=== PATIENT | female | born 1940 | race Two or more races ===

== ENCOUNTER 2017-04-04 09:46 | Emergency (ER) | payer MEDICARE, MEDICAID ==
[~2017-04-04] VITALS: Ht 162.6 cm; Wt 88.0 kg
--- NOTE | 2017-04-04 09:46 | NUR ---
BB PA FROM [facility] GTUBE REMOVAL SINCE 6AM. PT ON [facility] VENT, NAD JOEL, MD GARFIELD AT . WAITING FOR KUB
[2017-04-04 10:43] VITALS: BP 130/60
== END 2017-04-04 10:44 | disposition home or self-care (01) ==
LOC: ER 09:49
DX: Z93.1 Gastrostomy status (principal); G40.909 Epilepsy, unspecified, not intractable, without status epilepticus; E11.22 Type 2 diabetes mellitus with diabetic chronic kidney disease; I13.2 Hypertensive heart and chronic kidney disease with heart failure and with stage 5 chronic kidney disease, or end stage renal disease; I50.9 Heart failure, unspecified; N18.6 End stage renal disease; Z88.8 Allergy status to other drugs, medicaments and biological substances
CPT/HCPCS: 74000-TC; A4606; Q9963; Z7610

== ENCOUNTER 2017-04-04 20:38 | Emergency (ER) | payer MEDICARE, BC ==
[~2017-04-04] VITALS: Ht 175.3 cm; Wt 81.6 kg
--- NOTE | 2017-04-04 22:50 | NUR ---
TO BED 1 [facility] PRIVATE [facility]BULANCE C/O LEAKING G-TUBE PER EMT TRANSPORT REPORT. UPON ASSESSMENT NOTED THAT THE FLANGE OF THE G-TUBE WAS NOT PUSHED AGAINST THE PT SKIN. ER MD AT BEDSIDE TO EVAL PT WITH ORDERS RECEIVED. FLANGE PUSHED INTO AGAINST PT SKIN LOOSELY, VERIFIED VIA G-TUBE FLUSH WITH NO LEAKING NOTED.
--- NOTE | 2017-04-04 22:58 | NUR ---
FRANSISCO VU SPOKE TO [place] [facility] STAFF REGARDING DISCHARGE.
--- NOTE | 2017-04-04 23:00 | NUR ---
FRANSISCO VU SPOKE TO DR. KOCH REGARDING PT.
[2017-04-04 23:08] VITALS: BP 146/67
--- NOTE | 2017-04-04 23:08 | NUR ---
TRANSPORT AT BEDSIDE REPORT GIVEN TO EMT.
== END 2017-04-04 23:11 | disposition home or self-care (01) ==
LOC: ER 20:40
DX: K94.23 Gastrostomy malfunction (principal); E11.22 Type 2 diabetes mellitus with diabetic chronic kidney disease; G40.909 Epilepsy, unspecified, not intractable, without status epilepticus; I13.2 Hypertensive heart and chronic kidney disease with heart failure and with stage 5 chronic kidney disease, or end stage renal disease; I50.9 Heart failure, unspecified; N18.6 End stage renal disease; Z46.59 Encounter for fitting and adjustment of other gastrointestinal appliance and device; Z88.8 Allergy status to other drugs, medicaments and biological substances
CPT/HCPCS: 99284; A4606; Z7610

== ENCOUNTER 2017-06-08 11:45 | Inpatient (IN) | payer MEDICARE, MEDICAID ==
[~2017-06-08] VITALS: Ht 162.6 cm; Wt 86.2 kg
--- NOTE | 2017-06-08 12:02 | NUR ---
GABRIELLE FROM [facility] DT EPISODE OF SOB THIS AM, PATIENT IS AWAKE, NOTED VENT DEPENDENT, SATING 98% AT THIS TIME,. PATIENT APPEARS IN NO APPARENT DISTRESS. VSS
[2017-06-08 12:33] LABS: ABG BASE EXCESS 0.5 mmol/L; ABG OXYGEN SATURATION 93.5 % (92.0-98.5); ABG PCO2 41.8 mmHg (35.0-45.0); ABG PH 7.401 (7.350-7.450); ABG PO2 67.1 mmHg (75.0-100.0); AaDO2 97.7 mmHg; COHb 0.7 % (0.5-1.5); MetHb 0.4 % (0.0-1.5); O2Hb 92.5 % (94.0-97.0); PEEP,BG 5 cm H2O; SITE, ABG Right Radial; VT, ABG 500 mL
[2017-06-08 12:36] LABS: BASOPHILS # (AUTO) 0.7 /CMM (0.0-0.2); BASOPHILS % (AUTO) 4.6 % (0.0-2.0); EOSINOPHILS % (AUTO) 0.3 % (0.0-6.0); HEMATOCRIT 36 % (33-45); HEMOGLOBIN 11.7 g/dL (11.5-14.8); LYMPHOCYTES # (AUTO) 0.5 /CMM (0.8-4.8); LYMPHOCYTES % (AUTO) 3.2 % (20.0-44.0); MEAN CORPUSCULAR HEMOGLOBIN 30 PG (26.0-33.0); MEAN CORPUSCULAR HGB CONC 33 g/dl (31.0-36.0); MEAN CORPUSCULAR VOLUME 93 fL (82-100); MONOCYTES # (AUTO) 0.9 /CMM (0.1-1.30); NEUTROPHILS # (AUTO) 12.5 /CMM (1.8-8.9); NEUTROPHILS % (AUTO) 85.9 % (43.0-81.0); PLATELET COUNT (AUTO) 249 /CMM (150-450); RDW COEFFICIENT OF VARIATION 16.8 (11.5-15.0); WHITE BLOOD COUNT (AUTO) 14.6 K/uL (4.3-11.0)
[2017-06-08 12:41] LABS: CALCIUM, SERUM 9.6 mg/dL (8.5-10.1); CARBON DIOXIDE 27 mmol/L (21-32); CHLORIDE 99 mmol/L (98-107); CREATININE 2.7 mg/dL (0.6-1.3); GLUCOSE 256 mg/dL (74-106); POTASSIUM 2.9 mmol/L (3.5-5.1); SODIUM SERUM 135 mmol/L (136-145); UREA NITROGEN, BLOOD 35 mg/dL (7-18)
[2017-06-08 12:44] LABS: INR 0.97 (0.87-1.13); PROTHROMBIN TIME 10.1 SECS (9.5-12.7)
[2017-06-08 12:53] LABS: B-TYPE NATRIURETIC PEPTIDE 22599 PG/ML (0-125)
--- NOTE | 2017-06-08 13:00 | NUR ---
PAGED 'S GROUP, FACE BURLER, PAGED TO CALL BACK
--- NOTE | 2017-06-08 13:34 | NUR ---
TELE 108
--- NOTE | 2017-06-08 14:27 | NUR ---
REPORT GIVEN TO YENNY COOLEY
--- NOTE | 2017-06-08 15:33 | NUR ---
PATIENT TRANSPORTED TO TELE1. S
[2017-06-08 16:00] VITALS: BP_SYST 110; BP_SYST 124; BP_DIAS 44; BP_DIAS 86
--- NOTE | 2017-06-08 16:00 | NUR ---
RN SAEED RECEIVED PATIENT FROM ER ON MECHANICAL VENTILATORY SUPPORT SATURATING 98% ALERT /ORIENTED X 2-3 AFEBRILE BLOOD PRESSURE WNL NO COMPLAINTS OF PAIN CALLED UP DR. HOPKINS FOR ORDERS MONITORED CLOSELY
[2017-06-08] MEDS ORDERED: DEXTROSE 50%-WATER 50 ML DISP.SYRIN IV PRN (17:00)
[2017-06-08] MEDS ORDERED: ACETAMINOPHEN 325 MG TABLET PO PRN (17:00)
[2017-06-08] MEDS ORDERED: ALBUTEROL FS 2.5 MG/0.5 ML VIAL.NEB NEB PRN (17:00)
[2017-06-08] MEDS ORDERED: ONDANSETRON HCL/PF 4 MG/2 ML VIAL IV PRN (17:00)
[2017-06-08] MEDS ORDERED: MINOXIDIL (2.5MG) 2.5 MG TABLET PO PRN (17:00)
[2017-06-08] MEDS ORDERED: risperiDONE 1 MG TABLET PO PRN (17:00)
--- NOTE | 2017-06-08 17:00 | NUR ---
RN SAEED ON DIALYSIS, MONITORED CLOSELY
[2017-06-08] MEDS ORDERED: FIBERSOURCE HN 1,000 ML BOTTLE GT PRN (17:30)
[2017-06-08] MEDS ORDERED: RENAL NOVASOURCE 1,000 ML BOTTLE GT PRN (17:30)
[2017-06-08] MEDS: INSULIN REGULAR, HUMAN 100 UNIT/ML 3 ML VIAL SQ PRN (17:46)
[2017-06-08] MEDS: BLOOD SUGAR DIAGNOSTIC 1 EACH STRIP IN SCH (17:50)
[2017-06-08] MEDS ORDERED: BUDESONIDE RESPULE INH 0.25 MG/2 ML AMPUL.NEB NEB SCH (19:30)
[2017-06-08] MEDS: BUDESONIDE RESPULE INH 0.5 MG/2 ML AMPUL.NEB NEB SCH (19:44)
[2017-06-08 20:00] VITALS: BP 130/38
[2017-06-08] MEDS: LEVETIRACETAM SOL (5 ML) 100 MG/ML UDC PO SCH (21:43)
[2017-06-08] MEDS: Z GUARD REMEDY 2 OZ OINT TP SCH ×2 (21:44→21:50)
[2017-06-09] VITALS: BP 127/63
[2017-06-09] MEDS: BLOOD SUGAR DIAGNOSTIC 1 EACH STRIP IN SCH ×5 (01:01→23:57)
[2017-06-09] MEDS: INSULIN REGULAR, HUMAN 100 UNIT/ML 3 ML VIAL SQ PRN ×4 (01:06→17:52)
[2017-06-09 04:00] VITALS: BP 186/85
[2017-06-09] MEDS: hydrALAZINE HCL 50 MG TABLET PO PRN (05:20)
--- NOTE | 2017-06-09 07:15 | NUR ---
RN OPENING NOTE RECVD REPORT FROM NAMAN RN. AAO2. HOB ELEVATED. VENT TRACH. TELE SR PVCS. NOVASOURCE GT 40ML HR. RH 20G SL. RUC SUBCLAVIAN HD ACCESS. TROP 0.135 BNP 22,599. BLD CULT PDG. URINE CULT SENT THIS AM BY NAMAN RN PDG RESULTS. BED IN LOW LOCK POSITION. SIDE RAILS X 2. CALL LIGHT IN REACH. WILL CONT TO ETTA CLOSELY.
[2017-06-09 07:46] LABS: BASOPHILS % (AUTO) 0.4 % (0.0-2.0); EOSINOPHILS # (AUTO) 0.5 /CMM (0.0-0.7); EOSINOPHILS % (AUTO) 5.3 % (0.0-6.0); HEMATOCRIT 38 % (33-45); HEMOGLOBIN 12.1 g/dL (11.5-14.8); LYMPHOCYTES % (AUTO) 9.6 % (20.0-44.0); MEAN CORPUSCULAR HEMOGLOBIN 30 PG (26.0-33.0); MEAN CORPUSCULAR HGB CONC 32 g/dl (31.0-36.0); MEAN CORPUSCULAR VOLUME 94 fL (82-100); MONOCYTES # (AUTO) 0.8 /CMM (0.1-1.30); MONOCYTES % (AUTO) 8.1 % (2.0-12.0); NEUTROPHILS # (AUTO) 7.7 /CMM (1.8-8.9); NEUTROPHILS % (AUTO) 76.6 % (43.0-81.0); PLATELET COUNT (AUTO) 216 /CMM (150-450); RDW COEFFICIENT OF VARIATION 18.2 (11.5-15.0); RED BLOOD CELL COUNT(AUTO) 4.04 MIL/uL (4.0-5.2); WHITE BLOOD COUNT (AUTO) 10.1 K/uL (4.3-11.0)
[2017-06-09 07:59] LABS: CHOLESTEROL 127 mg/dL (<200); HDL CHOLESTEROL 50 mg/dL (40-60); LDL 62 mg/dL (0-99); TRIGLYCERIDES 135 mg/dL (30-150)
[2017-06-09 08:00] VITALS: BP 161/49
[2017-06-09 08:02] LABS: ALANINE AMINOTRANSFERASE 17 U/L (12-78); ALBUMIN 3.5 g/dL (3.4-5.0); ALKALINE PHOSPHATASE 87 U/L (46-116); ASPARTATE AMINOTRANSFERASE 15 U/L (15-37); CALCIUM, SERUM 9.3 mg/dL (8.5-10.1); CARBON DIOXIDE 29 mmol/L (21-32); CHLORIDE 98 mmol/L (98-107); CREATININE 2.7 mg/dL (0.6-1.3); GLUCOSE 177 mg/dL (74-106); POTASSIUM 3.1 mmol/L (3.5-5.1); SODIUM SERUM 137 mmol/L (136-145); TOTAL PROTEIN, SERUM 7.4 g/dL (6.4-8.2); UREA NITROGEN, BLOOD 30 mg/dL (7-18)
[2017-06-09] MEDS: BUDESONIDE RESPULE INH 0.5 MG/2 ML AMPUL.NEB NEB SCH ×2 (08:32→19:44)
[2017-06-09] MEDS: AMLODIPINE BESYLATE 10 MG TABLET PO SCH (08:45)
[2017-06-09] MEDS: LEVETIRACETAM SOL (5 ML) 100 MG/ML UDC PO SCH ×2 (08:45→21:00)
[2017-06-09] MEDS: Z GUARD REMEDY 2 OZ OINT TP SCH ×2 (08:45→21:56)
[2017-06-09] MEDS: VIT B CMPLX 3/FA/VIT C/BIOTIN 1 TAB TABLET PO SCH (08:45)
[2017-06-09] MEDS: LEVOTHYROXINE SODIUM 125 MCG TABLET PO SCH (08:49)
[2017-06-09 11:28] LABS: ABG BASE EXCESS 4.7 mmol/L; ABG OXYGEN SATURATION 97.3 % (92.0-98.5); ABG PCO2 41.7 mmHg (35.0-45.0); ABG PH 7.459 (7.350-7.450); ABG PO2 94.4 mmHg (75.0-100.0); AaDO2 142.8 mmHg; COHb 0.6 % (0.5-1.5); MetHb 0.5 % (0.0-1.5); O2Hb 96.2 % (94.0-97.0); PEEP,BG 5 cm H2O; SITE, ABG Right Radial; VT, ABG 500 mL
[2017-06-09] MEDS ORDERED: POTASSIUM CHLORIDE 20 MEQ TAB.PRT.SR PO ONE (11:30)
[2017-06-09 12:00] VITALS: BP 145/71
--- NOTE | 2017-06-09 15:31 | NUR ---
HANDOFF REPORT TO ALFONSO RAMON.
[2017-06-09 16:00] VITALS: BP 142/47
--- NOTE | 2017-06-09 16:00 | NUR ---
Report received from Shola RAMON, and now assuming pt's care, pt is awake alert x3, on a vent, incontinent of B/B, Gt in place novasource renal at 40 ml/h, reposition for comfort.
--- NOTE | 2017-06-09 18:55 | NUR ---
End RN notes: pt in bed repositioned for comfort, on vent no changes in setting, gt feeding at continues feeding 40 ml/h, no distress.
--- NOTE | 2017-06-09 19:30 | NUR ---
RN/TELE NOTES: RECEIVED PT. IN BED. NO FACIAL GRIMACES OR MOANING NOTED. AAO2. ON TELE MONITOR SR W/ PVC'S. HOB ELEVATED. VENT SETTING TOLERATED WELL. NOVASOURCE GT 40ML HR. NO RESIDUAL NOTED. RH 20G SL. RUC SUBCLAVIAN HD ACCESS. NOT IN ANY RESPIRATORY DISTRESS NOTED. BED IN LOW LOCK POSITION. SIDE RAILS X 2. CALL LIGHT IN REACH. WILL CONT TO ETTA CLOSELY.
[2017-06-09 20:00] VITALS: BP 133/63
[2017-06-10] VITALS: BP 150/61
[2017-06-10 04:00] VITALS: BP_SYST 151; BP_SYST 160; BP_DIAS 57; BP_DIAS 58
[2017-06-10] MEDS: BLOOD SUGAR DIAGNOSTIC 1 EACH STRIP IN SCH ×4 (05:30→23:39)
[2017-06-10] MEDS: INSULIN REGULAR, HUMAN 100 UNIT/ML 3 ML VIAL SQ PRN ×5 (05:35→23:42)
[2017-06-10 06:44] LABS: BASOPHILS % (AUTO) 0.2 % (0.0-2.0); EOSINOPHILS # (AUTO) 1.2 /CMM (0.0-0.7); EOSINOPHILS % (AUTO) 11.8 % (0.0-6.0); HEMATOCRIT 35 % (33-45); HEMOGLOBIN 11.3 g/dL (11.5-14.8); LYMPHOCYTES # (AUTO) 1.2 /CMM (0.8-4.8); LYMPHOCYTES % (AUTO) 11.4 % (20.0-44.0); MEAN CORPUSCULAR HEMOGLOBIN 30 PG (26.0-33.0); MEAN CORPUSCULAR HGB CONC 32 g/dl (31.0-36.0); MEAN CORPUSCULAR VOLUME 94 fL (82-100); MONOCYTES # (AUTO) 0.9 /CMM (0.1-1.30); MONOCYTES % (AUTO) 8.7 % (2.0-12.0); NEUTROPHILS % (AUTO) 67.9 % (43.0-81.0); PLATELET COUNT (AUTO) 212 /CMM (150-450); RDW COEFFICIENT OF VARIATION 18.1 (11.5-15.0); RED BLOOD CELL COUNT(AUTO) 3.76 MIL/uL (4.0-5.2); WHITE BLOOD COUNT (AUTO) 10.3 K/uL (4.3-11.0)
[2017-06-10 06:58] LABS: CALCIUM, SERUM 9.3 mg/dL (8.5-10.1); CARBON DIOXIDE 30 mmol/L (21-32); CHLORIDE 99 mmol/L (98-107); CREATININE 3.5 mg/dL (0.6-1.3); GLUCOSE 185 mg/dL (74-106); MAGNESIUM 2.5 mg/dL (1.8-2.4); PHOSPHORUS 2.9 mg/dL (2.5-4.9); POTASSIUM 3.2 mmol/L (3.5-5.1); SODIUM SERUM 136 mmol/L (136-145); UREA NITROGEN, BLOOD 46 mg/dL (7-18)
--- NOTE | 2017-06-10 07:37 | NUR ---
RN/TELE NURSE: PT. IN BED RESTING. HD GOING ON RIGHT NOW. REPORT GIVEN TO NEXT SHIFT NURSE FOR ROLANDO.
[2017-06-10] MEDS: BUDESONIDE RESPULE INH 0.5 MG/2 ML AMPUL.NEB NEB SCH ×2 (07:48→19:46)
[2017-06-10 08:00] VITALS: BP 148/50
--- NOTE | 2017-06-10 08:00 | NUR ---
TELE1/RN AM SHIFT INITIAL NOTES RECEIVED AT ASLEEP IN BED, AROUSEABLE, PT A/O X 3, PT DENIES ANY SYMPTOMS. SHE IS BEING DIALYZED AT THIS TIME. NO ACUTE CHANGE OF CONDITION. ON VENTILATOR SUPPORT, RATES SET PRESCRIBED, LUNG SOUNDS CLEAR, SATURATING @ 100%, ON TELE MONITORING, WITH SINUS RHYTHM, FIRST DEGREE AV BLOCK WITH FREQUENT PVCs & PACs. IV SITE PATENT WITH NO S/S OF INFECTION. GTF ON GOING @ 40CC/HR, NO GASTRIC RESIDUAL, FLUSHED PATENT. DVT SLEEVE IN PLACED, PUMP ON. PT IS COMFORTABLE AT THIS TIME. SCHEDULED AM MEDS TO BE GIVEN. CL WITHIN REACHED AND SAFETY MAINTAINED. ON GOING MONITORING.
--- NOTE | 2017-06-10 08:14 | NUR ---
WOUND CARE CONSULT: PT NOT SEEN YET FOR SKIN ASSESSMENT DUE TO PT ON DIALYSIS AT THIS TIME. PER NURSING DOCUMENTATION THERE IS SACRAL ULCER, AT LEAST PARTIAL THICKNESS, PRESENT ON ADMISSION. RECOMMENDATIONS MADE BASED ON NURSING DOCUMENTATION. PT ON FIRST STEP MATTRESS. ALL SKIN PROTECTION MEASURES IN PLACE AND DISCUSSED WITH NURSING STAFF. WILL SEE PRBee VU IN AGREEMENT WITH PLAN OF CARE.
[2017-06-10] MEDS ORDERED: HYDROGEL DRESSING 90 GM TUBE TP PRN (08:30)
[2017-06-10] MEDS: LEVETIRACETAM SOL (5 ML) 100 MG/ML UDC PO SCH ×2 (09:43→21:36)
[2017-06-10] MEDS: VIT B CMPLX 3/FA/VIT C/BIOTIN 1 TAB TABLET PO SCH (09:43)
[2017-06-10] MEDS: LEVOTHYROXINE SODIUM 125 MCG TABLET PO SCH (09:43)
[2017-06-10] MEDS: HYDROGEL DRESSING 90 GM TUBE TP SCH (09:44)
[2017-06-10] MEDS: Z GUARD REMEDY 2 OZ OINT TP SCH ×2 (09:44→21:37)
[2017-06-10] MEDS: AMLODIPINE BESYLATE 10 MG TABLET PO SCH (09:44)
[2017-06-10] MEDS ORDERED: RENAL NOVASOURCE 1,000 ML BOTTLE GT PRN (10:30)
[2017-06-10 12:00] VITALS: BP 176/48
--- NOTE | 2017-06-10 12:33 | NUR ---
WOUND CARE CONSULT: PT PRESENTS WITH STAGE 2 ULCER TO SACRUM, PRESENT ON ADMISSION. RECOMMENDATIONS MADE FOR SKIN PROTECTION AND WOUND CARE. DISCUSSED WITH NURSING STAFF. PT ON FIRST STEP MATTRESS. ALL SKIN PROTECTION MEASURES IN PLACE. WILL SEE PRBee VU IN AGREEMENT WITH PLAN OF CARE.
--- NOTE | 2017-06-10 13:04 | NUR ---
TELE1/RN ROUNDS - DR. TURCIOS PT SEEN & EXAMINED BY DR. TURCIOS. NO NEW ORDERS RECEIVED. MONITORING CONTINUED.
[2017-06-10 16:00] VITALS: BP 151/57
--- NOTE | 2017-06-10 16:02 | NUR ---
RT NOTE PT RECEIVED ON MECHANICAL VENT WITH NOTED SETTINGS, NO RESPIRATORY DISTRESS NOTED, TX GIVEN ORDERED NO ADVERSE REACTION NOTED, AMBUBAG AT BEDSIDE, VENT PLUGGED INTO RED OUTLET, DISCONNECT ALARM VERIFIED AND AUDIBLE SXD MODERATE AMOUNT OF THICK PALE YELLOW SECRETIONS, PT STABLE AT THIS TIME. Addendum: 06/10/17 at 1603 by GORDO ELIZABETH RT Amended: Links added.
--- NOTE | 2017-06-10 17:00 | NUR ---
TELE1/RN AFTERNOON ROUNDS PM CARE PROVIDED, SUCTIONED AND REPOSITIONED. NO CHANGE OF CONDITION. MONITORING CONTINUED.
[2017-06-10] MEDS: PROSOURCE / PROSTAT (PYXIS) 30 ML UDC GT SCH (17:59)
--- NOTE | 2017-06-10 19:30 | NUR ---
TELE1/RN AM SHIFT END NOTES ALL NEEDS MET. NO ACUTE CHANGE OF CONDITION NOTED DURING THE SHIFT. PT ENDORSED TO PM NURSE TO CONTINUE CARE. CL WITHIN REACHED AND SAFETY MAINTAINED.
--- NOTE | 2017-06-10 19:30 | NUR ---
RN/TELE NOTES: RECEIVED PT. IN BED. NO FACIAL GRIMACES OR MOANING NOTED. AAO2. ON TELE MONITOR SR 78 W/ PVC'S. HOB ELEVATED. VENT SETTING TOLERATED WELL. NOVASOURCE GT 40ML HR. NO RESIDUAL NOTED. RH 20G SL. RUC SUBCLAVIAN HD ACCESS. NOT IN ANY RESPIRATORY DISTRESS NOTED. BED IN LOW LOCK POSITION. SIDE RAILS X 2. CALL LIGHT IN REACH. WILL CONT TO MOISAEIDOR CLOSELY.
[2017-06-10 20:00] VITALS: BP 137/65
[2017-06-11] VITALS: BP 165/82
[2017-06-11 04:00] VITALS: BP_SYST 144; BP_SYST 148; BP_DIAS 61; BP_DIAS 70
[2017-06-11] MEDS: INSULIN REGULAR, HUMAN 100 UNIT/ML 3 ML VIAL SQ PRN ×2 (05:13→12:19)
[2017-06-11] MEDS: BLOOD SUGAR DIAGNOSTIC 1 EACH STRIP IN SCH ×3 (05:25→18:16)
--- NOTE | 2017-06-11 07:33 | NUR ---
RN/TELE NOTES: PT. REMAINS UNCHANGED. ON VENT/GTF TOLERATED WELL. COMPLETE BED BATH GIVEN. REPORT GIVEN TO NEXT SHIFT NURSE FOR CONTINUE OF CARE.
[2017-06-11 08:00] VITALS: BP 182/49
--- NOTE | 2017-06-11 08:00 | NUR ---
TELE1/RN AM SHIFT INITIAL NOTES RECEIVED PT AWAKE IN BED, PT A/O X 3, ABLE TO MOUTH WORDS, PT DENIES ANY SYMPTOMS. NO ACUTE CHANGE OF CONDITION NOTED. ON VENTILATOR SUPPORT, RATES SET PRESCRIBED, LUNG SOUNDS CLEAR, SATURATING @ 100%, ON TELE MONITORING, WITH SINUS RHYTHM, FIRST DEGREE AV BLOCK WITH FREQUENT PVCs & PACs, HR 61. IV SITE, FLUSHED, PATENT WITH NO S/S OF INFECTION. GTF ON GOING @ 30CC/HR, NO GASTRIC RESIDUAL, FLUSHED PATENT. DVT SLEEVE IN PLACED, PUMP ON. PT IS COMFORTABLE AT THIS TIME. SCHEDULED AM MEDS TO BE GIVEN. CL WITHIN REACHED AND SAFETY MAINTAINED. ON GOING MONITORING.
[2017-06-11] MEDS: VIT B CMPLX 3/FA/VIT C/BIOTIN 1 TAB TABLET PO SCH (08:52)
[2017-06-11] MEDS: LEVOTHYROXINE SODIUM 125 MCG TABLET PO SCH (08:52)
[2017-06-11] MEDS: PROSOURCE / PROSTAT (PYXIS) 30 ML UDC GT SCH ×2 (08:52→16:36)
[2017-06-11] MEDS: LEVETIRACETAM SOL (5 ML) 100 MG/ML UDC PO SCH ×2 (08:52→20:45)
[2017-06-11] MEDS: Z GUARD REMEDY 2 OZ OINT TP SCH ×2 (08:53→20:45)
[2017-06-11] MEDS: HYDROGEL DRESSING 90 GM TUBE TP SCH (08:53)
[2017-06-11] MEDS: AMLODIPINE BESYLATE 10 MG TABLET PO SCH (08:53)
[2017-06-11] MEDS: BUDESONIDE RESPULE INH 0.5 MG/2 ML AMPUL.NEB NEB SCH ×2 (11:00→20:10)
[2017-06-11 12:00] VITALS: BP 175/53
--- NOTE | 2017-06-11 12:00 | NUR ---
TELE1/RN NOON ROUNDS SUCTIONED AND REPOSITIONED. NO CHANGE OF CONDITION.
[2017-06-11 16:00] VITALS: BP 144/61
--- NOTE | 2017-06-11 17:33 | NUR ---
TELE1/RN AFTERNOON ROUNDS PM CARE PROVIDED, SUCTIONED AND REPOSITIONED. NO CHANGE OF CONDITION. MONITORING CONTINUED.
--- NOTE | 2017-06-11 19:30 | NUR ---
RN/TELE NOTES: RECEIVED PT. IN BED. NO FACIAL GRIMACES OR MOANING NOTED. AAO2. ON TELE MONITOR SB W/ 1 DEGREE AV BLOCK. HOB ELEVATED. VENT SETTING TOLERATED WELL. NOVASOURCE GT 30ML HR. NO RESIDUAL NOTED. RH 20G SL. RUC SUBCLAVIAN HD ACCESS. NOT IN ANY RESPIRATORY DISTRESS NOTED. BED IN LOW LOCK POSITION. SIDE RAILS X 2. CALL LIGHT IN REACH. WILL CONT TO MONITOR CLOSELY.
[2017-06-11 20:00] VITALS: BP 185/79
[2017-06-11] MEDS: hydrALAZINE HCL 50 MG TABLET PO PRN (21:54)
[2017-06-12] VITALS (7 sets, daily range): BP systolic 155–189; BP diastolic 48–72
[2017-06-12] MEDS: BLOOD SUGAR DIAGNOSTIC 1 EACH STRIP IN SCH ×4 (00:10→17:16)
[2017-06-12] MEDS: INSULIN REGULAR, HUMAN 100 UNIT/ML 3 ML VIAL SQ PRN ×4 (00:14→17:54)
[2017-06-12 06:39] LABS: BASOPHILS % (AUTO) 0.4 % (0.0-2.0); EOSINOPHILS # (AUTO) 1.2 /CMM (0.0-0.7); EOSINOPHILS % (AUTO) 10.5 % (0.0-6.0); HEMATOCRIT 38 % (33-45); HEMOGLOBIN 12.1 g/dL (11.5-14.8); LYMPHOCYTES # (AUTO) 1.1 /CMM (0.8-4.8); LYMPHOCYTES % (AUTO) 10.3 % (20.0-44.0); MEAN CORPUSCULAR HEMOGLOBIN 30 PG (26.0-33.0); MEAN CORPUSCULAR HGB CONC 32 g/dl (31.0-36.0); MEAN CORPUSCULAR VOLUME 94 fL (82-100); MONOCYTES # (AUTO) 0.9 /CMM (0.1-1.30); MONOCYTES % (AUTO) 8.1 % (2.0-12.0); NEUTROPHILS # (AUTO) 7.8 /CMM (1.8-8.9); NEUTROPHILS % (AUTO) 70.7 % (43.0-81.0); PLATELET COUNT (AUTO) 223 /CMM (150-450); RDW COEFFICIENT OF VARIATION 18.2 (11.5-15.0); RED BLOOD CELL COUNT(AUTO) 3.99 MIL/uL (4.0-5.2)
[2017-06-12] MEDS: BUDESONIDE RESPULE INH 0.5 MG/2 ML AMPUL.NEB NEB SCH ×2 (07:08→19:22)
[2017-06-12 07:14] LABS: CALCIUM, SERUM 9.6 mg/dL (8.5-10.1); CARBON DIOXIDE 31 mmol/L (21-32); CHLORIDE 100 mmol/L (98-107); CREATININE 3.8 mg/dL (0.6-1.3); GLUCOSE 157 mg/dL (74-106); MAGNESIUM 2.5 mg/dL (1.8-2.4); PHOSPHORUS 3.4 mg/dL (2.5-4.9); POTASSIUM 3.3 mmol/L (3.5-5.1); SODIUM SERUM 140 mmol/L (136-145); UREA NITROGEN, BLOOD 68 mg/dL (7-18)
--- NOTE | 2017-06-12 07:58 | NUR ---
TELE/RN OPENING NOTE PATIENT RECEIVED IN BED IN STABLE CONDITION. A/O X 3. NO SIGNS OF ACUTE DISTRESS. NO COMPLAIN OF PAIN OR DISCOMFORT. TRACH AND VENT DEPENDENT TOLERATING WELL. ON TELE MONITOR WITH SINUS BRADYCARDIA IN HIGH 50's. ALL NEEDS ATTENDED TO AT THIS TIME. CALL LIGHT WITHIN REACH. WILL CONTINUE TO MONITOR TO ENSURE SAFETY.
[2017-06-12] MEDS: LEVOTHYROXINE SODIUM 125 MCG TABLET PO SCH (08:54)
[2017-06-12] MEDS: LEVETIRACETAM SOL (5 ML) 100 MG/ML UDC PO SCH ×2 (08:54→21:53)
[2017-06-12] MEDS: VIT B CMPLX 3/FA/VIT C/BIOTIN 1 TAB TABLET PO SCH (08:54)
[2017-06-12] MEDS: PROSOURCE / PROSTAT (PYXIS) 30 ML UDC GT SCH ×2 (08:55→17:16)
[2017-06-12] MEDS: Z GUARD REMEDY 2 OZ OINT TP SCH ×2 (08:55→21:54)
[2017-06-12] MEDS: HYDROGEL DRESSING 90 GM TUBE TP SCH (08:55)
[2017-06-12] MEDS: AMLODIPINE BESYLATE 10 MG TABLET PO SCH (08:56)
--- NOTE | 2017-06-12 08:56 | NUR ---
TELE/RN BELLA HELD PATIENT NOTED WITH ELEVATED BP OF 189/68, CURRENTLY HAVING HEMODIALYSIS. THEREFORE HELD BELLA, HD NURSE AWARE.
[2017-06-12] MEDS: hydrALAZINE HCL 50 MG TABLET PO PRN (10:59)
--- NOTE | 2017-06-12 18:46 | NUR ---
TELE/RN CLOSING NOTE PATIENT IN BED IN STABLE CONDITION. A/O X 1-2. NO SIGNS OF ACUTE DISTRESS. NO COMPLAIN OR PAIN OR DISCOMFORT. ON TRACH AND VENT DEPENDENT. TOLERATING WELL. ON GTUBE FEEDING NOVASOURCE AT 30ML/HR. TOLERATING WELL. ALL NEEDS ATTENDED TO. CALL LIGHT WITHIN REACH. WILL ENDORSE TO NEXT SHIFT FOR CONTINUITY OF CARE.
[2017-06-12] MEDS ORDERED: PERMETHRIN 5% CRM 60 GM TUBE TP ONE (21:30)
--- NOTE | 2017-06-12 21:30 | NUR ---
RN/TELE NOTES: LAURA PEREIRA MAINTENANCE OPERATOR ID CAME AND EXAMINED PT. W/ NEW ORDERS FOR ELIMITE CREAM. PT. TRANSFERED TO ROOM # 102.
[2017-06-13] VITALS: BP 160/77
[2017-06-13] MEDS: BLOOD SUGAR DIAGNOSTIC 1 EACH STRIP IN SCH ×3 (00:17→12:19)
[2017-06-13] MEDS: INSULIN REGULAR, HUMAN 100 UNIT/ML 3 ML VIAL SQ PRN ×2 (00:20→12:14)
[2017-06-13] MEDS ORDERED: PERMETHRIN 5% CRM 60 GM TUBE TP ONE (00:36)
[2017-06-13] MEDS: hydrALAZINE HCL 50 MG TABLET PO PRN (05:50)
[2017-06-13 06:00] VITALS: BP 180/74
--- NOTE | 2017-06-13 06:55 | NUR ---
RN/TELE NOTES: BP 180/74 PRN HYDRALAZINE GIVEN AT 6 A.M. BP RECHECKED AT 6:50 AM 112/53 HR 54. REPORT GIVEN TO NEXT SHIFT NURSE FOR CONTINUE OF CARE.
[2017-06-13 07:03] LABS: BASOPHILS % (AUTO) 0.4 % (0.0-2.0); EOSINOPHILS # (AUTO) 1.1 /CMM (0.0-0.7); EOSINOPHILS % (AUTO) 11.8 % (0.0-6.0); HEMATOCRIT 39 % (33-45); HEMOGLOBIN 12.4 g/dL (11.5-14.8); LYMPHOCYTES # (AUTO) 1.3 /CMM (0.8-4.8); LYMPHOCYTES % (AUTO) 14.2 % (20.0-44.0); MEAN CORPUSCULAR HEMOGLOBIN 30 PG (26.0-33.0); MEAN CORPUSCULAR HGB CONC 32 g/dl (31.0-36.0); MEAN CORPUSCULAR VOLUME 94 fL (82-100); MONOCYTES # (AUTO) 0.9 /CMM (0.1-1.30); MONOCYTES % (AUTO) 9.3 % (2.0-12.0); NEUTROPHILS # (AUTO) 6.1 /CMM (1.8-8.9); NEUTROPHILS % (AUTO) 64.3 % (43.0-81.0); PLATELET COUNT (AUTO) 206 /CMM (150-450); RDW COEFFICIENT OF VARIATION 17.5 (11.5-15.0); RED BLOOD CELL COUNT(AUTO) 4.12 MIL/uL (4.0-5.2); WHITE BLOOD COUNT (AUTO) 9.4 K/uL (4.3-11.0)
--- NOTE | 2017-06-13 07:05 | NUR ---
RN NOTES: RECEIVED PT. ON BED, NON VERBAL , VENT/ TRACH DEPENDENT , TRACH CARE DONE, TOLERATING CURRENT VENT SETTING WELL, ON TELE SB HR 54, NOVASOURCE AT 30 CC/HR RUNNING VIA GT , NO RESIDUAL NOTED, R H IV 20G AND R UPPER CHEST HD CATH SITES CDI, BED LOCKED AND IN LOWEST POSITION , SR UP x3, CALL LIGHT WITHIN EASY REACH, WILL CONT TO MONITOR CLOSELY.
[2017-06-13] MEDS ORDERED: IVERMECTIN 3 MG TABLET PO ONE (07:11)
[2017-06-13 07:22] LABS: CALCIUM, SERUM 9.6 mg/dL (8.5-10.1); CARBON DIOXIDE 32 mmol/L (21-32); CHLORIDE 101 mmol/L (98-107); CREATININE 3.5 mg/dL (0.6-1.3); GLUCOSE 136 mg/dL (74-106); MAGNESIUM 2.5 mg/dL (1.8-2.4); PHOSPHORUS 3.9 mg/dL (2.5-4.9); POTASSIUM 3.4 mmol/L (3.5-5.1); SODIUM SERUM 141 mmol/L (136-145); UREA NITROGEN, BLOOD 64 mg/dL (7-18)
[2017-06-13] MEDS: BUDESONIDE RESPULE INH 0.5 MG/2 ML AMPUL.NEB NEB SCH (07:30)
[2017-06-13 08:00] VITALS: BP 149/54
[2017-06-13] MEDS: LEVETIRACETAM SOL (5 ML) 100 MG/ML UDC PO SCH (08:30)
[2017-06-13] MEDS: LEVOTHYROXINE SODIUM 125 MCG TABLET PO SCH (08:31)
[2017-06-13] MEDS: AMLODIPINE BESYLATE 10 MG TABLET PO SCH (08:31)
[2017-06-13] MEDS: VIT B CMPLX 3/FA/VIT C/BIOTIN 1 TAB TABLET PO SCH (08:31)
[2017-06-13] MEDS: Z GUARD REMEDY 2 OZ OINT TP SCH (08:32)
[2017-06-13] MEDS: HYDROGEL DRESSING 90 GM TUBE TP SCH (08:33)
[2017-06-13] MEDS: PROSOURCE / PROSTAT (PYXIS) 30 ML UDC GT SCH ×2 (08:34→17:03)
[2017-06-13 09:27] LABS: BAND % (MANUAL) 1 % (0.0-5.0); EOSINOPHILS % (MANUAL) 16 % (0-4); LYMPHOCYTES % (MANUAL) 6 % (16-48); MONOCYTES % (MANUAL) 3 % (0-11.0); NEUTROPHILS % (MANUAL) 74 (42-76)
[2017-06-13 12:00] VITALS: BP 135/51
--- NOTE | 2017-06-13 15:00 | NUR ---
RN NOTES REPORT GIVE TO SNF ,PT STABLE , CONTINUE TO MONITOR
[2017-06-13 16:00] VITALS: BP 127/46
--- NOTE | 2017-06-13 18:03 | NUR ---
RN NOTES REPORT GIVEN TO EMT , R HAND IV SITE D/KIRILL, PT STABLE , DISCHARGE PHOTO TAKEN , PT LEFT THE FLOOR TO MAIN ENTRANCE ACCOMPANIED BY EMT IN STABLE CONDITION .
== END 2017-06-13 18:11 | DRG 291 ==
LOC: ER 11:46 → TELE1 13:39
PROVIDERS: ADMIT Internal Medicine; ATTEND Internal Medicine
PROC: 5A1955Z Respiratory Ventilation, Greater than 96 Consecutive Hours (ICD-10-PCS; principal; 2017-06-08)
PROC: 5A1D70Z Performance of Urinary Filtration, Intermittent, Less than 6 Hours Per Day (ICD-10-PCS; 2017-06-08)
DX: I13.2 Hypertensive heart and chronic kidney disease with heart failure and with stage 5 chronic kidney disease, or end stage renal disease (principal); N18.6 End stage renal disease; J96.21 Acute and chronic respiratory failure with hypoxia; Z99.11 Dependence on respirator [ventilator] status; L89.152 Pressure ulcer of sacral region, stage 2; N17.9 Acute kidney failure, unspecified; E11.22 Type 2 diabetes mellitus with diabetic chronic kidney disease; E11.649 Type 2 diabetes mellitus with hypoglycemia without coma; L89.619 Pressure ulcer of right heel, unspecified stage; R65.10 Systemic inflammatory response syndrome (SIRS) of non-infectious origin without acute organ dysfunction; I50.33 Acute on chronic diastolic (congestive) heart failure; J98.11 Atelectasis; B86 Scabies; D72.829 Elevated white blood cell count, unspecified; Z93.0 Tracheostomy status; I50.9 Heart failure, unspecified; Z99.2 Dependence on renal dialysis; E03.9 Hypothyroidism, unspecified; E87.6 Hypokalemia; I25.10 Atherosclerotic heart disease of native coronary artery without angina pectoris; G40.909 Epilepsy, unspecified, not intractable, without status epilepticus; Z93.1 Gastrostomy status; R55 Syncope and collapse; L98.8 Other specified disorders of the skin and subcutaneous tissue; J44.9 Chronic obstructive pulmonary disease, unspecified; F03.90 Unspecified dementia, unspecified severity, without behavioral disturbance, psychotic disturbance, mood disturbance, and anxiety; Z79.4 Long term (current) use of insulin; Z79.84 Long term (current) use of oral hypoglycemic drugs
CPT/HCPCS: 31720; 36415; 36600; 71010-TC; 71250-TC; 80048-TC; 80053-TC; 80061-TC; 82803-TC; 82962-TC; 83735-TC; 83880; 84100-TC; 84484-TC; 85025-TC; 85730-TC; 87040-TC; 87070-TC; 87081-TC; 87186-TC; 90935-TC; 93307-TC; 93880-TC; 94002-TC; 94003-TC; 99082-TC; A4606; A6248; A6402; A6403; J1815; J1953; J7070; Z7610

== ENCOUNTER 2017-11-28 11:44 | Inpatient (IN) | payer BC, MEDICARE, MEDICAID ==
[~2017-11-28] VITALS: Ht 157.5 cm; Wt 65.8 kg
[2017-11-28 11:59] VITALS: BP 136/59
[2017-11-28 11:59] LABS: BASOPHILS # (AUTO) 0.1 /CMM (0.0-0.2); BASOPHILS % (AUTO) 0.6 % (0.0-2.0); HEMATOCRIT 28 % (33-45); HEMOGLOBIN 9.9 g/dL (11.5-14.8); LYMPHOCYTES # (AUTO) 2.7 /CMM (0.8-4.8); LYMPHOCYTES % (AUTO) 15.9 % (20.0-44.0); MEAN CORPUSCULAR HGB CONC 35 g/dl (31.0-36.0); MEAN CORPUSCULAR VOLUME 98 fL (82-100); MONOCYTES # (AUTO) 1.7 /CMM (0.1-1.30); MONOCYTES % (AUTO) 9.9 % (2.0-12.0); NEUTROPHILS # (AUTO) 11.1 /CMM (1.8-8.9); NEUTROPHILS % (AUTO) 66.6 % (43.0-81.0); PLATELET COUNT (AUTO) 305 /CMM (150-450); RDW COEFFICIENT OF VARIATION 15.6 (11.5-15.0); RED BLOOD CELL COUNT(AUTO) 2.89 MIL/uL (4.0-5.2); WHITE BLOOD COUNT (AUTO) 16.8 K/uL (4.3-11.0)
--- NOTE | 2017-11-28 12:00 | NUR ---
BB [facility] FOR CLOGGED DIALYSIS CATHETER, LAST DIALYSIS ON TUESDAY. SEEN BY MD FOR EVAL. RT AT BS FOR VENT. VSS. PT AWAKE. SAFETY AND COMFORT MEASURES PROVIDED. WILL MONITOR.
[2017-11-28] MEDS ORDERED: LEVE100S GT (12:12)
[2017-11-28] MEDS ORDERED: HYDR-4077 PO (12:12)
[2017-11-28] MEDS ORDERED: MINO2.5T GT (12:12)
[2017-11-28] MEDS ORDERED: SEVE0.8P3 PO (12:12)
[2017-11-28] MEDS ORDERED: INSU100V11 SQ (12:12)
[2017-11-28] MEDS ORDERED: RISP0.5T5 GT (12:12)
[2017-11-28] MEDS ORDERED: AMIN30LI2 GT (12:12)
[2017-11-28] MEDS ORDERED: LEVO125T8 GT (12:12)
[2017-11-28] MEDS ORDERED: HYDR-548 PO (12:12)
[2017-11-28] MEDS ORDERED: DIPH25CA83 PO (12:12)
[2017-11-28] MEDS ORDERED: FOLI0.8T2 GT (12:12)
[2017-11-28] MEDS ORDERED: ASCO500T9 GT (12:12)
[2017-11-28] MEDS ORDERED: DEXT15DR6 EACHEYE (12:12)
[2017-11-28] MEDS ORDERED: ACET-868 GT (12:12)
[2017-11-28] MEDS ORDERED: HEPA50008 SQ (12:12)
[2017-11-28 12:13] LABS: CALCIUM, SERUM 10.9 mg/dL (8.5-10.1); CARBON DIOXIDE 20 mmol/L (21-32); CHLORIDE 101 mmol/L (98-107); CREATININE 5.4 mg/dL (0.6-1.3); GLUCOSE 146 mg/dL (74-106); POTASSIUM 3.9 mmol/L (3.5-5.1); SODIUM SERUM 134 mmol/L (136-145)
[2017-11-28 12:14] LABS: UREA NITROGEN, BLOOD 87 mg/dL (7-18)
--- NOTE | 2017-11-28 12:22 | NUR ---
NEPHROLOGY GROUP CALLED, DR. KOCH ROLLER LEVELER
--- NOTE | 2017-11-28 12:37 | NUR ---
CALLED NURSING SUP. FOR TELE BED
--- NOTE | 2017-11-28 12:43 | NUR ---
TELE 307-2 FOR DIALYSIS CATH. MALFUNCTION
[2017-11-28] MEDS ORDERED: VANCOMYCIN 1 GM in IV D5W 250 ML IV ONE (13:00)
--- NOTE | 2017-11-28 13:02 | NUR ---
REPORT GIVEN TO KENDRA RAMON FOR TELE 307-2.
--- NOTE | 2017-11-28 13:40 | NUR ---
PATIENT ARRIVED FROM ER TO [facility]
[2017-11-28 13:44] LABS: INR 0.96 (0.87-1.13)
[2017-11-28 13:45] VITALS: BP 150/51
--- NOTE | 2017-11-28 13:45 | NUR ---
CURRENTLY ON CONTACT ISOLATION FOR BACK RASH, R/O SCABIES
--- NOTE | 2017-11-28 14:06 | NUR ---
PT TRANSFERRED TO 307 FROM ER BED 11. PT ON ESPRIT VENT. PLUGGED INTO RED OUTLET, ALARMS SET AND AUDIBLE PER POLICY. BEDSIDE PULSE OX PLACED ON PT. PT HAS PORTEX #8 CUFFED TRACH. MUSIC PROFESSOR DONE. PT IS AWAKE AND ALERT. NO RESP. DISTRESS NOTED. Addendum: 11/28/17 at 1408 by NAVDEEP LEROY RT Amended: Links added.
--- NOTE | 2017-11-28 14:46 | NUR ---
SPOKE TO DR KOCH. PER HIS ORDERS, RESUME HOME MEDICATIONS ALSO RESUME CURRENT GTUBE FEEDING OF NOVASOURCE AT 35 CC/HOUR FOR 17 HOURS
[2017-11-28] MEDS ORDERED: INSULIN ASPART/LISPRO 100 UNIT/ML CARTRIDGE SQ PRN (15:30)
[2017-11-28] MEDS ORDERED: hydrALAZINE HCL 50 MG TABLET GT PRN (15:30)
[2017-11-28] MEDS ORDERED: MISCELLANEOUS MED 1 EA EA XX ONE (15:30)
[2017-11-28] MEDS ORDERED: DEXTROSE 50%-WATER 50 ML DISP.SYRIN IV PRN (15:30)
[2017-11-28] MEDS ORDERED: HYDROCODONE/APAP 10/325MG 1 EA TABLET GT PRN (15:30)
[2017-11-28] MEDS ORDERED: diphenhydrAMINE HCL 25 MG CAPSULE PO PRN (15:30)
[2017-11-28] MEDS ORDERED: ACETAMINOPHEN 650 MG/20.3 ML UDC GT PRN (15:30)
[2017-11-28] MEDS ORDERED: POLYVINYL ALCOHOL 15 ML BOTTLE EACHEYE PRN (15:30)
[2017-11-28] MEDS ORDERED: diphenhydrAMINE HCL ELIX 25 MG/10 ML UDC GT PRN (16:00)
[2017-11-28] MEDS: BLOOD SUGAR DIAGNOSTIC 1 EACH STRIP IN SCH ×2 (18:12→21:47)
[2017-11-28] MEDS ORDERED: Z GUARD REMEDY 4 OZ OINT TP PRN (18:30)
--- NOTE | 2017-11-28 19:00 | NUR ---
WOUND PICTURES: TECHNICAL MALFUNCTION NOTED WITH CAMERA PICTURES UNSAVED. PICTURES RETAKEN AND PLACED IN CHART
[2017-11-28] MEDS: NEPRO 1,000 ML BOTTLE GT PRN (19:10)
[2017-11-28] MEDS: SEVELAMER CARBONATE 0.8 GM POWD.PACK GT SCH (19:11)
--- NOTE | 2017-11-28 19:35 | NUR ---
PATIENT RESTING IN BED. NONLABORED BREATHING NOTED. NO FACIAL GRIMACING. PATIENT ON TRACH/VENT WITH PEEP OF 5, FIO2 OF 40% , AC14 , TV 500. PATIENT AROUSABLE TO NAME AND TOUCH, MOUTHS WORDS. CURRENT SUBCLAVIAN PERMCATH INTACT WITH DRESSING. IV SITE ON LEFT FA PATENT AND INTACT 20. GTUBE PATENT AND INTACT. ORDERED GTUBE FEEDING STARTED. PER DR HUANG'S ORDERS, OBTAIN CONSENT FOR HD CATHETER INSERTION TOMORROW AND PLACE PATIENT NPO. BED IN LOWEST LOCKED POSITION. CALL LIGTH WITHIN REACH. ENDORSED TO NEXT SHIFT PATIENT SR WITH PVC 60-70S HR THROUGHOUT SHIFT
--- NOTE | 2017-11-28 19:35 | NUR ---
RN OPENING NOTES RECEIVED REPORT FROM LEONEL MOMIN. FOUND Pt AWAKE, RESTING IN BED. NO S/S OF ACUTE DISTRESS OR SOB NOTED. Pt IS A/OX2, VENT-TRACH Pt, ABLE TO MOUTH WORDS TO COMMUNICATE. VENT SETTINGS: PEEP 5, TV 500, FIO2 40%, AC 14. ON TELE MONITOR, SR WITH PVCs. GTF NEPRO @35ML/HR. WILL BE NPO AFTER MN FOR HD CATH PLACEMENT TOMORROW. IV ACCESS ON LFA #20G, SL. SAFETY MEASURES IN PLACE. BED LOW, LOCKED, HOB ELEVATED, SIDE RAILS UP. WILL CONTINUE TO MONITOR Pt THROUGHOUT THE NIGHT FOR SAFETY.
--- NOTE | 2017-11-28 19:36 | NUR ---
RN NOTES PER DAYSHIFT YENNY MOMIN, WAS UNABLE TO PRINT ALL ADMISSION PHOTOS DUE TO INK RUNNING OUT AND THERE WAS NO MORE INK CARTRIDGE TO REPLACE. WAS ONLY ABLE TO PRINT OUT 3 OF THEM.
[2017-11-28 20:00] VITALS: BP 140/56
[2017-11-28] MEDS: HEPARIN SODIUM, PORCINE 5000 UNITS/1 ML VIAL SQ SCH (21:00)
[2017-11-28] MEDS: LEVETIRACETAM SOL (5 ML) 100 MG/ML UDC GT SCH (21:47)
--- NOTE | 2017-11-28 22:00 | NUR ---
RN NOTES HS ACCUCHECK BG 128. NO INSULIN COVERAGE GIVEN AT THIS TIME. WILL BE NPO STARTING VERONICA YEUNG.
[2017-11-29] VITALS (21 sets, daily range): BP systolic 104–176; BP diastolic 42–74
--- NOTE | 2017-11-29 | NUR ---
NPO STARTING MN
--- NOTE | 2017-11-29 06:35 | NUR ---
RN NOTES AC ACCUCHECK BG 109. NO INSULIN COVERAGE NEEDED AT THIS TIME.
--- NOTE | 2017-11-29 06:40 | NUR ---
RN CLOSING NOTES NO SIGNIFICANT CHANGES IN Pt's CONDITION. Pt REMAINS STABLE AT THIS TIME. NO S/S OF ACUTE DISTRESS OR SOB NOTED DURING THE NIGHT. RESPIRATIONS EVEN AND UNLABORED. ALL NEEDS MET AND ATTENDED TO. TELE READING SR WITH PVC's. SAFETY MEASURES IN PLACE. WILL ENDORSE TO DAYSHIFT RN FOR Pt's ROLANDO.
[2017-11-29] MEDS: BLOOD SUGAR DIAGNOSTIC 1 EACH STRIP IN SCH ×4 (06:43→23:58)
--- NOTE | 2017-11-29 07:20 | NUR ---
PATIENT RESTING IN BED. NONLABORED BREATHING NOTED. NO FACIAL GRIMACING. VENT SETTINGS ORDERED. PATIENT ON TELE MONITOR WITH HR OF 68 WITH PVCS. IV SITE PATENT AND INTACT. PATIENT CURRENTLY NPO FOR POSSIBLE HD CATH INSERTION TODAY. BED IN LOWEST LOCKED POSITION. CALL LIGHT WITHIN REACH CURRENTLY ON CONTACT ISOLATION FOR R/O SCABIES
--- NOTE | 2017-11-29 08:05 | NUR ---
PATIENT SCHEDULED FOR SURGERY FOR PLACEMENT OF PERMCATH NOW PER DR HUANG STAT CBC AND TYPE AND SCREEN ORDERED PER ORDERS AND PROTOCOL NOTIFIED MARIANNE FROM SURGERY, ALERTED PATIENT RECEIVED X1 DOSE OF VANCOMYCIN YESTERDAY ALERTED THAT PATIENT ON CONTACT ISOLATION FOR BACK RASH TILL CLEAR
[2017-11-29] MEDS ORDERED: HEPARIN SODIUM, PORCINE 1,000 UNIT/ML VIAL ONE (08:15)
[2017-11-29] MEDS ORDERED: LIDOCAINE 1% INJ 50 ML MDV IJ ONE (08:15)
[2017-11-29] MEDS ORDERED: ROCURONIUM BROMIDE 50 MG/5 ML ONE (08:20)
[2017-11-29] MEDS ORDERED: FENTANYL PF 100MCG/2ML AMPUL ONE (08:21)
--- NOTE | 2017-11-29 08:29 | NUR ---
DR WEAVER AWARE OF WBC COUNT- SURGERY TO BE PERFORMED TODAY PATIENT GETTING PICKED UP BY OR STAFF MEMBERS NOW.CONSENT OBTAINED FROM DAUGHTER JONG BISHOP FOR PROCEDURE, ANESTHESIA AND BLOOD TRANSFUSION IF NEEDED
--- NOTE | 2017-11-29 08:30 | NUR ---
DR WEAVER ALSO AWARE THAT REPEAT CBC GOT DRAWN BY LAB
[2017-11-29 08:31] LABS: BASOPHILS % (AUTO) 0.1 % (0.0-2.0); EOSINOPHILS % (AUTO) 6.2 % (0.0-6.0); HEMATOCRIT 27 % (33-45); HEMOGLOBIN 9.3 g/dL (11.5-14.8); LYMPHOCYTES # (AUTO) 2.6 /CMM (0.8-4.8); MEAN CORPUSCULAR HGB CONC 34 g/dl (31.0-36.0); MEAN CORPUSCULAR VOLUME 98 fL (82-100); MONOCYTES # (AUTO) 1.6 /CMM (0.1-1.30); MONOCYTES % (AUTO) 9.5 % (2.0-12.0); NEUTROPHILS # (AUTO) 11.8 /CMM (1.8-8.9); NEUTROPHILS % (AUTO) 69.2 % (43.0-81.0); PLATELET COUNT (AUTO) 308 /CMM (150-450); RDW COEFFICIENT OF VARIATION 16.7 (11.5-15.0); RED BLOOD CELL COUNT(AUTO) 2.78 MIL/uL (4.0-5.2); WHITE BLOOD COUNT (AUTO) 17.1 K/uL (4.3-11.0)
--- NOTE | 2017-11-29 08:34 | NUR ---
PATIENT LEFT TO OR OR STAFF MEMBERS NOTIFIED THAT PATIENT IS ON CONTACT ISOLATION
--- NOTE | 2017-11-29 09:31 | NUR ---
RT NOTE LATE ENTRY: AT 08:40 TRANSPORTED PT TO OR. WITH NO COMPLICATIONS.
--- NOTE | 2017-11-29 09:32 | NUR ---
RT NOTE LATE ENTRY: AT 09:20 TRANSPORTED PT FROM OR TO 3RD FLOOR WITH NO COMPLICATIONS. NO RESP DISTRESS NOTED. WILL CONTINUE TO MONITOR.
--- NOTE | 2017-11-29 10:00 | NUR ---
DR GALLEGOS NOTIFIED OF PATIENT'S STATUS
--- NOTE | 2017-11-29 10:13 | NUR ---
PER DR HUANG , RESUME PRE-OP ORDERS, AND MEDICATIONS
--- NOTE | 2017-11-29 10:20 | NUR ---
PATIENT RETURNED FROM SURGERY, NONLABORED BREATHING NOTED. NO FACIAL GRIMACING. PATIENT RESPONSIVE TO TOUCH, VENT SETTINGS ORDERED. PATIENT DENIES SENSORY DEFICITS WHEN ASSESSED. DENYING PAIN. NEW HD CATHETER ON RIGHT UPPER CHEST INTACT WITH DRESSING.
[2017-11-29] MEDS: LEVOTHYROXINE SODIUM 125 MCG TABLET GT SCH (10:30)
[2017-11-29] MEDS: VIT B CMPLX 3/FA/VIT C/BIOTIN 1 TAB TABLET GT SCH (10:30)
[2017-11-29] MEDS: risperiDONE-M 0.5 MG TAB.RAPDIS PO SCH (10:32)
[2017-11-29] MEDS: ASCORBIC ACID 500 MG TABLET GT SCH (10:32)
[2017-11-29] MEDS: SEVELAMER CARBONATE 0.8 GM POWD.PACK GT SCH ×3 (10:32→18:56)
[2017-11-29] MEDS: LEVETIRACETAM SOL (5 ML) 100 MG/ML UDC GT SCH ×2 (10:32→22:11)
[2017-11-29] MEDS: PROSOURCE / PROSTAT (PYXIS) 30 ML UDC GT SCH ×2 (10:36→16:37)
[2017-11-29] MEDS: MINOXIDIL (2.5MG) 2.5 MG TABLET GT SCH (10:42)
[2017-11-29] MEDS: HEPARIN SODIUM, PORCINE 5000 UNITS/1 ML VIAL SQ SCH ×2 (11:00→22:17)
--- NOTE | 2017-11-29 11:00 | NUR ---
PATIENT REFUSING HEPARIN, MOUTHING "NO" AND SWINGING HER ARMS BENEFITS AND RISKS EXPLAINED MULTIPLE TIMES
--- NOTE | 2017-11-29 11:25 | NUR ---
PATIENT TO RECEIVE DIALYSIS NOW
--- NOTE | 2017-11-29 14:30 | NUR ---
PT BERKLEY'D ON MECHANICAL VENT. SX DONE T/O SHIFT. PT BERKLEY PATENT AND SECURE. AMBUBAG AT BEDSIDE. VENT PLUGGED INTO RED OUTLET. ALARMS ARE SET AND AUDIBLE. WILL CONT TO MONITOR. Addendum: 11/29/17 at 1435 by JLUIS GONZALES RT Amended: Links added.
--- NOTE | 2017-11-29 15:54 | NUR ---
H&H ORDERED PER DR FRANK
[2017-11-29 17:05] LABS: HEMOGLOBIN 9.8 g/dL (11.5-14.8)
[2017-11-29] MEDS: NEPRO 1,000 ML BOTTLE GT PRN (17:07)
--- NOTE | 2017-11-29 18:45 | NUR ---
PER RYLEE ROJAS, OKAY TO ORDER [facility]
--- NOTE | 2017-11-29 19:30 | NUR ---
RN CLOSING NOTES: PATIENT RESTING IN BED. VENT SETTINGS ORDERED. NONLABORED BREATHING NOTED. NO FACIAL GRIMACING. CURRENTLY SR WITH 72 HR WITH NO PVC, NO SIGNS OF ANXIOUSNESS NOTED . AT 1840, PATIENT NOTED TO BE AGITATED ACID PATROLLER WAS DISCUSSING SCABIES DIAGNOSIS WITH HER. SR WITH 68 HR WITH FREQUENT PVC NOTED. PATIENT ENCOURAGED TO VERBALIZE UNDERSTANDING, EXPLAINED PATHOPHYSIOLOGY WELL TREATMENT OPTIONS WITH HER. AFTER 10 MINS, NO FACIAL GRIMACING NOTED. IV SITE ON LEFT ARM PATENT AND INTACT. GTUBE FEEDING RUNNING PER ORDERS. HD CATHETER ON RIGHT UPPER CHEST INTACT. OUTPUT OF 3L WITH HD. TURNED AND REPOSITION EVERY 2 HOURS. KEPT CLEAN AND DRY . STILL ON CONTACT ISOLATION
--- NOTE | 2017-11-29 19:30 | NUR ---
TELE/RN RECEIVE PATIENT AWAKE, ALERT, NOT VERBALLY RESPONSIVE, APPEAR COMFORTABLE, NO DISTRESS NOTED, MECH VENT WORKING WELL, GT FEEDING INFUSING, NO RESIDUAL NOTED, HOB ELEVATED. WILL MONITOR.
--- NOTE | 2017-11-29 19:39 | NUR ---
PER BOB UNARMED SECURITY OFFICER, OKAY TO USE STRAIGHT CATHETER TO OBTAIN URINE SPECIMEN, ALSO CHECK BLADDER FOR RESIDUALS
[2017-11-29] MEDS ORDERED: PERMETHRIN 5% CRM 60 GM TUBE TP ONE ×2 (20:00→22:00)
[2017-11-29] MEDS ORDERED: IVERMECTIN 3 MG TABLET PO ONE (20:00)
[2017-11-30] VITALS: BP 118/46
--- NOTE | 2017-11-30 00:05 | NUR ---
TELE/RN BLADDER SCAN DONE ORDERED, 47 MLS. STRAIGHT CATH DONE FOR URINE SPECIMEN TOOK OUT ABOUT 10 MLS PURULENT URINE. SPECIMEN SENT TO LAB.
[2017-11-30 04:00] VITALS: BP 116/48
--- NOTE | 2017-11-30 06:30 | NUR ---
TELE/RN PATIENT IS AWAKE, ALERT, COMFORTABLE, NO DISTRESS NOTED, ALL NEEDS ATTENDED AT THIS TIME. WILL CONTINUE TO MONITOR.
[2017-11-30] MEDS: BLOOD SUGAR DIAGNOSTIC 1 EACH STRIP IN SCH ×3 (06:44→17:35)
--- NOTE | 2017-11-30 07:40 | NUR ---
Tele/RN - AM Assessment Patient awake, alert to self, no s/s of pain, no apparent distress noted, vent dependent with trache Portex 8 secured and intact, vent settings as follows: AC10, VT550, Fio2 40%, PEEP 5, tolerated well.tele shows SR with first degree AVB, on vent with settings as follows: AC 14 VT 500 FiO2 40% PEEP 5 and tolerating it well. Ambu bag/mask at bedside and vent alarms audible. Saline lock on the LFA is patent, with no signs of infiltration. GT intact, with no residual seen, tube feeding Nepro @ 35 ml/hr tolerated well. Aspiration precautions observed at all times. Patient repositioned q2h and as needed for comfort and circulation. Contact precautions maintained for scabies. All needs attended and met. Will continue with current treatment plan. Addendum: 11/30/17 at 1714 by DANIELLE PATTERSON RN Correction of vent setting and trach size: AC14 VT500 FIO2 40% PEEP5, portex 7
--- NOTE | 2017-11-30 07:52 | NUR ---
WOUND CARE CONSULT WOUND CARE RECEIVED CONSULT FOR EVALUATION. WOUND CARE WILL DEFER CONSULT AND ALL TREATMENT PLANS TO SURGICAL TEAM WHO ARE CURRENTLY FOLLOWING. PATIENT WITH GEORGE AT 15, ALL PRESSURE ULCER PREVENTION MEASURES NOTED TO BE IN PLACE AT THIS TIME. RASHES TO BE DEFERRED TO PMD AND TMT FOR SCABIES DEFERRED TO PMD.
[2017-11-30 08:00] VITALS: BP 118/50
[2017-11-30] MEDS: LEVETIRACETAM SOL (5 ML) 100 MG/ML UDC GT SCH ×2 (08:23→21:49)
[2017-11-30] MEDS: VIT B CMPLX 3/FA/VIT C/BIOTIN 1 TAB TABLET GT SCH (08:23)
[2017-11-30] MEDS: LEVOTHYROXINE SODIUM 125 MCG TABLET GT SCH (08:23)
[2017-11-30] MEDS: ASCORBIC ACID 500 MG TABLET GT SCH (08:23)
[2017-11-30] MEDS: risperiDONE-M 0.5 MG TAB.RAPDIS PO SCH (08:23)
[2017-11-30] MEDS: SEVELAMER CARBONATE 0.8 GM POWD.PACK GT SCH ×3 (08:23→17:02)
[2017-11-30] MEDS: MINOXIDIL (2.5MG) 2.5 MG TABLET GT SCH (08:23)
[2017-11-30] MEDS: HEPARIN SODIUM, PORCINE 5000 UNITS/1 ML VIAL SQ SCH ×2 (08:24→21:50)
[2017-11-30] MEDS: PROSOURCE / PROSTAT (PYXIS) 30 ML UDC GT SCH ×2 (08:27→17:02)
[2017-11-30] MEDS ORDERED: DEXTROSE 50%-WATER 50 ML DISP.SYRIN IV PRN (11:30)
[2017-11-30 12:00] VITALS: BP 104/46
[2017-11-30] MEDS: INSULIN REGULAR, HUMAN 100 UNIT/ML 3 ML VIAL SQ PRN ×2 (12:24→17:51)
--- NOTE | 2017-11-30 13:35 | NUR ---
Tele/RN - Md Phuong Seen and examined by Dr. Thomas with order to discharge back to SNF today. CM made aware.
--- NOTE | 2017-11-30 14:00 | NUR ---
Tele/RN - Notes Patient more awake and alert, mouth words, able to make needs known, without distress on ventilator. Will continue to monitor closely.
--- NOTE | 2017-11-30 14:54 | NUR ---
PT BERKLEY'D ON MECHANICAL VENT. SX DONE T/O SHIFT. PT BERKLEY PATENT AND SECURE. AMBU BAG AT BEDSIDE. VENT PLUGGED INTO RED OUTLET. ALARMS ARE SET AND AUDIBLE. WILL CONTINUE TO MONITOR. Addendum: 11/30/17 at 1457 by JLUIS GONZALES RT Amended: Links added.
--- NOTE | 2017-11-30 15:30 | NUR ---
Tele/RN - Notes Per CM, [facility] is unable to take back patient due to no isolation bed available today but will be able to accommodate tomorrow. CN and were notified.
[2017-11-30 16:00] VITALS: BP 112/72
--- NOTE | 2017-11-30 18:26 | NUR ---
Tele/RN - Notes No new events seen, remain afebrile, without distress on the ventilator. Anticipate discharge back to [facility] tomorrow once bed is available. Will continue with current medical management.
--- NOTE | 2017-11-30 19:30 | NUR ---
TELE/RN RECEIVE PATIENT AWAKE, NOT VERBALLY RESPONSIVE, APPEAR COMFORTABLE, NO S/S OF PAIN, NO SIGNS OF DISTRESS NOTED, MECH WILLIAM WORKING WELL, GT FEEDING INFUSING, NO RESIDUAL NOTED, HOB ELEVATED, FALL PRECAUTION. WILL MONITOR.
[2017-11-30 20:00] VITALS: BP 123/55
--- NOTE | 2017-11-30 22:47 | NUR ---
TELE/RN PATIENT IS SLEEPING AT THIS TIME, AROUSABLE, APPEAR COMFORTABLE, NO SIGNS OF DISTRESS NOTED, CALL LIGHT IN REACH. WILL CONTINUE TO MONITOR.
[2017-12-01] VITALS: BP 118/51
[2017-12-01] MEDS: BLOOD SUGAR DIAGNOSTIC 1 EACH STRIP IN SCH ×3 (00:12→12:02)
[2017-12-01] MEDS: NEPRO 1,000 ML BOTTLE GT PRN (02:56)
[2017-12-01 04:04] VITALS: BP 104/56
--- NOTE | 2017-12-01 04:56 | NUR ---
TELE/RN MORNING CARE WAS DONE, TOTAL LINEN CHANGE RENDERED, SKIN CARE DONE, REPOSITIONED TO COMFORT. WILL CONTINUE TO MONITOR.
[2017-12-01] MEDS: INSULIN REGULAR, HUMAN 100 UNIT/ML 3 ML VIAL SQ PRN ×2 (05:47→12:31)
--- NOTE | 2017-12-01 06:25 | NUR ---
TELE/RN PATIENT IS SLEEPING AT THIS TIME, AROUSABLE, APPEAR COMFORTABLE, NO SIGNS OF DISTRESS NOTED, NO GASTRIC RESIDUAL NOTED, MECH VENT WORKING WELL, ALL NEEDS ATTENDED AT THIS TIME, WILL CONTINUE TO MONITOR.
--- NOTE | 2017-12-01 06:53 | NUR ---
TELE/MEDICAL VAN DRIVER IN PROGRESS AT THIS TIME.
--- NOTE | 2017-12-01 07:30 | NUR ---
ENGINE BUILDUP MECHANIC NOTES Patient received in bed, comfortable and on on-going dialysis. Will monitor and assess patient and get report from dialysis nurse
[2017-12-01] MEDS: LEVOTHYROXINE SODIUM 125 MCG TABLET GT SCH (07:54)
[2017-12-01 08:00] VITALS: BP 116/35
[2017-12-01] MEDS: VIT B CMPLX 3/FA/VIT C/BIOTIN 1 TAB TABLET GT SCH (08:07)
[2017-12-01] MEDS: SEVELAMER CARBONATE 0.8 GM POWD.PACK GT SCH ×2 (08:07→12:04)
[2017-12-01] MEDS: LEVETIRACETAM SOL (5 ML) 100 MG/ML UDC GT SCH (08:08)
[2017-12-01] MEDS: HEPARIN SODIUM, PORCINE 5000 UNITS/1 ML VIAL SQ SCH (08:09)
[2017-12-01] MEDS: risperiDONE-M 0.5 MG TAB.RAPDIS PO SCH (08:10)
[2017-12-01] MEDS: ASCORBIC ACID 500 MG TABLET GT SCH (08:10)
[2017-12-01 08:11] VITALS: BP 116/53
[2017-12-01] MEDS: MINOXIDIL (2.5MG) 2.5 MG TABLET GT SCH (08:11)
[2017-12-01] MEDS: PROSOURCE / PROSTAT (PYXIS) 30 ML UDC GT SCH (08:12)
--- NOTE | 2017-12-01 13:47 | NUR ---
RN NOTES Report given to Jillian [facility] ([phone]) @1741. Reported as follows: Continue on NPO - Gtube feeding: Nepro @35ml/hr. Continue Ivermectin 12mg via GT q weekly x2 more dose, next dose on 12/06/17. Dialysis on 11/29/17 with 3L output. Dialysis on 12/01/17: no fluids taken out. Perma Cath on left upper chest area; inserted on 11/29/17. Elemite cream applied on 11/29/17 and cleansed off on 11/30/17. Remain on contact isolation for scabies. Jennifer (daughter) is aware of discharge today.
--- NOTE | 2017-12-01 14:45 | NUR ---
health safety engineer - Discharge Patient discharged to [facility] subacute in stable condition. Report given to Jillian. Endorsed to [facility] crew accordingly. All discharge paperworks given. No belongings on file.
== END 2017-12-01 14:45 | DRG 466 ==
LOC: ER 11:48 → TELE 12:47
PROVIDERS: ADMIT Internal Medicine; ATTEND Internal Medicine
PROC: 5A1945Z Respiratory Ventilation, 24-96 Consecutive Hours (ICD-10-PCS; principal; 2017-11-28)
PROC: 5A1D70Z Performance of Urinary Filtration, Intermittent, Less than 6 Hours Per Day (ICD-10-PCS; 2017-11-29)
PROC: 05HM33Z Insertion of Infusion Device into Right Internal Jugular Vein, Percutaneous Approach (ICD-10-PCS; 2017-11-29)
PROC: 05PYX3Z Removal of Infusion Device from Upper Vein, External Approach (ICD-10-PCS; 2017-11-29)
PROC: B543ZZA Ultrasonography of Right Jugular Veins, Guidance (ICD-10-PCS; 2017-11-29)
PROC: 5A1D70Z Performance of Urinary Filtration, Intermittent, Less than 6 Hours Per Day (ICD-10-PCS; 2017-12-01)
DX: T82.41XA Breakdown (mechanical) of vascular dialysis catheter, initial encounter (principal); N18.6 End stage renal disease; I13.2 Hypertensive heart and chronic kidney disease with heart failure and with stage 5 chronic kidney disease, or end stage renal disease; Z99.11 Dependence on respirator [ventilator] status; J96.11 Chronic respiratory failure with hypoxia; Z93.0 Tracheostomy status; R65.10 Systemic inflammatory response syndrome (SIRS) of non-infectious origin without acute organ dysfunction; R13.10 Dysphagia, unspecified; E11.22 Type 2 diabetes mellitus with diabetic chronic kidney disease; E83.9 Disorder of mineral metabolism, unspecified; Y84.8 Other medical procedures as the cause of abnormal reaction of the patient, or of later complication, without mention of misadventure at the time of the procedure; Y92.129 Unspecified place in nursing home as the place of occurrence of the external cause; I50.9 Heart failure, unspecified; G40.909 Epilepsy, unspecified, not intractable, without status epilepticus; Y71.2 Prosthetic and other implants, materials and accessory cardiovascular devices associated with adverse incidents; I25.10 Atherosclerotic heart disease of native coronary artery without angina pectoris; F03.90 Unspecified dementia, unspecified severity, without behavioral disturbance, psychotic disturbance, mood disturbance, and anxiety; L30.9 Dermatitis, unspecified; F29 Unspecified psychosis not due to a substance or known physiological condition; D64.9 Anemia, unspecified; Z99.2 Dependence on renal dialysis; B86 Scabies; E03.9 Hypothyroidism, unspecified; R32 Unspecified urinary incontinence; Z93.1 Gastrostomy status
CPT/HCPCS: 31720; 36415; 71045-TC; 80048-TC; 82962-TC; 83605-TC; 85025-TC; 85027-TC; 85730-TC; 86850-TC; 87040-TC; 87081-TC; 87086-TC; 90935-TC; 94002-TC; 94003-TC; 94760-TC; 99082-TC; A4606; A6402; C1750; J1644; J1815; J1953; J2704; J3010; J3370; J3490; J7060; Q0163; Z7610

== ENCOUNTER 2017-12-02 21:37 | Emergency (ER) | payer MEDICARE, BC, MEDICAID ==
[~2017-12-02] VITALS: Ht 180.3 cm; Wt 74.8 kg
[~2017-12-02 21:37] MED LIST: ACET-868 GT; AMIN30LI2 GT; ASCO500T9 GT; DEXT15DR6 EACHEYE; DIPH25CA83 PO; FOLI0.8T2 GT; HEPA50008 SQ; HYDR-4077 PO; HYDR-548 PO; INSU100V11 SQ; LEVE100S GT; LEVO125T8 GT; MINO2.5T GT; RISP0.5T5 GT; SEVE0.8P3 PO
--- NOTE | 2017-12-02 21:52 | NUR ---
DAUGHTER, JONG BISHOP,
--- NOTE | 2017-12-02 21:55 | NUR ---
[facility] FOR LOW BLOOD PRESSURE. PER FACILITY GAVE 1L NS BOLUS. ISOLATION FOR SCABIES. PT IS TRACHED AND VENTED. PT IS ABLE TO COMMUNICATE NEEDS BY MOUTHING WORDS. PT IS AWAKE AND ALERT. RESP EVEN AND UNLABORED. NO S/S OF ACUTE DISTRESS NOTED. PT PLACED ON MONITOR AND POX. VSS
--- NOTE | 2017-12-02 22:17 | NUR ---
PT ARRIVED TO ER ON [facility] VENT PLACED N SAME SETTINGS OF 14 500 40% +5, PT TRACHED WITH PORTEX #7. AMBUBAG AT BEDSIDE, VENT PLUGGED INTO RED OUTLET, BRAKES LOCKED, AND ALARMS ARE SET AUDIBLE. PT WAS SUCTIONED AND SCANT TO NONE SECRETIONS DRAWN. PT TOLERATED PROCEDURE WELL, WILL CONTINUE TO MONITOR. Addendum: 12/02/17 at 2220 by KIYA NIXON RT Amended: Links added.
[2017-12-02 22:37] LABS: BASOPHILS # (AUTO) 0.1 /CMM (0.0-0.2); BASOPHILS % (AUTO) 0.6 % (0.0-2.0); EOSINOPHILS % (AUTO) 7.3 % (0.0-6.0); HEMATOCRIT 26 % (33-45); HEMOGLOBIN 8.6 g/dL (11.5-14.8); LYMPHOCYTES # (AUTO) 1.7 /CMM (0.8-4.8); LYMPHOCYTES % (AUTO) 16.9 % (20.0-44.0); MEAN CORPUSCULAR HGB CONC 34 g/dl (31.0-36.0); MEAN CORPUSCULAR VOLUME 98 fL (82-100); MONOCYTES % (AUTO) 10.2 % (2.0-12.0); NEUTROPHILS # (AUTO) 6.6 /CMM (1.8-8.9); PLATELET COUNT (AUTO) 257 /CMM (150-450); RDW COEFFICIENT OF VARIATION 17.3 (11.5-15.0); RED BLOOD CELL COUNT(AUTO) 2.62 MIL/uL (4.0-5.2); WHITE BLOOD COUNT (AUTO) 10.1 K/uL (4.3-11.0)
[2017-12-02 22:46] LABS: CALCIUM, SERUM 9.4 mg/dL (8.5-10.1); CARBON DIOXIDE 22 mmol/L (21-32); CHLORIDE 102 mmol/L (98-107); CREATININE 3.4 mg/dL (0.6-1.3); GLUCOSE 123 mg/dL (74-106); POTASSIUM 3.2 mmol/L (3.5-5.1); SODIUM SERUM 138 mmol/L (136-145); UREA NITROGEN, BLOOD 46 mg/dL (7-18)
[2017-12-02 22:53] LABS: TROPONIN I 0.024 ng/mL (0.00-0.056)
[2017-12-02 22:54] LABS: APPEARANCE,URINE CLOUDY (CLEAR); BILIRUBIN,URINE NEGATIVE (NEGATIVE); BLOOD, URINE 2+ Ery/uL (NEGATIVE); COLOR,URINE YELLOW (YELLOW); KETONES,URINE NEGATIVE (NEGATIVE); LEUKOCYTE ESTERASE ,URINE 3+ (NEGATIVE); NITRITE, URINE NEGATIVE (NEGATIVE); PH,URINE 7.5 (5.0-8.0); PROTEIN,URINE 3+ mg/dl (NEGATIVE); UGLUCOSE NEGATIVE (NEGATIVE); UROBILINOGEN,URINE 0.2 EU/dL (0.2)
[2017-12-02 22:59] LABS: ALANINE AMINOTRANSFERASE 19 U/L (12-78); ALKALINE PHOSPHATASE 99 U/L (46-116); ASPARTATE AMINOTRANSFERASE 12 U/L (15-37); B-TYPE NATRIURETIC PEPTIDE 4889 PG/ML (0-125); BILIRUBIN,DIRECT 0.1 mg/dL (0.0-0.2); BILIRUBIN,TOTAL 0.6 mg/dL (0.2-1.0); TOTAL PROTEIN, SERUM 6.8 g/dL (6.4-8.2)
[2017-12-02 23:06] LABS: WBC,URINE TOO NUMEROUS TO COUN /HPF (0-3)
[2017-12-02 23:07] LABS: BACTERIA,URINE Many /HPF (None Seen); SQUAMOUS EPITHELIAL CELL,UR Few /HPF (None Seen)
--- NOTE | 2017-12-02 23:24 | NUR ---
GROUP CALLED, INTERNATIONAL TRADE ANALYST
[2017-12-02 23:26] LABS: INR 0.98 (0.87-1.13)
[2017-12-02 23:34] LABS: PARTIAL THROMBOPLASTIN TIME > 170 SEC (23-34)
[2017-12-03] MEDS ORDERED: CEFTRIAXONE 1 G in IV D5W 50 ML IV ONE ×2
[2017-12-03] MEDS ORDERED: CEFTRIAXONE 1GM BAG (ER ONLY) 50 ML IV ONE (00:04)
--- NOTE | 2017-12-03 00:12 | NUR ---
[facility] CALLED FOR TRANSPORT. ETA 1.5 HRS
--- NOTE | 2017-12-03 00:46 | NUR ---
DISCHARGE REPORT GIVEN TO [facility].
--- NOTE | 2017-12-03 01:13 | NUR ---
Patient is resting comfortably in bed with eyes closed. Easily aroused. VSS
[2017-12-03 01:33] VITALS: BP 154/46
--- NOTE | 2017-12-03 01:33 | NUR ---
REPORT GIVEN TO [facility] TRANSFER CREW FOR [facility]. PT BEING TRANSFERRED [facility].VSS UPON DISCHARGE.
--- NOTE | 2017-12-03 01:36 | NUR ---
PT DISCHARGED WITH IV INTACT. NO S/S OF INFILTRATION OR INFECTION NOTED. IV SECURED PROPERLY AND FLUSHES WELL. MADE AWARE
== END 2017-12-03 01:36 | disposition home or self-care (01) ==
LOC: ER 21:40
DX: N39.0 Urinary tract infection, site not specified (principal); I13.2 Hypertensive heart and chronic kidney disease with heart failure and with stage 5 chronic kidney disease, or end stage renal disease; I50.32 Chronic diastolic (congestive) heart failure; N18.6 End stage renal disease; E11.22 Type 2 diabetes mellitus with diabetic chronic kidney disease; G40.909 Epilepsy, unspecified, not intractable, without status epilepticus; F29 Unspecified psychosis not due to a substance or known physiological condition; Z99.2 Dependence on renal dialysis; Z79.4 Long term (current) use of insulin
CPT/HCPCS: 36415; 71045-TC; 80048-TC; 80076-TC; 81000-TC; 83605-TC; 83880; 84484-TC; 85025-TC; 85730-TC; 87040-TC; 87086-TC; A4606; J0696; J7060; Z7610

== ENCOUNTER 2018-01-24 19:47 | Inpatient (IN) | payer MEDICAID, MEDICARE ==
[~2018-01-24] VITALS: Ht 167.6 cm; Wt 63.0 kg
--- NOTE | 2018-01-24 20:05 | NUR ---
[facility] PRIVATE EMS FROM [facility], PER EMS PT'S FAMILY STATES PT IS "MORE ALTERED THAN NORMAL TODAY". PER FACILITY, THIS IS THE PT'S BASELINE. PT IS AAOX0, OPENS EYES AND MOVES TO TACTILIE STIMULY. PT ARRIVED WITH TRACH COLLAR IN PLACE, PER RT PT'S O2 IS 3-6L/M. PT SET AT 3L/M SAT SPO2 99%, RESP 24 PER MINUTE. PT NOTED TO BE IN MILD DISTRESS, CRACKLES AUSCULTATED BILATERAL. SKIN WNL. PT PLACED ON MANAGER CLIENT SERVICE AND POX. PT SAFETY AND COMFORT MEASURES IN PLACE. BEDSIDE FOR EVAL. WILL CONTINUE TO MONITOR PT.
--- NOTE | 2018-01-24 20:10 | NUR ---
EMT BEDSIDE FOR EKG
--- NOTE | 2018-01-24 20:15 | NUR ---
PHLEBOTOMY BEDSIDE FOR BLOOD DRAW.
[2018-01-24 20:25] LABS: BASOPHILS # (AUTO) 0.4 /CMM (0.0-0.2); MONOCYTES # (AUTO) 1.4 /CMM (0.1-1.30)
[2018-01-24 20:32] LABS: BASOPHILS % (AUTO) 2.3 % (0.0-2.0); EOSINOPHILS % (AUTO) 0.7 % (0.0-6.0); HEMATOCRIT 42 % (33-45); LYMPHOCYTES # (AUTO) 1.9 /CMM (0.8-4.8); LYMPHOCYTES % (AUTO) 11.4 % (20.0-44.0); MEAN CORPUSCULAR HEMOGLOBIN 32 PG (26.0-33.0); MEAN CORPUSCULAR HGB CONC 34 g/dl (31.0-36.0); MEAN CORPUSCULAR VOLUME 94 fL (82-100); NEUTROPHILS # (AUTO) 13.2 /CMM (1.8-8.9); NEUTROPHILS % (AUTO) 77.6 % (43.0-81.0); PLATELET COUNT (AUTO) 119 /CMM (150-450); RED BLOOD CELL COUNT(AUTO) 4.41 MIL/uL (4.0-5.2)
[2018-01-24 20:39] LABS: INR 0.88 (0.85-1.15)
[2018-01-24 20:42] LABS: ALANINE AMINOTRANSFERASE 23 U/L (12-78); ALBUMIN 3.5 g/dL (3.4-5.0); ALKALINE PHOSPHATASE 182 U/L (46-116); ASPARTATE AMINOTRANSFERASE 18 U/L (15-37); BILIRUBIN,DIRECT 0.1 mg/dL (0.0-0.2); BILIRUBIN,TOTAL 0.4 mg/dL (0.2-1.0); CALCIUM, SERUM 10.8 mg/dL (8.5-10.1); CARBON DIOXIDE 22 mmol/L (21-32); CHLORIDE 96 mmol/L (98-107); CREATININE 6.9 mg/dL (0.6-1.3); GLUCOSE 190 mg/dL (74-106); POTASSIUM 5.3 mmol/L (3.5-5.1); SODIUM SERUM 134 mmol/L (136-145); TOTAL PROTEIN, SERUM 8.2 g/dL (6.4-8.2)
[2018-01-24 20:43] LABS: TROPONIN I 0.235 ng/mL (0.00-0.056); UREA NITROGEN, BLOOD 162 mg/dL (7-18)
[2018-01-24 20:50] LABS: ABG BASE EXCESS -2.5 mmol/L; ABG OXYGEN SATURATION 99.1 % (92.0-98.5); ABG PCO2 33.9 mmHg (35.0-45.0); ABG PH 7.415 (7.350-7.450); ABG PO2 231.8 mmHg (75.0-100.0); AaDO2 14.4 mmHg; COHb 0.6 % (0.5-1.5); MetHb 0.4 % (0.0-1.5); O2Hb 98.1 % (94.0-97.0); SITE, ABG Right Brachial; VENT MODE, BG T PIECE 6L
--- NOTE | 2018-01-24 20:57 | NUR ---
RT BEDSIDE FOR ABG AND SUCTION TREATMENT, PER MD, PT O2 SET TO 6L/M, SPO2 100%. WILL CONTINUE TO MONITOR.
[2018-01-24] MEDS ORDERED: PIPERACILLIN /TAZOBACTAM 2.25 G in IV D5W 50 ML IV ONE (21:30)
[2018-01-24] MEDS ORDERED: VANCOMYCIN 1 GM in IV D5W 250 ML IV ONE (21:30)
[2018-01-24 21:34] LABS: BAND % (MANUAL) 1 % (0.0-5.0); EOSINOPHILS % (MANUAL) 2 % (0-4); LYMPHOCYTES % (MANUAL) 11 % (16-48); MONOCYTES % (MANUAL) 5 % (0-11.0); NEUTROPHILS % (MANUAL) 81 (42-76)
--- NOTE | 2018-01-24 21:40 | NUR ---
UNABLE TO ATTAIN URINE FROM INDWELLING FOLLEY CATH, PER MARYLOU VU TO START PT ON ANTIBIOTICS.
[2018-01-24] MEDS ORDERED: VANCOMYCIN 1 GM VIAL ONE (21:41)
[2018-01-24] MEDS ORDERED: ALBUTEROL FS 2.5 MG/0.5 ML VIAL.NEB ONE (21:59)
[2018-01-24] MEDS ORDERED: ALBUTEROL FS 2.5 MG/0.5 ML VIAL.NEB NEB ONE (22:00)
[2018-01-24] MEDS ORDERED: ASPIRIN 81 MG TAB.CHEW GT ONE (22:00)
[2018-01-24] MEDS ORDERED: SODIUM POLYSTYRENE SULFONATE 15 G/60 ML BOTTLE GT ONE (22:00)
[2018-01-24] MEDS ORDERED: ASPIRIN 81 MG TAB.CHEW ONE (22:02)
[2018-01-24] MEDS ORDERED: SODIUM POLYSTYRENE SULFONATE 15 G/60 ML BOTTLE ONE (22:02)
[2018-01-24] MEDS ORDERED: PIPERACILLIN /TAZOBACTAM 2.25 G VIAL IV ONE (22:15)
--- NOTE | 2018-01-24 22:50 | NUR ---
REPORT GIVEN TO SAEED LIANG FOR ROLANDO.
--- NOTE | 2018-01-24 23:10 | NUR ---
RN SAEED NOTE RECEIVED PATIENT FROM ER REPORT GIVEN FROM BILLY PT PRESENTS OBTUNDED, TRACH PORTEX 7, TO COOL AEROSOL, NO PAIN NOTED VIA FLACC, NO S/SX OF RESPIRATORY OR CARDIAC DISTRESS, ON TELE SR, F/C DRAINING TO GRAVITY, ANURIC, G TUBE PATENT FLUSHING WELL, LCW HD CATH, LA SHUNT, 18G RIGHT HAND SL, PATENT SITE CDI, FLUSHING WELL. SKIN KEPT CLEAN AND DRY, NOTED RASH THROUGHOUT BACK, HEELS OFFLOADED. SAFETY MAINTAINED AT ALL TIMES, BED IN LOW LOCKED POSITION, CALL LIGHT WITHIN REACH, WILL CONTINUE TO MONITOR FOR ANY CHANGES IN CONDITION.
[2018-01-24 23:42] VITALS: BP 154/45
--- NOTE | 2018-01-24 23:50 | NUR ---
RN SAEED NOTE CALL TO DR KOCH FOR ADMISSION ORDERS, GIVEN VERBAL ORDERS INPUTTED INTO CHART.
[2018-01-25] VITALS: BP 154/45
[2018-01-25] MEDS ORDERED: IPRATROPIUM/ALBUTEROL INHALER IH SCH
[2018-01-25] MEDS ORDERED: IPRATROPIUM/ALBUTEROL INHALER IH PRN
[2018-01-25] MEDS ORDERED: DEXTROSE 50%-WATER 50 ML DISP.SYRIN IV PRN
[2018-01-25] MEDS ORDERED: NEPRO 1,000 ML BOTTLE GT PRN
[2018-01-25] MEDS ORDERED: HYDROCODONE/APAP 10/325MG 1 EA TABLET PEG PRN (00:30)
[2018-01-25] MEDS ORDERED: hydrALAZINE HCL 50 MG TABLET PO PRN (00:30)
[2018-01-25] MEDS ORDERED: ACETAMINOPHEN 325 MG TABLET PO PRN (00:30)
[2018-01-25] MEDS ORDERED: diphenhydrAMINE HCL 25 MG CAPSULE PO PRN (00:30)
[2018-01-25] MEDS: ALBUTEROL FS 2.5 MG/3 ML VIAL.NEB NEB SCH ×4 (01:11→19:51)
[2018-01-25] MEDS: IPRATROPIUM NEB FS 0.5 MG/2.5 ML AMPUL.NEB NEB SCH ×4 (01:11→19:50)
[2018-01-25] MEDS ORDERED: diphenhydrAMINE HCL/ZINC ACET CREAM 28.3 GM TUBE TP PRN (01:30)
[2018-01-25] MEDS ORDERED: IPRATROPIUM NEB FS 0.5 MG/2.5 ML AMPUL.NEB NEB PRN (01:30)
[2018-01-25 04:00] VITALS: BP 105/40
[2018-01-25] MEDS: BLOOD SUGAR DIAGNOSTIC 1 EACH STRIP IN SCH ×4 (05:34→23:44)
[2018-01-25] MEDS: INSULIN REGULAR, HUMAN 100 UNIT/ML 3 ML VIAL SQ PRN ×4 (05:39→23:48)
[2018-01-25 06:11] LABS: BASOPHILS % (AUTO) 0.2 % (0.0-2.0); EOSINOPHILS % (AUTO) 0.7 % (0.0-6.0); HEMATOCRIT 42 % (33-45); HEMOGLOBIN 13.6 g/dL (11.5-14.8); LYMPHOCYTES # (AUTO) 1.9 /CMM (0.8-4.8); LYMPHOCYTES % (AUTO) 10.4 % (20.0-44.0); MEAN CORPUSCULAR HEMOGLOBIN 31 PG (26.0-33.0); MEAN CORPUSCULAR HGB CONC 32 g/dl (31.0-36.0); MEAN CORPUSCULAR VOLUME 97 fL (82-100); MONOCYTES # (AUTO) 1.4 /CMM (0.1-1.30); MONOCYTES % (AUTO) 7.6 % (2.0-12.0); NEUTROPHILS # (AUTO) 14.7 /CMM (1.8-8.9); NEUTROPHILS % (AUTO) 81.1 % (43.0-81.0); RDW COEFFICIENT OF VARIATION 17.7 (11.5-15.0); RED BLOOD CELL COUNT(AUTO) 4.36 MIL/uL (4.0-5.2); WHITE BLOOD COUNT (AUTO) 18.1 K/uL (4.3-11.0)
[2018-01-25 06:27] LABS: CALCIUM, SERUM 10.3 mg/dL (8.5-10.1); CARBON DIOXIDE 23 mmol/L (21-32); CHLORIDE 97 mmol/L (98-107); CREATININE 7.2 mg/dL (0.6-1.3); GLUCOSE 295 mg/dL (74-106); POTASSIUM 5.3 mmol/L (3.5-5.1); SODIUM SERUM 137 mmol/L (136-145)
[2018-01-25 06:28] LABS: UREA NITROGEN, BLOOD 169 mg/dL (7-18)
[2018-01-25 06:43] LABS: PLATELET COUNT (AUTO) 120 /CMM (150-450)
[2018-01-25] MEDS ORDERED: hydrALAZINE HCL 50 MG TABLET PEG PRN (07:14)
--- NOTE | 2018-01-25 07:40 | NUR ---
RN NOTE RECEIVED PATIENT ASLEEP IN BED. PATIENT ALERT TO TACTILE STIMULI. TRACH PORTEX 7, COOL AEROSOL SATURATING WELL. BREATHING EVEN AND UNLABORED WITH NO DISTRESS NOTED. ON CARIDAC MONITOR SINUS COLETTE HR OF 54. F/C INTACT AND PATENT, ANURIC. GT SITE INTACT AND PATENT WITH ONGOING FEEDINGS ORDERED. HD CATH CLEAN,DRY, AND INTACT. RIGHT HAND IV SITE INTACT AND PATENT. SKIN KEPT CLEAN AND DRY, PATIENT IS NOTED WITH RASH THROUGHOUT BACK, ISOLATION PRECAUTIONS TAKEN. ALL SAFETY MEASURES DONE. BED LOW AND LOCKED POSITION. PLACED CALL LIGHT WITHIN REACH, WILL CONTINUE TO MONITOR
[2018-01-25 08:00] VITALS: BP_SYST 121; BP_SYST 131; BP_DIAS 38; BP_DIAS 48; BP_DIAS 73
[2018-01-25 08:05] LABS: INR 0.9 (0.87-1.13)
[2018-01-25 08:06] LABS: D-DIMER 0.7 mg/L(FEU (0.17-0.50)
[2018-01-25] MEDS: ASCORBIC ACID 500 MG TABLET PEG SCH (08:32)
[2018-01-25] MEDS: LEVOTHYROXINE SODIUM 125 MCG TABLET GT SCH (08:32)
[2018-01-25] MEDS: VIT B CMPLX 3/FA/VIT C/BIOTIN 1 TAB TABLET PEG SCH (08:32)
[2018-01-25] MEDS: LEVETIRACETAM SOL (5 ML) 100 MG/ML UDC PEG SCH ×2 (08:32→17:13)
[2018-01-25] MEDS: MINOXIDIL (2.5MG) 2.5 MG TABLET PEG SCH (08:33)
[2018-01-25] MEDS: risperiDONE LIQUID 1 MG/ML ML GT SCH (08:34)
[2018-01-25] MEDS: SEVELAMER CARBONATE 0.8 GM POWD.PACK GT SCH ×3 (08:34→17:13)
[2018-01-25] MEDS: HEPARIN SODIUM, PORCINE 5000 UNITS/1 ML VIAL SQ SCH ×2 (08:42→20:19)
[2018-01-25] MEDS ORDERED: INSU100V7 SQ (10:15)
--- NOTE | 2018-01-25 10:15 | NUR ---
RN NOTE SKIN SCRAPPING EXAM WAS DONE BY INFECTION CONTROL NURSE. SPECIMEN WAS SENT TO LAB.
[2018-01-25] MEDS ORDERED: NUTR100037 PO (10:18)
[2018-01-25 12:00] VITALS: BP 109/43
[2018-01-25] MEDS: ACETAMINOPHEN 650 MG/20.3 ML UDC GT PRN (13:02)
[2018-01-25] MEDS ORDERED: FEE PK DOSING 1 MIN EA MC ONE (13:18)
[2018-01-25] MEDS ORDERED: VANCOMYCIN 500 MG in IV D5W 100 ML IV PRN (13:30)
--- NOTE | 2018-01-25 15:15 | NUR ---
YENNY CARBAJAL FROM [facility] CALLED STATED PATIENT IS POSITIVE FOR MRSA OF THE NARES. MADE AWARE
--- NOTE | 2018-01-25 15:20 | NUR ---
RN NOTE DIALYSIS NURSE AT BEDSIDE. PATIENT WILL HAVE DIALYSIS TODAY.
[2018-01-25 16:00] VITALS: BP 111/45
[2018-01-25] MEDS ORDERED: ALTEPLASE CATHFLO 2 MG/VIAL IV ONE (18:00)
--- NOTE | 2018-01-25 18:53 | NUR ---
RN NOTE PATIENT REMAINED STABLE THROUGHOUT SHIFT. NO ACUTE CHANGES OR DISTRESS NOTED. WILL ENDORSE TO NEXT SHIFT TO CONTINUE CONTINUITY OF CARE.
--- NOTE | 2018-01-25 19:30 | NUR ---
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 PATIENT IS NON-VERBAL ON TTP PORTEX #7- ON CONTINUE PULSE OX SAT. 100% , NO DISTRESS NOTED. VSS,AFEBRILE, NO S/S OF PAIN NOTED. PATIENT IS TURNED AND REPOSITIONED PATIENT AT THIS TIME FOR MORE COMFORT CONTINUE TO MONITOR
[2018-01-25 20:00] VITALS: BP 109/40
[2018-01-25] MEDS: MUPIROCIN OINT 2% 22 GM TUBE SCH (20:19)
[2018-01-26] VITALS (7 sets, daily range): BP systolic 100–134; BP diastolic 38–60
[2018-01-26] MEDS: IPRATROPIUM NEB FS 0.5 MG/2.5 ML AMPUL.NEB NEB SCH ×4 (01:38→19:58)
[2018-01-26] MEDS: ALBUTEROL FS 2.5 MG/3 ML VIAL.NEB NEB SCH ×4 (01:38→19:58)
[2018-01-26] MEDS: BLOOD SUGAR DIAGNOSTIC 1 EACH STRIP IN SCH ×3 (05:07→18:09)
[2018-01-26] MEDS: INSULIN REGULAR, HUMAN 100 UNIT/ML 3 ML VIAL SQ PRN ×2 (05:12→18:29)
[2018-01-26] MEDS ORDERED: diphenhydrAMINE HCL 50 MG/ML VIAL IV PRN (09:00)
[2018-01-26] MEDS ORDERED: PERMETHRIN 5% CRM 60 GM TUBE TP ONE (09:00)
[2018-01-26] MEDS: ASCORBIC ACID 500 MG TABLET PEG SCH (09:34)
[2018-01-26] MEDS: SEVELAMER CARBONATE 0.8 GM POWD.PACK GT SCH ×3 (09:34→17:00)
[2018-01-26] MEDS: LEVETIRACETAM SOL (5 ML) 100 MG/ML UDC PEG SCH ×2 (09:34→18:08)
[2018-01-26] MEDS: MINOXIDIL (2.5MG) 2.5 MG TABLET PEG SCH (09:35)
[2018-01-26] MEDS: LEVOTHYROXINE SODIUM 125 MCG TABLET GT SCH (09:35)
[2018-01-26] MEDS: VIT B CMPLX 3/FA/VIT C/BIOTIN 1 TAB TABLET PEG SCH (09:35)
[2018-01-26] MEDS: HEPARIN SODIUM, PORCINE 5000 UNITS/1 ML VIAL SQ SCH ×2 (09:36→21:06)
[2018-01-26] MEDS: risperiDONE LIQUID 1 MG/ML ML GT SCH (09:37)
[2018-01-26] MEDS: MUPIROCIN OINT 2% 22 GM TUBE SCH ×2 (09:37→21:13)
[2018-01-26 09:52] LABS: BASOPHILS % (AUTO) 0.3 % (0.0-2.0); EOSINOPHILS % (AUTO) 3.4 % (0.0-6.0); HEMATOCRIT 37 % (33-45); HEMOGLOBIN 11.7 g/dL (11.5-14.8); MEAN CORPUSCULAR HEMOGLOBIN 31 PG (26.0-33.0); MEAN CORPUSCULAR HGB CONC 32 g/dl (31.0-36.0); MEAN CORPUSCULAR VOLUME 96 fL (82-100); MONOCYTES % (AUTO) 7.8 % (2.0-12.0); NEUTROPHILS # (AUTO) 9.7 /CMM (1.8-8.9); NEUTROPHILS % (AUTO) 73.5 % (43.0-81.0); PLATELET COUNT (AUTO) 107 /CMM (150-450); RDW COEFFICIENT OF VARIATION 17.8 (11.5-15.0); RED BLOOD CELL COUNT(AUTO) 3.82 MIL/uL (4.0-5.2); WHITE BLOOD COUNT (AUTO) 13.2 K/uL (4.3-11.0)
[2018-01-26 10:36] LABS: ALANINE AMINOTRANSFERASE 21 U/L (12-78); ALBUMIN 2.8 g/dL (3.4-5.0); ALKALINE PHOSPHATASE 131 U/L (46-116); ASPARTATE AMINOTRANSFERASE 17 U/L (15-37); BILIRUBIN,TOTAL 0.4 mg/dL (0.2-1.0); CALCIUM, SERUM 9.8 mg/dL (8.5-10.1); CARBON DIOXIDE 24 mmol/L (21-32); CHLORIDE 95 mmol/L (98-107); CREATININE 6.3 mg/dL (0.6-1.3); GLUCOSE 237 mg/dL (74-106); MAGNESIUM 2.5 mg/dL (1.8-2.4); PHOSPHORUS 6.4 mg/dL (2.5-4.9); POTASSIUM 4.1 mmol/L (3.5-5.1); SODIUM SERUM 135 mmol/L (136-145); TOTAL PROTEIN, SERUM 6.7 g/dL (6.4-8.2)
[2018-01-26 10:37] LABS: UREA NITROGEN, BLOOD 127 mg/dL (7-18)
[2018-01-26] MEDS ORDERED: VITAMINS A AND D 56.7 GM TUBE TP PRN (12:00)
[2018-01-26] MEDS ORDERED: VANCOMYCIN 1 GM in IV D5W 250 ML IV ONE (17:00)
[2018-01-26] MEDS ORDERED: MORPHINE SULFATE INJ 2 MG/ML DISP.SYRIN IM ONE (17:30)
--- NOTE | 2018-01-26 19:30 | NUR ---
SAEED NOTES RECEIVED PT WITH EYES OPEN,DOES NOT TRACK,DOES NOT FOLLOW COMMANDS.ON T-PIECE 35% WITH SAT. OF 100%.
[2018-01-26] MEDS: ALBUTEROL FS 2.5 MG/0.5 ML VIAL.NEB NEB PRN ×2 (19:58→20:06)
--- NOTE | 2018-01-26 20:00 | NUR ---
SAEED NOTES FEEDING OF NEPHRO AT 45ML/HOUR RESUME,CN AWARE.
[2018-01-27] VITALS (7 sets, daily range): BP systolic 113–140; BP diastolic 43–67
[2018-01-27] MEDS: BLOOD SUGAR DIAGNOSTIC 1 EACH STRIP IN SCH ×4 (00:09→17:19)
[2018-01-27] MEDS: INSULIN REGULAR, HUMAN 100 UNIT/ML 3 ML VIAL SQ PRN ×4 (00:11→17:21)
[2018-01-27] MEDS: IPRATROPIUM NEB FS 0.5 MG/2.5 ML AMPUL.NEB NEB SCH ×4 (01:04→19:29)
[2018-01-27] MEDS: ALBUTEROL FS 2.5 MG/3 ML VIAL.NEB NEB SCH ×4 (01:04→19:29)
--- NOTE | 2018-01-27 05:00 | NUR ---
SAEED NOTES BATHED,DRESSING TO SACRUM CHANGED BY CN,AREA CLEANSED,XEROFORM APPLIED AND COVERED W/ABDOMINAL DRESSING.SUCTIONED FOR THICK PURULENT SECRETIONS.TOLERATING GT FEEDING WELL.FLUSHED W/ H20 100ML Q 6H ORDERED.ANURIC.
--- NOTE | 2018-01-27 06:18 | NUR ---
SAEED NOTES MRSA ISOLATION OBSERVED.MONITOR SHOWS SR.
[2018-01-27 07:00] LABS: BASOPHILS % (AUTO) 0.3 % (0.0-2.0); HEMATOCRIT 36 % (33-45); HEMOGLOBIN 11.5 g/dL (11.5-14.8); LYMPHOCYTES # (AUTO) 1.9 /CMM (0.8-4.8); LYMPHOCYTES % (AUTO) 14.9 % (20.0-44.0); MEAN CORPUSCULAR HEMOGLOBIN 31 PG (26.0-33.0); MEAN CORPUSCULAR HGB CONC 32 g/dl (31.0-36.0); MEAN CORPUSCULAR VOLUME 96 fL (82-100); MONOCYTES # (AUTO) 0.9 /CMM (0.1-1.30); MONOCYTES % (AUTO) 6.7 % (2.0-12.0); NEUTROPHILS # (AUTO) 9.1 /CMM (1.8-8.9); NEUTROPHILS % (AUTO) 70.1 % (43.0-81.0); PLATELET COUNT (AUTO) 162 /CMM (150-450); RDW COEFFICIENT OF VARIATION 17.5 (11.5-15.0); RED BLOOD CELL COUNT(AUTO) 3.69 MIL/uL (4.0-5.2)
--- NOTE | 2018-01-27 07:12 | NUR ---
SAEED NOTES REPORT AND CARE OF PT. GIVEN TO ROSEMARY RAMON
[2018-01-27 07:19] LABS: ALANINE AMINOTRANSFERASE 21 U/L (12-78); ALBUMIN 2.8 g/dL (3.4-5.0); ALKALINE PHOSPHATASE 122 U/L (46-116); ASPARTATE AMINOTRANSFERASE 22 U/L (15-37); BILIRUBIN,TOTAL 0.4 mg/dL (0.2-1.0); CALCIUM, SERUM 9.6 mg/dL (8.5-10.1); CARBON DIOXIDE 24 mmol/L (21-32); CHLORIDE 97 mmol/L (98-107); CREATININE 5.2 mg/dL (0.6-1.3); GLUCOSE 170 mg/dL (74-106); MAGNESIUM 2.4 mg/dL (1.8-2.4); PHOSPHORUS 6.1 mg/dL (2.5-4.9); POTASSIUM 4.2 mmol/L (3.5-5.1); SODIUM SERUM 135 mmol/L (136-145); TOTAL PROTEIN, SERUM 6.5 g/dL (6.4-8.2)
[2018-01-27 07:20] LABS: UREA NITROGEN, BLOOD 94 mg/dL (7-18)
--- NOTE | 2018-01-27 07:49 | NUR ---
RN NOTE: PATIENT RECEIVED ALERT AWAKE ORIENTED X1. VERBALIZE YES & NO TO SIMPLE QUESTIONS. ABLE TO MOUTH WORDS. ON TRAC, COOL AEROSOL. NO BREATHING DISTRESS NOTED. NOTED C/O DISCOMFORT OF BACK & ABDOMEN. REPOSITIONED, WILL ADMINISTER PAIN RELIEVE MEDICATION. G-TUBE RUNNING, NO RESIDUAL NOTED. ASPIRATION PRECAUTIONS OBSERVED. SAFETY MEASURES OBSERVED. CALL LIGHT WITHIN REACH. WILL CONTINUE TO MONITOR.
--- NOTE | 2018-01-27 07:57 | NUR ---
WOUND CARE CONSULT WOUND CARE RECEIVED CONSULT FOR BACK RASH AND SACRAL WOUND. WOUND CARE WILL DEFER CONSULT AND ALL TREATMENT PLANS TO SURGICAL TEAM WHO ARE CURRENTLY FOLLOWING. PATIENT WITH GEORGE AT 12, ALL PRESSURE ULCER PREVENTION MEASURES ARE NOTED TO BE IN PLACE AT THIS TIME. WILL SEE PRN.
[2018-01-27] MEDS: risperiDONE LIQUID 1 MG/ML ML GT SCH (08:00)
[2018-01-27] MEDS: VIT B CMPLX 3/FA/VIT C/BIOTIN 1 TAB TABLET PEG SCH (08:01)
[2018-01-27] MEDS: LEVOTHYROXINE SODIUM 125 MCG TABLET GT SCH (08:01)
[2018-01-27] MEDS: LEVETIRACETAM SOL (5 ML) 100 MG/ML UDC PEG SCH ×2 (08:01→17:19)
[2018-01-27] MEDS: SEVELAMER CARBONATE 0.8 GM POWD.PACK GT SCH ×3 (08:01→17:19)
[2018-01-27] MEDS: ASCORBIC ACID 500 MG TABLET PEG SCH (08:01)
[2018-01-27] MEDS: ACETAMINOPHEN 650 MG/20.3 ML UDC GT PRN (08:01)
[2018-01-27] MEDS: MINOXIDIL (2.5MG) 2.5 MG TABLET PEG SCH (08:03)
[2018-01-27] MEDS: HEPARIN SODIUM, PORCINE 5000 UNITS/1 ML VIAL SQ SCH ×2 (08:04→21:00)
[2018-01-27] MEDS: MUPIROCIN OINT 2% 22 GM TUBE SCH ×2 (08:05→21:00)
[2018-01-27] MEDS: NEPRO 1,000 ML BOTTLE GT PRN (12:10)
[2018-01-27] MEDS ORDERED: ALBUMIN 25% 25 GM in PREMIX 1 EA IV PRN (13:30)
[2018-01-27] MEDS: VANCOMYCIN 500 MG in IV D5W 100 ML IV PRN (18:59)
--- NOTE | 2018-01-27 19:00 | NUR ---
RN NOTE: SPOKE WITH PHARMACIST ABOUT VANCO LEVEL & S/P HD DONE TODAY. DOSE NOT GIVEN DUE TO VANCO LEVEL >20. NO SIGNIFICANT CHANGES NOTED DURING SHIFT. ASPIRATION PRECAUTIONS OBSERVED. WILL ENDORSE TO PM SHIFT FOR CONTINUITY OF CARE.
--- NOTE | 2018-01-27 19:30 | NUR ---
SAEED/RN NOTES: RECEIVED PT. IN BED W/ HOB ELEVATED. ALERT ABLE TO MOUTH WORDS. DENIES ANY C/O CHEST PAIN OR SOB AT PRESENT. ON TELE MONITOR SR W/PAC 86. ON GTF OF NEPHRO OF 45 CC/HR TOLERATING WELL W/ NO RESIDUAL NOTED. HAS TRACH W/ 35 % FIO2 W/ TP O2 @ 8LPM SAT 98 %. NO S/S OF ANY RESPIRATORY DISTRESS. HAS RT FA G # 18 PATENT AND INTACT W/ NO S/S OF INFECTION/INFILTRATION NOTED. HAS LCW HD CATH. HAS LT UPPER ARM AV SHUNT. CALL LIGHT W/ REACH. WILL CONTINUE TO MONITOR.
[2018-01-28] VITALS: BP 143/49
[2018-01-28] MEDS: ALBUTEROL FS 2.5 MG/3 ML VIAL.NEB NEB SCH ×4 (01:11→20:20)
[2018-01-28] MEDS: IPRATROPIUM NEB FS 0.5 MG/2.5 ML AMPUL.NEB NEB SCH ×4 (01:11→20:20)
[2018-01-28] MEDS: INSULIN REGULAR, HUMAN 100 UNIT/ML 3 ML VIAL SQ PRN ×5 (01:51→23:12)
[2018-01-28 04:00] VITALS: BP 153/52
[2018-01-28] MEDS: BLOOD SUGAR DIAGNOSTIC 1 EACH STRIP IN SCH ×5 (05:39→23:11)
--- NOTE | 2018-01-28 07:57 | NUR ---
SAEED/RN NOTES: REPORT GIVEN TO AM NURSE FOR ROLANDO.
[2018-01-28 08:00] VITALS: BP_SYST 132; BP_SYST 99; BP_DIAS 39; BP_DIAS 50
[2018-01-28] MEDS: ASCORBIC ACID 500 MG TABLET PEG SCH (08:22)
[2018-01-28] MEDS: LEVOTHYROXINE SODIUM 125 MCG TABLET GT SCH (08:22)
[2018-01-28] MEDS: VIT B CMPLX 3/FA/VIT C/BIOTIN 1 TAB TABLET PEG SCH (08:22)
[2018-01-28] MEDS: LEVETIRACETAM SOL (5 ML) 100 MG/ML UDC PEG SCH ×2 (08:22→17:52)
[2018-01-28] MEDS: risperiDONE LIQUID 1 MG/ML ML GT SCH (08:22)
[2018-01-28] MEDS: SEVELAMER CARBONATE 0.8 GM POWD.PACK GT SCH ×3 (08:22→17:52)
[2018-01-28] MEDS: MINOXIDIL (2.5MG) 2.5 MG TABLET PEG SCH ×2 (08:25→09:00)
[2018-01-28] MEDS: HEPARIN SODIUM, PORCINE 5000 UNITS/1 ML VIAL SQ SCH ×2 (08:26→20:15)
[2018-01-28 08:44] LABS: CALCIUM, SERUM 9.6 mg/dL (8.5-10.1); CARBON DIOXIDE 25 mmol/L (21-32); CHLORIDE 102 mmol/L (98-107); CREATININE 4.5 mg/dL (0.6-1.3); GLUCOSE 148 mg/dL (74-106); POTASSIUM 3.8 mmol/L (3.5-5.1); SODIUM SERUM 140 mmol/L (136-145); UREA NITROGEN, BLOOD 67 mg/dL (7-18)
[2018-01-28] MEDS: MUPIROCIN OINT 2% 22 GM TUBE SCH ×2 (09:09→20:16)
[2018-01-28 09:17] LABS: BASOPHILS # (AUTO) 0.1 /CMM (0.0-0.2); BASOPHILS % (AUTO) 0.4 % (0.0-2.0); EOSINOPHILS % (AUTO) 7.9 % (0.0-6.0); HEMATOCRIT 34 % (33-45); HEMOGLOBIN 10.7 g/dL (11.5-14.8); LYMPHOCYTES # (AUTO) 1.5 /CMM (0.8-4.8); MEAN CORPUSCULAR HEMOGLOBIN 31 PG (26.0-33.0); MEAN CORPUSCULAR HGB CONC 32 g/dl (31.0-36.0); MEAN CORPUSCULAR VOLUME 97 fL (82-100); MONOCYTES # (AUTO) 0.9 /CMM (0.1-1.30); MONOCYTES % (AUTO) 8.2 % (2.0-12.0); NEUTROPHILS % (AUTO) 70.5 % (43.0-81.0); PLATELET COUNT (AUTO) 201 /CMM (150-450); RDW COEFFICIENT OF VARIATION 17.6 (11.5-15.0); RED BLOOD CELL COUNT(AUTO) 3.49 MIL/uL (4.0-5.2); WHITE BLOOD COUNT (AUTO) 11.3 K/uL (4.3-11.0)
[2018-01-28 12:00] VITALS: BP 145/60
[2018-01-28] MEDS: NEPRO 1,000 ML BOTTLE GT PRN (12:30)
[2018-01-28 16:00] VITALS: BP 133/55
--- NOTE | 2018-01-28 19:30 | NUR ---
RN INITIAL NOTES RECEIVED THE PATIENT AWAKE ON BED, A/O X1, ABLE TO MOUTH WORDS TO MAKE NEEDS KNOWN. ON COOL AEROSOL, 35% FIO2, PORTEX 7, SATURATING WELL, NO S/S OF RESP DISTRESS, SATURATING WELL. CURRENTLY SR ON THE MONITOR, HR 60'S. CHUN CATH INTACT. PEG TO NEPRO @ 45MLS/HR, NO RESIDUALS. LEFT UPPER ARM AV FISTULA NOTED. RCW HD CATH INTACT. LEFT WRIST 18G FLUSHED AND PATENT, NO S/S OF INFILTRATION/INFECTION, DRESSING CDI. BED LOW AND LOCKED, SIDERAILS UP, CALL LIGHT WITHIN REACH. WILL MONITOR
[2018-01-28] MEDS: VANCOMYCIN 500 MG in IV D5W 100 ML IV PRN (19:52)
[2018-01-28 20:00] VITALS: BP 140/55
[2018-01-29] VITALS: BP 145/61
--- NOTE | 2018-01-29 00:23 | NUR ---
fio2 decreased to 28% 5l due to increased spo2 Addendum: 01/29/18 at 0023 by LEONARDO PATE Amended: Links added.
[2018-01-29] MEDS: IPRATROPIUM NEB FS 0.5 MG/2.5 ML AMPUL.NEB NEB SCH ×4 (02:00→19:21)
[2018-01-29] MEDS: ALBUTEROL FS 2.5 MG/3 ML VIAL.NEB NEB SCH ×4 (02:01→19:21)
[2018-01-29 04:00] VITALS: BP 143/38
[2018-01-29] MEDS: BLOOD SUGAR DIAGNOSTIC 1 EACH STRIP IN SCH ×3 (05:25→17:23)
[2018-01-29] MEDS: INSULIN REGULAR, HUMAN 100 UNIT/ML 3 ML VIAL SQ PRN ×4 (05:27→23:56)
--- NOTE | 2018-01-29 06:00 | NUR ---
RN CLOSING NOTES PT REMAINS STABLE OF THE MOMENT. ALL DUE MEDS GIVEN, AM CARE PROVIDED. WILL ENDORSE ROLANDO TO AM RN
[2018-01-29 06:50] LABS: BASOPHILS % (AUTO) 0.2 % (0.0-2.0); EOSINOPHILS % (AUTO) 7.1 % (0.0-6.0); HEMATOCRIT 33 % (33-45); HEMOGLOBIN 10.6 g/dL (11.5-14.8); LYMPHOCYTES # (AUTO) 1.8 /CMM (0.8-4.8); LYMPHOCYTES % (AUTO) 15.8 % (20.0-44.0); MEAN CORPUSCULAR HEMOGLOBIN 31 PG (26.0-33.0); MEAN CORPUSCULAR HGB CONC 32 g/dl (31.0-36.0); MEAN CORPUSCULAR VOLUME 97 fL (82-100); MONOCYTES # (AUTO) 0.9 /CMM (0.1-1.30); MONOCYTES % (AUTO) 7.8 % (2.0-12.0); NEUTROPHILS # (AUTO) 7.8 /CMM (1.8-8.9); NEUTROPHILS % (AUTO) 69.1 % (43.0-81.0); PLATELET COUNT (AUTO) 214 /CMM (150-450); RDW COEFFICIENT OF VARIATION 17.5 (11.5-15.0); RED BLOOD CELL COUNT(AUTO) 3.42 MIL/uL (4.0-5.2); WHITE BLOOD COUNT (AUTO) 11.3 K/uL (4.3-11.0)
[2018-01-29 07:12] LABS: CALCIUM, SERUM 9.4 mg/dL (8.5-10.1); CARBON DIOXIDE 26 mmol/L (21-32); CHLORIDE 98 mmol/L (98-107); CREATININE 4.1 mg/dL (0.6-1.3); GLUCOSE 141 mg/dL (74-106); MAGNESIUM 2.5 mg/dL (1.8-2.4); PHOSPHORUS 4.7 mg/dL (2.5-4.9); POTASSIUM 4.2 mmol/L (3.5-5.1); SODIUM SERUM 134 mmol/L (136-145); UREA NITROGEN, BLOOD 61 mg/dL (7-18)
[2018-01-29 08:00] VITALS: BP 119/46
--- NOTE | 2018-01-29 08:00 | NUR ---
TD/RN AM SHIFT INITIAL NOTES RECEIVED PT ASLEEP IN BED, AROUSEABLE, ALERT ABOUT X 1-2 ABLE TO MOUTH WORDS, NO GRIMACING, FEVER OR ACUTE CHANGE OF CONDITION NOTED. ON T-PIECE WITH 5L O2, FIO2 28%, RESPIRATIONS EVEN AND UNLABORED, SATURATING @ 99%, LUNG SOUNDS CLEAR, SUCTIONED FOR AIRWAY CLEARANCE. ON TELE MONITORING SINUS RHYTHM, HR 61. LEFT UPPER ARM AV FISTULA POSITIVE OF THRILL AND BRUIT, RIGHT CHEST WALL HD CATHETER DRESSING INTACT AND CLEAN, IV SITE FLUSHED, PATENT WITH NO S/S OF INFECTION. GT FEEDING ON GOING @ 45CC/HR, NO GASTRIC RESIDUAL NOTED, FLUSHED, PATENT. PT IS COMFORTABLE, SCHEDULED AM MEDS TO BE GIVEN. CL WITHIN REACHED, SAFETY MAINTAINED AND ISOLATION OBSERVED. ON GOING MONITORING. Addendum: 01/29/18 at 1009 by LIZZ BARRIGA RN ADDENDUM: CUHN CATHETER INTACT NOTED WITH MINIMAL URINE OUTPUT, TEA COLORED.
[2018-01-29] MEDS: ASCORBIC ACID 500 MG TABLET PEG SCH (08:38)
[2018-01-29] MEDS: SEVELAMER CARBONATE 0.8 GM POWD.PACK GT SCH ×3 (08:38→16:36)
[2018-01-29] MEDS: VIT B CMPLX 3/FA/VIT C/BIOTIN 1 TAB TABLET PEG SCH (08:38)
[2018-01-29] MEDS: MINOXIDIL (2.5MG) 2.5 MG TABLET PEG SCH (08:39)
[2018-01-29] MEDS: LEVOTHYROXINE SODIUM 125 MCG TABLET GT SCH (08:39)
[2018-01-29] MEDS: risperiDONE LIQUID 1 MG/ML ML GT SCH (08:39)
[2018-01-29] MEDS: LEVETIRACETAM SOL (5 ML) 100 MG/ML UDC PEG SCH ×2 (08:39→16:35)
[2018-01-29] MEDS: MUPIROCIN OINT 2% 22 GM TUBE SCH ×2 (08:40→20:52)
[2018-01-29] MEDS: HEPARIN SODIUM, PORCINE 5000 UNITS/1 ML VIAL SQ SCH ×2 (08:41→20:59)
[2018-01-29 12:00] VITALS: BP 144/48
--- NOTE | 2018-01-29 12:45 | NUR ---
TD/RN ROUNDS - DR. LUIS PT SEEN & EXAMINED BY DR. LUIS. NO NEW ORDERS RECEIVED. NO CHANGE OF CONDITION. MONITORING CONTINUED.
[2018-01-29] MEDS ORDERED: Z GUARD REMEDY 2 OZ OINT TP PRN (13:30)
[2018-01-29 16:00] VITALS: BP 145/58
--- NOTE | 2018-01-29 16:00 | NUR ---
TD/RN AFTERNOON ROUNDS PM CARE PROVIDED, NO CHANGE OF CONDITION. MONITORING CONTINUED.
[2018-01-29] MEDS: NEPRO 1,000 ML BOTTLE GT PRN (16:36)
--- NOTE | 2018-01-29 19:19 | NUR ---
TD/RN AM SHIFT END NOTES ALL NEEDS MET. NO ACUTE CHANGE OF CONDITION NOTED DURING THE SHIFT. PT ENDORSED TO PM NURSE TO CONTINUE CARE. CL WITHIN REACHED, SAFETY MAINTAINED AND ISOLATION OBSERVED.
--- NOTE | 2018-01-29 19:45 | NUR ---
RN TD INITIAL NOTES, RECEIVED PATIENT AWAKE ON BED, ALERT AND ORIENT TO NAME, , ABLE TO MOUTH WORDS TO MAKE NEEDS KNOWN, ON COOL AEROSOL,TOLERATING SETTINGS WELL, NO S/S OF RESP DISTRESS, OR SHORTNESS OF BREATH AT THIS TIME, SR ON THE MONITOR, HR 68 AT THIS TIME, CHUN CATH INTACT, PEG IN PLACE TO NEPRO @ 45MLS/HR, NO RESIDUAL NOTED AT THIS TIME, LEFT UPPER ARM AV FISTULA NOTED, RCW HD CATH INTACT. LEFT WRIST 18G PATENT AND INTACT, NO S/S OF INFILTRATION, BED LOW POSITION AND LOCKED, DRY AND CLEAN, AND WELL REPOSITIONED, CALL LIGHT WITHIN REACH. WILL CONTINUE TO MONITOR CLOSELY.
[2018-01-29 20:00] VITALS: BP 121/57
[2018-01-30] VITALS (8 sets, daily range): BP systolic 116–163; BP diastolic 41–70
[2018-01-30] MEDS: BLOOD SUGAR DIAGNOSTIC 1 EACH STRIP IN SCH ×5 (00:02→23:57)
[2018-01-30] MEDS: ALBUTEROL FS 2.5 MG/3 ML VIAL.NEB NEB SCH ×4 (01:12→19:30)
[2018-01-30] MEDS: IPRATROPIUM NEB FS 0.5 MG/2.5 ML AMPUL.NEB NEB SCH ×4 (01:12→19:30)
[2018-01-30] MEDS: INSULIN REGULAR, HUMAN 100 UNIT/ML 3 ML VIAL SQ PRN ×4 (06:01→23:58)
--- NOTE | 2018-01-30 06:52 | NUR ---
RN TD CLOSING NOTES, PATIENT AWAKE ON BED, ALERT AND ORIENT TO NAME, , ABLE TO MOUTH WORDS TO MAKE NEEDS KNOWN, ON COOL AEROSOL, NO S/S OF RESP DISTRESS, OR SHORTNESS OF BREATH AT THIS TIME, SR ON THE TELE MONITOR, CHUN CATH INTACT, NO URINE NOTED, HD PATIENT, GTF INFUSING WELL AND TOLERATED WELL, NO RESIDUAL NOTED AT THIS TIME, FLUSHED ORDERED, RCW HD CATH INTACT, LEFT WRIST 18G PATENT AND INTACT, NO S/S OF INFILTRATION, BED LOW POSITION AND LOCKED, DRY AND CLEAN, REPOSITION PROVIDED, NO SIGNIFICANT CHANGE IN CONDITION DURING NIGHT, CALL LIGHT WITHIN REACH, WILL ENDORSE TO ONCOMING NURSE.
[2018-01-30 06:58] LABS: BASOPHILS % (AUTO) 0.3 % (0.0-2.0); EOSINOPHILS % (AUTO) 6.1 % (0.0-6.0); HEMATOCRIT 33 % (33-45); HEMOGLOBIN 10.6 g/dL (11.5-14.8); LYMPHOCYTES # (AUTO) 1.9 /CMM (0.8-4.8); LYMPHOCYTES % (AUTO) 15.7 % (20.0-44.0); MEAN CORPUSCULAR HEMOGLOBIN 31 PG (26.0-33.0); MEAN CORPUSCULAR HGB CONC 32 g/dl (31.0-36.0); MEAN CORPUSCULAR VOLUME 97 fL (82-100); MONOCYTES # (AUTO) 0.9 /CMM (0.1-1.30); NEUTROPHILS # (AUTO) 8.6 /CMM (1.8-8.9); NEUTROPHILS % (AUTO) 70.9 % (43.0-81.0); PLATELET COUNT (AUTO) 256 /CMM (150-450); RDW COEFFICIENT OF VARIATION 18.2 (11.5-15.0); RED BLOOD CELL COUNT(AUTO) 3.44 MIL/uL (4.0-5.2); WHITE BLOOD COUNT (AUTO) 12.1 K/uL (4.3-11.0)
--- NOTE | 2018-01-30 07:00 | NUR ---
RN NOTES RECEIVED PT ON BED, MOUTH WORDS , A/Ox1, TRACH DEPENDENT,TRACH CARE DONE, ON COOL AEROSOL WITH 28% FIO2, NO RESPIRATORY DISTRESS NOTED, ON TELE SR WITH FIRST DEGREE AVB, CHUN DRAINING TO GRAVITY WITH SMALL AMOUNT OF URINE, NEPRO AT 45CC/HR RUNNING VIA PEG TUBE, R HAND IV SITE G 20 , CLEAN , DRY AND INTACT , R CW HD CATH INTACT, SR UP x3, CALL LIGHT WITHIN EASY REACH, BED LOCKED AND IN LOWEST POSITION, CONTINUE TO MONITOR.
[2018-01-30 07:11] LABS: CALCIUM, SERUM 9.2 mg/dL (8.5-10.1); CARBON DIOXIDE 25 mmol/L (21-32); CHLORIDE 96 mmol/L (98-107); CREATININE 5.3 mg/dL (0.6-1.3); GLUCOSE 177 mg/dL (74-106); MAGNESIUM 2.7 mg/dL (1.8-2.4); PHOSPHORUS 5.8 mg/dL (2.5-4.9); POTASSIUM 4.5 mmol/L (3.5-5.1); SODIUM SERUM 134 mmol/L (136-145); UREA NITROGEN, BLOOD 79 mg/dL (7-18); VANCOMYCIN,RANDOM 19 ug/ml (18-26)
[2018-01-30] MEDS ORDERED: EPOETIN ALFA (10,000 UNIT) 10,000 UNIT/ML VIAL SQ ONE (08:00)
[2018-01-30] MEDS: SEVELAMER CARBONATE 0.8 GM POWD.PACK GT SCH ×3 (08:16→16:36)
[2018-01-30] MEDS: LEVETIRACETAM SOL (5 ML) 100 MG/ML UDC PEG SCH ×2 (08:16→16:37)
[2018-01-30] MEDS: ASCORBIC ACID 500 MG TABLET PEG SCH (08:17)
[2018-01-30] MEDS: MINOXIDIL (2.5MG) 2.5 MG TABLET PEG SCH (08:17)
[2018-01-30] MEDS: VIT B CMPLX 3/FA/VIT C/BIOTIN 1 TAB TABLET PEG SCH (08:17)
[2018-01-30] MEDS: LEVOTHYROXINE SODIUM 125 MCG TABLET GT SCH (08:17)
[2018-01-30] MEDS: HEPARIN SODIUM, PORCINE 5000 UNITS/1 ML VIAL SQ SCH ×2 (08:18→20:39)
[2018-01-30] MEDS: risperiDONE LIQUID 1 MG/ML ML GT SCH (08:19)
[2018-01-30] MEDS: MUPIROCIN OINT 2% 22 GM TUBE SCH ×2 (08:21→20:38)
--- NOTE | 2018-01-30 12:00 | NUR ---
RN NOTES TRACH SUCTIONING DONE, PT STABLE , CONTINUE TO MONITOR
[2018-01-30] MEDS: VANCOMYCIN 500 MG in IV D5W 100 ML IV PRN (15:25)
[2018-01-30] MEDS: NEPRO 1,000 ML BOTTLE GT PRN (17:18)
--- NOTE | 2018-01-30 19:01 | NUR ---
RN NOTES TRACH SUCTIONING DONE , NO SOB NOTED, TOLERATING TF WELL, NO SIGNIFICANT CHANGES NOTED ON THIS SHIFT, WILL ENDOSE TO LONGSHORE EQUIPMENT OPERATOR NURSE FOR CONTINUITY OF CARE .
--- NOTE | 2018-01-30 20:19 | NUR ---
SAEED RN OPENING NOTES RECEIVED REPORT FROM COLTEN RAMON. PATIENT A/A/O X1, NON-VERBAL BUT RESPONSIVE TO NAME & TOUCH. BREATHING EVEN & UNLABORED W/ T-PIECE INTACT & TOLERATING COOL AEROSOL. 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 RIGHT CW HD CATH W/ DRESSING CDI & RIGHT HAND IV #20 INTACT & PATENT, TKO. G-TUBE FLUSHING WELL W/ NEPRO RUNNING @ 45 ML/HR. NO RESIDUAL NOTED @ THIS TIME. CHUN CATH NOTED W/ LITTLE, YELLOW URINE OUTPUT. NO S/S OF PAIN OR DISCOMFORT @ THIS TIME. SAFETY MEASURES MAINTAINED W/ BED ALARM ON & CALL LIGHT WITHIN REACH. TURNED & REPOSITIONED FOR COMFORT. WILL CONTINUE TO MONITOR CLOSELY.
[2018-01-31] VITALS (7 sets, daily range): BP systolic 97–153; BP diastolic 39–55
[2018-01-31] MEDS: ALBUTEROL FS 2.5 MG/3 ML VIAL.NEB NEB SCH ×4 (01:24→19:38)
[2018-01-31] MEDS: IPRATROPIUM NEB FS 0.5 MG/2.5 ML AMPUL.NEB NEB SCH ×4 (01:24→19:38)
[2018-01-31] MEDS: INSULIN REGULAR, HUMAN 100 UNIT/ML 3 ML VIAL SQ PRN ×3 (05:57→17:31)
[2018-01-31] MEDS: BLOOD SUGAR DIAGNOSTIC 1 EACH STRIP IN SCH ×3 (05:57→17:30)
[2018-01-31 06:33] LABS: BASOPHILS % (AUTO) 0.3 % (0.0-2.0); EOSINOPHILS % (AUTO) 5.9 % (0.0-6.0); HEMATOCRIT 32 % (33-45); HEMOGLOBIN 10.2 g/dL (11.5-14.8); LYMPHOCYTES # (AUTO) 1.6 /CMM (0.8-4.8); LYMPHOCYTES % (AUTO) 13.8 % (20.0-44.0); MEAN CORPUSCULAR HEMOGLOBIN 31 PG (26.0-33.0); MEAN CORPUSCULAR HGB CONC 32 g/dl (31.0-36.0); MEAN CORPUSCULAR VOLUME 97 fL (82-100); MONOCYTES # (AUTO) 0.9 /CMM (0.1-1.30); MONOCYTES % (AUTO) 8.1 % (2.0-12.0); NEUTROPHILS # (AUTO) 8.4 /CMM (1.8-8.9); NEUTROPHILS % (AUTO) 71.9 % (43.0-81.0); PLATELET COUNT (AUTO) 264 /CMM (150-450); RDW COEFFICIENT OF VARIATION 18.1 (11.5-15.0); RED BLOOD CELL COUNT(AUTO) 3.29 MIL/uL (4.0-5.2); WHITE BLOOD COUNT (AUTO) 11.6 K/uL (4.3-11.0)
[2018-01-31 06:43] LABS: CARBON DIOXIDE 24 mmol/L (21-32); CHLORIDE 100 mmol/L (98-107); CREATININE 4.6 mg/dL (0.6-1.3); GLUCOSE 142 mg/dL (74-106); POTASSIUM 4.7 mmol/L (3.5-5.1); SODIUM SERUM 138 mmol/L (136-145); UREA NITROGEN, BLOOD 66 mg/dL (7-18)
[2018-01-31 06:59] LABS: CALCIUM, SERUM 9.7 mg/dL (8.5-10.1)
--- NOTE | 2018-01-31 07:00 | NUR ---
RN NOTES RECEIVED PATIENT IN BED, AWAKE, ALERT X1, ABLE TO COMMUNICATE BY MOUTHING OUT WORDS, TRACH DEPENDENT, NO SIGNS OD SHORTNESS OF BREATH NOTED, NO COMPLAINTS OF PAIN OF ANY KIND, SUCTIONING DONE, ON TELE SINUS RYTHM WITH FIRST DEGREE AV BLOCK, HR IN 80, CHUN DRAINING WITH MINIMAL AMOUNT OF DRAINING, FEEDING RUNNING WELL AT 45 CC/ HR VIA GT, ABLE TO TOLERATE WELL, RIGHT HAND IV SIDE CLEAN DRY AND INTACT, MADE COMFORTABLE IN BED, CALL LIGHT WITHIN REACH, BED LOCKED AND LOWEST POSITION, CONTINUE TO MONITOR
[2018-01-31] MEDS: VIT B CMPLX 3/FA/VIT C/BIOTIN 1 TAB TABLET PEG SCH (08:26)
[2018-01-31] MEDS: LEVETIRACETAM SOL (5 ML) 100 MG/ML UDC PEG SCH ×2 (08:26→16:14)
[2018-01-31] MEDS: ASCORBIC ACID 500 MG TABLET PEG SCH (08:26)
[2018-01-31] MEDS: MINOXIDIL (2.5MG) 2.5 MG TABLET PEG SCH (08:26)
[2018-01-31] MEDS: LEVOTHYROXINE SODIUM 125 MCG TABLET GT SCH (08:26)
[2018-01-31] MEDS: risperiDONE LIQUID 1 MG/ML ML GT SCH (08:28)
[2018-01-31] MEDS: HEPARIN SODIUM, PORCINE 5000 UNITS/1 ML VIAL SQ SCH ×2 (08:29→21:04)
[2018-01-31] MEDS: SEVELAMER CARBONATE 0.8 GM POWD.PACK GT SCH ×3 (08:29→16:15)
[2018-01-31] MEDS: MUPIROCIN OINT 2% 22 GM TUBE SCH ×2 (08:29→21:05)
[2018-01-31] MEDS ORDERED: ALBUT2 NEB (10:08)
[2018-01-31] MEDS ORDERED: IPRA0.2S9 NEB (10:08)
[2018-01-31] MEDS ORDERED: VANC500F2 IV (10:08)
[2018-01-31] MEDS ORDERED: RXVAN IV (10:08)
--- NOTE | 2018-01-31 13:00 | NUR ---
RN NOTES UNABLE TO DISCHARGE PT TO SNF PER CASE MANAGEMENT . NO BED AVAILABLE AT THIS TIME .
--- NOTE | 2018-01-31 16:17 | NUR ---
MD Nasrin progress notes, consultation notes and dc summary faxed to [employer] [phone] per Jose Alejandro ZARATE @ [facility] request tel:[phone] tracking# [id number] Addendum: 01/31/18 at 1617 by NEYMAR NEAL RN Amended: Links added.
[2018-01-31] MEDS: NEPRO 1,000 ML BOTTLE GT PRN (16:24)
--- NOTE | 2018-01-31 18:00 | NUR ---
RN NOTES PT AT REST , TOLERATING TF WELL, R HAND IV SITE CLEAN AND DRY, TRACH SUCTIONING DONE, SR UP x3, CALL LIGHT WITHIN EASY REACH, WILL ENDORSE PT TO WEB CONTENT SPECIALIST NURSE FOR CONTINUITY OF CARE .
--- NOTE | 2018-01-31 20:25 | NUR ---
RN OPENING NOTES RECEIVED REPORT FROM COLTEN RAMON. PATIENT A/A/O X1, NON-VERBAL BUT RESPONSIVE TO NAME & TOUCH. BREATHING EVEN & UNLABORED W/ T-PIECE INTACT & TOLERATING COOL AEROSOL @ 5LPM. 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 RIGHT CW HD CATH W/ DRESSING CDI & RIGHT HAND IV #20 INTACT & PATENT, TKO. G-TUBE FLUSHING WELL W/ NEPRO RUNNING @ 45 ML/HR. NO RESIDUAL NOTED @ THIS TIME. CHUN CATH NOTED W/ LITTLE, YELLOW URINE OUTPUT. NO S/S OF PAIN OR DISCOMFORT @ THIS TIME. SAFETY MEASURES MAINTAINED W/ BED ALARM ON & CALL LIGHT WITHIN REACH. TURNED & REPOSITIONED FOR COMFORT. WILL CONTINUE TO MONITOR
[2018-02-01] MEDS: BLOOD SUGAR DIAGNOSTIC 1 EACH STRIP IN SCH ×3 (00:18→11:27)
[2018-02-01] MEDS: INSULIN REGULAR, HUMAN 100 UNIT/ML 3 ML VIAL SQ PRN ×3 (00:19→11:27)
[2018-02-01] MEDS: ALBUTEROL FS 2.5 MG/3 ML VIAL.NEB NEB SCH ×3 (01:55→13:38)
[2018-02-01] MEDS: IPRATROPIUM NEB FS 0.5 MG/2.5 ML AMPUL.NEB NEB SCH ×3 (01:55→13:38)
[2018-02-01 02:00] VITALS: BP 144/41
[2018-02-01 04:00] VITALS: BP 144/41
[2018-02-01 06:21] LABS: BASOPHILS % (AUTO) 0.4 % (0.0-2.0); EOSINOPHILS % (AUTO) 7.3 % (0.0-6.0); HEMATOCRIT 34 % (33-45); LYMPHOCYTES # (AUTO) 1.9 /CMM (0.8-4.8); LYMPHOCYTES % (AUTO) 15.8 % (20.0-44.0); MEAN CORPUSCULAR HEMOGLOBIN 31 PG (26.0-33.0); MEAN CORPUSCULAR HGB CONC 33 g/dl (31.0-36.0); MEAN CORPUSCULAR VOLUME 96 fL (82-100); MONOCYTES # (AUTO) 0.9 /CMM (0.1-1.30); MONOCYTES % (AUTO) 7.6 % (2.0-12.0); NEUTROPHILS # (AUTO) 8.1 /CMM (1.8-8.9); NEUTROPHILS % (AUTO) 68.9 % (43.0-81.0); PLATELET COUNT (AUTO) 292 /CMM (150-450); RDW COEFFICIENT OF VARIATION 18.4 (11.5-15.0); WHITE BLOOD COUNT (AUTO) 11.7 K/uL (4.3-11.0)
[2018-02-01 06:47] LABS: CALCIUM, SERUM 10.2 mg/dL (8.5-10.1); CARBON DIOXIDE 26 mmol/L (21-32); CHLORIDE 98 mmol/L (98-107); CREATININE 5.6 mg/dL (0.6-1.3); GLUCOSE 149 mg/dL (74-106); POTASSIUM 5.1 mmol/L (3.5-5.1); SODIUM SERUM 135 mmol/L (136-145)
[2018-02-01 06:57] LABS: UREA NITROGEN, BLOOD 84 mg/dL (7-18)
--- NOTE | 2018-02-01 07:30 | NUR ---
MS RN NOTES: RECEIVED PT ON BED ALERT AND AWAKE WITH NO APPARENT DISTRESS NOTED. NO COMPLAINTS OF PAIN OR DISCOMFORT. NO SOB NOTED. ON COOL AEROSOL, SATURATING WELL. ON GT FEEDING, NO RESIDUAL NOTED AT THIS TIME. CHUN CATH INTACT AND PATENT WITH CLEAR YELLOW URINE DRAINING. KEPT CLEAN, DRY AND COMFORTABLE. CALL LIGHT PLACED WITHIN REACH. WILL CONTINUE TO MONITOR PT.
[2018-02-01 08:00] VITALS: BP_SYST 133; BP_SYST 153; BP_DIAS 64
--- NOTE | 2018-02-01 08:26 | NUR ---
MS RN NOTES: LONITEN MED NOT GIVEN BECAUSE IS PT SCHEDULED FOR HD TODAY
[2018-02-01] MEDS: LEVOTHYROXINE SODIUM 125 MCG TABLET GT SCH (08:45)
[2018-02-01] MEDS: LEVETIRACETAM SOL (5 ML) 100 MG/ML UDC PEG SCH (08:45)
[2018-02-01] MEDS: ASCORBIC ACID 500 MG TABLET PEG SCH (08:45)
[2018-02-01] MEDS: VIT B CMPLX 3/FA/VIT C/BIOTIN 1 TAB TABLET PEG SCH (08:45)
[2018-02-01] MEDS: SEVELAMER CARBONATE 0.8 GM POWD.PACK GT SCH ×2 (08:45→12:21)
[2018-02-01] MEDS: MINOXIDIL (2.5MG) 2.5 MG TABLET PEG SCH (08:46)
[2018-02-01] MEDS: MUPIROCIN OINT 2% 22 GM TUBE SCH (08:46)
[2018-02-01] MEDS: risperiDONE LIQUID 1 MG/ML ML GT SCH (08:48)
[2018-02-01] MEDS: HEPARIN SODIUM, PORCINE 5000 UNITS/1 ML VIAL SQ SCH (08:58)
--- NOTE | 2018-02-01 13:00 | NUR ---
MS RN NOTES: REPORT GIVEN TO YENNY BATES AT [facility], [place].
[2018-02-01 16:00] VITALS: BP 129/43
--- NOTE | 2018-02-01 16:52 | NUR ---
MS RN NOTES: PATIENT WAS DISCHARGED TO [facility], ACCOMPANIED BY 2 AMBULANCE CREW. PT IN STABLE CONDITION. NO APPARENT DISTRESS NOTED. NO SOB. VITAL SIGNS WNL. IV ON RIGHT HAND REMOVED. DISCHARGE INSTRUCTIONS AND HEALTH EDUCATION PROVIDED.
== END 2018-02-01 17:42 | DRG 720 ==
LOC: ER 19:49 → TELE-TD 22:52 → MEDSG1 01-31 12:20
PROVIDERS: ADMIT Internal Medicine; ATTEND Internal Medicine
PROC: 5A1D70Z Performance of Urinary Filtration, Intermittent, Less than 6 Hours Per Day (ICD-10-PCS; 2018-01-25)
PROC: 0JB70ZZ Excision of Back Subcutaneous Tissue and Fascia, Open Approach (ICD-10-PCS; principal; 2018-01-26)
PROC: 5A1D70Z Performance of Urinary Filtration, Intermittent, Less than 6 Hours Per Day (ICD-10-PCS; principal; 2018-01-26)
PROC: 0JB90ZZ Excision of Buttock Subcutaneous Tissue and Fascia, Open Approach (ICD-10-PCS; principal; 2018-01-26)
PROC: 5A1D70Z Performance of Urinary Filtration, Intermittent, Less than 6 Hours Per Day (ICD-10-PCS; 2018-01-27)
PROC: 5A1D70Z Performance of Urinary Filtration, Intermittent, Less than 6 Hours Per Day (ICD-10-PCS; 2018-01-28)
PROC: 5A1D70Z Performance of Urinary Filtration, Intermittent, Less than 6 Hours Per Day (ICD-10-PCS; 2018-01-30)
PROC: 5A1D70Z Performance of Urinary Filtration, Intermittent, Less than 6 Hours Per Day (ICD-10-PCS; 2018-02-01)
DX: A41.9 Sepsis, unspecified organism (principal); I13.2 Hypertensive heart and chronic kidney disease with heart failure and with stage 5 chronic kidney disease, or end stage renal disease; G93.40 Encephalopathy, unspecified; J96.11 Chronic respiratory failure with hypoxia; L89.153 Pressure ulcer of sacral region, stage 3; N18.6 End stage renal disease; L89.323 Pressure ulcer of left buttock, stage 3; I50.32 Chronic diastolic (congestive) heart failure; R53.2 Functional quadriplegia; L89.102 Pressure ulcer of unspecified part of back, stage 2; F03.90 Unspecified dementia, unspecified severity, without behavioral disturbance, psychotic disturbance, mood disturbance, and anxiety; L89.313 Pressure ulcer of right buttock, stage 3; E11.22 Type 2 diabetes mellitus with diabetic chronic kidney disease; D69.6 Thrombocytopenia, unspecified; Z93.0 Tracheostomy status; E87.5 Hyperkalemia; L89.621 Pressure ulcer of left heel, stage 1; R13.10 Dysphagia, unspecified; E03.9 Hypothyroidism, unspecified; Z93.1 Gastrostomy status; Z99.2 Dependence on renal dialysis; L89.611 Pressure ulcer of right heel, stage 1; I25.10 Atherosclerotic heart disease of native coronary artery without angina pectoris; G40.909 Epilepsy, unspecified, not intractable, without status epilepticus; J44.9 Chronic obstructive pulmonary disease, unspecified; D64.9 Anemia, unspecified; L89.891 Pressure ulcer of other site, stage 1; L98.8 Other specified disorders of the skin and subcutaneous tissue; Z22.322 Carrier or suspected carrier of Methicillin resistant Staphylococcus aureus; L89.300 Pressure ulcer of unspecified buttock, unstageable
CPT/HCPCS: 31720; 36415; 36600; 70450-TC; 71045-TC; 76700-TC; 80048-TC; 80053-TC; 80076-TC; 80202-TC; 82803-TC; 82962-TC; 83605-TC; 83735-TC; 84100-TC; 84484-TC; 85025-TC; 85396; 85730-TC; 86022; 87040-TC; 87081-TC; 90935-TC; 94640-TC; 94762-TC; A4216; A4606; A6253; A6402; A6403; J0885; J1200; J1644; J1815; J1953; J2270; J2543; J2997; J3370; J7060; P9047; Z7610

== ENCOUNTER 2019-01-09 18:25 | Emergency (ER) | payer MEDICARE, BC, MEDICAID ==
[~2019-01-09] VITALS: Ht 162.6 cm; Wt 69.9 kg
[~2019-01-09 18:25] MED LIST changes: +ACET325T53 GT; +CHLO473M3 MM; -DIPH25CA83 PO; +HYDR-4077 GT; -HYDR-4077 PO; -HYDR-548 PO; -INSU100V11 SQ; +INSU100V30 SQ; +INSU100V7 SQ; +IPRA3AMP23 IH; +LACT1CAP7 GT; +MELA3TAB GT; +NUTR100037 GT; -RISP0.5T5 GT; +SEVE0.8P3 GT; -SEVE0.8P3 PO; +VANC125C11 GT
[2019-01-09 18:34] VITALS: BP 129/49
[2019-01-09] MEDS ORDERED: ALBU2.5V13 IH ×2 (18:57)
[2019-01-09] MEDS ORDERED: DOCU-141 GT (18:57)
[2019-01-09] MEDS ORDERED: OMEP40CA37 PO (18:57)
[2019-01-09] MEDS ORDERED: SUCR1ORA GT (18:57)
--- NOTE | 2019-01-09 18:57 | NUR ---
[facility] ETA 2029 TRIP#[id number]
--- NOTE | 2019-01-09 19:11 | NUR ---
REPORT GIVEN TO GENET RAMON FOR ROLANDO.
--- NOTE | 2019-01-09 19:29 | NUR ---
pt received in bed sleeping easily arrousable. responsive to verbal and tactile stimuli. nad noted. t bar noted on pt
--- NOTE | 2019-01-09 21:10 | NUR ---
AMBULANZ AT BEDSIDE FOR PT PU TO TRANPORT PT BACK TO FACILITY. 2 STAFF AND RT AT BEDSIDE. NAD UPON D/C. REPORT GIVEN.
== END 2019-01-09 21:12 | disposition home or self-care (01) ==
LOC: ER 18:25
DX: L20.9 Atopic dermatitis, unspecified (principal); G40.909 Epilepsy, unspecified, not intractable, without status epilepticus; E11.22 Type 2 diabetes mellitus with diabetic chronic kidney disease; N18.6 End stage renal disease; Z99.2 Dependence on renal dialysis; Z93.1 Gastrostomy status; Z98.890 Other specified postprocedural states; Z88.8 Allergy status to other drugs, medicaments and biological substances; Z79.4 Long term (current) use of insulin; Z79.899 Other long term (current) drug therapy

== ENCOUNTER 2019-01-26 14:44 | Inpatient (IN) | payer MEDICARE, BC, MEDICAID ==
[~2019-01-26] VITALS: Ht 162.6 cm; Wt 67.1 kg
[~2019-01-26 14:44] MED LIST changes: -ACET325T53 GT; +ALBU2.5V13 IH; +DOCU-141 GT; -IPRA3AMP23 IH; -MELA3TAB GT; +OMEP40CA37 GT; +SUCR1ORA GT; -VANC125C11 GT
--- NOTE | 2019-01-26 14:44 | NUR ---
PT BIB PA FROM [facility]ARE FACILITY,WEAKNESS/MORE ALTERED THAN NORMAL, MISSED DIALYSIS TODAY, PT IS AAOX1, NOT IN RESPIRATORY DISTRESS, HOOKED TO MONITOR, KEPT RESTED AND COMFORTABLE, WILL CONTINUE TO MONITOR.
--- NOTE | 2019-01-26 14:50 | NUR ---
RT AT BEDSIDE FOR MECH VENT SET UP.
--- NOTE | 2019-01-26 15:20 | NUR ---
SEEN AND EXAMINED BY .
--- NOTE | 2019-01-26 15:40 | NUR ---
IV LINE ESTABLSIHED, BLOOD DRAWNED AND SENT TO LAB.
[2019-01-26 15:42] LABS: BASOPHILS % (AUTO) 0.1 % (0.0-2.0); EOSINOPHILS % (AUTO) 0.2 % (0.0-6.0); HEMATOCRIT 26 % (33-45); HEMOGLOBIN 8.2 g/dL (11.5-14.8); LYMPHOCYTES # (AUTO) 0.3 /CMM (0.8-4.8); LYMPHOCYTES % (AUTO) 2.6 % (20.0-44.0); MEAN CORPUSCULAR HGB CONC 31 g/dl (31.0-36.0); MEAN CORPUSCULAR VOLUME 100 fL (82-100); MONOCYTES % (AUTO) 9.2 % (2.0-12.0); NEUTROPHILS # (AUTO) 9.9 /CMM (1.8-8.9); NEUTROPHILS % (AUTO) 87.9 % (43.0-81.0); PLATELET COUNT (AUTO) 248 /CMM (150-450); RED BLOOD CELL COUNT(AUTO) 2.63 MIL/uL (4.0-5.2); WHITE BLOOD COUNT (AUTO) 11.2 K/uL (4.3-11.0)
[2019-01-26 15:44] LABS: CALCIUM, SERUM 9.9 mg/dL (8.5-10.1); CARBON DIOXIDE 29 mmol/L (21-32); CHLORIDE 99 mmol/L (98-107); CREATININE 3.6 mg/dL (0.6-1.3); GLUCOSE 145 mg/dL (74-106); POTASSIUM 3.3 mmol/L (3.5-5.1); SODIUM SERUM 139 mmol/L (136-145); UREA NITROGEN, BLOOD 72 mg/dL (7-18)
[2019-01-26 15:50] LABS: ALANINE AMINOTRANSFERASE 14 U/L (12-78); ALKALINE PHOSPHATASE 162 U/L (46-116); ASPARTATE AMINOTRANSFERASE 11 U/L (15-37); BILIRUBIN,DIRECT 0.2 mg/dL (0.0-0.2); BILIRUBIN,TOTAL 0.5 mg/dL (0.2-1.0); TOTAL PROTEIN, SERUM 6.4 g/dL (6.4-8.2)
[2019-01-26 16:06] LABS: THYROID STIMULATING HORMONE 1.564 uIU/mL (0.358-3.74)
--- NOTE | 2019-01-26 16:18 | NUR ---
PT WHEELED TO CT SCAN VIA ALS PROTOCOL.
[2019-01-26 16:28] LABS: BAND % (MANUAL) 1 % (0.0-5.0); LYMPHOCYTES % (MANUAL) 5 % (16-48); MONOCYTES % (MANUAL) 9 % (0-11.0); NEUTROPHILS % (MANUAL) 85 (42-76)
--- NOTE | 2019-01-26 16:54 | NUR ---
RT PT REC'D FROM [facility] ON MECHANICAL VENT ON CHARTED SETTINGS ENDORSED BY TRANSPORT RT. TRACH TUBE PATENT SECURED, AND IN PLACE. NO SOB NOTED AT THIS TIME. VENT ALARMS ON AND AUDIBLE, VENT PLUGGED IN RED OUTLET. BVM AT [facility]. WILL CONTINUE TO MONITOR. Addendum: 01/26/19 at 1654 by RAIZA ARAUJO RT Amended: Links added.
[2019-01-26] MEDS ORDERED: CETI-102 PO (16:56)
--- NOTE | 2019-01-26 17:24 | NUR ---
CALLED FOR BED, TURNED MOVE SHEET
--- NOTE | 2019-01-26 18:53 | NUR ---
REPORT GIVEN TO YENNY MOSES FOR ROLANDO.
--- NOTE | 2019-01-26 19:40 | NUR ---
TELE TD/RN NOTES 78 YEARS OLD FEMALE PATIENT ADMITTED TO THE SAEED UNIT WITH THE DX OF SEPSIS, ACUTE ENCEPHALOPATHY. PATIENT NOTED WITH NO S/S OF ACUTE DISTRESS, RESPIRATION EVEN AND UNLABORED. NO SOB NOTED. TRACH INTACT, PATENT, CONNECTED TO VENT WITH PRESCRIBED SETTINGS. PATIENT A/O X1, NO S/S OF PAIN OR DISCOMFORT NOTED AT THIS TIME. SKIN ASSESSMENT DONE, RAC 18 GAUGE HEP LOCK NOTED WITH NO S/S OF INFECTION. R UPPER CHEST HD PORT NOTES WITH NO S/S OF INFECTION, INTACT. ILIA OLD HD SITE NOTED, PATENT ABLE TO FEEL THE THRILL UPON PALPATION. G SITE NOTED WITH MINIMAL LEAKAGE AT THIS TIME. OTHERWISE IN, PLACE, PATENT, AUSCULTATED, FLUSHED. NO RESIDUAL NOTED AT THIS TIME, RELAYED TO DR EULALIA THOMPSON, RYLEE. HE SAID JUST CONTINUE TO MONITOR SITE. PATIENT ON LINUX DEVOPS ENGINEER WITH SR 88. HOB ELEVATED. SAFETY MAINTAINED, BED AT THE LOWEST, LOCKED POSITION. WILL CONTINUE TO MONITOR PATIENT PER PLAN OF CARE. Addendum: 01/27/19 at 0649 by OLAMIDE DEL VALLE RN PLEASE DISREGARD SEPSIS, PATIENT WAS ONLY ADMITTED WITH ACUTE ENCEPHALOPATHY
[2019-01-26 21:05] VITALS: BP 160/50
[2019-01-26] MEDS ORDERED: HYDROCODONE/APAP 5/325MG 1 EACH TABLET PO PRN (21:30)
[2019-01-26] MEDS ORDERED: NUTRITIONAL SUPPLEMENT GT SCH (21:30)
[2019-01-26] MEDS ORDERED: MAG HYDROX/AL HYDROX/SIMETH 30 ML UDC PO PRN (21:30)
[2019-01-26] MEDS ORDERED: ONDANSETRON HCL/PF 4 MG/2 ML VIAL IVP PRN (21:30)
[2019-01-26] MEDS ORDERED: Z GUARD REMEDY 2 OZ OINT TP PRN (21:30)
[2019-01-26] MEDS ORDERED: MAGNESIUM HYDROXIDE 30 ML UDC PO PRN (21:30)
[2019-01-26] MEDS ORDERED: ZOLPIDEM TARTRATE 5 MG TABLET PO PRN (21:30)
[2019-01-26] MEDS ORDERED: hydrALAZINE HCL 50 MG TABLET GT PRN (21:30)
[2019-01-26] MEDS ORDERED: DEXTROSE 50%-WATER 50 ML DISP.SYRIN IV PRN (21:30)
[2019-01-26] MEDS ORDERED: NEPRO 1,000 ML BOTTLE GT PRN (22:30)
[2019-01-26] MEDS: SUCRALFATE 1 G/10 ML UDC GT SCH (22:48)
[2019-01-26] MEDS: NEPRO 1,000 ML BOTTLE GT PRN (22:49)
[2019-01-26] MEDS: BLOOD SUGAR DIAGNOSTIC 1 EACH STRIP IN SCH (23:52)
[2019-01-27] VITALS: BP 130/54
[2019-01-27] MEDS ORDERED: ENOXAPARIN SODIUM 30 MG/0.3 ML DISP.SYRIN SQ SCH (01:30)
[2019-01-27 04:00] VITALS: BP 128/52
[2019-01-27] MEDS: BLOOD SUGAR DIAGNOSTIC 1 EACH STRIP IN SCH ×4 (05:36→23:21)
[2019-01-27] MEDS: INSULIN REGULAR, HUMAN 100 UNIT/ML 3 ML VIAL SQ PRN ×4 (05:37→23:22)
[2019-01-27 06:28] LABS: BASOPHILS % (AUTO) 0.3 % (0.0-2.0); EOSINOPHILS % (AUTO) 0.2 % (0.0-6.0); HEMATOCRIT 25 % (33-45); HEMOGLOBIN 7.8 g/dL (11.5-14.8); LYMPHOCYTES # (AUTO) 0.4 /CMM (0.8-4.8); MEAN CORPUSCULAR HGB CONC 31 g/dl (31.0-36.0); MEAN CORPUSCULAR VOLUME 100 fL (82-100); MONOCYTES # (AUTO) 1.1 /CMM (0.1-1.30); MONOCYTES % (AUTO) 9.4 % (2.0-12.0); NEUTROPHILS # (AUTO) 10.4 /CMM (1.8-8.9); NEUTROPHILS % (AUTO) 87.1 % (43.0-81.0); PLATELET COUNT (AUTO) 228 /CMM (150-450); RED BLOOD CELL COUNT(AUTO) 2.53 MIL/uL (4.0-5.2)
--- NOTE | 2019-01-27 06:49 | NUR ---
TELE TD/RN NOTES PATIENT IN BED, RESTING COMFORTABLY AT THIS TIME. PATIENT NOTED WITH NO S/S OF ACUTE DISTRESS, RESPIRATION EVEN AND UNLABORED. NO SOB NOTED. TRACH INTACT, PATENT, CONNECTED TO VENT WITH PRESCRIBED SETTINGS. NO S/S OF PAIN OR DISCOMFORT NOTED AT THIS TIME. RAC 18 GAUGE HEP LOCK NOTED WITH NO S/S OF INFECTION. R UPPER CHEST HD PORT NOTES WITH NO S/S OF INFECTION, INTACT. ILIA OLD HD SITE NOTED, PATENT ABLE TO FEEL THE THRILL UPON PALPATION. G TUBE IN, PLACE, PATENT, AUSCULTATED, FLUSHED. CONNECTED TO FEEDING ORDERED. PATIENT NOTED WITH 60 CC OF RESIDUAL. HELD FEEDING. PATIENT ON SLIDING JOINT MAKER WITH SR . HOB ELEVATED. SAFETY MAINTAINED, BED AT THE LOWEST, LOCKED POSITION. WILL ENDORSE TO AM SHIFT NURSE FOR ROLANDO.
[2019-01-27 06:50] LABS: ALANINE AMINOTRANSFERASE 12 U/L (12-78); ALBUMIN 2.6 g/dL (3.4-5.0); ALKALINE PHOSPHATASE 99 U/L (46-116); ASPARTATE AMINOTRANSFERASE 10 U/L (15-37); BILIRUBIN,TOTAL 0.5 mg/dL (0.2-1.0); CALCIUM, SERUM 9.5 mg/dL (8.5-10.1); CARBON DIOXIDE 24 mmol/L (21-32); CHLORIDE 99 mmol/L (98-107); CREATININE 4.1 mg/dL (0.6-1.3); GLUCOSE 188 mg/dL (74-106); MAGNESIUM 2.5 mg/dL (1.8-2.4); SODIUM SERUM 137 mmol/L (136-145); TOTAL PROTEIN, SERUM 5.9 g/dL (6.4-8.2)
[2019-01-27 06:51] LABS: CHOLESTEROL 83 mg/dL (<200); HDL CHOLESTEROL 43 mg/dL (40-60); LDL 33 mg/dL (0-99); TRIGLYCERIDES 77 mg/dL (30-150)
[2019-01-27 06:52] LABS: UREA NITROGEN, BLOOD 88 mg/dL (7-18)
--- NOTE | 2019-01-27 07:10 | NUR ---
RN INITIAL NOTES REPORT GIVEN AT BEDSIDE, PATIENT ASLEEP EASILY AROUSABLE TO NAME/TOUCH. ON VENT SATING WELL AT 98%. ON TELE MONITOR. ON DIAPER. LAST HD WAS 01/24. LAST BM LAST NIGHT 1999. WOUND CONSULT STILL PENDING. ON GTF NEPRO AT 50ML/HR. PER NOC SHIFT, HAD 70MLS OF RESIDUAL. GTF ON HOLD AT THIS TIME. WILL RECHECK LATER. HAS RIGHT AC #18 SALINE LOCKED. HAS AN OLD HD CATH SHUNT AT LEFT ARM. NEW HD CATH ON RIGHT UPPER CHEST. BED LOCKED AND IN LOW POSITION. CALL LIGHT WITHIN REACH. WILL CONTINUE TO MONITOR CLOSELY
[2019-01-27 08:00] VITALS: BP 114/38
[2019-01-27] MEDS ORDERED: POLYVINYL ALCOHOL 15 ML BOTTLE EACHEYE PRN (08:00)
[2019-01-27] MEDS: LEVETIRACETAM SOL (5 ML) 100 MG/ML UDC GT SCH ×2 (08:10→20:22)
[2019-01-27] MEDS: SUCRALFATE 1 G/10 ML UDC GT SCH ×4 (08:10→21:37)
[2019-01-27] MEDS: SEVELAMER CARBONATE 0.8 GM POWD.PACK GT SCH ×3 (08:10→17:01)
[2019-01-27] MEDS: CHLORHEXIDINE GLUCONATE 15 ML UDC MM SCH ×2 (08:10→20:22)
[2019-01-27] MEDS: ASCORBIC ACID 500 MG TABLET GT SCH (08:11)
[2019-01-27] MEDS: LEVOTHYROXINE SODIUM 125 MCG TABLET GT SCH (08:11)
[2019-01-27] MEDS: PANTOPRAZOLE 40 MG TABLET.DR PO SCH (08:11)
[2019-01-27] MEDS: ACIDOPHILUS/BULGARICUS 1 EACH TAB.CHEW GT SCH ×3 (08:11→17:00)
[2019-01-27] MEDS: MINOXIDIL (2.5MG) 2.5 MG TABLET GT SCH (08:11)
[2019-01-27] MEDS: HEPARIN SODIUM, PORCINE 5000 UNITS/1 ML VIAL SQ SCH ×2 (08:13→20:27)
[2019-01-27] MEDS: PROSOURCE / PROSTAT (PYXIS) 30 ML UDC GT SCH ×2 (08:18→16:59)
[2019-01-27] MEDS: DOCUSATE SODIUM LIQ 100 MG/10 ML UDC GT SCH (08:50)
[2019-01-27] MEDS ORDERED: DOCUSATE SODIUM 100 MG CAPSULE PO SCH (09:00)
--- NOTE | 2019-01-27 09:00 | NUR ---
RN NOTES PATIENT WAS TRANSFERRED HERE IN ICU DUE TO MONITORS NOT WORKING AT SAEED/TELE FLOOR. PATIENT WAS TRANSFERRED VIA ACLS PROTOCOL. NO SIGNS OF ANY DISTRESS NOTED. PATIENT NON VERBAL ONLY OPENS EYES. WILL CONTINUE TO MONITOR HERE IN ICU
[2019-01-27 12:00] VITALS: BP 113/51
[2019-01-27] MEDS ORDERED: POTASSIUM CL. PREMIX PERIPHER. 50 ML IV SCH (12:00)
[2019-01-27] MEDS ORDERED: CEFTRIAXONE 1 G in IV D5W 50 ML IV SCH (12:00)
--- NOTE | 2019-01-27 12:52 | NUR ---
RN NOTES PATIENT BACK AGAIN TO SAEED/TELE FLOOR. PATIENT TRANSFERRED VIA ACLS PROTOCOL. DIALYSIS NURSE AT BEDSIDE.
--- NOTE | 2019-01-27 12:56 | NUR ---
RN NOTES PER MD, CANCEL ORDER OF K 200MLS. DIALYSIS NURSE WILL REPLACE K TOGETHER WITH DIALYSIS.
--- NOTE | 2019-01-27 12:58 | NUR ---
RN NOTES ALL MEDS, INCLUDING ROCEPHIN Q24H WILL BE GIVEN AFTER DIALYSIS PER DIALYSIS NURSE. EPOGEN WILL BE GIVEN WITH DIALYSIS. RENVELA, LACTINEX AND CARAFATE WILL BE KEPT IN PATIENTS CASSETTE IN MED ROOM.
[2019-01-27] MEDS ORDERED: EPOETIN ALFA (10,000 UNIT) 10,000 UNIT/ML VIAL SQ ONE (13:00)
--- NOTE | 2019-01-27 13:54 | NUR ---
RN NOTES FAMILY AT BEDSIDE, WAS ADVISED THAT PATIENT HAD A HX OF HAVING SCABIES BEFORE. CHECKED PATIENT'S SKIN AND BACK SIDE HAS RASHES. MD MADE AWARE, ORDERED ISOLATION CART FOR PRECAUTIONS. WOUND CARE CONSULT STILL PENDING. PER MD, ORDER ELIMITE CREAM. ORDER CARRIED OUT
[2019-01-27] MEDS ORDERED: PERMETHRIN 5% CRM 60 GM TUBE TP ONE (14:00)
[2019-01-27 16:00] VITALS: BP_SYST 144; BP_SYST 152; BP_DIAS 36; BP_DIAS 44
--- NOTE | 2019-01-27 17:02 | NUR ---
RN NOTES CARAFATE, LACTINEX AND RENVELA GIVEN LATE AT 1600 DUE TO DIALYSIS. NEXT DUE IS AT 1700, CALLED PHARMACY - WAS TOLD TO HOLD 1700 DOSE
[2019-01-27] MEDS: VIT B CMPLX 3/FA/VIT C/BIOTIN 1 TAB TABLET GT SCH (17:52)
[2019-01-27] MEDS ORDERED: DOSING PER PHARMACY-AMIKACI IV XX PRN (18:00)
[2019-01-27] MEDS ORDERED: FEE PK DOSING 1 MIN EA MC ONE (18:09)
--- NOTE | 2019-01-27 18:44 | NUR ---
RN CLOSING NOTES PATIENT IN BED, RT AT BEDSIDE, VENT KEEPS BEEPING. PATIENT AWAKE ON STABLE CONDITION. NO SIGNS OF ANY DISTRESS, PAIN NOR SOB. HD TODAY WITH 3000 OUTPUT. NEPRO RUNNING AT 50ML/HR. K REPLACED TOGETHER WITH DIALYSIS. ELIMITE GIVEN AT 1600, WASH AFTER 12H. WILL ENDORSE TO NOC SHIFT FOR ROLANDO
--- NOTE | 2019-01-27 19:20 | NUR ---
TELE TD/RN NOTES PATIENT IN BED, RESTING COMFORTABLY AT THIS TIME. NO S/S OF ACUTE DISTRESS, RESPIRATION EVEN AND UNLABORED. NO SOB NOTED. TRACH INTACT, PATENT, CONNECTED TO VENT WITH PRESCRIBED SETTINGS. PATIENT A/O X1, NO S/S OF PAIN OR DISCOMFORT NOTED AT THIS TIME. RAC 18 GAUGE HEP LOCK NOTED WITH NO S/S OF INFECTION. R UPPER CHEST HD PORT NOTES WITH NO S/S OF INFECTION, INTACT. ILIA OLD HD SITE NOTED, PATENT ABLE TO FEEL THE THRILL UPON PALPATION. G TUBE IN PLACE, PATENT, AUSCULTATED, FLUSHED. NO RESIDUAL NOTED AT THIS TIME, CONNECTED TO FEEDING ORDERED. PATIENT HAS HD DONE TODAY WITH OUTPUT OF 3000. PATIENT ON SENIOR DIGITAL DESIGNER WITH SR WITH PAC, PVC AT RATE 97. HOB ELEVATED. SAFETY MAINTAINED, BED AT THE LOWEST, LOCKED POSITION. WILL CONTINUE TO MONITOR PATIENT PER PLAN OF CARE. Addendum: 01/27/19 at 1948 by OLAMIDE DEL VALLE RN TELE/RN NOTES
[2019-01-27 20:00] VITALS: BP 105/42
[2019-01-27] MEDS ORDERED: VANCOMYCIN 1 GM in IV D5W 250 ML IV ONE (20:00)
[2019-01-27] MEDS ORDERED: D5W IV ONE (21:00)
[2019-01-27] MEDS ORDERED: AMIKACIN IV ONE (21:00)
--- NOTE | 2019-01-27 21:59 | NUR ---
PATIENT ON FOREPART RASPER, NOTED WITH MULTIPLE PVC'S AT THE RATE 107 AT THIS TIME. PATIENT IN NO ACUTE DISTRESS. DR EULALIA THOMPSON WITH NEW ORDER TO DO EKG. ORDER NOTED AND CARRIED OUT
--- NOTE | 2019-01-27 22:51 | NUR ---
EKG WAS DONE, PATIENT NOTED WITH A-FIB ON EKG. RESULTS RELAYED TO DR EULALIA THOMPSON WITH NNO. DR EULALIA THOMPSON SAID CONTINUE TO MONITOR
[2019-01-28] VITALS: BP 104/47
--- NOTE | 2019-01-28 00:57 | NUR ---
PATIENT BLOOD PRESSURE NOTED LOW AT THIE TIME, 87/38. PATIENT HAD HD DONE YESTERDAY, REMOVED 3000 ML OF FLUIDS. PATIENT IN NO ACUTE DISTRESS. PLACED PATIENT IN [place] POSITION. ELEVATED LOWER EXTREMITY. CALLED DR EULALIA THOMPSON AT THIS TIME, RELAYED PATIENT CONDITION/ VITAL SIGNS WITH NEW ORDER TO GIVE PATIENT NS 0.9% 500ML BOLUS X1. NOTED AND CARRIED. WILL CONTINUE TO MONITOR PATIENT,.
[2019-01-28] MEDS ORDERED: IV NS 0.9% 500 ML BAG IV ONE (01:00)
--- NOTE | 2019-01-28 01:49 | NUR ---
S/P NS 0.9% 500CC BOLUS, RECHECKED BLOOD PRESSURE AT THIS TIME, NOTED 105/50. PATIENT IN NO ACUTE DISTRESS. HOB ELEVATED. IV SITE NOTED WITH NO S/S OF INFILTRATION. NO SOB NOTED. WILL CONTINUE TO MONITOR PATIENT.
[2019-01-28] MEDS: NEPRO 1,000 ML BOTTLE GT PRN (02:20)
[2019-01-28 04:00] VITALS: BP 99/62
[2019-01-28] MEDS: BLOOD SUGAR DIAGNOSTIC 1 EACH STRIP IN SCH ×3 (05:04→17:46)
--- NOTE | 2019-01-28 06:30 | NUR ---
TELE/RN NOTES PATIENT IN NO ACUTE DISTRESS, RESPIRATION EVEN AND UNLABORED. NO SOB NOTED. TRACH INTACT, PATENT, CONNECTED TO VENT WITH PRESCRIBED SETTINGS. NO S/S OF PAIN NOTED, NO FACIAL GRIMACING NOTED. RAC 18 GAUGE IV SITE NOTED WITH NO S/S OF INFECTION, INFILTRATION. R UPPER CHEST HD PORT NOTES WITH NO S/S OF INFECTION, INTACT. ILIA OLD HD SITE NOTED, PATENT ABLE TO FEEL THE THRILL UPON PALPATION. G TUBE IN PLACE, PATENT, AUSCULTATED, FLUSHED. NO RESIDUAL NOTED AT THIS TIME, CONNECTED TO FEEDING ORDERED. ALL DUE MEDS GIVEN ORDERED. PATIENT ON MEDICAL DEVICE SALES CONSULTANT, AFIB WITH THE RATE OF 96, MD EULALIA THOMPSON AWARE. HOB ELEVATED. SAFETY MAINTAINED, BED AT THE LOWEST, LOCKED POSITION. WILL ENDORSE TO AM SHIFT NURSE FOR ROLANDO.
[2019-01-28 06:39] LABS: BASOPHILS % (AUTO) 0.2 % (0.0-2.0); HEMATOCRIT 27 % (33-45); HEMOGLOBIN 8.6 g/dL (11.5-14.8); LYMPHOCYTES # (AUTO) 0.5 /CMM (0.8-4.8); LYMPHOCYTES % (AUTO) 4.5 % (20.0-44.0); MEAN CORPUSCULAR HGB CONC 32 g/dl (31.0-36.0); MEAN CORPUSCULAR VOLUME 100 fL (82-100); MONOCYTES # (AUTO) 1.6 /CMM (0.1-1.30); MONOCYTES % (AUTO) 13.5 % (2.0-12.0); NEUTROPHILS # (AUTO) 9.6 /CMM (1.8-8.9); NEUTROPHILS % (AUTO) 80.8 % (43.0-81.0); PLATELET COUNT (AUTO) 264 /CMM (150-450); RED BLOOD CELL COUNT(AUTO) 2.71 MIL/uL (4.0-5.2); WHITE BLOOD COUNT (AUTO) 11.9 K/uL (4.3-11.0)
[2019-01-28 07:27] LABS: CALCIUM, SERUM 9.6 mg/dL (8.5-10.1); CARBON DIOXIDE 25 mmol/L (21-32); CHLORIDE 101 mmol/L (98-107); CREATININE 3.5 mg/dL (0.6-1.3); GLUCOSE 144 mg/dL (74-106); MAGNESIUM 2.4 mg/dL (1.8-2.4); PHOSPHORUS 2.6 mg/dL (2.5-4.9); POTASSIUM 3.6 mmol/L (3.5-5.1); SODIUM SERUM 137 mmol/L (136-145)
[2019-01-28 07:28] LABS: UREA NITROGEN, BLOOD 83 mg/dL (7-18)
--- NOTE | 2019-01-28 07:30 | NUR ---
radiotelegraph operator notes received pt in bed, on vent to trach. tolerating settings. pt's extremities cold. adjusted ac. pulse ox not sensing poss d/t temperature of pt. iv site flushed/patent. pt with clean diaper on. nepro running at 50ml/hr. bed in locked/lowest position. call light in reach. willcont to monitor.
[2019-01-28 08:00] VITALS: BP 90/41
[2019-01-28] MEDS: PANTOPRAZOLE 40 MG TABLET.DR PO SCH (08:41)
[2019-01-28] MEDS: SUCRALFATE 1 G/10 ML UDC GT SCH ×4 (08:41→21:18)
[2019-01-28] MEDS: LEVETIRACETAM SOL (5 ML) 100 MG/ML UDC GT SCH ×2 (08:41→21:18)
[2019-01-28] MEDS: SEVELAMER CARBONATE 0.8 GM POWD.PACK GT SCH ×3 (08:41→17:46)
[2019-01-28] MEDS: ACIDOPHILUS/BULGARICUS 1 EACH TAB.CHEW GT SCH ×3 (08:42→17:45)
[2019-01-28] MEDS: ACETAMINOPHEN 325 MG TABLET PO PRN (08:42)
[2019-01-28] MEDS: CHLORHEXIDINE GLUCONATE 15 ML UDC MM SCH ×2 (08:42→21:18)
[2019-01-28] MEDS: DOCUSATE SODIUM LIQ 100 MG/10 ML UDC GT SCH (08:42)
[2019-01-28] MEDS: ASCORBIC ACID 500 MG TABLET GT SCH (08:42)
[2019-01-28] MEDS: MINOXIDIL (2.5MG) 2.5 MG TABLET GT SCH (08:43)
[2019-01-28] MEDS: LEVOTHYROXINE SODIUM 125 MCG TABLET GT SCH (08:43)
[2019-01-28] MEDS: HEPARIN SODIUM, PORCINE 5000 UNITS/1 ML VIAL SQ SCH ×2 (08:56→21:22)
[2019-01-28 09:20] LABS: THYROID STIMULATING HORMONE 2.079 uIU/mL (0.358-3.74)
[2019-01-28] MEDS: PROSOURCE / PROSTAT (PYXIS) 30 ML UDC GT SCH ×2 (09:59→17:45)
[2019-01-28 12:00] VITALS: BP 121/76
[2019-01-28] MEDS: INSULIN REGULAR, HUMAN 100 UNIT/ML 3 ML VIAL SQ PRN ×2 (12:21→17:49)
--- NOTE | 2019-01-28 12:35 | NUR ---
telemetry technician notes gallo @ [facility] called to report amikacin result: 47.8. will relay message to .
--- NOTE | 2019-01-28 13:01 | NUR ---
telehealth case manager notes reported amikacin trough 47.8 to pharmacy. calixto charge nurse aware.
[2019-01-28 16:00] VITALS: BP_SYST 141; BP_SYST 97; BP_DIAS 31; BP_DIAS 72
[2019-01-28] MEDS: VIT B CMPLX 3/FA/VIT C/BIOTIN 1 TAB TABLET GT SCH (17:46)
[2019-01-28] MEDS ORDERED: AMIKACIN 500 MG in IV D5W 100 ML IV PRN (18:00)
--- NOTE | 2019-01-28 18:00 | NUR ---
telegraphic typewriter operator notes dieter updated with results of blood cx requested repeat blood cx tmrw with hd from [facility]. vs stable. pt remained afebrile. on tele pt afib with controlled rate. dr adkins aware. pharmacy updated with amikacin results: 47.8. isolation precautions maintained. bed in locked/lowest position. call light in reach. will endorse to pm nurse for latosha
[2019-01-28 20:00] VITALS: BP 91/30
[2019-01-29] VITALS: BP 107/46
[2019-01-29] MEDS: BLOOD SUGAR DIAGNOSTIC 1 EACH STRIP IN SCH ×4 (00:06→17:48)
[2019-01-29] MEDS: INSULIN REGULAR, HUMAN 100 UNIT/ML 3 ML VIAL SQ PRN ×2 (00:15→13:22)
--- NOTE | 2019-01-29 00:30 | NUR ---
SAEED RN NOTES RECEIVED PATIENT IN NO ACUTE DISTRESS, RESPIRATION EVEN AND UNLABORED. NO SOB NOTED. TRACH INTACT, PATENT, CONNECTED TO VENT WITH PRESCRIBED SETTINGS. NO S/S OF PAIN NOTED, NO FACIAL GRIMACING NOTED. RAC 18 GAUGE IV SITE NOTED WITH NO S/S OF INFECTION, INFILTRATION. R UPPER CHEST HD PORT NOTES WITH NO S/S OF INFECTION, INTACT. RIGHT AC IV LINE IS PATIENT AND INTACT.G TUBE IN PLACE, PATENT, AUSCULTATED, FLUSHED. NO RESIDUAL NOTED AT THIS TIME, CONNECTED TO FEEDING ORDERED. ALL DUE MEDS GIVEN ORDERED. PATIENT ON MANAGER WHOLESALE, AFIB WITH THE RATE OF 91. HOB ELEVATED AT ALL TIMES . SAFETY MAINTAINED, BED AT THE LOWEST, LOCKED POSITION. WILL CONTINUE TO MONITOR PATIENT CLOSELY.
--- NOTE | 2019-01-29 00:30 | NUR ---
GROUP CARE WORKER NOTE REPORT GIVEN TO LEONCIO MAYS ROLANDO
[2019-01-29 04:00] VITALS: BP 104/49
[2019-01-29] MEDS: NEPRO 1,000 ML BOTTLE GT PRN (04:23)
[2019-01-29 07:16] LABS: CARBON DIOXIDE 24 mmol/L (21-32); CHLORIDE 99 mmol/L (98-107); CREATININE 4.2 mg/dL (0.6-1.3); GLUCOSE 129 mg/dL (74-106); POTASSIUM 3.6 mmol/L (3.5-5.1); SODIUM SERUM 137 mmol/L (136-145)
[2019-01-29 07:18] LABS: UREA NITROGEN, BLOOD 115 mg/dL (7-18)
[2019-01-29 08:00] VITALS: BP 126/72
[2019-01-29] MEDS: MINOXIDIL (2.5MG) 2.5 MG TABLET GT SCH (09:00)
[2019-01-29] MEDS: PROSOURCE / PROSTAT (PYXIS) 30 ML UDC GT SCH ×2 (09:20→16:55)
[2019-01-29] MEDS: LEVETIRACETAM SOL (5 ML) 100 MG/ML UDC GT SCH ×2 (09:21→21:23)
[2019-01-29] MEDS: ACIDOPHILUS/BULGARICUS 1 EACH TAB.CHEW GT SCH ×3 (09:21→16:55)
[2019-01-29] MEDS: SEVELAMER CARBONATE 0.8 GM POWD.PACK GT SCH ×3 (09:21→17:48)
[2019-01-29] MEDS: DOCUSATE SODIUM LIQ 100 MG/10 ML UDC GT SCH (09:22)
[2019-01-29] MEDS: CHLORHEXIDINE GLUCONATE 15 ML UDC MM SCH ×2 (09:22→21:23)
[2019-01-29] MEDS: SUCRALFATE 1 G/10 ML UDC GT SCH ×4 (09:22→21:23)
[2019-01-29] MEDS: LEVOTHYROXINE SODIUM 125 MCG TABLET GT SCH (09:23)
[2019-01-29] MEDS: ASCORBIC ACID 500 MG TABLET GT SCH (09:23)
[2019-01-29] MEDS: PANTOPRAZOLE 40 MG/PACK PACK GT SCH (09:23)
[2019-01-29] MEDS: HEPARIN SODIUM, PORCINE 5000 UNITS/1 ML VIAL SQ SCH ×2 (09:25→21:26)
--- NOTE | 2019-01-29 10:04 | NUR ---
RT NOTE RECEIVED PT MECHANICALLY VENTILATED VIA CUFFED TRACHEOSTOMY TUBE. CUFF INFLATED. TRACH TUBE MIDLINE AND SECURE. VENTILATOR SETTINGS PRESCRIBED. ALARMS SET PER PROTOCOL AND AUDIBLE. VENT PLUGGED IN TO RED OUTLET. AMBU BAG AT BED SIDE. NO DISTRESS NOTED. Addendum: 01/29/19 at 1006 by GELA SIMMS RT Amended: Links added.
[2019-01-29 12:00] VITALS: BP 99/30
[2019-01-29] MEDS: ACETAMINOPHEN 325 MG TABLET PO PRN (13:19)
[2019-01-29] MEDS ORDERED: VITAMINS A AND D 56.7 GM TUBE TP PRN (13:30)
[2019-01-29 16:00] VITALS: BP 100/48
[2019-01-29] MEDS ORDERED: VANCOMYCIN 1 GM in IV D5W 250 ML IV ONE (16:00)
[2019-01-29] MEDS: VIT B CMPLX 3/FA/VIT C/BIOTIN 1 TAB TABLET GT SCH (17:48)
--- NOTE | 2019-01-29 19:00 | NUR ---
ASSOCIATION EXECUTIVE NOTES PT TOLERATED HD WELL TODAY. 1L OUT. BP STABLE. ON TELE CONTROLLED AFIB MD AWARE. ON ANTICOAGS. VANCO GIVEN POST HD MD ORDERED. SEEN BY DR SHAIKH'S TEAM FOR WOUND. WOUND TX ORDERED. NEPRO ADJUSTED FOR 40 ML / 24HRS. WILL ENDORSE TO PM NURSE FOR ROLANDO.
[2019-01-29 20:00] VITALS: BP 120/51
--- NOTE | 2019-01-29 20:00 | NUR ---
PHP WEBSITE DEVELOPER NOTES, PATIENT ON BED, WITH EYES OPEN, NONVERBAL ON MECHANICAL VENTILATOR, TOLERATED SETTINGS WELL, NO SOB/ACUTE DISTRESS NOTED AT THIS TIME, CONTROLLED AFIB ON TELE, GT IN PLACED, WITH NO RESIDUAL AT THIS TIME, NEPRO 40 ML / 24HRS, INFUSING WELL AN D PATINE TOLERATED WELL, 1/2 BILATERAL S/R OF BED IN PLACED, CALL LIGHT W/I REACH, ALL NEEDS PROVIDED, WILL CONTINUE TO MONITOR CLOSELY.
[2019-01-30] VITALS: BP 126/62
[2019-01-30] MEDS: BLOOD SUGAR DIAGNOSTIC 1 EACH STRIP IN SCH ×4 (00:41→17:25)
[2019-01-30] MEDS: INSULIN REGULAR, HUMAN 100 UNIT/ML 3 ML VIAL SQ PRN ×3 (00:43→11:37)
[2019-01-30 04:00] VITALS: BP 98/47
[2019-01-30 07:22] LABS: BASOPHILS % (AUTO) 0.2 % (0.0-2.0); EOSINOPHILS % (AUTO) 3.5 % (0.0-6.0); HEMATOCRIT 30 % (33-45); LYMPHOCYTES # (AUTO) 0.7 /CMM (0.8-4.8); LYMPHOCYTES % (AUTO) 7.8 % (20.0-44.0); MEAN CORPUSCULAR HGB CONC 31 g/dl (31.0-36.0); MEAN CORPUSCULAR VOLUME 99 fL (82-100); MONOCYTES # (AUTO) 1.1 /CMM (0.1-1.30); MONOCYTES % (AUTO) 13.3 % (2.0-12.0); NEUTROPHILS # (AUTO) 6.5 /CMM (1.8-8.9); NEUTROPHILS % (AUTO) 75.2 % (43.0-81.0); PLATELET COUNT (AUTO) 217 /CMM (150-450); RED BLOOD CELL COUNT(AUTO) 2.98 MIL/uL (4.0-5.2); WHITE BLOOD COUNT (AUTO) 8.6 K/uL (4.3-11.0)
--- NOTE | 2019-01-30 07:35 | NUR ---
TELE/RN OPENING NOTES RECEIVED PATIENT IN BED RESTING COMFORTABLY. PATIENT IS NONVERBAL AND ABLE TO RESPOND TO TACTILE STIMULI. ON MECHANICAL VENTILATOR, TOLERATED CURRENT SETTINGS WELL. NO PAIN OR ACUTE DISTRESS AT THIS TIME. RESPIRATION EVEN AND UNLABORED. SKIN IS DRY WARM TO TOUCH. CONTINUE TELE MONITORING ON CONTROLLED AFIB HR IN THE 80'S. GT INTACT AND IN PLACE. NO RESIDUAL AT THIS TIME. HOB ELEVATED AT ALL TIMES. PATIENT ON NEPRO 40CC. INFUSING WELL. ALL NEEDS ANTICIPATED. KEPT CLEAN AND DRY. CALL LIGHT WITHIN REACHED. SAFETY MAINTAINED. BED LOCKED AND IN LOWEST POSITION. WILL CONTINUE TO MONITOR CLOSELY.
[2019-01-30 07:51] LABS: CARBON DIOXIDE 25 mmol/L (21-32); CHLORIDE 94 mmol/L (98-107); CREATININE 3.3 mg/dL (0.6-1.3); GLUCOSE 147 mg/dL (74-106); MAGNESIUM 2.4 mg/dL (1.8-2.4); PHOSPHORUS 2.4 mg/dL (2.5-4.9); POTASSIUM 3.7 mmol/L (3.5-5.1); SODIUM SERUM 133 mmol/L (136-145)
[2019-01-30 08:00] VITALS: BP 125/59
[2019-01-30 08:17] LABS: UREA NITROGEN, BLOOD 89 mg/dL (7-18)
[2019-01-30] MEDS: PANTOPRAZOLE 40 MG/PACK PACK GT SCH (08:19)
[2019-01-30] MEDS: SUCRALFATE 1 G/10 ML UDC GT SCH ×4 (08:19→21:54)
[2019-01-30] MEDS: LEVOTHYROXINE SODIUM 125 MCG TABLET GT SCH (08:19)
[2019-01-30] MEDS: SEVELAMER CARBONATE 0.8 GM POWD.PACK GT SCH ×3 (08:48→17:25)
[2019-01-30] MEDS: CHLORHEXIDINE GLUCONATE 15 ML UDC MM SCH ×2 (08:48→21:54)
[2019-01-30] MEDS: ACIDOPHILUS/BULGARICUS 1 EACH TAB.CHEW GT SCH ×3 (08:48→17:25)
[2019-01-30] MEDS: LEVETIRACETAM SOL (5 ML) 100 MG/ML UDC GT SCH ×2 (08:48→21:54)
[2019-01-30] MEDS: DOCUSATE SODIUM LIQ 100 MG/10 ML UDC GT SCH (08:48)
[2019-01-30] MEDS: ASCORBIC ACID 500 MG TABLET GT SCH (08:48)
[2019-01-30] MEDS: MINOXIDIL (2.5MG) 2.5 MG TABLET GT SCH (08:49)
[2019-01-30] MEDS: HEPARIN SODIUM, PORCINE 5000 UNITS/1 ML VIAL SQ SCH ×2 (08:50→21:55)
[2019-01-30] MEDS: PROSOURCE / PROSTAT (PYXIS) 30 ML UDC GT SCH ×2 (08:52→17:26)
[2019-01-30 12:00] VITALS: BP 130/55
[2019-01-30] MEDS ORDERED: NEUTRA PHOS 1 POWD.PACKET NG ONE (14:00)
[2019-01-30 16:00] VITALS: BP_SYST 110; BP_SYST 98; BP_DIAS 40; BP_DIAS 64
[2019-01-30] MEDS: VIT B CMPLX 3/FA/VIT C/BIOTIN 1 TAB TABLET GT SCH (17:25)
--- NOTE | 2019-01-30 18:45 | NUR ---
TELE/RN CLOSING NOTES PATIENT CONTINUES TO REMAIN IN STABLE CONDITION. PROVIDED COMFORT AND SAFETY THROUGHOUT THE SHIFT. ON MECHANICAL VENTILATOR, TOLERATED CURRENT SETTINGS WELL. NO PAIN OR ACUTE DISTRESS AT THIS TIME. RESPIRATION EVEN AND UNLABORED. SKIN IS DRY WARM TO TOUCH. GT INTACT AND IN PLACE. NO RESIDUAL AT THIS TIME. HOB ELEVATED AT ALL TIMES. ALL NEEDS ANTICIPATED. KEPT CLEAN AND DRY. CALL LIGHT WITHIN REACHED. SAFETY MAINTAINED. BED LOCKED AND IN LOWEST POSITION. WILL CONTINUE TO MONITOR. ENDORSED TO PM NURSE FOR ROLANDO.
[2019-01-30 20:00] VITALS: BP 126/50
[2019-01-31] VITALS (8 sets, daily range): BP systolic 105–155; BP diastolic 55–85
[2019-01-31] MEDS: BLOOD SUGAR DIAGNOSTIC 1 EACH STRIP IN SCH ×4 (00:57→17:19)
[2019-01-31] MEDS: INSULIN REGULAR, HUMAN 100 UNIT/ML 3 ML VIAL SQ PRN ×4 (00:59→17:26)
[2019-01-31] MEDS: NEPRO 1,000 ML BOTTLE GT SCH (06:02)
--- NOTE | 2019-01-31 06:33 | NUR ---
RN CLOSING NOTES, PATIENT REMAIN STABLE THROUGHOUT THE NIGHT, NO S/S SOB/OF ACUTE DISTRESS, NO C/O NO PAIN OR DISCOMFORT, CALL LIGHT WITHIN REACH, WILL ENDORSE CONTINUITY OF CARE TO ONCOMING NURSE.
[2019-01-31 06:50] LABS: BASOPHILS % (AUTO) 0.2 % (0.0-2.0); EOSINOPHILS % (AUTO) 4.1 % (0.0-6.0); HEMATOCRIT 29 % (33-45); HEMOGLOBIN 9.1 g/dL (11.5-14.8); LYMPHOCYTES # (AUTO) 0.6 /CMM (0.8-4.8); LYMPHOCYTES % (AUTO) 7.7 % (20.0-44.0); MEAN CORPUSCULAR HGB CONC 32 g/dl (31.0-36.0); MEAN CORPUSCULAR VOLUME 96 fL (82-100); MONOCYTES # (AUTO) 1.1 /CMM (0.1-1.30); MONOCYTES % (AUTO) 13.4 % (2.0-12.0); NEUTROPHILS % (AUTO) 74.6 % (43.0-81.0); PLATELET COUNT (AUTO) 227 /CMM (150-450)
[2019-01-31 07:08] LABS: CALCIUM, SERUM 9.8 mg/dL (8.5-10.1); CARBON DIOXIDE 27 mmol/L (21-32); CHLORIDE 94 mmol/L (98-107); GLUCOSE 148 mg/dL (74-106); MAGNESIUM 2.5 mg/dL (1.8-2.4); PHOSPHORUS 2.9 mg/dL (2.5-4.9); POTASSIUM 4.2 mmol/L (3.5-5.1); SODIUM SERUM 132 mmol/L (136-145)
[2019-01-31 07:10] LABS: UREA NITROGEN, BLOOD 115 mg/dL (7-18)
--- NOTE | 2019-01-31 07:45 | NUR ---
NATUROPATHIC DOCTOR NOTE PATIENT BUN CRITICAL VALUE IS 115. NO REPORT FROM LAB. FOLLOWED UP WITH MD. CHARGE NURSE AWARE. DIALYSIS CALLED AND REPORTED TO COME IN TODAY. CHARGE NURSE ALSO STATED SHE WILL FOLLOW UP WITH MD. PATIENT IN NO ACUTE DISTRESS. WILL CONTINUE TO MONITOR.
--- NOTE | 2019-01-31 07:52 | NUR ---
COOK BARBECUE CLOSING NOTE PATIENT RESTING IN BED, ON MECHANICAL VENT. PATIENT TOLERATING VENT SETTINGS WELL. PATIENT IN NO ACUTE DISTRESS. NO SOB NOTED. RESPIRATIONS ARE EVEN AND UNLABORED. SAFETY PRECAUTIONS IN PLACE. SKIN IS DRY AND WARM TO TOUCH. PATIENT ON CARDIAC MONITORING, CONTROLLED AFIB HR 89. PATIENT ON NEPHRO 40CC/HR. PATIENT IV SITES INTACT. PATIENT BED IS LOCKED AND IN LOWEST POSITION. CALL LIGHT WITHIN REACH. WILL CONTINUE TO MONITOR.
--- NOTE | 2019-01-31 08:03 | NUR ---
BUN 115 DR. SOUTH MADE AWARE PER [facility] HEMODIALYSIS NURSE PATIENT SCHEDULED FOR HEMODIALYSIS THIS MORNING,WILL CONTINUE TO MONITOR.
[2019-01-31] MEDS: CHLORHEXIDINE GLUCONATE 15 ML UDC MM SCH ×2 (08:38→21:41)
[2019-01-31] MEDS: PROSOURCE / PROSTAT (PYXIS) 30 ML UDC GT SCH ×2 (08:38→17:20)
[2019-01-31] MEDS: PANTOPRAZOLE 40 MG/PACK PACK GT SCH (08:39)
[2019-01-31] MEDS: LEVETIRACETAM SOL (5 ML) 100 MG/ML UDC GT SCH ×2 (08:40→21:41)
[2019-01-31] MEDS: HEPARIN SODIUM, PORCINE 5000 UNITS/1 ML VIAL SQ SCH ×2 (08:41→21:43)
[2019-01-31] MEDS: DOCUSATE SODIUM LIQ 100 MG/10 ML UDC GT SCH (08:42)
[2019-01-31] MEDS: ACIDOPHILUS/BULGARICUS 1 EACH TAB.CHEW GT SCH ×3 (08:42→17:19)
[2019-01-31] MEDS: ASCORBIC ACID 500 MG TABLET GT SCH (08:42)
[2019-01-31] MEDS: LEVOTHYROXINE SODIUM 125 MCG TABLET GT SCH (08:43)
[2019-01-31] MEDS: SEVELAMER CARBONATE 0.8 GM POWD.PACK GT SCH ×3 (08:43→17:19)
[2019-01-31] MEDS: SUCRALFATE 1 G/10 ML UDC GT SCH ×4 (08:43→21:41)
[2019-01-31] MEDS: MINOXIDIL (2.5MG) 2.5 MG TABLET GT SCH (08:45)
--- NOTE | 2019-01-31 08:46 | NUR ---
HAND ASSEMBLER NOTES PATIENT CURRENTLY RECEIVING DIALYSIS. HELD BP MED LONITEN. PATIENT IN NO ACUTE DISTRESS. WILL CONTINUE TO MONITOR.
[2019-01-31] MEDS: VANCOMYCIN 500 MG in IV D5W 100 ML IV PRN (11:40)
--- NOTE | 2019-01-31 12:23 | NUR ---
MEN'S BASKETBALL COACH NOTES CALL RECEIVED FROM LAB REPORTING AMIKACIN LEVEL 19.7. REPORTED TO PHARMACY. PER PHARMACY HOLD AMIKACIN DOSE. MADE AWARE.
[2019-01-31] MEDS: HYDROGEL DRESSING 90 GM TUBE TP SCH ×2 (14:45→21:55)
--- NOTE | 2019-01-31 14:46 | NUR ---
MS RN NOTE APPLIED HYDROGEL WHEN MADE READILY AVAILABLE FROM PHARMACY FOR WOUND CARE. PATIENT EXTREMITIES OFFLOADED AND REPOSITIONED. WILL CONTINUE TO MONITOR.
[2019-01-31] MEDS: VIT B CMPLX 3/FA/VIT C/BIOTIN 1 TAB TABLET GT SCH (17:20)
--- NOTE | 2019-01-31 19:38 | NUR ---
FILM PROJECTOR OPERATOR CLOSING NOTES PATIENT IN BED, EYES RESPONSIVE TO TOUCH RESTING COMFORTABLY IN BED. PATIENT ON MECHANICAL VENTILATOR. TOLERATING VENT SETTINGS WELL. PATIENT IN NO ACUTE DISTRESS. NO SOB NOTED. PATIENT RESPIRATIONS ARE EVEN AND UNLABORED. PATIENT WAS KEPT CLEAN, DRY, AND COMFORTABLE THROUGHOUT SHIFT. PATIENT WAS REPOSITIONED Q2H. PATIENT EXTREMITIES OFFLOADED. PATIENT HAS WOUND CARE PROVIDED ORDERED. ALL NURSING NEEDS MET. PATIENT MAINTAINED ON TELE MONITORING. PATIENT MAINTAINED ON CONTACT ISOLATION. PATIENT GTUBE WAS KEPT CLEAN AND INTACT. PATIENT BED IS LOCKED AND IN LOWEST POSITION. CALL LIGHT WITHIN REACH. ENDORSED CARE TO PM SHIFT FOR ROLANDO.
[2019-02-01] VITALS: BP 126/76
[2019-02-01] MEDS: BLOOD SUGAR DIAGNOSTIC 1 EACH STRIP IN SCH ×5 (00:57→23:24)
[2019-02-01] MEDS: INSULIN REGULAR, HUMAN 100 UNIT/ML 3 ML VIAL SQ PRN ×5 (01:41→23:26)
[2019-02-01 04:00] VITALS: BP 126/54
[2019-02-01 07:26] LABS: BASOPHILS % (AUTO) 0.3 % (0.0-2.0); EOSINOPHILS % (AUTO) 2.6 % (0.0-6.0); HEMATOCRIT 28 % (33-45); HEMOGLOBIN 8.9 g/dL (11.5-14.8); LYMPHOCYTES # (AUTO) 0.7 /CMM (0.8-4.8); LYMPHOCYTES % (AUTO) 7.9 % (20.0-44.0); MEAN CORPUSCULAR HGB CONC 32 g/dl (31.0-36.0); MEAN CORPUSCULAR VOLUME 96 fL (82-100); MONOCYTES # (AUTO) 1.2 /CMM (0.1-1.30); MONOCYTES % (AUTO) 13.6 % (2.0-12.0); NEUTROPHILS # (AUTO) 6.8 /CMM (1.8-8.9); NEUTROPHILS % (AUTO) 75.6 % (43.0-81.0); PLATELET COUNT (AUTO) 233 /CMM (150-450); RED BLOOD CELL COUNT(AUTO) 2.96 MIL/uL (4.0-5.2); WHITE BLOOD COUNT (AUTO) 8.9 K/uL (4.3-11.0)
--- NOTE | 2019-02-01 07:35 | NUR ---
RN NOTE: PATIENT RECEIVED ALERT, NON VERBAL, OPEN EYES TO VERBAL & TACTILE STIMULI. VENT-TRAC, SETTINGS TOLERATING WELL. NO BREATHING DISTRESS NOTED. ASPIRATION PRECAUTIONS OBSERVED. TUBE FEEDING RUNNING ORDERED. A-FIB CONTROLLED ON TELE MONITOR. CONTACT ISOLATION MAINTAINED. SAFETY MEASURES OBSERVED. CONTINUE TO MONITOR.
[2019-02-01 07:39] LABS: CALCIUM, SERUM 9.7 mg/dL (8.5-10.1); CARBON DIOXIDE 26 mmol/L (21-32); CHLORIDE 98 mmol/L (98-107); CREATININE 3.7 mg/dL (0.6-1.3); GLUCOSE 121 mg/dL (74-106); MAGNESIUM 2.5 mg/dL (1.8-2.4); PHOSPHORUS 2.9 mg/dL (2.5-4.9); SODIUM SERUM 135 mmol/L (136-145)
[2019-02-01 07:40] LABS: UREA NITROGEN, BLOOD 102 mg/dL (7-18)
[2019-02-01] MEDS: LEVOTHYROXINE SODIUM 125 MCG TABLET GT SCH (07:58)
[2019-02-01] MEDS: SUCRALFATE 1 G/10 ML UDC GT SCH ×4 (07:58→21:02)
[2019-02-01] MEDS: PANTOPRAZOLE 40 MG/PACK PACK GT SCH (07:58)
[2019-02-01 08:00] VITALS: BP 123/51
[2019-02-01] MEDS: ACIDOPHILUS/BULGARICUS 1 EACH TAB.CHEW GT SCH ×3 (08:01→18:01)
[2019-02-01] MEDS: PROSOURCE / PROSTAT (PYXIS) 30 ML UDC GT SCH ×2 (08:01→18:02)
[2019-02-01] MEDS: SEVELAMER CARBONATE 0.8 GM POWD.PACK GT SCH ×3 (08:02→18:01)
[2019-02-01] MEDS: CHLORHEXIDINE GLUCONATE 15 ML UDC MM SCH ×2 (08:02→20:47)
[2019-02-01] MEDS: DOCUSATE SODIUM LIQ 100 MG/10 ML UDC GT SCH (08:02)
[2019-02-01] MEDS: LEVETIRACETAM SOL (5 ML) 100 MG/ML UDC GT SCH ×2 (08:02→20:47)
[2019-02-01] MEDS: ASCORBIC ACID 500 MG TABLET GT SCH (08:02)
[2019-02-01] MEDS: HEPARIN SODIUM, PORCINE 5000 UNITS/1 ML VIAL SQ SCH ×2 (08:04→20:49)
[2019-02-01] MEDS: MINOXIDIL (2.5MG) 2.5 MG TABLET GT SCH (09:00)
[2019-02-01] MEDS: HYDROGEL DRESSING 90 GM TUBE TP SCH ×2 (09:34→20:48)
[2019-02-01 12:00] VITALS: BP_SYST 118; BP_DIAS 57; BP_DIAS 66
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
[2019-02-01 16:00] VITALS: BP 127/66
[2019-02-01] MEDS: VIT B CMPLX 3/FA/VIT C/BIOTIN 1 TAB TABLET GT SCH (18:01)
--- NOTE | 2019-02-01 18:49 | NUR ---
RN NOTE: PATIENT REMAINS ALERT OPEN EYES TO VERBAL & TACTILE STIMULI, VENT-TRAC SETTINGS TOLERATING WELL. REQUIRES FREQUENT SUCTION. TUBE FEEDING RUNNING ORDERED, TOLERATING WELL. NO RESIDUAL NOTED. WOUND TREATMENT DONE ORDERED. NO S/S OF BLEEDING NOTED. SAFETY MEASURES OBSERVED. HD ONGOING AT THIS TIME. WILL ENDORSE TO PM SHIFT RN FOR CONTINUITY OF CARE. LEFT MESSAGE AT [facility] FOR SKIN SCRAPPING ORDERS REQUESTED BY CASE MANAGEMENT. WAITING FOR CALL BACK.
--- NOTE | 2019-02-01 19:20 | NUR ---
TELE/RN NOTES PATIENT IN BED, RESTING COMFORTABLY AT THIS TIME. NO S/S OF ACUTE DISTRESS NOTED, RESPIRATION EVEN AND UNLABORED, NO SOB NOTED, TRACH INTACT, PATENT, CONNECTED TO VENT WITH PRESCRIBED SETTINGS. G TUBE IN PLACE, PATENT, WITH FEEDING ORDERED. NO RESIDUAL NOTED AT THIS TIME. HOB ELEVATED AT ALL THE TIME FOR ASPIRATION PRECAUTIONS. ISOLATION PRECAUTIONS MAINTAINED AND STRICTLY OBSERVED. PATIENT OPEN EYES TO VERBAL AND TACTILE STIMULI, NO S/S OF PAIN NOTED AT THIS TIME, PATIENT WITH ONGOING HD. SAFETY MAINTAINED, BED AT THE LOWEST LOCKED POSITION, WITH SIDE RAILS UP X2. CALL LIGHT WITHIN REACH. WILL CONTINUE TO MONITOR PATIENT PER PLAN OF CARE.
[2019-02-01 20:00] VITALS: BP 119/56
[2019-02-02] VITALS: BP 122/69
--- NOTE | 2019-02-02 02:43 | NUR ---
RT NOTE PT RECEIVED TRACHED ON MECHANICAL VENTILATION. CUFF CHECKED VIA BUDGET CONTROLLER. AMBU BAG @ BEDSIDE. SX DONE, TRACH SECURED AND PATENT. ALARMS ON AND AUDIBLE. NO SOB NOTED. CONT. POX @ BEDSIDE. WILL MONITOR T/O SHIFT. Addendum: 02/02/19 at 0246 by ELISE MULLEN RT Amended: Links added.
[2019-02-02 04:00] VITALS: BP_SYST 130; BP_SYST 154; BP_DIAS 54; BP_DIAS 78
[2019-02-02] MEDS: BLOOD SUGAR DIAGNOSTIC 1 EACH STRIP IN SCH ×3 (05:52→17:23)
[2019-02-02] MEDS: INSULIN REGULAR, HUMAN 100 UNIT/ML 3 ML VIAL SQ PRN ×3 (05:54→17:28)
--- NOTE | 2019-02-02 06:56 | NUR ---
TELE/RN EXIT NOTES PATIENT IN BED, RESTING COMFORTABLY AT THIS TIME. NO S/S OF ACUTE DISTRESS NOTED, RESPIRATION EVEN AND UNLABORED, NO SOB NOTED, TRACH INTACT, PATENT, CONNECTED TO VENT WITH PRESCRIBED SETTINGS. G TUBE IN PLACE, PATENT, WITH FEEDING ORDERED. NO RESIDUAL NOTED AT THIS TIME. HOB ELEVATED AT ALL THE TIME FOR ASPIRATION PRECAUTIONS. ISOLATION PRECAUTIONS MAINTAINED AND STRICTLY OBSERVED. NO S/S OF PAIN NOTED AT THIS TIME. PATIENT ON TELE MONITORING WITH CONTROLLED A-FIB. ALL DUE MEDS GIVEN ORDERED, PATIENT TOLERATED WELL. WOUND TREATMENT DONE ORDERED. SAFETY MAINTAINED, BED AT THE LOWEST LOCKED POSITION, WITH SIDE RAILS UP X2. CALL LIGHT WITHIN REACH. WILL ENDORSE TO AM SHIFT NURSE FOR ROLANDO
[2019-02-02 07:28] LABS: CALCIUM, SERUM 9.4 mg/dL (8.5-10.1); CARBON DIOXIDE 30 mmol/L (21-32); CHLORIDE 101 mmol/L (98-107); CREATININE 2.5 mg/dL (0.6-1.3); GLUCOSE 162 mg/dL (74-106); POTASSIUM 3.9 mmol/L (3.5-5.1); SODIUM SERUM 140 mmol/L (136-145); UREA NITROGEN, BLOOD 62 mg/dL (7-18)
--- NOTE | 2019-02-02 07:29 | NUR ---
RB TELE OPENING NOTES RECEIVED BEDSIDE REPORT. PATIENT ASLEEP ABLE TO AROUSE WITH VOICE AND TOUCH. NON VERBAL ON MECH VENT TOLERATING SETTINGS WELL WITH NO S/S OF RESPIRATORY DISTRESS OR ACUTE PAIN NOTED. IV TO RAC # 18 GAUGE SALINE LOCKED. RIJ HD CATH INTACT. GTF RUNNING NEPRO @ 50 ML/HR WITH NO N/V/D NOTED AND NO RESIDUAL. SAFETY AND ASPIRATION PRECAUTIONS IN PLACE BED HOB ELEVATED IN LOW LOCKED POSITION. ISOLATION PRECAUTIONS FOR SCABBIES CALL LIGHT WITHIN REACH WILL CONT TO MONITOR ACCORDINGLY
[2019-02-02 08:00] VITALS: BP 97/52
[2019-02-02] MEDS: DOCUSATE SODIUM LIQ 100 MG/10 ML UDC GT SCH (08:14)
[2019-02-02] MEDS: LEVETIRACETAM SOL (5 ML) 100 MG/ML UDC GT SCH ×2 (08:14→21:51)
[2019-02-02] MEDS: ASCORBIC ACID 500 MG TABLET GT SCH (08:14)
[2019-02-02] MEDS: LEVOTHYROXINE SODIUM 125 MCG TABLET GT SCH (08:14)
[2019-02-02] MEDS: SEVELAMER CARBONATE 0.8 GM POWD.PACK GT SCH ×3 (08:14→17:23)
[2019-02-02] MEDS: CHLORHEXIDINE GLUCONATE 15 ML UDC MM SCH ×2 (08:14→21:51)
[2019-02-02] MEDS: ACIDOPHILUS/BULGARICUS 1 EACH TAB.CHEW GT SCH ×3 (08:14→17:23)
[2019-02-02] MEDS: SUCRALFATE 1 G/10 ML UDC GT SCH ×4 (08:14→21:51)
[2019-02-02] MEDS: MINOXIDIL (2.5MG) 2.5 MG TABLET GT SCH (08:15)
[2019-02-02] MEDS: PANTOPRAZOLE 40 MG/PACK PACK GT SCH (08:20)
--- NOTE | 2019-02-02 08:20 | NUR ---
RT NOTE PT REC'D TRACHED ON MECHANICAL VENTILATION. AMBU BAG @ BEDSIDE. ALARMS ON AND AUDIBLE. VENT PLUGGED IN RED OUTLET. NO SOB NOTED AT THIS TIME. CONT. POX @ BEDSIDE. WILL MONITOR T/O SHIFT. Addendum: 02/02/19 at 0821 by RAIZA ARAUJO RT Amended: Links added.
[2019-02-02] MEDS: HEPARIN SODIUM, PORCINE 5000 UNITS/1 ML VIAL SQ SCH ×2 (08:21→21:50)
[2019-02-02] MEDS: PROSOURCE / PROSTAT (PYXIS) 30 ML UDC GT SCH ×2 (08:22→17:25)
[2019-02-02] MEDS: HYDROGEL DRESSING 90 GM TUBE TP SCH ×2 (08:41→21:56)
[2019-02-02 12:00] VITALS: BP 79/44
[2019-02-02 16:00] VITALS: BP 104/46
--- NOTE | 2019-02-02 16:18 | NUR ---
SKIN SCRAP SENT TO PATHOLOGY FOR R/O SCABIES
[2019-02-02] MEDS: VANCOMYCIN 500 MG in IV D5W 100 ML IV PRN (16:27)
[2019-02-02] MEDS: VIT B CMPLX 3/FA/VIT C/BIOTIN 1 TAB TABLET GT SCH (17:23)
--- NOTE | 2019-02-02 18:33 | NUR ---
TRACK REPAIR SUPERVISOR NOTES NO SIGNIFICANT CHANGES THROUGHOUT SHIFT. PATIENT A/O X1 NAME NON VERBAL. TOLERATING VENT SETTINGS WITH NO S/S OF RESPIRATORY DISTRESS OR ACUTE PAIN NOTED. IV SALINE LOCK TO R HAND # 24 . WOUND TREATMENT DONE ORDERED.SKIN SCRAPPING TO BACK FOR SCABIES AND SENT TO PATHOLOGY.NO EPISODES OF HYPER/HYPO GLYCEMIA NOTED. HD TODAY WITH 2000 ML OUT. KEPT CLEAN AND DRY REPOSITIONED Q2HR . SAFETY AND ASPIRATION PRECAUTIONS IN PLACE BED IN LOW POSITION. WILL ENDORSE TO NOC.
--- NOTE | 2019-02-02 19:08 | NUR ---
REPORT ENDORSED TO NOC
[2019-02-02 20:00] VITALS: BP 127/54
--- NOTE | 2019-02-02 20:32 | NUR ---
DIRECTOR CONSTRUCTION SERVICES INITIAL NOTES RECEIVED BEDSIDE REPORT. PATIENT ASLEEP ABLE TO AROUSE WITH VOICE AND TOUCH. NON VERBAL ON MECH VENT SIMV MODE, TOLERATING SETTINGS WELL WITH NO S/S OF RESPIRATORY DISTRESS OR ACUTE PAIN NOTED. IV TO RAC # 18 GAUGE SALINE LOCKED. RIJ HD CATH INTACT. GTF RUNNING NEPRO @ 40 ML/HR WITH NO N/V/D NOTED AND NO RESIDUAL. SAFETY AND ASPIRATION PRECAUTIONS IN PLACE BED HOB ELEVATED IN LOW LOCKED POSITION. ISOLATION PRECAUTIONS FOR SCABBIES CALL LIGHT WITHIN REACH WILL CONT TO MONITOR ACCORDINGLY
--- NOTE | 2019-02-02 22:04 | NUR ---
RT NOTE RECEIVED TRACH PATIENT ON SIMV MODE VENT SUPPORT . ALARMS ARE ON AND AUDIBLE. PRN SUCTIONING WAS DONE. TRACH TUBE PATENT AND SECURED. PATIENT STABLE AND TOLERATED CURRENT VENT SETTINGS AT THIS TIME. WILL CONTINUE TO MONITOR Addendum: 02/02/19 at 2208 by CRISTOFER SIMMS RT Amended: Links added.
[2019-02-03 00:13] VITALS: BP 110/40
[2019-02-03] MEDS: BLOOD SUGAR DIAGNOSTIC 1 EACH STRIP IN SCH ×4 (00:49→18:16)
[2019-02-03] MEDS: INSULIN REGULAR, HUMAN 100 UNIT/ML 3 ML VIAL SQ PRN ×4 (00:50→18:21)
[2019-02-03 04:00] VITALS: BP 109/64
[2019-02-03] MEDS: NEPRO 1,000 ML BOTTLE GT SCH (05:14)
--- NOTE | 2019-02-03 06:42 | NUR ---
FAIRING WORKER CLOSING NOTES PATIENT ASLEEP ABLE TO AROUSE WITH VOICE AND TOUCH. NON VERBAL ON MECH VENT SIMV MODE, TOLERATING SETTINGS WELL WITH NO S/S OF RESPIRATORY DISTRESS OR ACUTE PAIN NOTED. IV TO RAC # 18 GAUGE SALINE LOCKED. RIJ HD CATH INTACT. GTF RUNNING NEPRO @ 40 ML/HR WITH NO N/V/D NOTED AND NO RESIDUAL. SAFETY AND ASPIRATION PRECAUTIONS IN PLACE BED HOB ELEVATED IN LOW LOCKED POSITION. ISOLATION PRECAUTIONS FOR SCABBIES CALL LIGHT WITHIN REACH WILL CONT TO MONITOR ACCORDINGLY
--- NOTE | 2019-02-03 07:10 | NUR ---
BUMPER AND PAINTER OPENING NOTES RECEIVED PATIENT RESTING IN BED. PT IS NON-VERBAL BUT RESPONDS TO COMMANDS. ON MECHANICAL VENT ON SIMV MODE, DOES NOT SHOW SIGNS OF RESPIRATORY DISTRESS. RECEIVING NEPRO AT 40ML/HR, TOLERATING WELL. ISOLATION PRECAUTION FOR SCABIES IMPLEMENTED, BED IN LOWEST AND LOCKED POSITION WITH HOB ELEVATED, CALL LIGHT WITHIN REACH, WILL CONTINUE TO MONITOR FOR ANY CHANGES.
[2019-02-03 07:42] LABS: BASOPHILS % (AUTO) 0.2 % (0.0-2.0); EOSINOPHILS % (AUTO) 1.7 % (0.0-6.0); HEMATOCRIT 30 % (33-45); LYMPHOCYTES # (AUTO) 0.8 /CMM (0.8-4.8); LYMPHOCYTES % (AUTO) 5.9 % (20.0-44.0); MEAN CORPUSCULAR HGB CONC 30 g/dl (31.0-36.0); MEAN CORPUSCULAR VOLUME 98 fL (82-100); MONOCYTES # (AUTO) 1.5 /CMM (0.1-1.30); MONOCYTES % (AUTO) 11.3 % (2.0-12.0); NEUTROPHILS # (AUTO) 10.9 /CMM (1.8-8.9); NEUTROPHILS % (AUTO) 80.9 % (43.0-81.0); PLATELET COUNT (AUTO) 284 /CMM (150-450); RED BLOOD CELL COUNT(AUTO) 3.04 MIL/uL (4.0-5.2); WHITE BLOOD COUNT (AUTO) 13.5 K/uL (4.3-11.0)
[2019-02-03 07:49] LABS: CALCIUM, SERUM 9.6 mg/dL (8.5-10.1); CARBON DIOXIDE 31 mmol/L (21-32); CHLORIDE 99 mmol/L (98-107); CREATININE 2.1 mg/dL (0.6-1.3); GLUCOSE 201 mg/dL (74-106); MAGNESIUM 2.1 mg/dL (1.8-2.4); PHOSPHORUS 2.2 mg/dL (2.5-4.9); POTASSIUM 3.6 mmol/L (3.5-5.1); SODIUM SERUM 138 mmol/L (136-145); UREA NITROGEN, BLOOD 47 mg/dL (7-18)
[2019-02-03 08:00] VITALS: BP 117/48
[2019-02-03] MEDS: LEVOTHYROXINE SODIUM 125 MCG TABLET GT SCH (08:16)
[2019-02-03] MEDS: SUCRALFATE 1 G/10 ML UDC GT SCH ×4 (08:16→21:02)
[2019-02-03] MEDS: PANTOPRAZOLE 40 MG/PACK PACK GT SCH (08:16)
[2019-02-03] MEDS: SEVELAMER CARBONATE 0.8 GM POWD.PACK GT SCH ×3 (08:17→18:16)
[2019-02-03] MEDS: DOCUSATE SODIUM LIQ 100 MG/10 ML UDC GT SCH (08:18)
[2019-02-03] MEDS: LEVETIRACETAM SOL (5 ML) 100 MG/ML UDC GT SCH ×2 (08:18→20:56)
[2019-02-03] MEDS: ACIDOPHILUS/BULGARICUS 1 EACH TAB.CHEW GT SCH ×3 (08:19→16:47)
[2019-02-03] MEDS: ASCORBIC ACID 500 MG TABLET GT SCH (08:19)
[2019-02-03] MEDS: MINOXIDIL (2.5MG) 2.5 MG TABLET GT SCH (08:20)
[2019-02-03] MEDS: HEPARIN SODIUM, PORCINE 5000 UNITS/1 ML VIAL SQ SCH (08:22)
[2019-02-03] MEDS: CHLORHEXIDINE GLUCONATE 15 ML UDC MM SCH ×2 (08:22→20:56)
[2019-02-03] MEDS: PROSOURCE / PROSTAT (PYXIS) 30 ML UDC GT SCH ×2 (08:22→17:14)
--- NOTE | 2019-02-03 08:30 | NUR ---
RN NOTES HEART NOTED TO BE ELEVATED TO 130'S. PATIENT HAS BEEN AFIB BUT CONTROLLED. PATIENT DIAPHORETIC AND COLD TO TOUCH, PATIENT MADE COMFORTABLE. WILL CONTINUE TO MONITOR PATIENT.
[2019-02-03] MEDS: HYDROGEL DRESSING 90 GM TUBE TP SCH ×2 (08:34→20:56)
--- NOTE | 2019-02-03 09:00 | NUR ---
RN NOTES HEART RATE CONTINUE TO FLUCTUATE FROM 130'S TO 160. PATIENT GIVEN PAIN MEDICINE: NORCO 5/325 PRN AND REPOSITIONED. BLOOD PRESSURE RECHECKED AT 153/80, TEMP AT 98.2
--- NOTE | 2019-02-03 09:05 | NUR ---
PAVER INSTALLER NOTES 0900 DOSE OF MINOXIDIL WAS HELD BECAUSE PATIENT'S BLOOD PRESSURE WAS BELOW THE THRESHOLD, 117/48. WILL CONTINUE TO MONITOR FOR ANY CHANGES.
--- NOTE | 2019-02-03 11:00 | NUR ---
RN NOTES HEART RATE STILL ELEVATED AT 133, DR JAMISON AND DR. NOEL INFORMED AT THIS TIME. PER DR. NOEL NO NEW ORDER AND ASKED ME TO INFORM . PAGED DR. TURCIOS AND INFORMED ABOUT THE SITUATION. AWAITING RESPONSE
[2019-02-03] MEDS ORDERED: DILTIAZEM HCL 25 MG IV IV ONE (11:30)
--- NOTE | 2019-02-03 11:56 | NUR ---
YENNY NOTES ALEXYS LUIS AT THE UNIT AT THIS TIME, MD INFORMED ABOUT CURRENT SITUATION. MD WENT TO SEE AND EXAMINED THE PATIENT. WITH ORDERS FOR STAT CHEST X RAY. ORDER NOTED AND CARRIED OUT Addendum: 02/03/19 at 1442 by MEL ORELLANA RN ALSO WITH ORDERS FOR ABG.
[2019-02-03 12:00] VITALS: BP 175/93
--- NOTE | 2019-02-03 12:00 | NUR ---
RN NOTES ABG RESULTS SHOWN TO DR. LUIS. ORDERS TO CHANGE VENT SETTINGS FROM SIMV OF 6 TO OF 20 CHANGES APPLIED BY THE RT WHO IS THE UNIT AT THIS TIME
[2019-02-03] MEDS ORDERED: NEUTRA PHOS 1 POWD.PACKET NG ONE (15:30)
[2019-02-03 16:00] VITALS: BP 175/93
[2019-02-03] MEDS: VIT B CMPLX 3/FA/VIT C/BIOTIN 1 TAB TABLET GT SCH (18:16)
--- NOTE | 2019-02-03 18:30 | NUR ---
RN NOTES CALLED [facility] TO RELAY ABG RESULTS TO DR. LUIS BUT SPOKE TO ACCOUNTING MACHINE OPERATOR DR. PARKER. NO NEW ORDER OBTAIN AT THIS TIME
[2019-02-03 18:32] LABS: ABG OXYGEN SATURATION 96.9 % (92.0-98.5); ABG PCO2 90.3 mmHg (35.0-45.0); ABG PH 7.148 (7.350-7.450); ABG PO2 108.3 mmHg (75.0-100.0); AaDO2 73.1 mmHg; MetHb 0.5 % (0.0-1.5); O2Hb 95.4 % (94.0-97.0); SITE, ABG Right Radial; VENT MODE, BG SIMV 6 500 +5 40%
[2019-02-03 18:32] LABS: ABG BASE EXCESS 0.1 mmol/L; ABG OXYGEN SATURATION 97.8 % (92.0-98.5); ABG PCO2 48.3 mmHg (35.0-45.0); ABG PH 7.349 (7.350-7.450); ABG PO2 105.1 mmHg (75.0-100.0); AaDO2 124.6 mmHg; COHb 0.8 % (0.5-1.5); MetHb 0.5 % (0.0-1.5); O2Hb 96.5 % (94.0-97.0); PEEP,BG 5 cm H2O; SITE, ABG Right Radial; VT, ABG 500 mL
--- NOTE | 2019-02-03 19:00 | NUR ---
RESEARCH PHYSICIAN OPENING NOTES PATIENT IS SLEEPING IN BED, BUT EASY TO AROUSE. A/OX1, NONVERBAL, OPENS EYES. ON MECHANICAL VENT SETTINGS ORDERED, TOLERATING WELL, SATURATION 100% AT THE MOMENT. SHOWS NO S/SX OF RESP DISTRESS OR SOB. ON TELE MONITOR CONTROLLED AFIB WITH HR 80S. GTUBE FEEDING RUNNING NEPRO AT 40 ML/HR, MINIMAL RESIDUAL NOTED. IV SITE RIGHT HAND 24G S/L, FLUSHING AND PATENT, SITE C/D/I. SAFETY MEASURES IN PLACE; BED IS IN LOWEST AND LOCKED POSITION, SIDE RAILS UP X2, CALL LIGHT WITHIN REACH. WILL CONT TO MONITOR PATIENT.
--- NOTE | 2019-02-03 19:03 | NUR ---
RN CLOSING NOTES PATIENT IS SLEEPING COMFORTABLY IN BED. SHE IS ON MECHANICAL VENT ON AC MODE AND IS TOLERATING WELL. SHE SHOWS NO S/SX OF RESP DISTRESS OR SOB, SKIN COLOR IS WNL. NEPRO IS RUNNING VIA GTUBE AT 40 ML/HR, NO RESIDUAL. BED IS IN LOWEST AND LOCKED POSITION, SIDE RAILS UP, CALL LIGHT WITHIN REACH. WILL ENDORSE TO NIGHTSHIFT NURSE
[2019-02-03 20:00] VITALS: BP 122/93
[2019-02-04] VITALS: BP 146/76
[2019-02-04] MEDS: BLOOD SUGAR DIAGNOSTIC 1 EACH STRIP IN SCH ×5 (00:46→23:23)
[2019-02-04] MEDS: INSULIN REGULAR, HUMAN 100 UNIT/ML 3 ML VIAL SQ PRN ×5 (00:54→23:26)
[2019-02-04 04:00] VITALS: BP 115/51
--- NOTE | 2019-02-04 04:45 | NUR ---
RN NOTES RECEIVED PT. FROM ANOTHER RN ELPIDIO, PT. IS ON VENT, NOT IN DISTRESS, SR WITH PAC ON TELE MONITOR HR-67, G-TUBE FEEDING RUNNING , CHECKED RESIDUAL- NO RESIDUAL NOTED, SIDERAILSUPX2, CONTINUE TO MONITOR
--- NOTE | 2019-02-04 04:45 | NUR ---
NIGHT COORDINATOR NOTES REPORT GIVEN TO YENNY OLIVER FOR ROLANDO.
[2019-02-04] MEDS: NEPRO 1,000 ML BOTTLE GT SCH (04:49)
[2019-02-04 06:22] LABS: CALCIUM, SERUM 9.6 mg/dL (8.5-10.1); CARBON DIOXIDE 27 mmol/L (21-32); CHLORIDE 99 mmol/L (98-107); CREATININE 2.8 mg/dL (0.6-1.3); GLUCOSE 163 mg/dL (74-106); POTASSIUM 4.1 mmol/L (3.5-5.1); SODIUM SERUM 137 mmol/L (136-145); UREA NITROGEN, BLOOD 79 mg/dL (7-18)
--- NOTE | 2019-02-04 06:27 | NUR ---
RN NOTES SLEEPING BUTA ROUSABLE, NOT IN DISTRESS, NO PAIN NOTED, MORNING CARE RENDERED, PT. NEEDS ATTENDED
--- NOTE | 2019-02-04 07:00 | NUR ---
HAT AND CAP OPENER OPENING NOTES RECEIVED PT LYING ON BED WITH MECHANICAL VENT AND TRACH DEPEND WITH P 7,AC20 TV-500 XQQ287% AND PEEP-5.TOLERATING WELL.NO SOB AND ACUTE DISTRESS NOTED.IV LINE IS ON RIGHT HAND G24,SL.RIGHT IJ HAYNES CATHETER FOR HD.IV SITE IS CLEAN,DRY AND INTACT.NO INFILTRATION NOTED.LEFT UA AV SHUNT PRESENT AND NOTED NOT WORKING.BED IS IN LOW POSITION AND LOCKED.CALL LIGHT IS WITHIN REACH.WILL CONTINUE TO MONITOR THE PT CLOSELY. Addendum: 02/04/19 at 0736 by LYNNE STEELE RN ON TELE HR IS 75 WITH SR.
[2019-02-04] MEDS: PANTOPRAZOLE 40 MG/PACK PACK GT SCH (07:51)
[2019-02-04] MEDS: LEVOTHYROXINE SODIUM 125 MCG TABLET GT SCH (07:51)
[2019-02-04] MEDS: SEVELAMER CARBONATE 0.8 GM POWD.PACK GT SCH ×3 (07:51→17:05)
[2019-02-04] MEDS: SUCRALFATE 1 G/10 ML UDC GT SCH ×4 (07:51→21:03)
[2019-02-04 08:00] VITALS: BP 117/54
[2019-02-04] MEDS ORDERED: EPOETIN ALFA (10,000 UNIT) 10,000 UNIT/ML VIAL IV SCH (08:30)
[2019-02-04] MEDS: ACIDOPHILUS/BULGARICUS 1 EACH TAB.CHEW GT SCH ×3 (08:46→17:05)
[2019-02-04] MEDS: DOCUSATE SODIUM LIQ 100 MG/10 ML UDC GT SCH (08:46)
[2019-02-04] MEDS: ASCORBIC ACID 500 MG TABLET GT SCH (08:46)
[2019-02-04] MEDS: PROSOURCE / PROSTAT (PYXIS) 30 ML UDC GT SCH ×2 (08:46→17:05)
--- NOTE | 2019-02-04 10:58 | NUR ---
STRIPPING CUTTER AND WINDER NOTES HEMODIALYSIS HAS DONE.NO FLUIDS DRAINED OUT.PT TOLERATED WELL.
[2019-02-04] MEDS: LEVETIRACETAM SOL (5 ML) 100 MG/ML UDC GT SCH ×2 (11:03→20:09)
[2019-02-04] MEDS: MINOXIDIL (2.5MG) 2.5 MG TABLET GT SCH ×2 (11:04→11:08)
[2019-02-04] MEDS: CHLORHEXIDINE GLUCONATE 15 ML UDC MM SCH ×2 (11:23→20:10)
[2019-02-04] MEDS: HYDROGEL DRESSING 90 GM TUBE TP SCH ×2 (11:41→20:10)
[2019-02-04 12:00] VITALS: BP_SYST 141; BP_SYST 144; BP_DIAS 57
[2019-02-04] MEDS: VANCOMYCIN 500 MG in IV D5W 100 ML IV PRN (12:04)
[2019-02-04 16:00] VITALS: BP 126/43
[2019-02-04] MEDS: VIT B CMPLX 3/FA/VIT C/BIOTIN 1 TAB TABLET GT SCH (17:05)
--- NOTE | 2019-02-04 18:46 | NUR ---
WATER PLANT MAINTENANCE MECHANIC CLOSING NOTES PT IS LYING ON BED WITH G TUBE IN PLACE,MECH AND VENT DEPEND.TOLERATING WELL.NO SOB AND ACUTE DISTRESS NOTED.ALL THE DUE MEDS ARE GIVEN.RESPIRATION IS EVEN AND NONLABORED.WILL ENDORSE TO SALES UTILITY REPRESENTATIVE RN FOR ROLANDO.
--- NOTE | 2019-02-04 19:20 | NUR ---
TELE /RN NOTES PATIENT IN BED, RESTING COMFORTABLY AT THIS TIME. NO S/S OF ACUTE DISTRESS NOTED, RESPIRATION EVEN AND UNLABORED. NO SOB NOTED. TRACH INTACT, PATENT, CONNECTED TO VENT WITH PRESCRIBED SETTINGS. PATIENT ALERT AWAKE, NON-VERBAL. NO S/S OF PAIN OR DISCOMFORT NOTED AT THIS TIME. R HAND 22 GAUGE HEP LOCK NOTED WITH NO S/S OF INFECTION/ INFILTRATION. RIJ HAYNES NOTED WITH NO S/S OF INFECTION, INTACT. ILIA OLD HD SITE NOTED, PATENT ABLE TO FEEL THE THRILL UPON PALPATION. G TUBE IN PLACE, PATENT, AUSCULTATED, FLUSHED. NO RESIDUAL NOTED AT THIS TIME, CONNECTED TO FEEDING ORDERED. PATIENT HAS HD DONE TODAY WITH 0 OUTPUT. PATIENT ON INVESTOR RELATIONS ANALYST WITH SR. HOB ELEVATED. SAFETY MAINTAINED, BED AT THE LOWEST, LOCKED POSITION. WILL CONTINUE TO MONITOR PATIENT PER PLAN OF CARE.
[2019-02-04 20:00] VITALS: BP 142/61
[2019-02-05] VITALS: BP 109/57
--- NOTE | 2019-02-05 03:32 | NUR ---
RT Pt trach remains on [facility] vent t/o the night. trach secure and patent. Addendum: 02/05/19 at 0333 by BERNARDO ROWLAND RT Amended: Links added.
[2019-02-05 04:00] VITALS: BP 133/70
[2019-02-05] MEDS: BLOOD SUGAR DIAGNOSTIC 1 EACH STRIP IN SCH ×3 (05:10→17:47)
[2019-02-05] MEDS: INSULIN REGULAR, HUMAN 100 UNIT/ML 3 ML VIAL SQ PRN ×3 (05:11→17:50)
--- NOTE | 2019-02-05 06:41 | NUR ---
TELE /RN EXIT NOTES PATIENT RESTING COMFORTABLY. NO S/S OF ACUTE DISTRESS NOTED, RESPIRATION EVEN AND UNLABORED. NO SOB NOTED. TRACH INTACT, PATENT, CONNECTED TO VENT WITH PRESCRIBED SETTINGS. NO S/S OF PAIN OR DISCOMFORT NOTED AT THIS TIME. R HAND 22 GAUGE HEP LOCK NOTED WITH NO S/S OF INFECTION/ INFILTRATION. RIJ HAYNES NOTED WITH NO S/S OF INFECTION, INTACT. ILIA OLD HD SITE NOTED, PATENT ABLE TO FEEL THE THRILL UPON PALPATION. G TUBE IN PLACE, PATENT, AUSCULTATED, FLUSHED. NO RESIDUAL NOTED AT THIS TIME, CONNECTED TO FEEDING ORDERED. PATIENT ON ONLINE MERCHANDISING SPECIALIST WITH SR. HOB ELEVATED. ALL DUE MEDS GIVEN ORDERED, PATIENT TOLERATED WELL. SAFETY MAINTAINED, BED AT THE LOWEST, LOCKED POSITION. WILL ENDORSE TO AM SHIFT NURSE FOR ROLANDO.
[2019-02-05 07:13] LABS: BASOPHILS % (AUTO) 0.2 % (0.0-2.0); EOSINOPHILS % (AUTO) 1.1 % (0.0-6.0); HEMATOCRIT 26 % (33-45); LYMPHOCYTES # (AUTO) 0.6 /CMM (0.8-4.8); LYMPHOCYTES % (AUTO) 4.4 % (20.0-44.0); MEAN CORPUSCULAR HGB CONC 31 g/dl (31.0-36.0); MEAN CORPUSCULAR VOLUME 95 fL (82-100); MONOCYTES # (AUTO) 1.1 /CMM (0.1-1.30); MONOCYTES % (AUTO) 8.4 % (2.0-12.0); NEUTROPHILS # (AUTO) 11.4 /CMM (1.8-8.9); NEUTROPHILS % (AUTO) 85.9 % (43.0-81.0); PLATELET COUNT (AUTO) 267 /CMM (150-450); RED BLOOD CELL COUNT(AUTO) 2.75 MIL/uL (4.0-5.2); WHITE BLOOD COUNT (AUTO) 13.3 K/uL (4.3-11.0)
[2019-02-05 07:21] LABS: CALCIUM, SERUM 9.8 mg/dL (8.5-10.1); CARBON DIOXIDE 27 mmol/L (21-32); CHLORIDE 98 mmol/L (98-107); CREATININE 2.8 mg/dL (0.6-1.3); GLUCOSE 162 mg/dL (74-106); MAGNESIUM 2.1 mg/dL (1.8-2.4); PHOSPHORUS 1.7 mg/dL (2.5-4.9); POTASSIUM 4.3 mmol/L (3.5-5.1); SODIUM SERUM 135 mmol/L (136-145); UREA NITROGEN, BLOOD 79 mg/dL (7-18)
--- NOTE | 2019-02-05 07:59 | NUR ---
TELE /RN INITIAL NOTES RECEIVED REPORT AT BEDSIDE. PATIENT RESTING COMFORTABLY. HOB ELEVATED. A/O/X1, OPEN EYES AND AROUSABLE TO TACTILE AND VERBAL STIMULI. NO S/S OF CARDIAC OR RESPIRATORY DISTRESS NOTED, RESPIRATION EVEN AND UNLABORED. NO SOB NOTED. ON TRACH CONNECTED TO VENT WITH PRESCRIBED SETTINGS. NO S/S OF PAIN OR DISCOMFORT NOTED AT THIS TIME. R HAND 22 GAUGE HEP LOCK NOTED WITH NO S/S OF INFECTION/ INFILTRATION. RIJ HAYNES NOTED WITH NO S/S OF INFECTION, INTACT. ILIA OLD HD SITE NOTED, NOTED WITH THRILL UPON PALPATION. G TUBE IN PLACE RUNNING 40ML/HR NEPRO. ASPIRATION PRECAUTION MAINTAIN. PATIENT ON DIP STAND LOADER WITH SR 78. HOB ELEVATED. SAFETY PRECAUTION IN PLACE, BED AT THE LOWEST, LOCKED POSITION WITH SIDE RAILS UP X3. CALL LIGHT WITHIN THE REACH. WILL CONTINUE TO MONITOR CLOSELY.
[2019-02-05 08:00] VITALS: BP 133/72
[2019-02-05] MEDS: DOCUSATE SODIUM LIQ 100 MG/10 ML UDC GT SCH (08:21)
[2019-02-05] MEDS: LEVETIRACETAM SOL (5 ML) 100 MG/ML UDC GT SCH ×2 (08:21→21:28)
[2019-02-05] MEDS: CHLORHEXIDINE GLUCONATE 15 ML UDC MM SCH ×2 (08:21→21:28)
[2019-02-05] MEDS: PANTOPRAZOLE 40 MG/PACK PACK GT SCH (08:22)
[2019-02-05] MEDS: SUCRALFATE 1 G/10 ML UDC GT SCH ×4 (08:22→21:28)
[2019-02-05] MEDS: LEVOTHYROXINE SODIUM 125 MCG TABLET GT SCH (08:22)
[2019-02-05] MEDS: SEVELAMER CARBONATE 0.8 GM POWD.PACK GT SCH ×3 (08:22→17:33)
[2019-02-05] MEDS: ACIDOPHILUS/BULGARICUS 1 EACH TAB.CHEW GT SCH ×3 (08:23→17:33)
[2019-02-05] MEDS: ASCORBIC ACID 500 MG TABLET GT SCH (08:23)
[2019-02-05] MEDS: MINOXIDIL (2.5MG) 2.5 MG TABLET GT SCH (08:23)
[2019-02-05] MEDS: HYDROGEL DRESSING 90 GM TUBE TP SCH ×2 (08:24→21:35)
[2019-02-05] MEDS: PROSOURCE / PROSTAT (PYXIS) 30 ML UDC GT SCH ×2 (08:24→17:33)
[2019-02-05] MEDS ORDERED: LIDOCAINE 1%-EPI 1:100,000 20 ML VIAL TP ONE (10:00)
[2019-02-05] MEDS ORDERED: K PHOS NEUTRAL 250 MG TABLET PO ONE (10:30)
[2019-02-05 12:00] VITALS: BP_SYST 123; BP_SYST 128; BP_DIAS 68
--- NOTE | 2019-02-05 15:01 | NUR ---
RN NOTES RECEIVED CALL FROM [employer] CONSULTANT MAT AND INFORMED THAT PT IS NEGATIVE FOR SCABIES.
[2019-02-05 16:00] VITALS: BP 130/67
[2019-02-05] MEDS: VIT B CMPLX 3/FA/VIT C/BIOTIN 1 TAB TABLET GT SCH (17:33)
[2019-02-05] MEDS: NEPRO 1,000 ML BOTTLE GT SCH (17:34)
--- NOTE | 2019-02-05 19:00 | NUR ---
TELE /RN CLOSING NOTES PATIENT IN BED LYING COMFORTABLY AT MODERATE HIGH BACKREST POSITION. A/O/X1, OPEN EYES AND NON-VERBAL. ON TRACH CONNECTED TO VENT WITH PRESCRIBED SETTINGS, TOLERATING WELL, RESPIRATION EVEN AND UNLABORED. NO SOB NOTED THROUGHOUT THE DAY. PATIENT ON CARDIAC MONITORING WITH SR AND HR OF 96 AT THIS TIME. IV ACCESS ON R HAND 24 GAUGE INTACT AND FLUSHING WITH NO S/S OF INFECTION/ INFILTRATIONS AT SITE. RIJ HAYNES INTACT WITH NO S/S OF INFECTION. ILIA OLD HD SITE NOTED, NOTED WITH THRILL UPON PALPATION. G TUBE IN PLACE RUNNING 40ML/HR NEPRO, TOLERATING WELL. ASPIRATION PRECAUTION MAINTAINED. HOB ELEVATED AT ALL TIMES. TURNED AND REPOSITIONED PT Q 2HRS AND PRN. ALL NEEDS AND CARE PROVIDED WELL. SAFETY PRECAUTION IN PLACE, BED AT THE LOWEST, LOCKED POSITION WITH SIDE RAILS UP X3. CALL LIGHT WITHIN THE REACH. WILL ENDORSE TO NIGHTY SHIFT NURSE FOR ROLANDO.
--- NOTE | 2019-02-05 19:11 | NUR ---
PT RECEIVED TRACHED ON [facility] VENT ON CHARTED SETTINGS. NO SIGNS OF DISTRESS NOTED. ALARMS SET AND AUDIBLE. AMBUBAG AND SPARE TRACH AT BEDSIDE. WILL CONT TO MONITOR. Addendum: 02/05/19 at 2043 by JOHN ANGEL RT Amended: Links added.
--- NOTE | 2019-02-05 19:41 | NUR ---
RN NOTE PER MATERIAL DAMAGE APPRAISER PT IS AFIB WITH HR 100-120. PT ASYMPTOMATIC, NO SIGN OF CARDIAC OR RESPIRATORY DISTRESS AT THIS TIME. ENDORSED TO THE SCALE AND SKIP CAR OPERATOR NURSE JOHNNA FOR ROLANDO.
[2019-02-05 20:00] VITALS: BP 118/47
--- NOTE | 2019-02-05 20:00 | NUR ---
TELE /RN INITIAL NOTES RECEIVED REPORT AT BEDSIDE. PATIENT RESTING COMFORTABLY. HOB ELEVATED. A/O/X1, OPEN EYES AND AROUSAL TO TACTILE AND VERBAL STIMULI. NO S/S OF CARDIAC OR RESPIRATORY DISTRESS NOTED, RESPIRATION EVEN AND UNLABORED. NO SOB NOTED. ON TRACH CONNECTED TO VENT WITH PRESCRIBED SETTINGS. NO S/S OF PAIN OR DISCOMFORT NOTED AT THIS TIME. R HAND 22 GAUGE IV LINE NOTED WITH NO S/S OF INFECTION/ INFILTRATION. RIJ HAYNES NOTED WITH NO S/S OF INFECTION, INTACT. ILIA OLD HD SITE NOTED, NOTED WITH THRILL UPON PALPATION. G TUBE IN PLACE RUNNING 40ML/HR NEPRO. ASPIRATION PRECAUTION MAINTAIN. PATIENT ON TRIM OPERATOR WITH SR 78. HOB ELEVATED. SAFETY PRECAUTION IN PLACE, BED AT THE LOWEST, LOCKED POSITION WITH SIDE RAILS UP X2. CALL LIGHT WITHIN THE REACH. WILL CONTINUE TO MONITOR CLOSELY.
[2019-02-06] VITALS: BP 110/50
[2019-02-06] MEDS: BLOOD SUGAR DIAGNOSTIC 1 EACH STRIP IN SCH ×4 (01:04→17:17)
[2019-02-06] MEDS: INSULIN REGULAR, HUMAN 100 UNIT/ML 3 ML VIAL SQ PRN ×4 (01:05→17:35)
[2019-02-06 04:00] VITALS: BP_SYST 115; BP_SYST 130; BP_DIAS 42; BP_DIAS 67
[2019-02-06 06:42] LABS: CALCIUM, SERUM 9.6 mg/dL (8.5-10.1); CARBON DIOXIDE 27 mmol/L (21-32); CHLORIDE 97 mmol/L (98-107); CREATININE 3.6 mg/dL (0.6-1.3); GLUCOSE 215 mg/dL (74-106); POTASSIUM 4.4 mmol/L (3.5-5.1); SODIUM SERUM 133 mmol/L (136-145)
[2019-02-06 06:52] LABS: UREA NITROGEN, BLOOD 101 mg/dL (7-18)
[2019-02-06 08:00] VITALS: BP 102/30
[2019-02-06] MEDS: LEVETIRACETAM SOL (5 ML) 100 MG/ML UDC GT SCH ×2 (08:07→21:00)
[2019-02-06] MEDS: SUCRALFATE 1 G/10 ML UDC GT SCH ×4 (08:07→21:04)
[2019-02-06] MEDS: DOCUSATE SODIUM LIQ 100 MG/10 ML UDC GT SCH (08:07)
[2019-02-06] MEDS: CHLORHEXIDINE GLUCONATE 15 ML UDC MM SCH ×2 (08:07→21:03)
[2019-02-06] MEDS: ACIDOPHILUS/BULGARICUS 1 EACH TAB.CHEW GT SCH ×3 (08:08→17:17)
[2019-02-06] MEDS: SEVELAMER CARBONATE 0.8 GM POWD.PACK GT SCH ×3 (08:08→17:16)
[2019-02-06] MEDS: PANTOPRAZOLE 40 MG/PACK PACK GT SCH (08:08)
[2019-02-06] MEDS: LEVOTHYROXINE SODIUM 125 MCG TABLET GT SCH (08:08)
[2019-02-06] MEDS: ASCORBIC ACID 500 MG TABLET GT SCH (08:08)
[2019-02-06] MEDS: MINOXIDIL (2.5MG) 2.5 MG TABLET GT SCH (08:10)
[2019-02-06] MEDS: PROSOURCE / PROSTAT (PYXIS) 30 ML UDC GT SCH ×2 (08:13→17:16)
[2019-02-06] MEDS: HYDROGEL DRESSING 90 GM TUBE TP SCH ×2 (09:00→21:00)
[2019-02-06 12:00] VITALS: BP 113/45
[2019-02-06 16:00] VITALS: BP 113/45
[2019-02-06] MEDS: VIT B CMPLX 3/FA/VIT C/BIOTIN 1 TAB TABLET GT SCH (17:17)
[2019-02-06 20:00] VITALS: BP 128/54
--- NOTE | 2019-02-06 20:00 | NUR ---
TELE/RN NOTES RECEIVED REPORT FOR ROLANDO.
--- NOTE | 2019-02-06 21:26 | NUR ---
TELE/RN NOTES PATIENT RESTING COMFORTABLY IN BED WILL MONITOR ANY CHANGES, BED LOCKED, CALL LIGHTS WITHIN REACH. WILL MONITOR,
[2019-02-07] VITALS: BP 107/43
[2019-02-07] MEDS: BLOOD SUGAR DIAGNOSTIC 1 EACH STRIP IN SCH ×4 (00:50→18:53)
[2019-02-07] MEDS: INSULIN REGULAR, HUMAN 100 UNIT/ML 3 ML VIAL SQ PRN ×4 (01:00→18:47)
[2019-02-07 04:00] VITALS: BP 116/45
--- NOTE | 2019-02-07 06:54 | NUR ---
MS/RN NOTES PATIENT RESTING COMFORTABLY IN BED, ON MECHANICAL VENT WITH PRESCRIBED ORDER, MONITORED FOR ANY S/S OF CHANGES.BED LOCKED, GTUBE FEEDING PAENT WITH NO RESIDEUAL. REPOSITON FOR COMFORT.
[2019-02-07 06:57] LABS: CALCIUM, SERUM 9.4 mg/dL (8.5-10.1); CARBON DIOXIDE 28 mmol/L (21-32); CHLORIDE 98 mmol/L (98-107); CREATININE 3.1 mg/dL (0.6-1.3); GLUCOSE 179 mg/dL (74-106); POTASSIUM 4.2 mmol/L (3.5-5.1); SODIUM SERUM 135 mmol/L (136-145)
[2019-02-07 07:02] LABS: UREA NITROGEN, BLOOD 85 mg/dL (7-18)
--- NOTE | 2019-02-07 07:10 | NUR ---
SSIS SSRS DEVELOPER INITIAL NOTE, RECEIVED REPORT AT BED SIDE. PT BED BOUND AND RESTING COMFORTABLY. A/O/X1, AROUSABLE TO VERBAL AND TACTILE STIMULI. ON TELE MONITOR, CONTROLLED AFIB, HR 94. NO SIGN OF CARDIAC OR RESPIRATORY DISTRESS NOTED, RESPIRATION EVEN AND UNLABORED. HOB ELEVATED, NO SOB NOTED. ON TRACH CONNECTED TO THE VENT WITH PRESCRIBED SETTING WITH AC 20, TV 500, FIO2 40%, AND PEEP 5. NO SIGN OF PAIN OR DISCOMFORT NOTED AT THIS TIME. R HAND IV #24 SL, PATENT, INTACT, AND FLUSHED WELL. NO SIGN OF INFECTION OR INFILTRATION NOTED. R IJ HAYNES HD WITH NO SIGN OF INFECTION AND INTACT. ILIA OLD HD NOTED. G TUBE IN PLACE RUNNING NEPRO 40 ML/HR. ASPIRATION AND SAFETY PRECAUTION MADE. HOB ELEVATED. BED LOCKED AND IN THE LOWEST POSITION. CALL LIGHT WITHIN THE REACH. WILL CONT' TO MONITOR CLOSELY.
[2019-02-07 08:00] VITALS: BP 116/50
[2019-02-07] MEDS: CHLORHEXIDINE GLUCONATE 15 ML UDC MM SCH ×2 (08:44→21:58)
[2019-02-07] MEDS: DOCUSATE SODIUM LIQ 100 MG/10 ML UDC GT SCH (08:44)
[2019-02-07] MEDS: LEVETIRACETAM SOL (5 ML) 100 MG/ML UDC GT SCH ×2 (08:44→21:58)
[2019-02-07] MEDS: ACIDOPHILUS/BULGARICUS 1 EACH TAB.CHEW GT SCH ×3 (08:45→16:33)
[2019-02-07] MEDS: MINOXIDIL (2.5MG) 2.5 MG TABLET GT SCH (08:45)
[2019-02-07] MEDS: ASCORBIC ACID 500 MG TABLET GT SCH (08:45)
[2019-02-07] MEDS: SEVELAMER CARBONATE 0.8 GM POWD.PACK GT SCH ×3 (08:45→18:53)
[2019-02-07] MEDS: SUCRALFATE 1 G/10 ML UDC GT SCH ×4 (08:48→21:58)
[2019-02-07] MEDS: LEVOTHYROXINE SODIUM 125 MCG TABLET GT SCH (08:48)
[2019-02-07] MEDS: PANTOPRAZOLE 40 MG/PACK PACK GT SCH (08:48)
[2019-02-07 09:04] LABS: BASOPHILS % (AUTO) 0.3 % (0.0-2.0); EOSINOPHILS % (AUTO) 1.1 % (0.0-6.0); HEMATOCRIT 24 % (33-45); HEMOGLOBIN 7.5 g/dL (11.5-14.8); LYMPHOCYTES # (AUTO) 0.6 /CMM (0.8-4.8); LYMPHOCYTES % (AUTO) 6.2 % (20.0-44.0); MEAN CORPUSCULAR HGB CONC 31 g/dl (31.0-36.0); MEAN CORPUSCULAR VOLUME 94 fL (82-100); MONOCYTES % (AUTO) 9.8 % (2.0-12.0); NEUTROPHILS # (AUTO) 8.6 /CMM (1.8-8.9); NEUTROPHILS % (AUTO) 82.6 % (43.0-81.0); PLATELET COUNT (AUTO) 252 /CMM (150-450); RED BLOOD CELL COUNT(AUTO) 2.57 MIL/uL (4.0-5.2); WHITE BLOOD COUNT (AUTO) 10.4 K/uL (4.3-11.0)
[2019-02-07] MEDS: PROSOURCE / PROSTAT (PYXIS) 30 ML UDC GT SCH ×2 (10:52→16:33)
[2019-02-07] MEDS: HYDROGEL DRESSING 90 GM TUBE TP SCH ×2 (10:53→21:59)
--- NOTE | 2019-02-07 11:20 | NUR ---
NURSES DIRECTOR NOTES STOOL IS COLLECTED FOR OCCULT BLOOD TEST.LAB MADE AWARE TO SCHOOL TRAFFIC GUARD.
[2019-02-07 12:00] VITALS: BP 114/52
[2019-02-07 12:33] LABS: OCCULT BLOOD STOOL NEGATIVE (NEGATIVE)
[2019-02-07 16:00] VITALS: BP 136/45
--- NOTE | 2019-02-07 16:13 | NUR ---
LEFT VOICEMAIL ON DAUGHTER REGARDING DISCHARGE,CUSTOMER CONTACT REPRESENTATIVE YANELIS MADE AWARE.
--- NOTE | 2019-02-07 18:35 | NUR ---
PATIENT ASSESSMENT COORDINATOR NOTES MADE AWARE ABOUT THE RHYTHM CHANGE AND HOLDING DISCHARGE.NNO NOTED.
[2019-02-07] MEDS: VIT B CMPLX 3/FA/VIT C/BIOTIN 1 TAB TABLET GT SCH (18:53)
--- NOTE | 2019-02-07 19:05 | NUR ---
MARBLE WORKER CLOSING NOTES PT IS LYING ON BED WITH TRACH AND VENT DEPEND.TOLERATING WELL.NO RESPIRATORY DISTRESS NOTED.G TUB EIS IN PLACE AND TOLERATING THE FEEDING.WILL ENDORSE TO FLORICULTURE TEACHER RN FOR ROLANDO.
[2019-02-07 20:00] VITALS: BP 139/55
[2019-02-08] VITALS: BP 134/61
[2019-02-08] MEDS: INSULIN REGULAR, HUMAN 100 UNIT/ML 3 ML VIAL SQ PRN ×3 (01:02→12:14)
--- NOTE | 2019-02-08 02:45 | NUR ---
CRIPPLE CHASER OPENING NOTE RECEIVED REPORT FROM YENNY RODRIGUEZ. PATIENT IN BED, ALERT, A/O/X1, AROUSABLE TO VERBAL AND TACTILE STIMULI. ON TELE MONITOR, SR WITH HR 80'S. MECHANICAL VENT TRACH SETTING ORDERED, TOLERATING WELL, SATURATING 98%. NO S/S OF CARDIAC OR RESPIRATORY DISTRESS NOTED, RESPIRATION EVEN AND UNLABORED. HOB ELEVATED AT ALL TIMES. NO SIGN OF PAIN OR DISCOMFORT NOTED AT THIS TIME. R HAND IV #24 SL, PATENT, INTACT, AND FLUSHING WELL, NO SIGN OF INFECTION OR INFILTRATION NOTED. R IJ HAYNES HD WITH NO SIGN OF INFECTION AND INTACT. ILIA OLD HD NOTED. G TUBE IN PLACE RUNNING NEPRO 40 ML/HR, MINIMAL RESIDUAL NOTED. SAFETY PRECAUTIONS MAINTAINED; BED LOCKED AND IN THE LOWEST POSITION, CALL LIGHT WITHIN REACH, SIDE RAILS UP X2. WILL CONT TO MONITOR PT.
[2019-02-08 04:00] VITALS: BP 150/59
[2019-02-08] MEDS: BLOOD SUGAR DIAGNOSTIC 1 EACH STRIP IN SCH ×4 (05:36→17:41)
[2019-02-08] MEDS: NEPRO 1,000 ML BOTTLE GT SCH (05:45)
--- NOTE | 2019-02-08 06:53 | NUR ---
BANBURY OPERATOR CLOSING NOTES PATIENT IN BED, ALERT, A/O/X1, FOLLOWS COMMANDS. ON TELE MONITOR, SR WITH HR 70'S. MECHANICAL VENT TRACH SETTING ORDERED, TOLERATING WELL, SATURATING 98%. NO S/S OF CARDIAC OR RESPIRATORY DISTRESS NOTED, RESPIRATION EVEN AND UNLABORED. HOB ELEVATED AT ALL TIMES. NO SIGN OF PAIN OR DISCOMFORT NOTED AT THIS TIME. R HAND IV #24 SL, PATENT, INTACT, AND FLUSHING WELL. R IJ HAYNES HD WITH NO SIGN OF INFECTION AND INTACT. ILIA OLD HD NOTED. GTUBE IN PLACE RUNNING NEPRO 40 ML/HR, MINIMAL RESIDUAL NOTED. SAFETY PRECAUTIONS MAINTAINED; BED LOCKED AND IN THE LOWEST POSITION, CALL LIGHT WITHIN REACH, SIDE RAILS UP X2. ALL MD ORDERS ATTENDED. WILL ENDORSE TO AM RN FOR ROLANDO.
[2019-02-08 07:09] LABS: CALCIUM, SERUM 9.5 mg/dL (8.5-10.1); CARBON DIOXIDE 27 mmol/L (21-32); CHLORIDE 94 mmol/L (98-107); CREATININE 3.8 mg/dL (0.6-1.3); GLUCOSE 205 mg/dL (74-106); POTASSIUM 4.6 mmol/L (3.5-5.1); SODIUM SERUM 131 mmol/L (136-145)
[2019-02-08 07:10] LABS: UREA NITROGEN, BLOOD 108 mg/dL (7-18)
[2019-02-08] MEDS: SUCRALFATE 1 G/10 ML UDC GT SCH ×4 (07:30→21:17)
[2019-02-08 08:00] VITALS: BP 101/68
[2019-02-08] MEDS: SEVELAMER CARBONATE 0.8 GM POWD.PACK GT SCH ×3 (08:00→17:41)
--- NOTE | 2019-02-08 08:40 | NUR ---
CLINICAL ENGINEER AT BEDSIDE
[2019-02-08] MEDS: ACIDOPHILUS/BULGARICUS 1 EACH TAB.CHEW GT SCH ×3 (09:00→17:41)
[2019-02-08] MEDS: HYDROGEL DRESSING 90 GM TUBE TP SCH ×2 (09:00→21:17)
[2019-02-08] MEDS: DOCUSATE SODIUM LIQ 100 MG/10 ML UDC GT SCH (09:00)
--- NOTE | 2019-02-08 10:45 | NUR ---
DIALYSIS COMPLETE. BP 81/67, HR 82
[2019-02-08] MEDS: PROSOURCE / PROSTAT (PYXIS) 30 ML UDC GT SCH ×2 (10:56→17:42)
[2019-02-08] MEDS: PANTOPRAZOLE 40 MG/PACK PACK GT SCH (10:56)
[2019-02-08] MEDS: LEVETIRACETAM SOL (5 ML) 100 MG/ML UDC GT SCH ×2 (10:56→21:16)
[2019-02-08] MEDS: ASCORBIC ACID 500 MG TABLET GT SCH (10:56)
[2019-02-08] MEDS: MINOXIDIL (2.5MG) 2.5 MG TABLET GT SCH (10:57)
[2019-02-08] MEDS: CHLORHEXIDINE GLUCONATE 15 ML UDC MM SCH ×2 (10:57→21:17)
[2019-02-08] MEDS: LEVOTHYROXINE SODIUM 125 MCG TABLET GT SCH (10:57)
[2019-02-08 12:00] VITALS: BP_SYST 120; BP_SYST 81; BP_DIAS 58; BP_DIAS 67
[2019-02-08] MEDS: VANCOMYCIN 500 MG in IV D5W 100 ML IV PRN (13:12)
--- NOTE | 2019-02-08 15:29 | NUR ---
Family meeting was held today with Dr. Ingram, NAHID Ferreira, pillowcase folder Ayah and Jaimie to discuss plan of care and discharge planning. Pt's family agreed for pt. to go back to [facility] upon discharge.
[2019-02-08 16:00] VITALS: BP 114/45
--- NOTE | 2019-02-08 16:20 | NUR ---
AWAITING BED AT [facility] PER CHECKERING MACHINE OPERATOR
[2019-02-08] MEDS: VIT B CMPLX 3/FA/VIT C/BIOTIN 1 TAB TABLET GT SCH (17:41)
--- NOTE | 2019-02-08 19:15 | NUR ---
LABORATORY SCIENTIST OPENING NOTES PATIENT IN BED, ALERT, A/O/X1, AROUSABLE TO VERBAL AND TACTILE STIMULI, FOLLOWS COMMANDS. ON TELE MONITOR, SR WITH HR 80'S. MECHANICAL VENT TRACH SETTING ORDERED, TOLERATING WELL, SATURATING 99%. NO S/S OF CARDIAC OR RESPIRATORY DISTRESS NOTED, RESPIRATION EVEN AND UNLABORED. HOB ELEVATED AT ALL TIMES. NO SIGN OF PAIN OR DISCOMFORT NOTED AT THIS TIME. R HAND IV #24 SL, PATENT, INTACT, AND FLUSHING WELL, NO SIGN OF INFECTION OR INFILTRATION NOTED. R IJ HAYNES HD WITH NO SIGN OF INFECTION AND INTACT. ILIA OLD HD NOTED. G TUBE IN PLACE RUNNING NEPRO 40 ML/HR, MINIMAL RESIDUAL NOTED. SAFETY PRECAUTIONS MAINTAINED; BED LOCKED AND IN THE LOWEST POSITION, CALL LIGHT WITHIN REACH, SIDE RAILS UP X2. WILL CONT TO MONITOR PT.
[2019-02-08 20:00] VITALS: BP 127/58
--- NOTE | 2019-02-08 22:25 | NUR ---
E COMMERCE SOLUTION ARCHITECT NOTES GAVE REPORT TO YENNY CARNES FOR ROLANDO.
--- NOTE | 2019-02-08 22:25 | NUR ---
COMPOSITE MECHANIC NURSES NOTES RECEIVED PTS AND REPORT FROM OZZIE WITH EYE CLOSED PTS IS RESPONSIVE REMAINS ON VENT AC SETING WELL TOLERATED NO SOB NO DISTRESS NOTED, SUCTION SECRETION DONE PTS REMAINS IN BED GT FEEDING NEPRO 40CC/HR WELL TOLERATED NO RESIDUAL NOTED V/S STABLE AFEBRILE, DUE MEDS GIVEN ORDERED PTS ON SINUS RHYTHM SATING 100% ALL NEEDS ATTENDED TOO CALL LIGHT WITHIN REACH KEPT PTS CLEAN DRY AND COMFORTABLE , WILL CONTINUE TO MONITOR PTS.
[2019-02-09] VITALS: BP 122/72
--- NOTE | 2019-02-09 | NUR ---
DIRECTOR INFORMATICS NOTES BLOOD SUGAR FOR 12MN IS 208 MG /DL 4 UNITS OF REGULAR INSULIN GIVEN PER SLIDING SCALE , WILL CHECK BLOOD SUGAR AGAIN IN 6AM PTSIS ON GT FEEDING.
[2019-02-09] MEDS: INSULIN REGULAR, HUMAN 100 UNIT/ML 3 ML VIAL SQ PRN ×2 (00:20→06:47)
[2019-02-09] MEDS: BLOOD SUGAR DIAGNOSTIC 1 EACH STRIP IN SCH ×2 (00:22→06:46)
--- NOTE | 2019-02-09 03:22 | NUR ---
RT NOTE PT RCVD BERKLEY'D ON MECHANICAL VENT WITH CHARTED SETTINGS. SX DONE. PT BERKLEY IS PATENT AND SECURE. VENT ALARMS APPEAR TO BE FUNCTIONING PROPERLY. VENT PLUGGED INTO RED OUTLET. AMBU BAG AT BEDSIDE. Addendum: 02/09/19 at 0323 by JLUIS GONZALES RT Amended: Links added.
[2019-02-09 04:00] VITALS: BP 134/59
[2019-02-09] MEDS: NEPRO 1,000 ML BOTTLE GT SCH (06:22)
[2019-02-09 07:33] LABS: CALCIUM, SERUM 9.4 mg/dL (8.5-10.1); CARBON DIOXIDE 28 mmol/L (21-32); CHLORIDE 97 mmol/L (98-107); CREATININE 3.4 mg/dL (0.6-1.3); GLUCOSE 157 mg/dL (74-106); POTASSIUM 4.2 mmol/L (3.5-5.1); SODIUM SERUM 135 mmol/L (136-145)
[2019-02-09 07:38] LABS: UREA NITROGEN, BLOOD 96 mg/dL (7-18)
[2019-02-09 08:00] VITALS: BP 137/75
[2019-02-09] MEDS: LEVOTHYROXINE SODIUM 125 MCG TABLET GT SCH (09:08)
[2019-02-09] MEDS: MINOXIDIL (2.5MG) 2.5 MG TABLET GT SCH (09:08)
[2019-02-09] MEDS: DOCUSATE SODIUM LIQ 100 MG/10 ML UDC GT SCH (09:09)
[2019-02-09] MEDS: ACIDOPHILUS/BULGARICUS 1 EACH TAB.CHEW GT SCH (09:09)
[2019-02-09] MEDS: LEVETIRACETAM SOL (5 ML) 100 MG/ML UDC GT SCH (09:09)
[2019-02-09] MEDS: SUCRALFATE 1 G/10 ML UDC GT SCH (09:09)
[2019-02-09] MEDS: PANTOPRAZOLE 40 MG/PACK PACK GT SCH (09:09)
[2019-02-09] MEDS: SEVELAMER CARBONATE 0.8 GM POWD.PACK GT SCH (09:09)
[2019-02-09] MEDS: CHLORHEXIDINE GLUCONATE 15 ML UDC MM SCH (09:09)
[2019-02-09] MEDS: ASCORBIC ACID 500 MG TABLET GT SCH (09:09)
[2019-02-09] MEDS: HYDROGEL DRESSING 90 GM TUBE TP SCH (09:10)
[2019-02-09] MEDS: PROSOURCE / PROSTAT (PYXIS) 30 ML UDC GT SCH (09:11)
--- NOTE | 2019-02-09 11:11 | NUR ---
REPORT GIVEN TO LENORA @[facility]
[2019-02-09 12:00] VITALS: BP 148/48
--- NOTE | 2019-02-09 12:16 | NUR ---
RN D/C NOTE TRANSPORT TEAM AT BEDSIDE. PATIENT AWAKE, OBEYS COMMANDS, IN NO ACUTE DISTRESS, SPO2 100% VIA [facility] TRACH, 148/43, HR 68. PRESCRIPTION IN FOLDER. WOUND PICTURES TAKEN. DAUGHTER JONG NOTIFIED OF TRANSFER. Addendum: 02/09/19 at 1222 by NISHANT JORDAN RN BELONGINGS CHECKLIST SIGNED X2 STAFF MEMBERS, D/T PATIENT CONDITION, CANNOT SIGN.
== END 2019-02-09 12:00 | DRG 264 ==
LOC: ER 15:11 → TELE-TD 18:03 → TELE1 01-27 08:58 → ICU 01-27 09:15 → TELE1 01-27 12:25
PROVIDERS: ADMIT Nurse Practitioner Acute Care; ATTEND Internal Medicine
PROC: 5A1955Z Respiratory Ventilation, Greater than 96 Consecutive Hours (ICD-10-PCS; principal; 2019-01-26)
PROC: 5A1D70Z Performance of Urinary Filtration, Intermittent, Less than 6 Hours Per Day (ICD-10-PCS; 2019-01-27)
PROC: 0JB70ZZ Excision of Back Subcutaneous Tissue and Fascia, Open Approach (ICD-10-PCS; 2019-02-06)
DX: T80.211A Bloodstream infection due to central venous catheter, initial encounter (principal); L89.153 Pressure ulcer of sacral region, stage 3; I21.A1 Myocardial infarction type 2; G93.41 Metabolic encephalopathy; N18.6 End stage renal disease; J96.20 Acute and chronic respiratory failure, unspecified whether with hypoxia or hypercapnia; A41.89 Other specified sepsis; E44.0 Moderate protein-calorie malnutrition; I13.2 Hypertensive heart and chronic kidney disease with heart failure and with stage 5 chronic kidney disease, or end stage renal disease; E87.1 Hypo-osmolality and hyponatremia; Z99.11 Dependence on respirator [ventilator] status; E87.2 Acidosis; Y92.129 Unspecified place in nursing home as the place of occurrence of the external cause; D63.1 Anemia in chronic kidney disease; E11.22 Type 2 diabetes mellitus with diabetic chronic kidney disease; G40.909 Epilepsy, unspecified, not intractable, without status epilepticus; E03.9 Hypothyroidism, unspecified; E87.6 Hypokalemia; E88.09 Other disorders of plasma-protein metabolism, not elsewhere classified; E83.39 Other disorders of phosphorus metabolism; I25.10 Atherosclerotic heart disease of native coronary artery without angina pectoris; Z99.2 Dependence on renal dialysis; Z93.1 Gastrostomy status; Z93.0 Tracheostomy status; Z79.4 Long term (current) use of insulin; N25.0 Renal osteodystrophy; R13.10 Dysphagia, unspecified; J44.9 Chronic obstructive pulmonary disease, unspecified; I48.91 Unspecified atrial fibrillation; Z88.8 Allergy status to other drugs, medicaments and biological substances; Z79.51 Long term (current) use of inhaled steroids; Z79.899 Other long term (current) drug therapy; F03.90 Unspecified dementia, unspecified severity, without behavioral disturbance, psychotic disturbance, mood disturbance, and anxiety; F09 Unspecified mental disorder due to known physiological condition; I50.9 Heart failure, unspecified; E83.41 Hypermagnesemia; L85.3 Xerosis cutis; M85.9 Disorder of bone density and structure, unspecified; L98.9 Disorder of the skin and subcutaneous tissue, unspecified; S41.112A Laceration without foreign body of left upper arm, initial encounter; X58.XXXA Exposure to other specified factors, initial encounter; B86 Scabies
CPT/HCPCS: 31720; 36415; 36600; 70450-TC; 71045-TC; 80048-TC; 80053-TC; 80061-TC; 80076-TC; 80150; 80202-TC; 82272-TC; 82803-TC; 82962-TC; 83735-TC; 84100-TC; 84439-TC; 84443-TC; 84484-TC; 85025-TC; 85730-TC; 86706; 87040-TC; 87081-TC; 87340; 90935-TC; 93307-TC; 94003-TC; 94760-TC; 94762-TC; 99082-TC; A4623; A6248; A6253; A7526; G0378; J0278; J0696; J0885; J1644; J1815; J1953; J3370; J3490; J7040; J7050; J7060

== ENCOUNTER 2019-02-15 16:16 | Emergency (ER) | payer MEDICARE, BC, MEDICAID ==
[~2019-02-15] VITALS: Ht 165.1 cm; Wt 77.1 kg
--- NOTE | 2019-02-15 14:30 | NUR ---
RT Pt brought into ER with a portex 7 trach on the vent with noted settings. Pt switched over to hospital vent with noted settings by transport nurse. Pt is awake and responds to stimuli when sx'd. Vent alarms are set and audible with BVM by bedside. TABLEAU ADMINISTRATOR cuff pressure noted. Vent is plugged into red outlet. No respiratory distress noted. Addendum: 02/15/19 at 1750 by JAZZMINE ZAIDI RT Amended: Links added.
[~2019-02-15 16:16] MED LIST changes: +CETI-102 PO; -INSU100V7 SQ
--- NOTE | 2019-02-15 16:25 | NUR ---
PT JILLIAN [place] [employer] unit 230 From [facility] "Abnormal Labs/Anemia low H/H." pt is aaox1, on [facility] vent via trach, hooked to monitor, kept rested and comfortable, will continue to monitor.
--- NOTE | 2019-02-15 16:31 | NUR ---
SEEN AND EXAMINED BY .
--- NOTE | 2019-02-15 16:40 | NUR ---
PT IV LINE ESTABLISHED, BLOOD DRAWNED AND SENT TO LAB.
[2019-02-15 16:44] LABS: BASOPHILS % (AUTO) 0.5 % (0.0-2.0); HEMATOCRIT 23 % (33-45); HEMOGLOBIN 7.4 g/dL (11.5-14.8); LYMPHOCYTES # (AUTO) 0.4 /CMM (0.8-4.8); MEAN CORPUSCULAR HGB CONC 32 g/dl (31.0-36.0); MEAN CORPUSCULAR VOLUME 91 fL (82-100); MONOCYTES # (AUTO) 0.9 /CMM (0.1-1.30); MONOCYTES % (AUTO) 9.2 % (2.0-12.0); NEUTROPHILS % (AUTO) 81.3 % (43.0-81.0); PLATELET COUNT (AUTO) 352 /CMM (150-450); RED BLOOD CELL COUNT(AUTO) 2.58 MIL/uL (4.0-5.2); WHITE BLOOD COUNT (AUTO) 9.8 K/uL (4.3-11.0)
[2019-02-15] MEDS ORDERED: EPOE1VIA7 IJ (16:45)
[2019-02-15 16:51] LABS: CALCIUM, SERUM 9.6 mg/dL (8.5-10.1); CARBON DIOXIDE 28 mmol/L (21-32); CHLORIDE 95 mmol/L (98-107); GLUCOSE 185 mg/dL (74-106); POTASSIUM 3.6 mmol/L (3.5-5.1); SODIUM SERUM 132 mmol/L (136-145); UREA NITROGEN, BLOOD 67 mg/dL (7-18)
[2019-02-15 16:57] LABS: ALANINE AMINOTRANSFERASE 15 U/L (12-78); ALBUMIN 2.6 g/dL (3.4-5.0); ALKALINE PHOSPHATASE 175 U/L (46-116); ASPARTATE AMINOTRANSFERASE 11 U/L (15-37); BILIRUBIN,DIRECT 0.2 mg/dL (0.0-0.2); BILIRUBIN,TOTAL 0.4 mg/dL (0.2-1.0)
--- NOTE | 2019-02-15 18:03 | NUR ---
CALLED [facility]MY FOR TRANSPORT ETA OF [phone] WAS GIVEN. TRIP#[id number]
--- NOTE | 2019-02-15 18:11 | NUR ---
CALLED AM DEVONTE ETA IS [phone]
[2019-02-15 20:11] VITALS: BP 167/82
== END 2019-02-15 20:13 | disposition home or self-care (01) ==
LOC: ER 16:20
DX: E11.22 Type 2 diabetes mellitus with diabetic chronic kidney disease (principal); N18.6 End stage renal disease; D63.1 Anemia in chronic kidney disease; Z99.2 Dependence on renal dialysis; G40.909 Epilepsy, unspecified, not intractable, without status epilepticus; Z93.1 Gastrostomy status; Z98.890 Other specified postprocedural states; Z88.8 Allergy status to other drugs, medicaments and biological substances; Z79.4 Long term (current) use of insulin; Z79.899 Other long term (current) drug therapy
CPT/HCPCS: 31720; 36415; 80048-TC; 80076-TC; 85025-TC; 85730-TC; 86850-TC

== ENCOUNTER 2019-10-13 14:03 | Inpatient (IN) | payer MEDICARE, BC, OTHER ==
[~2019-10-13] VITALS: Ht 160 cm; Wt 62.6 kg
[~2019-10-13 14:03] MED LIST changes: -ASCO500T9 GT; -CETI-102 PO; +EPOE1VIA7 IJ; +OMEP40CA13 GT; -OMEP40CA37 GT; -SUCR1ORA GT; +SUCR1ORA15 GT
--- NOTE | 2019-10-13 14:15 | NUR ---
PT REC'D TO THE PT MISSED HER DIALYSIS NATALEE, TRACH PT DOSNT SPEAK RT AT BEDSIDE IV STARTED RT WRIST 20 G LABS DRAWN S ENT TO LAB
[2019-10-13 14:34] LABS: BASOPHILS % (AUTO) 0.5 % (0.0-2.0); EOSINOPHILS % (AUTO) 7.4 % (0.0-6.0); LYMPHOCYTES % (AUTO) 13.7 % (20.0-44.0); MEAN CORPUSCULAR HGB CONC 34 g/dl (31.0-36.0); MEAN CORPUSCULAR VOLUME 103 fL (82-100); MONOCYTES # (AUTO) 0.7 /CMM (0.1-1.30); MONOCYTES % (AUTO) 9.8 % (2.0-12.0); NEUTROPHILS % (AUTO) 68.6 % (43.0-81.0); PLATELET COUNT (AUTO) 148 /CMM (150-450); WHITE BLOOD COUNT (AUTO) 7.3 K/uL (4.3-11.0)
[2019-10-13 14:41] LABS: HEMOGLOBIN 6.6 g/dL (11.5-14.8); RED BLOOD CELL COUNT(AUTO) 1.92 MIL/uL (4.0-5.2)
[2019-10-13 14:42] LABS: HEMATOCRIT 20 % (33-45)
[2019-10-13 14:50] LABS: ALANINE AMINOTRANSFERASE 15 U/L (12-78); ALKALINE PHOSPHATASE 187 U/L (46-116); ASPARTATE AMINOTRANSFERASE 14 U/L (15-37); BILIRUBIN,DIRECT 0.2 mg/dL (0.0-0.2); BILIRUBIN,TOTAL 0.5 mg/dL (0.2-1.0); CALCIUM, SERUM 9.4 mg/dL (8.5-10.1); CARBON DIOXIDE 26 mmol/L (21-32); CHLORIDE 95 mmol/L (98-107); CREATININE 4.6 mg/dL (0.6-1.3); GLUCOSE 87 mg/dL (74-106); POTASSIUM 3.8 mmol/L (3.5-5.1); SODIUM SERUM 132 mmol/L (136-145); TOTAL PROTEIN, SERUM 6.7 g/dL (6.4-8.2)
[2019-10-13 14:54] LABS: UREA NITROGEN, BLOOD 125 mg/dL (7-18)
--- NOTE | 2019-10-13 14:59 | NUR ---
VENT PEEP 5.0 , 02 40%, AC 12
--- NOTE | 2019-10-13 15:01 | NUR ---
HGB 6.6
[2019-10-13 15:12] LABS: NEUTROPHILS % (MANUAL) 74 (42-76)
[2019-10-13 15:13] LABS: BAND % (MANUAL) 1 % (0.0-5.0); EOSINOPHILS % (MANUAL) 6 % (0-4); LYMPHOCYTES % (MANUAL) 12 % (16-48); MONOCYTES % (MANUAL) 7 % (0-11.0)
[2019-10-13 17:01] LABS: C-REACTIVE PROTEIN 1.5 mg/dL (0.0-0.9)
--- NOTE | 2019-10-13 17:52 | NUR ---
PT STABLE FOR TRANSFER RT CALLED
[2019-10-13 18:45] VITALS: BP 125/96
--- NOTE | 2019-10-13 19:35 | NUR ---
INITIAL PT ARRIVED FROM EMERGENCY ROOM AT 1630 PLACED ON BED AND RT PLACED PT ON VENTILATOR. PT HAS TRACH PROTEX #7 AND G-TUBE. HR 61 ON MONITOR. PT NON VERBAL CAME FROM [facility] PT OF MD NAILS. PT HAS AV SHUNT IN LEFT ARM POSITIVE FOR BUREE AND THRILL. OTHER IV ACCESS IS 20 G IN RIGHT WRIST.H/L. PT ADMITTED BY LEONARD PRICE FOR PNEUMONIA. COVID 19 DONE IN EMERGENCY ROOM. WILL GIVEN RN REPORT TO PM SHIFT FOR CONTINUITY OF CARE.
--- NOTE | 2019-10-13 19:45 | NUR ---
RN OPENING NOTES PATIENT RECEIVED RESTING IN BED A/O X 2- NOT VERBALLY RESPONSIVE BUT ABLE TO NOD YES AND NO. PATIENT TOLERATING VENTILATOR SETTINGS WELL. NO SIGNS OF ACUTE DISTRESS. NO COMPLAINTS OF PAIN OR DISCOMFORT- NO FACIAL GRIMACING NOTES. ON TELE- SR. IV LOCATED ON RIGHT WRIST #20 SL. SAFETY PRECAUTIONS IN PLACE WITH BED IN LOWEST POSITION, CALL LIGHT WITHIN REACH, BREAKS ON, SIDE RAILS UP. WILL CONTINUE TO MONITOR THROUGHOUT THE SHIFT.
[2019-10-13 20:00] VITALS: BP 113/74
[2019-10-13] MEDS ORDERED: Z GUARD REMEDY 2 OZ OINT TP PRN (20:00)
[2019-10-13] MEDS ORDERED: HYDROCODONE/APAP 5/325MG 1 EACH TABLET PO PRN (20:00)
[2019-10-13] MEDS ORDERED: MAGNESIUM HYDROXIDE 30 ML UDC PO PRN (20:00)
[2019-10-13] MEDS ORDERED: ZOLPIDEM TARTRATE 5 MG TABLET PO PRN (20:00)
[2019-10-13] MEDS ORDERED: MAG HYDROX/AL HYDROX/SIMETH 30 ML UDC PO PRN (20:00)
[2019-10-13] MEDS ORDERED: LEVOFLOXACIN 500 MG /D5W 100ML 500 MG in PREMIX 1 EA IV SCH (20:00)
[2019-10-13] MEDS ORDERED: ACETAMINOPHEN 325 MG TABLET PO PRN (20:00)
[2019-10-13] MEDS ORDERED: ONDANSETRON HCL/PF 4 MG/2 ML VIAL IVP PRN (20:00)
[2019-10-13] MEDS ORDERED: LEVOFLOXACIN 500 MG /D5W 100ML 500 MG in PREMIX 1 EA IV ONE (20:30)
[2019-10-13] MEDS ORDERED: LEVOFLOXACIN 500 MG /D5W 100ML 100 ML IV ONE (20:38)
[2019-10-13] MEDS ORDERED: ALBUTEROL FS 2.5 MG/0.5 ML VIAL.NEB IH PRN (21:30)
[2019-10-13] MEDS ORDERED: POLYVINYL ALCOHOL 15 ML BOTTLE LEFTEYE PRN (21:30)
[2019-10-13] MEDS: SUCRALFATE 1 G/10 ML UDC GT SCH (22:09)
[2019-10-13] MEDS: SEVELAMER CARBONATE 0.8 GM POWD.PACK GT SCH (22:09)
[2019-10-13] MEDS: LACTOBACILLUS RHAMNOSUS GG 1 EACH CAP.SPRINK PO SCH (22:09)
[2019-10-13] MEDS: LEVETIRACETAM SOL (5 ML) 100 MG/ML UDC GT SCH (22:09)
[2019-10-13] MEDS: CHLORHEXIDINE GLUCONATE 15 ML UDC MM SCH (22:11)
[2019-10-14] VITALS (7 sets, daily range): BP systolic 108–208; BP diastolic 34–81
[2019-10-14] MEDS: ALBUTEROL FS 2.5 MG/0.5 ML VIAL.NEB IH SCH ×2 (01:55→07:29)
--- NOTE | 2019-10-14 06:38 | NUR ---
RN CLOSING NOTES PATIENT RESTING IN BED A/O X 1-2- NOT VERBALLY RESPONSIVE BUT ABLE TO NOD YES AND NO. PATIENT TOLERATING VENTILATOR SETTINGS WELL. NO SIGNS OF ACUTE DISTRESS. NO COMPLAINTS OF PAIN OR DISCOMFORT- NO FACIAL GRIMACING NOTES. ON TELE- SR. IV LOCATED ON RIGHT WRIST #20 SL. SAFETY PRECAUTIONS IN PLACE WITH BED IN LOWEST POSITION, CALL LIGHT WITHIN REACH, BREAKS ON, SIDE RAILS UP. ALL NEEDS ATTENDED TO. PATIENT WAS KEPT CLEAN AND DRY THROUGHOUT THE NIGHT. WILL ENDORSE TO ONCOMING SHIFT ABOUT ROLANDO.
[2019-10-14 06:55] LABS: BASOPHILS # (AUTO) 0.1 /CMM (0.0-0.2); BASOPHILS % (AUTO) 0.8 % (0.0-2.0); EOSINOPHILS % (AUTO) 7.6 % (0.0-6.0); HEMATOCRIT 23 % (33-45); HEMOGLOBIN 7.5 g/dL (11.5-14.8); LYMPHOCYTES # (AUTO) 0.8 /CMM (0.8-4.8); LYMPHOCYTES % (AUTO) 12.8 % (20.0-44.0); MEAN CORPUSCULAR HGB CONC 33 g/dl (31.0-36.0); MEAN CORPUSCULAR VOLUME 103 fL (82-100); MONOCYTES # (AUTO) 0.6 /CMM (0.1-1.30); MONOCYTES % (AUTO) 8.8 % (2.0-12.0); NEUTROPHILS # (AUTO) 4.6 /CMM (1.8-8.9); PLATELET COUNT (AUTO) 152 /CMM (150-450); RED BLOOD CELL COUNT(AUTO) 2.21 MIL/uL (4.0-5.2); WHITE BLOOD COUNT (AUTO) 6.6 K/uL (4.3-11.0)
--- NOTE | 2019-10-14 07:20 | NUR ---
RN OPENING NOTE Received patient awake in bed HOB elevated. Patient is aphasic. AO x2. On mech vent no signs of distress. Settings TV 500 AC 12 fio2 40% peep 5 tolerating well. Tele reading SR 70s. Will follow up on hemodialysis. Patient has L arm bruise skin intact no co pain or discomfort. Patient has a new order to resume GT feeding. Will follow up with dietary. Patient has a R wrist 22gage flushed well. Safety measures reinforced. Call light within reach. Bilateral siderails up x2. Bed locked and on lowest position. Will cont to monitor.
[2019-10-14 07:22] LABS: CALCIUM, SERUM 9.9 mg/dL (8.5-10.1); CARBON DIOXIDE 25 mmol/L (21-32); CHLORIDE 94 mmol/L (98-107); CREATININE 5.2 mg/dL (0.6-1.3); GLUCOSE 82 mg/dL (74-106); MAGNESIUM 2.6 mg/dL (1.8-2.4); PHOSPHORUS 4.2 mg/dL (2.5-4.9); POTASSIUM 3.8 mmol/L (3.5-5.1); SODIUM SERUM 131 mmol/L (136-145)
[2019-10-14 07:25] LABS: CHOLESTEROL 95 mg/dL (<200); HDL CHOLESTEROL 35 mg/dL (40-60); LDL 46 mg/dL (0-99); TRIGLYCERIDES 89 mg/dL (30-150)
[2019-10-14 07:37] LABS: UREA NITROGEN, BLOOD 125 mg/dL (7-18)
[2019-10-14] MEDS: SUCRALFATE 1 G/10 ML UDC GT SCH ×4 (08:34→21:34)
[2019-10-14] MEDS: LACTOBACILLUS RHAMNOSUS GG 1 EACH CAP.SPRINK PO SCH ×2 (08:35→16:22)
[2019-10-14] MEDS: LEVETIRACETAM SOL (5 ML) 100 MG/ML UDC GT SCH ×2 (08:35→21:34)
[2019-10-14] MEDS: CHLORHEXIDINE GLUCONATE 15 ML UDC MM SCH ×2 (08:35→21:34)
[2019-10-14] MEDS: LEVOTHYROXINE SODIUM 125 MCG TABLET GT SCH (08:35)
[2019-10-14] MEDS: DOCUSATE SODIUM 100 MG CAPSULE PO SCH (08:35)
[2019-10-14] MEDS: PANTOPRAZOLE 40 MG/PACK PACK GT SCH (08:35)
[2019-10-14] MEDS: SEVELAMER CARBONATE 0.8 GM POWD.PACK GT SCH ×3 (08:35→16:22)
[2019-10-14] MEDS: VIT B CMPLX 3/FA/VIT C/BIOTIN 1 TAB TABLET PO SCH (08:35)
[2019-10-14] MEDS: MINOXIDIL (2.5MG) 2.5 MG TABLET GT SCH (08:39)
--- NOTE | 2019-10-14 09:00 | NUR ---
RN NOTE Charge nurse followed up with dialysis. Per nurse it will be done today. Spoke to Jennifer (daughter) informed her that I will give her updates on dialysis.
[2019-10-14] MEDS ORDERED: IPRATROPIUM/ALBUTEROL INHALER IH PRN (12:30)
--- NOTE | 2019-10-14 13:25 | NUR ---
PT RCVD BERKLEY'D ON MECHANICAL VENT WITH CHARTED SETTINGS. SX DONE. PT TRACH IS PATENT AND SECURE. VENT ALARMS ARE ON AND AUDIBLE. VENT PLUGGED INTO RED OUTLET. AMBU BAG AT BEDSIDE. NO SOB NOTED. Addendum: 10/14/19 at 1326 by JLUIS GONZALES RT Amended: Links added.
[2019-10-14] MEDS: hydrALAZINE HCL 50 MG TABLET GT PRN (16:23)
--- NOTE | 2019-10-14 19:03 | NUR ---
RN CLOSING NOTE Patient in bed hemodialysis ongoing. tolerating well. No signs of distress. Vital signs within normal limits. All due meds given. Kept clean and dry. Trach care done and suctioned PRN. All needs met. Will endorse to maintenance mechanic 2nd shift nurse for latosha.
--- NOTE | 2019-10-14 19:30 | NUR ---
RN OPENING NOTES RECEIVED PATIENT AWAKE IN BED RECEIVED HD WITH NURSE AT BEDSIDE. A/OX1. NO SIGNS OF DISTRESS OR DISCOMFORT. ON TELE MONITOR WITH SR 92 NOTED. BREATHING EVEN AND UNLABORED. ON TELE MONITOR WITH SR 92 NOTED. HAS NO IV ACCESS AT THIS TIME, PER AM SHIFT PATIENT PULLED IV OUT. HAS GTUBE INTACT WITH FEEDING RUNNING,BED IN LOW LOCKED POSITION WITH SIDE RAILS X2. CALL LIGHT WITHIN REACH. WILL CONTINUE TO MONITOR. Addendum: 10/15/19 at 0346 by RIK CHRISTENSEN RN ON [facility] VENT WITH SETTING ORDERED.
--- NOTE | 2019-10-14 19:55 | NUR ---
RT NOTE PT RECEIVED TRACHED ON MECHANICAL VENTILATION. PT AWAKE. AMBU BAG @ BEDSIDE. SX DONE, TRACH SECURED AND PATENT. ALARMS ON AND AUDIBLE. NO DISTRESS NOTED AT THIS TIME. CONT. PULSE OX CONNECTED. WILL MONITOR. Addendum: 10/14/19 at 5 by ELISE MULLEN RT Amended: Links added.
--- NOTE | 2019-10-14 20:45 | NUR ---
RN NOTES PATIENT PULLED OUT HD NEEDLE ACCESS DURING DIALYSIS. HD NURSE ENDED DIALYSIS WITH 1.5L OUTPUT. DRESSING ON ILIA C/D/I. PATIENT CONTINUES TO REMOVE LINES AND VENT CONNECTION. WILL NOTIFY MD AND CONTINUE TO MONITOR.
[2019-10-15] VITALS (8 sets, daily range): BP systolic 102–201; BP diastolic 40–109
[2019-10-15] MEDS: hydrALAZINE HCL 50 MG TABLET GT PRN (05:19)
--- NOTE | 2019-10-15 07:10 | NUR ---
RN CLOSING NOTES PATIENT RESTING IN BED, EASILY AROUSABLE. A/OX1. NO SIGNS OF DISTRESS OR DISCOMFORT. ON TELE MONITOR WITH SR NOTED. BREATHING EVEN AND UNLABORED. ON [facility] VENT WITH SETTINGS ORDERED. IV ACCESS IN R HAND, PATENT AND INTACT, NO SIGNS OF REDNESS OR INFILTRATION. HAS GTUBE INTACT WITH FEEDING RUNNING, PATIENT TOLERATING WELL. NO RESIDUAL NOTED THROUGHOUT SHIFT. ALL NEEDS MET. NO SIGNIFICANT CHANGES THROUGH THE NGITH. BED IN LOW LOCKED POSITION WITH SIDE RAILS X3. CALL LIGHT WITHIN REACH. WILL ENDORSE TO AM SHIFT FOR ROLANDO. Addendum: 10/15/19 at 0801 by RIK CHRISTENSEN RN ON CHEPE. WRIST RESTRAINTS WITH NO SKIN BREAKDOWN OR CIRCULATION ISSUES NOTED. SKIN ASSESSMENT PHOTOS TAKEN, ENDORSED TO AM SHIFT TO PRINT PHOTOS ONCE INK BECOMES AVAILABLE.
--- NOTE | 2019-10-15 07:30 | NUR ---
return agent airport Notes Received patient in bed from car shifter. Patient was admitted for pneumonia, COVID-. PMH of HD, HTN, DM, G-Tube placement, ESRD, Embolism, and Thrumbosis of Lower Extremity. Patient is on a vent. Portex 7mm. AC 12. TV 500mL. FIO2 40%. PEEP 5. Sinus Rhythym/ Sinus Tach on monitor. Patient has multiple bruises on her R and L arms. Sacral and Deb Redness with some excoriation. Patient is on Nephro 50mL/Hr. Patient has a IV on R hand 22g. IV dressing replaced. Bed in lowest position, call light within reach, all measures taken to ensure patient safety. Will continue to monitor.
[2019-10-15] MEDS: LEVOTHYROXINE SODIUM 125 MCG TABLET GT SCH (09:07)
[2019-10-15] MEDS: LACTOBACILLUS RHAMNOSUS GG 1 EACH CAP.SPRINK PO SCH ×2 (09:07→16:44)
[2019-10-15] MEDS: SUCRALFATE 1 G/10 ML UDC GT SCH ×4 (09:08→22:33)
[2019-10-15] MEDS: LEVETIRACETAM SOL (5 ML) 100 MG/ML UDC GT SCH ×2 (09:08→22:33)
[2019-10-15] MEDS: SEVELAMER CARBONATE 0.8 GM POWD.PACK GT SCH ×3 (09:08→16:44)
[2019-10-15] MEDS: DOCUSATE SODIUM 100 MG CAPSULE PO SCH (09:08)
[2019-10-15] MEDS: VIT B CMPLX 3/FA/VIT C/BIOTIN 1 TAB TABLET PO SCH (09:08)
[2019-10-15] MEDS: PANTOPRAZOLE 40 MG/PACK PACK GT SCH (09:08)
[2019-10-15] MEDS: MINOXIDIL (2.5MG) 2.5 MG TABLET GT SCH (09:11)
[2019-10-15] MEDS: CHLORHEXIDINE GLUCONATE 15 ML UDC MM SCH ×2 (09:12→22:33)
[2019-10-15] MEDS ORDERED: LEVO500T75 PO (11:32)
[2019-10-15] MEDS: NEPRO 1,000 ML BOTTLE GT PRN (13:28)
--- NOTE | 2019-10-15 18:30 | NUR ---
log carrier operator Closing Notes Patient was admitted for pneumonia, COVID-. PMH of HD, HTN, DM, G-Tube placement, ESRD, Embolism, and Thrumbosis of Lower Extremity. Patient is on a vent. Portex 7mm. AC 12. TV 500mL. FIO2 40%. PEEP 5. Sinus Rhythym/ Sinus Tach on monitor. Patient has multiple bruises on her R and L arms. Sacral and Deb Redness with some excoriation. Patient is on Nephro 50mL/Hr. Patient has a IV on R hand 22g. IV dressing replaced. Bed in lowest position, call light within reach, all measures taken to ensure patient safety. Patient to be endorsed to slot shift manager.
[2019-10-15] MEDS: LEVOFLOXACIN 250 MG /D5W 50 ML 250 MG in PREMIX 1 EA IV SCH (22:35)
[2019-10-16] VITALS: BP 165/38
[2019-10-16 04:00] VITALS: BP 142/51
[2019-10-16 06:45] LABS: BASOPHILS % (AUTO) 0.3 % (0.0-2.0); EOSINOPHILS % (AUTO) 5.2 % (0.0-6.0); HEMATOCRIT 22 % (33-45); HEMOGLOBIN 7.2 g/dL (11.5-14.8); LYMPHOCYTES # (AUTO) 0.7 /CMM (0.8-4.8); MEAN CORPUSCULAR HGB CONC 33 g/dl (31.0-36.0); MEAN CORPUSCULAR VOLUME 104 fL (82-100); MONOCYTES # (AUTO) 0.9 /CMM (0.1-1.30); MONOCYTES % (AUTO) 12.5 % (2.0-12.0); NEUTROPHILS # (AUTO) 5.1 /CMM (1.8-8.9); PLATELET COUNT (AUTO) 155 /CMM (150-450); RED BLOOD CELL COUNT(AUTO) 2.12 MIL/uL (4.0-5.2); WHITE BLOOD COUNT (AUTO) 7.1 K/uL (4.3-11.0)
[2019-10-16] MEDS: SUCRALFATE 1 G/10 ML UDC GT SCH ×4 (07:08→21:20)
[2019-10-16] MEDS: LEVOTHYROXINE SODIUM 125 MCG TABLET GT SCH (07:09)
[2019-10-16 07:24] LABS: CALCIUM, SERUM 9.7 mg/dL (8.5-10.1); CARBON DIOXIDE 26 mmol/L (21-32); CHLORIDE 92 mmol/L (98-107); CREATININE 5.1 mg/dL (0.6-1.3); GLUCOSE 137 mg/dL (74-106); MAGNESIUM 2.7 mg/dL (1.8-2.4); PHOSPHORUS 3.6 mg/dL (2.5-4.9); POTASSIUM 4.2 mmol/L (3.5-5.1); SODIUM SERUM 130 mmol/L (136-145)
[2019-10-16 07:43] LABS: UREA NITROGEN, BLOOD 100 mg/dL (7-18)
[2019-10-16 08:00] VITALS: BP 170/33
[2019-10-16] MEDS: DOCUSATE SODIUM 100 MG CAPSULE PO SCH (08:34)
[2019-10-16] MEDS: VIT B CMPLX 3/FA/VIT C/BIOTIN 1 TAB TABLET PO SCH (08:34)
[2019-10-16] MEDS: LEVETIRACETAM SOL (5 ML) 100 MG/ML UDC GT SCH ×2 (08:34→21:20)
[2019-10-16] MEDS: MINOXIDIL (2.5MG) 2.5 MG TABLET GT SCH (08:35)
[2019-10-16] MEDS: CHLORHEXIDINE GLUCONATE 15 ML UDC MM SCH ×2 (08:35→21:20)
[2019-10-16] MEDS: SEVELAMER CARBONATE 0.8 GM POWD.PACK GT SCH ×3 (08:35→17:25)
[2019-10-16] MEDS: PANTOPRAZOLE 40 MG/PACK PACK GT SCH (08:35)
[2019-10-16] MEDS: LACTOBACILLUS RHAMNOSUS GG 1 EACH CAP.SPRINK PO SCH ×2 (08:35→17:25)
--- NOTE | 2019-10-16 09:08 | NUR ---
WOUND CARE CONSULT: PT SEEN FOR SACRAL REDNESS AND NOTED TO HAVE SACRAL SCARRING WITH SOME PEELING SKIN TO LOWER BUTTOCKS, PRESENT ON ADMISSION. RECOMMENDATIONS MADE FOR SKIN PROTECTION. DISCUSSED WITH NURSING STAFF. PT IS INCONTINENT. CURRENT GEORGE SCORE IS 14. WILL SEE PRN. UV IN AGREEMENT WITH PLAN OF CARE. Addendum: 10/16/19 at 0909 by MILENA KRUSE WNDNU Amended: Links added.
[2019-10-16 12:00] VITALS: BP 139/37
[2019-10-16 16:00] VITALS: BP 167/35
[2019-10-16 20:00] VITALS: BP 154/58
--- NOTE | 2019-10-16 20:38 | NUR ---
PRIVATE BRANCH EXCHANGE INSTALLER NOTES RECEIVED PT IN THE BED. AOX1. NONVERBAL, ABLE TO POINT AND NOD FOR YES OR NO. TRACHED AND VENTED, NO SOB. GTF RUNNING PRESCRIBED, DEDRA WELL. ON TELE MONITOR W/SR. INCONTINENT OF BOWEL AND URINE. WITH DIAPER ON. DISCOLORED WITH PURPLE AND PINK SKIN IN EXTREMITIES. SL ON R HAND. BED LOCKED IN LOWEST POSITION. ALL SAFETY MEASURES IN PLACE. WILL CONT TO MONITOR.
[2019-10-17] VITALS (9 sets, daily range): BP systolic 112–158; BP diastolic 31–118
--- NOTE | 2019-10-17 02:58 | NUR ---
RT NOTE Pt rec'd trached on [facility] vent on AC mode. Pt shows no signs of resp distress or sob. trach is patent and secured. Pt sx'd for thick mod amt of pale yellow secretions. Alarms are set and audible. Vent plugged into red outlet. Ambu bag bedside. Will continue to monitor. Addendum: 10/17/19 at 0258 by ELISHA HOOKS RT Amended: Links added.
[2019-10-17 06:19] LABS: BASOPHILS % (AUTO) 0.9 % (0.0-2.0); EOSINOPHILS % (AUTO) 7.3 % (0.0-6.0); LYMPHOCYTES # (AUTO) 0.6 /CMM (0.8-4.8); LYMPHOCYTES % (AUTO) 12.4 % (20.0-44.0); MEAN CORPUSCULAR HGB CONC 33 g/dl (31.0-36.0); MEAN CORPUSCULAR VOLUME 103 fL (82-100); MONOCYTES # (AUTO) 0.6 /CMM (0.1-1.30); MONOCYTES % (AUTO) 11.7 % (2.0-12.0); NEUTROPHILS # (AUTO) 3.2 /CMM (1.8-8.9); NEUTROPHILS % (AUTO) 67.7 % (43.0-81.0); PLATELET COUNT (AUTO) 167 /CMM (150-450); WHITE BLOOD COUNT (AUTO) 4.8 K/uL (4.3-11.0)
--- NOTE | 2019-10-17 06:22 | NUR ---
PATIENT CARRIER NOTES PT IN BED WITH VENT SETTINGS PRESCRIBED AND NO SOB. TELE MONITOR SR. GTF RUNNING ORDERED. DEDRA WELL. KEPT CLEAN AND DRY. ALL NEEDS MET. SAFETY MEASURES IN PLACE WILL ENDORSE TO THE ONCOMING RN
[2019-10-17 06:25] LABS: RED BLOOD CELL COUNT(AUTO) 1.77 MIL/uL (4.0-5.2)
[2019-10-17 06:27] LABS: HEMATOCRIT 18 % (33-45)
--- NOTE | 2019-10-17 06:28 | NUR ---
POUND KEEPER NOTES NOTIFIED DNP COLEMAN ABOUT CRITICAL Hg=6.0, AND Hct=18. ORDER RECEIVED (1UNIT PRBC WITH HD TODAY) AND CARRIED OUT. WILL ENDORSE TO AM NURSE
[2019-10-17 06:33] LABS: CALCIUM, SERUM 9.6 mg/dL (8.5-10.1); CARBON DIOXIDE 30 mmol/L (21-32); CHLORIDE 100 mmol/L (98-107); CREATININE 4.1 mg/dL (0.6-1.3); GLUCOSE 144 mg/dL (74-106); MAGNESIUM 2.6 mg/dL (1.8-2.4); PHOSPHORUS 3.3 mg/dL (2.5-4.9); POTASSIUM 4.2 mmol/L (3.5-5.1); SODIUM SERUM 138 mmol/L (136-145); UREA NITROGEN, BLOOD 68 mg/dL (7-18)
[2019-10-17] MEDS: LEVOTHYROXINE SODIUM 125 MCG TABLET GT SCH (06:48)
[2019-10-17] MEDS: SUCRALFATE 1 G/10 ML UDC GT SCH ×4 (06:48→22:21)
--- NOTE | 2019-10-17 07:24 | NUR ---
SUPERVISOR FILLING AND PACKING OPENING NOTES RECEIVED PATIENT IN BED RESTING COMFORTABLY. PATIENT IN NO ACUTE DISTRESS. NO SOB NOTED. PATIENT BREATHING IS EVEN AND UNLABORED. PATIENT ON VENT, TOLERATING VENT SETTINGS WELL. PATIENT ON BILATERAL SOFT WRIST RESTRAINTS, NOTED WITH GOOD CIRCULATION. PATIENT HOB IS ELEVATED. PATIENT BED ALARM IS ON. SAFETY PRECAUTIONS IN PLACE. PATIENT ON PATIENT BED IS LOCKED AND IN LOWEST POSITION. CALL LIGHT WITHIN REACH. WILL CONTINUE TO MONITOR. Addendum: 10/17/19 at 0731 by SHAHRAM SADLER RN SUPERVISOR FILLING AND PACKING OPENING NOTES RECEIVED PATIENT IN BED RESTING COMFORTABLY. PATIENT IN NO ACUTE DISTRESS. NO SOB NOTED. PATIENT BREATHING IS EVEN AND UNLABORED. PATIENT ON VENT, TOLERATING VENT SETTINGS WELL. PATIENT ON CARDIAC MONITORING READING SINUS RHYTHM HR 72 WITH FIRST DEGREE AV BLOCK. PATIENT ON BILATERAL SOFT WRIST RESTRAINTS, NOTED WITH GOOD CIRCULATION. PATIENT HOB IS ELEVATED. PATIENT BED ALARM IS ON. SAFETY PRECAUTIONS IN PLACE. PATIENT ON PATIENT BED IS LOCKED AND IN LOWEST POSITION. CALL LIGHT WITHIN REACH. WILL CONTINUE TO MONITOR.
[2019-10-17 07:38] LABS: BAND % (MANUAL) 2 % (0.0-5.0); EOSINOPHILS % (MANUAL) 9 % (0-4); LYMPHOCYTES % (MANUAL) 10 % (16-48); MONOCYTES % (MANUAL) 7 % (0-11.0); NEUTROPHILS % (MANUAL) 72 (42-76)
[2019-10-17] MEDS: MINOXIDIL (2.5MG) 2.5 MG TABLET GT SCH (09:00)
[2019-10-17] MEDS: VIT B CMPLX 3/FA/VIT C/BIOTIN 1 TAB TABLET PO SCH (09:02)
[2019-10-17] MEDS: SEVELAMER CARBONATE 0.8 GM POWD.PACK GT SCH ×3 (09:02→16:41)
[2019-10-17] MEDS: DOCUSATE SODIUM 100 MG CAPSULE PO SCH (09:02)
[2019-10-17] MEDS: LACTOBACILLUS RHAMNOSUS GG 1 EACH CAP.SPRINK PO SCH ×2 (09:02→16:40)
[2019-10-17] MEDS: PANTOPRAZOLE 40 MG/PACK PACK GT SCH (09:02)
[2019-10-17] MEDS: LEVETIRACETAM SOL (5 ML) 100 MG/ML UDC GT SCH ×2 (09:02→22:21)
[2019-10-17] MEDS: CHLORHEXIDINE GLUCONATE 15 ML UDC MM SCH ×2 (09:02→22:21)
--- NOTE | 2019-10-17 09:38 | NUR ---
Pt received on current setting with no SOB noted. Airway is patent and secure with no signs of respiratory distress. Vent plugged into red outlet with alarms on and audible. Suction as needed. Addendum: 10/17/19 at 0938 by NAVDEEP PAREDES RT Amended: Links added.
--- NOTE | 2019-10-17 09:55 | NUR ---
DRUG COUNSELOR NOTE DR. FERGUSON SEEN AND EVALUATED PATIENT. INFORMED HER ABOUT PATIENT DIASTOLIC PRESSURE RANGING FROM 30'S-50'S. NO NEW ORDERS AT THIS TIME. PATIENT IN NO ACUTE DISTRESS. WILL CONTINUE TO MONITOR.
--- NOTE | 2019-10-17 13:29 | NUR ---
PARTNERSHIP DEVELOPMENT MANAGER NOTE PATIENT CURRENTLY UNDERGOING BLOOD TRANSFUSION WITH DIALYSIS. PATIENT HAS NO S/S OF ADVERSE REACTIONS. VITAL SIGNS REMAIN STABLE. PATIENT BREATHING IS EVEN AND UNLABORED. PATIENT IN NO ACUTE DISTRESS. NO SOB NOTED. NO FACIAL GRIMACING NOTED. WILL CONTINUE TO MONITOR.
--- NOTE | 2019-10-17 13:51 | NUR ---
ANIMAL SCIENTIST NOTE PATIENT CURRENTLY ONGOING WITH DIALYSIS. PATIENT BLOOD TRANSFUSION IS COMPLETE. PATIENT HAS NO S/S OF ADVERSE REACTIONS. VITAL SIGNS REMAIN STABLE. PATIENT BREATHING IS EVEN AND UNLABORED. PATIENT IN NO ACUTE DISTRESS. NO SOB NOTED. NO FACIAL GRIMACING NOTED. WILL CONTINUE TO MONITOR.
--- NOTE | 2019-10-17 19:35 | NUR ---
HEAT TREATER APPRENTICE CLOSING NOTE PATIENT IN BED RESTING COMFORTABLY. PATIENT IN NO ACUTE DISTRESS. NO SOB NOTED. PATIENT BREATHING IS EVEN AND UNLABORED. PATIENT ON VENT, TOLERATING VENT SETTINGS WELL. PATIENT ON CARDIAC MONITORING READING SINUS RHYTHM HR 74 WITH FIRST DEGREE AV BLOCK. PATIENT ON BILATERAL SOFT WRIST RESTRAINTS, NOTED WITH GOOD CIRCULATION. PATIENT KEPT CLEAN, DRY AND COMFORTABLE THROUGHOUT SHIFT. NO BOWEL MOVEMENT DURING MY SHIFT, ENDORSED TO REFRACTORY TILE HELPER WHEN PATIENT HAS BOWEL MOVEMENT TO OBTAIN STOOL CULTURE. PATIENT HOB IS ELEVATED. PATIENT BED ALARM IS ON. SAFETY PRECAUTIONS IN PLACE. PATIENT ON PATIENT BED IS LOCKED AND IN LOWEST POSITION. CALL LIGHT WITHIN REACH. WILL ENDORSE CARE TO PM SHIFT FOR ROLANDO.
[2019-10-17] MEDS: LEVOFLOXACIN 250 MG /D5W 50 ML 250 MG in PREMIX 1 EA IV SCH (22:21)
[2019-10-17] MEDS: NEPRO 1,000 ML BOTTLE GT PRN (22:29)
[2019-10-18] VITALS (8 sets, daily range): BP systolic 124–185; BP diastolic 40–80
[2019-10-18] MEDS: hydrALAZINE HCL 50 MG TABLET GT PRN (01:29)
[2019-10-18 06:25] LABS: BASOPHILS % (AUTO) 0.5 % (0.0-2.0); HEMATOCRIT 23 % (33-45); HEMOGLOBIN 7.9 g/dL (11.5-14.8); LYMPHOCYTES # (AUTO) 0.8 /CMM (0.8-4.8); LYMPHOCYTES % (AUTO) 12.2 % (20.0-44.0); MEAN CORPUSCULAR HGB CONC 34 g/dl (31.0-36.0); MEAN CORPUSCULAR VOLUME 98 fL (82-100); MONOCYTES # (AUTO) 0.8 /CMM (0.1-1.30); MONOCYTES % (AUTO) 12.3 % (2.0-12.0); NEUTROPHILS # (AUTO) 4.2 /CMM (1.8-8.9); PLATELET COUNT (AUTO) 157 /CMM (150-450); RED BLOOD CELL COUNT(AUTO) 2.39 MIL/uL (4.0-5.2); WHITE BLOOD COUNT (AUTO) 6.2 K/uL (4.3-11.0)
--- NOTE | 2019-10-18 06:50 | NUR ---
RN CLOSING NOTE PT IN BED IN SEMI MONTERO'S POSITION. ON MECHANICAL VENTILATOR AND TOLERATING SETTINGS WELL. RESPIRATIONS EVEN AND UNLABORED. TRACH MID LINE AND IN PLACE. NO INDICATIONS OF PAIN OR DISCOMFORT. WITH GT RUNNING WITH NEPRO @ 50CC/HOUR AND TOLERATING WELL WITHOUT GASTRIC RESIDUAL. CALL LIGHT WITHIN REACH, SAFETY MEASURES IN PLACE, WILL ENDORSE TO MORNING SHIFT FOR CONTINUATION OF CARE.
[2019-10-18 07:13] LABS: CALCIUM, SERUM 9.4 mg/dL (8.5-10.1); CARBON DIOXIDE 28 mmol/L (21-32); CHLORIDE 100 mmol/L (98-107); GLUCOSE 137 mg/dL (74-106); MAGNESIUM 2.4 mg/dL (1.8-2.4); PHOSPHORUS 2.7 mg/dL (2.5-4.9); POTASSIUM 3.7 mmol/L (3.5-5.1); SODIUM SERUM 136 mmol/L (136-145); UREA NITROGEN, BLOOD 42 mg/dL (7-18)
--- NOTE | 2019-10-18 07:30 | NUR ---
framework developer Notes Received patient in bed from police shift commander. Patient was admitted for pneumonia, now rule out covid. PMH of HD, HTN, DM, G-Tube placement, ESRD, Embolism, and Thrumbosis of Lower Extremity. Patient is on a vent. Portex 7mm. AC 12. TV 500mL. FIO2 40%. PEEP 5. Sinus Rhythym/ Sinus Tach on monitor. Patient has multiple bruises on her R and L arms. Sacral and Deb Redness with some excoriation and maceration. Patient is on Nephro 50mL/Hr. Patient has a IV on R hand 22g. Bed in lowest position, call light within reach, all measures taken to ensure patient safety. Will continue to monitor.
[2019-10-18] MEDS: LEVOTHYROXINE SODIUM 125 MCG TABLET GT SCH (07:47)
[2019-10-18] MEDS: SUCRALFATE 1 G/10 ML UDC GT SCH ×4 (07:47→21:55)
[2019-10-18] MEDS: MINOXIDIL (2.5MG) 2.5 MG TABLET GT SCH (09:10)
[2019-10-18] MEDS: SEVELAMER CARBONATE 0.8 GM POWD.PACK GT SCH ×3 (09:10→17:33)
[2019-10-18] MEDS: LEVETIRACETAM SOL (5 ML) 100 MG/ML UDC GT SCH ×2 (09:10→20:25)
[2019-10-18] MEDS: VIT B CMPLX 3/FA/VIT C/BIOTIN 1 TAB TABLET PO SCH (09:10)
[2019-10-18] MEDS: DOCUSATE SODIUM 100 MG CAPSULE PO SCH (09:11)
[2019-10-18] MEDS: LACTOBACILLUS RHAMNOSUS GG 1 EACH CAP.SPRINK PO SCH ×2 (09:11→17:33)
[2019-10-18] MEDS: CHLORHEXIDINE GLUCONATE 15 ML UDC MM SCH ×2 (09:11→20:25)
[2019-10-18] MEDS: PANTOPRAZOLE 40 MG/PACK PACK GT SCH (09:11)
--- NOTE | 2019-10-18 17:00 | NUR ---
wire strander Notes Patient was admitted for pneumonia, now rule out covid. PMH of HD, HTN, DM, G-Tube placement, ESRD, Embolism, and Thrumbosis of Lower Extremity. Patient is on a vent. Portex 7mm. AC 12. TV 500mL. FIO2 40%. PEEP 5. Sinus Rhythym/ Sinus Tach on monitor. Patient has multiple bruises on her R and L arms. Sacral and Deb Redness with some excoriation and maceration. Patient is on Nephro 50mL/Hr. Patient has a IV on R hand 22g. Bed in lowest position, call light within reach, all measures taken to ensure patient safety. Patient to be endorsed to shift superintendent caustic cresylate.
--- NOTE | 2019-10-18 19:38 | NUR ---
RN OPENING NOTES: Received pt in bed, resting, alert, points fingers and nods. On isolation for R/O Covid. On trach/vent tolerating settings well. No respiratory distress noted. On tele monitor showing SR/ST. On DYNAMOMETER REPAIRER restraints. Has IV site on R hand patent and flushing. Dressing c/d/i. Has ILIA AFV. On GT feeding of Nepro at 50cc/hr tolerating well. No residual noted. Safety measures in place. Will continue to monitor.
[2019-10-19] VITALS (8 sets, daily range): BP systolic 126–178; BP diastolic 40–80
[2019-10-19] MEDS: NEPRO 1,000 ML BOTTLE GT PRN ×2 (01:19→22:43)
[2019-10-19] MEDS: hydrALAZINE HCL 50 MG TABLET GT PRN (04:51)
--- NOTE | 2019-10-19 05:47 | NUR ---
PATIENT RECEIVED ON TRACH TO VENT WITH SETTINGS OF AC 12, 500 VT, 40%, +5. SUCTIONED FOR MINIMAL, THIN, WHITE SECRETIONS. AMBU BAG AT BEDSIDE. VENT AND PULSE OXIMETER ALARMS AUDIBLE AND VISIBLE. VENT PLUGGED INTO RED OUTLET. NO DISTRESS/SOB NOTED. Addendum: 10/19/19 at 0548 by OSMIN CLANCY RT Amended: Links added.
--- NOTE | 2019-10-19 06:52 | NUR ---
RN CLOSING NOTES: Pt resting in bed. On trach/vent tolerating settings well. No SOB or acute changes noted during shift. Isolation D/C'd. Pt negative for covid. On tele monitor showing SR. IV site on RH patent and flushing. Dressing c/d/i. AVF on ILIA. GT feeding of Nepro at 50cc/hr, tolerating well. Safety measures in place. Will endorse to AM nurse for ROLANDO.
--- NOTE | 2019-10-19 07:10 | NUR ---
RN Opening Notes Received patient in bed, resting, alert, points fingers and nods. On isolation for R/O Covid. On trach/vent tolerating settings well. No respiratory distress noted. On tele monitor showing SR/ST. IV access intact and patent and flushing. Noted with ILIA FORDE. On GT feeding of Nepro at 50cc/hr tolerating well. No residual noted. Safety measures in place. Bed in low/locked psotiion. siderrails up. HOB elevated. call light in reach. Will continue to monitor accordingly. Addendum: 10/19/19 at 1604 by ANTONIO RENE DC isolation. Negative for Covid
--- NOTE | 2019-10-19 07:30 | NUR ---
rn notes off restraints, patient is calm.
[2019-10-19] MEDS: MINOXIDIL (2.5MG) 2.5 MG TABLET GT SCH (08:26)
[2019-10-19] MEDS: LACTOBACILLUS RHAMNOSUS GG 1 EACH CAP.SPRINK PO SCH ×2 (08:27→17:57)
[2019-10-19] MEDS: SUCRALFATE 1 G/10 ML UDC GT SCH ×4 (08:27→21:46)
[2019-10-19] MEDS: PANTOPRAZOLE 40 MG/PACK PACK GT SCH (08:27)
[2019-10-19] MEDS: LEVETIRACETAM SOL (5 ML) 100 MG/ML UDC GT SCH ×2 (08:27→20:03)
[2019-10-19] MEDS: SEVELAMER CARBONATE 0.8 GM POWD.PACK GT SCH ×3 (08:27→17:57)
[2019-10-19] MEDS: VIT B CMPLX 3/FA/VIT C/BIOTIN 1 TAB TABLET PO SCH (08:28)
[2019-10-19] MEDS: DOCUSATE SODIUM 100 MG CAPSULE PO SCH (08:28)
[2019-10-19] MEDS: LEVOTHYROXINE SODIUM 125 MCG TABLET GT SCH (08:28)
[2019-10-19] MEDS: CHLORHEXIDINE GLUCONATE 15 ML UDC MM SCH ×2 (08:28→20:03)
--- NOTE | 2019-10-19 15:57 | NUR ---
hemodialysis done, output of 2 liters. patient in stable condition. tolerated well
--- NOTE | 2019-10-19 18:42 | NUR ---
rn closing notes patient in stable condition. all needs attended and provided. all due meds given as ordered. kept patient skin clean and dry. kept patient safe and comfortable. bed in low/locked position, siderils up, HOB elevated. call light in reach. will endorsed accordingly. Addendum: 10/19/19 at 1845 by ANTONIO RENE turned and repositioned patient evry 2 hrs and as needed.
--- NOTE | 2019-10-19 19:24 | NUR ---
RN OPENING NOTES: Received pt resting in bed, alert and points fingers and nods. On vent and trach tolerating settings well. No SOB or respiratory distress noted. On tele monitor reading SR. IV site on RH patent and flushing. Dressing c/d/i. Has ILIA AFV. GT site clean, patent and flushing w/ no residual noted. Feeding of Nepro at 50cc/hr tolerating well. Safety measures in place. Bed in lowest and locked position, side rails up x3, call light within reach. Will continue to monitor.
[2019-10-19] MEDS: LEVOFLOXACIN 250 MG /D5W 50 ML 250 MG in PREMIX 1 EA IV SCH (20:03)
[2019-10-20] VITALS (7 sets, daily range): BP systolic 119–167; BP diastolic 51–77
--- NOTE | 2019-10-20 04:47 | NUR ---
RT NOTE Pt rec'd trached on [facility] vent on AC mode settings as charted. pt shows no signs of resp distress or sob. trach is patent and secured. sx'd for thick mod amt of pale yellow secretions. alarms are set and audible. vent plugged into red outlet. Ambu bag bedside. Will continue to monitor closely. Addendum: 10/20/19 at 0448 by ELISHA HOOKS RT Amended: Links added.
--- NOTE | 2019-10-20 05:15 | NUR ---
RN NOTE: Pt noted to have BP of 167/77. Attempted to recheck pt's BP and pt refused, mouthing "no" and flailing arms around. Explained to pt that she has a PRN order for Hydralazine for her high BP. Pt continued to refuse, mouthing the word "no" and shaking her head. Explained risks and benefits x3, continued refusal.
--- NOTE | 2019-10-20 06:39 | NUR ---
RN CLOSING NOTES: Pt resting in bed, in stable condition. On vent/trach tolerating settings well. No SOB, respiratory distress, or acute changes noted during shift. IV site patent and flushing. GT site patent and flushing w/ Nepro running at 50cc/hr. No residual noted. All meds given as ordered. Safety measures in place. Will endorse to AM nurse for ROLANDO.
--- NOTE | 2019-10-20 08:00 | NUR ---
COOK'S ASSISTANT OPENING NOTES Received Patient resting in bed. A/O x 1. VS stable with no acute distress. Breathing even and unlabored on trachea and vent. Denies pain. No signs and symptoms of pain. Telemonitor in place and patent reading SR with HR-80. GTube in place and patent with Nephro infusing at 50ml/hr. 22g PIV on right hand clean, intact, patent and flushing well. ILIA AV Fistula in place. Safety precautions in place. Bed locked and set to lowest position with side rails x 3 up. All needs rendered at this time. Call light within reach. Will continue to monitor.
[2019-10-20] MEDS: SUCRALFATE 1 G/10 ML UDC GT SCH ×4 (08:32→21:03)
[2019-10-20] MEDS: LEVETIRACETAM SOL (5 ML) 100 MG/ML UDC GT SCH ×2 (08:32→20:12)
[2019-10-20] MEDS: LEVOTHYROXINE SODIUM 125 MCG TABLET GT SCH (08:32)
[2019-10-20] MEDS: SEVELAMER CARBONATE 0.8 GM POWD.PACK GT SCH ×3 (08:35→16:47)
[2019-10-20] MEDS: CHLORHEXIDINE GLUCONATE 15 ML UDC MM SCH ×2 (08:35→20:12)
[2019-10-20] MEDS: PANTOPRAZOLE 40 MG/PACK PACK GT SCH (08:35)
[2019-10-20] MEDS: DOCUSATE SODIUM 100 MG CAPSULE PO SCH (08:35)
[2019-10-20] MEDS: MINOXIDIL (2.5MG) 2.5 MG TABLET GT SCH (08:35)
[2019-10-20] MEDS: LACTOBACILLUS RHAMNOSUS GG 1 EACH CAP.SPRINK PO SCH ×2 (08:36→16:47)
[2019-10-20] MEDS: VIT B CMPLX 3/FA/VIT C/BIOTIN 1 TAB TABLET PO SCH (08:36)
--- NOTE | 2019-10-20 18:58 | NUR ---
PSYCHOLOGIST CLOSING NOTES Patient resting in bed. A/O x 1. VS stable with no acute distress. Breathing even and unlabored on trachea and vent. Denies pain. No signs and symptoms of pain. Telemonitor in place and patent reading SR with 1st degree block, PACs and PVCs with HR-75. GTube in place and patent with Nephro infusing at 50ml/hr. 22g PIV on right hand clean, intact, patent and flushing well. ILIA AV Fistula in place. Safety precautions in place. Bed locked and set to lowest position with side rails x 3 up. All needs rendered at this time. Call light within reach. Will endorse plan of care to oncoming shift.
--- NOTE | 2019-10-20 19:30 | NUR ---
VOCATIONAL AUTO BODY INSTRUCTOR NOTE RECEIVED PATIENT AOX1 NONVERBAL NODS AND POINTS FINGERS. ON VENT AND TRACH SETTING TOLERATING WELL ORDERED. BREATHING NORMAL NO SOB NOTED. NO S/S OF ACUTE DISTRESS NOTED. ON TELE MONITOR READING SR. IV SITE RT HAND #22G PATENT INTACT AND FLUSHING WELL, ILIA AV SHUNT. ON GTF NEPHRO @50CC/HR TOLERATING WELL. NO RESIDUAL NOTED, HOB ELEVATING TO PREVENT ASPIRATION. ABD SOFT AND NON DISTENDED. ALL SAFETY MEASURES IN PLACE,SIDE RAILS UP X2, CALL LIGHT WITHIN REACH. WILL CONT WITH ROLANDO.
--- NOTE | 2019-10-20 20:04 | NUR ---
RT NOTE Pt rec'd trached on [facility] vent on AC mode settings as charted. pt shows no signs of resp distress or sob. trach is patent and secured. sx'd for thick mod amt of pale yellow secretions. alarms are set and audible. vent plugged into red outlet. Ambu bag bedside. Will continue to monitor closely. Addendum: 10/20/19 at 2005 by ELISHA HOOKS RT Amended: Links added.
[2019-10-21] VITALS: BP 148/85
[2019-10-21] MEDS: NEPRO 1,000 ML BOTTLE GT PRN (03:38)
[2019-10-21 04:00] VITALS: BP 144/90
--- NOTE | 2019-10-21 06:13 | NUR ---
FABRICATOR INDUSTRIAL FURNACE NOTE PATIENT RESTED IN BED INSTABLE CONDITION. ON VENT AND TRACH SETTING TOLERATING WELL ORDERED. BREATHING NORMAL NO SOB NOTED. IV SITE RT HAND #22G PATENT INTACT AND FLUSHING WELL, ILIA AV SHUNT. ALL DUE MEDICATIONS WERE GIVEN ORDERED TOLERATED WELL. ON GTF NEPHRO @50CC/HR TOLERATING WELL. NO RESIDUAL NOTED, HOB ELEVATING TO PREVENT ASPIRATION. ALL SAFETY MEASURES IN PLACE,SIDE RAILS UP X2, CALL LIGHT WITHIN REACH. WILL ENDORSE TO AM NURSE FOR ROLANDO.
[2019-10-21 06:42] LABS: BASOPHILS % (AUTO) 0.4 % (0.0-2.0); EOSINOPHILS % (AUTO) 8.9 % (0.0-6.0); HEMATOCRIT 22 % (33-45); HEMOGLOBIN 7.3 g/dL (11.5-14.8); LYMPHOCYTES # (AUTO) 0.9 /CMM (0.8-4.8); LYMPHOCYTES % (AUTO) 13.5 % (20.0-44.0); MEAN CORPUSCULAR HGB CONC 33 g/dl (31.0-36.0); MEAN CORPUSCULAR VOLUME 98 fL (82-100); MONOCYTES # (AUTO) 0.6 /CMM (0.1-1.30); MONOCYTES % (AUTO) 9.5 % (2.0-12.0); NEUTROPHILS # (AUTO) 4.5 /CMM (1.8-8.9); NEUTROPHILS % (AUTO) 67.7 % (43.0-81.0); PLATELET COUNT (AUTO) 131 /CMM (150-450); RED BLOOD CELL COUNT(AUTO) 2.23 MIL/uL (4.0-5.2); WHITE BLOOD COUNT (AUTO) 6.7 K/uL (4.3-11.0)
[2019-10-21 07:06] LABS: ALANINE AMINOTRANSFERASE 10 U/L (12-78); ALBUMIN 2.8 g/dL (3.4-5.0); ALKALINE PHOSPHATASE 149 U/L (46-116); ASPARTATE AMINOTRANSFERASE 17 U/L (15-37); BILIRUBIN,TOTAL 0.9 mg/dL (0.2-1.0); CALCIUM, SERUM 9.6 mg/dL (8.5-10.1); CARBON DIOXIDE 31 mmol/L (21-32); CHLORIDE 96 mmol/L (98-107); GLUCOSE 136 mg/dL (74-106); MAGNESIUM 2.5 mg/dL (1.8-2.4); SODIUM SERUM 132 mmol/L (136-145); TOTAL PROTEIN, SERUM 6.4 g/dL (6.4-8.2); UREA NITROGEN, BLOOD 66 mg/dL (7-18)
[2019-10-21 08:00] VITALS: BP 167/39
[2019-10-21] MEDS: DOCUSATE SODIUM 100 MG CAPSULE PO SCH (09:41)
[2019-10-21] MEDS: LEVETIRACETAM SOL (5 ML) 100 MG/ML UDC GT SCH ×2 (09:41→20:04)
[2019-10-21] MEDS: LEVOTHYROXINE SODIUM 125 MCG TABLET GT SCH (09:41)
[2019-10-21] MEDS: PANTOPRAZOLE 40 MG/PACK PACK GT SCH (09:41)
[2019-10-21] MEDS: SEVELAMER CARBONATE 0.8 GM POWD.PACK GT SCH ×3 (09:41→16:45)
[2019-10-21] MEDS: CHLORHEXIDINE GLUCONATE 15 ML UDC MM SCH ×2 (09:41→20:04)
[2019-10-21] MEDS: SUCRALFATE 1 G/10 ML UDC GT SCH ×3 (09:41→16:45)
[2019-10-21] MEDS: VIT B CMPLX 3/FA/VIT C/BIOTIN 1 TAB TABLET PO SCH (09:41)
[2019-10-21] MEDS: MINOXIDIL (2.5MG) 2.5 MG TABLET GT SCH (09:42)
[2019-10-21] MEDS: LACTOBACILLUS RHAMNOSUS GG 1 EACH CAP.SPRINK PO SCH ×2 (09:42→16:45)
--- NOTE | 2019-10-21 09:56 | NUR ---
automatic corn grinder operator notes received patient in bed, alert and awake with confusion. patient tries to pull out the IV, applied soft wrist restraints . trach to vent , trach care and oral care suction done. Vent setting as ordered. patient with tele monitor with HR 64. G-tube feeding with 50 cc/hr no residual noted. right hand IV intact, flushing well. ILIA AV shunt with bruit and thrill. Bed in lowest position, all needs attended.
--- NOTE | 2019-10-21 10:24 | NUR ---
telesales professional note dr claros notified that hg 7.3 no new order given
--- NOTE | 2019-10-21 10:33 | NUR ---
telemarketer supervisor noted patient at risk to remove all lines. Rhiannon notified
--- NOTE | 2019-10-21 11:29 | NUR ---
chief telephone operator note on hd at this time
[2019-10-21 12:00] VITALS: BP 153/50
--- NOTE | 2019-10-21 13:49 | NUR ---
television news video editor note hd completed, 1,5 l of fluids removed bp166/78
[2019-10-21 16:00] VITALS: BP 119/32
--- NOTE | 2019-10-21 17:40 | NUR ---
tele r note spoke with case packer about bed available at [facility] ,patient will be discharge, stated tht still looking for placement will f\u
--- NOTE | 2019-10-21 18:40 | NUR ---
telesales consultant note called to [facility] spoke with christal report given , also unable to remove soft restrain still at risk to remove all lines
--- NOTE | 2019-10-21 19:30 | NUR ---
DIRECTOR UNDERWRITER SALES NOTE, PATIENT IN BED, ON MECHANICAL VENTILATOR, TOLERATED SETTING, NO SOB/ACUTE DISTRESS NOTED AT THIS TIME, NORMAL SINUS IN TELE MONITOR WITH HR IN 70S WITH OCCASIONAL, PVC AT THIS TIME, IV SITE RT HAND #22G PATENT INTACT, ILIA AV SHUNT INTACT, NO ABNORMALITIES NOTES, NO BLEEDING AT SITE, GT IN PLACED, ON GTF NEPHRO @50CC/HR TOLERATING WELL, NO RESIDUAL NOTED, HOB ELEVATING AT ALL TIME, ALL SAFETY MEASURES IN PLACE, SIDE RAILS UP X2, CALL LIGHT WITHIN REACH, WILL CONTINUE TO MONITOR CLOSELY, PATIENT WILL BE DC TO [facility], TRANSPORTATION SCHEDULED AT 2029.
[2019-10-21 20:00] VITALS: BP_SYST 128; BP_SYST 143; BP_DIAS 54; BP_DIAS 79
--- NOTE | 2019-10-21 20:56 | NUR ---
PT RECEIVED ON CURRENT SETTINGS WITH NO SIGNS OF RESPIRATORY DISTRESS AT THIS TIME. AIRWAY IS PATENT AND SECURE WITH NO SOB NOTED. VENT IS PLUGGED IN TO RED OUTLET WITH ALARMS ON AND AUDIBLE. SUCTION PT NEEDED. WILL CONTINUE TO MONITOR. Addendum: 10/21/19 at 2055 by NAVDEEP PAREDES RT Amended: Links added.
[2019-10-21] MEDS ORDERED: LEVOFLOXACIN (250MG) 250 MG TABLET PO SCH (21:00)
--- NOTE | 2019-10-21 21:50 | NUR ---
RN NOTES, PATIENT LEAVING AT THIS TIME, DOUGH MAKER BY TRANSPIRATION AT THIS TIME ACCOMPANIED BY 2 ADJUNCT ENGLISH INSTRUCTOR AND RT IN STABLE CONDITION WITH VS , 79, 100%, 18, 98.0, NO SOB/ACUTE DISTRESS NOTED AT THIS TIME, PATIENT ALERT AND ORIENTED X 1 ABLE TO NODS HEAD TO SIMPLE QUESTIONS, AND WAVE BYE WITH HER HAND AFTER HE LEAVES AT THIS TIME, IV IN RIGHT HAND REMOVED, WELL BILATERAL SOFT WRIST RESTRAINS, REPORT ALREADY GIVEN TO ROSANGELA WHITNEY, ANKIT DC PAPERWORK GIVEN TO RT.
== END 2019-10-21 22:51 | DRG 207 ==
LOC: ER 14:04 → TELE1 17:15 → TELE-TD 18:20 → TELE1 10-14 12:18
PROVIDERS: ADMIT Nurse Practitioner Acute Care; ATTEND Registered Nurse
PROC: 5A1955Z Respiratory Ventilation, Greater than 96 Consecutive Hours (ICD-10-PCS; principal; 2019-10-13)
PROC: 5A1D70Z Performance of Urinary Filtration, Intermittent, Less than 6 Hours Per Day (ICD-10-PCS; 2019-10-14)
PROC: 5A1D70Z Performance of Urinary Filtration, Intermittent, Less than 6 Hours Per Day (ICD-10-PCS; 2019-10-16)
PROC: 30233P1 Transfusion of Nonautologous Frozen Red Cells into Peripheral Vein, Percutaneous Approach (ICD-10-PCS; 2019-10-17)
PROC: 5A1D70Z Performance of Urinary Filtration, Intermittent, Less than 6 Hours Per Day (ICD-10-PCS; 2019-10-17)
PROC: 5A1D70Z Performance of Urinary Filtration, Intermittent, Less than 6 Hours Per Day (ICD-10-PCS; 2019-10-19)
PROC: 5A1D70Z Performance of Urinary Filtration, Intermittent, Less than 6 Hours Per Day (ICD-10-PCS; 2019-10-21)
DX: J15.9 Unspecified bacterial pneumonia (principal); N18.6 End stage renal disease; G93.41 Metabolic encephalopathy; I21.A1 Myocardial infarction type 2; I13.2 Hypertensive heart and chronic kidney disease with heart failure and with stage 5 chronic kidney disease, or end stage renal disease; E87.1 Hypo-osmolality and hyponatremia; E44.1 Mild protein-calorie malnutrition; J96.10 Chronic respiratory failure, unspecified whether with hypoxia or hypercapnia; Z99.11 Dependence on respirator [ventilator] status; Z99.2 Dependence on renal dialysis; I50.9 Heart failure, unspecified; D63.1 Anemia in chronic kidney disease; E11.22 Type 2 diabetes mellitus with diabetic chronic kidney disease; Z68.24 Body mass index [BMI] 24.0-24.9, adult; Z93.0 Tracheostomy status; R13.10 Dysphagia, unspecified; Z93.1 Gastrostomy status; L98.8 Other specified disorders of the skin and subcutaneous tissue; G40.909 Epilepsy, unspecified, not intractable, without status epilepticus; E88.09 Other disorders of plasma-protein metabolism, not elsewhere classified; L89.90 Pressure ulcer of unspecified site, unspecified stage
CPT/HCPCS: 31720; 36415; 71045-TC; 71250-TC; 80048-TC; 80053-TC; 80061-TC; 80076-TC; 82550-TC; 82728-TC; 83540-TC; 83605-TC; 83615-TC; 83735-TC; 83880; 84100-TC; 84484-TC; 85025-TC; 85378-TC; 85730-TC; 86140-TC; 86706; 86850-TC; 86921-TC; 87040-TC; 87081-TC; 87340; 90935-TC; 93307-TC; 94002-TC; 94003-TC; 94760-TC; 94762-TC; 99082-TC; A4216; A6253; G0378; J1953; J1956; J7030; J7040; J7050; P9016-BL

== ENCOUNTER 2019-12-21 17:02 | Inpatient (IN) | payer MEDICARE, BC, OTHER ==
[~2019-12-21] VITALS: Ht 162.6 cm; Wt 63.5 kg
[~2019-12-21 17:02] MED LIST changes: -EPOE1VIA7 IJ; +EPOE1VIA7 SQ; +LEVO500T75 PO
--- NOTE | 2019-12-21 17:12 | NUR ---
PAGED DR. HOLGUIN.
--- NOTE | 2019-12-21 17:28 | NUR ---
GABRIELLE FROM [facility] AFTER DIALYSIS SESSION FOR ABNORMAL LABS. PER EMS REPORT, PT HAS A LOW HGB LEVEL OF 6.0. MD ORDERED TO SEND PT AFTER DIALYSIS. PT IS PRESENTED VENT DEPENDENT. NOTED PORTEX 7. VENT SETTING SIMV 6, VT 500, O2 40%, PS 12, +5PEEP.
[2019-12-21] MEDS ORDERED: LISI-603 GT (17:33)
[2019-12-21] MEDS ORDERED: INSU100V27 SQ (17:33)
[2019-12-21] MEDS ORDERED: CARV3.12 GT (17:33)
[2019-12-21] MEDS ORDERED: ATOR40TA GT (17:33)
[2019-12-21] MEDS ORDERED: AMLO10TA7 GT (17:33)
[2019-12-21] MEDS ORDERED: FOLI0.4T2 GT (17:33)
[2019-12-21] MEDS ORDERED: CLOP75TA15 GT (17:33)
[2019-12-21] MEDS ORDERED: NAPH1POW3 GT (17:33)
[2019-12-21] MEDS ORDERED: POLY15DR40 EACHEYE (17:33)
[2019-12-21 17:46] LABS: EOSINOPHILS % (AUTO) 4.8 % (0.0-6.0); LYMPHOCYTES # (AUTO) 0.5 /CMM (0.8-4.8); LYMPHOCYTES % (AUTO) 12.9 % (20.0-44.0); MEAN CORPUSCULAR HGB CONC 33 g/dl (31.0-36.0); MEAN CORPUSCULAR VOLUME 100 fL (82-100); MONOCYTES # (AUTO) 0.4 /CMM (0.1-1.30); NEUTROPHILS % (AUTO) 72.3 % (43.0-81.0); PLATELET COUNT (AUTO) 140 /CMM (150-450); WHITE BLOOD COUNT (AUTO) 4.2 K/uL (4.3-11.0)
[2019-12-21 17:47] LABS: HEMOGLOBIN 5.9 g/dL (11.5-14.8); RED BLOOD CELL COUNT(AUTO) 1.81 MIL/uL (4.0-5.2)
[2019-12-21 17:48] LABS: HEMATOCRIT 18 % (33-45)
[2019-12-21 17:50] LABS: CALCIUM, SERUM 8.4 mg/dL (8.5-10.1); CREATININE 1.2 mg/dL (0.6-1.3); POTASSIUM 3.7 mmol/L (3.5-5.1)
[2019-12-21] MEDS ORDERED: Z GUARD REMEDY 2 OZ OINT TP PRN (18:30)
[2019-12-21] MEDS ORDERED: ZOLPIDEM TARTRATE 5 MG TABLET PO PRN (18:30)
[2019-12-21] MEDS ORDERED: ONDANSETRON HCL/PF 4 MG/2 ML VIAL IVP PRN (18:30)
[2019-12-21] MEDS ORDERED: ALBUTEROL FS 2.5 MG/0.5 ML VIAL.NEB IH PRN (18:30)
[2019-12-21] MEDS ORDERED: ACETAMINOPHEN 325 MG TABLET PO PRN (18:30)
[2019-12-21] MEDS ORDERED: HYDROCODONE/APAP 5/325MG 1 EACH TABLET PO PRN (18:30)
[2019-12-21 18:50] LABS: BAND % (MANUAL) 2 % (0.0-5.0); EOSINOPHILS % (MANUAL) 6 % (0-4); LYMPHOCYTES % (MANUAL) 9 % (16-48); MONOCYTES % (MANUAL) 5 % (0-11.0); NEUTROPHILS % (MANUAL) 78 (42-76)
--- NOTE | 2019-12-21 19:25 | NUR ---
consent signed and in the chart.
--- NOTE | 2019-12-21 19:38 | NUR ---
BED ASSIGNMENT 308-2
--- NOTE | 2019-12-21 19:39 | NUR ---
md made aware bp is 182/50. md ordered to continue with blood transfusion
--- NOTE | 2019-12-21 19:50 | NUR ---
bt transfussion started. vs
--- NOTE | 2019-12-21 20:06 | NUR ---
pt vss. no reaction noted from blood transfusion
--- NOTE | 2019-12-21 20:17 | NUR ---
report given to elizabeth partida for latosha
[2019-12-21 20:40] VITALS: BP 127/49
--- NOTE | 2019-12-21 20:40 | NUR ---
Received from ER with ongoing 1 unit pack RBC transfusion. Will continue monitor vital signs per blood transfusion protocol and adverse reaction.
--- NOTE | 2019-12-21 20:55 | NUR ---
pt transported to unit on gurney with rt, emt and rn at bedside w/ acls protocol. nad noted during transport.
[2019-12-21 21:00] VITALS: BP 120/39
--- NOTE | 2019-12-21 21:00 | NUR ---
WOOD MILLING MACHINE OPERATOR ADMISSION NOTE: Received report from Evans. Patient was brought to the unit at 0 via gurney. Patient is a mechanical vent trach dependent with the following setting: SIMV 6, TV 500, FI02 40%, PEEP 5, Pressure 12, Portex #7. Patient placed on Tele monitoring. She is SR with PVC and BBB. Heart rate 80. Patient connected to continuous Pulse oxymetry. Suction setup secured. Ambubag present at bedside. All clinical alarms present and audible. Skin assessment performed. Please see skin assessment log. VS taken and recorded. Patient opens eyes and able to follow simple commands. Inventory of belongings completed by ROUNDING MACHINE OPERATOR. Patient has Peg, patent, and flushing well. Currently on clamp. Patient NPO except meds. All admission orders placed by MD. Left arm precaution posted in the room. Safety precaution in place. Bed in lowest position, side rails x2 on both sides are up, brakes are on, alarm is on, call light within reach. Will continue to monitor.
[2019-12-21 21:15] VITALS: BP 127/49
[2019-12-21 21:40] VITALS: BP 115/36
[2019-12-21 22:00] VITALS: BP 100/27
[2019-12-21] MEDS ORDERED: ATORVASTATIN 40 MG TABLET GT SCH (22:00)
[2019-12-21] MEDS: SUCRALFATE 1 G/10 ML UDC GT SCH (22:27)
[2019-12-21] MEDS: LEVETIRACETAM SOL (5 ML) 100 MG/ML UDC GT SCH (22:28)
[2019-12-21] MEDS: CHLORHEXIDINE GLUCONATE 15 ML UDC MM SCH (22:28)
[2019-12-21 22:30] VITALS: BP 103/41
--- NOTE | 2019-12-21 22:30 | NUR ---
completion of blood transfusion: 1unit prbc transfusion completed at 2220, no blood transfusion reaction noted, vs taken and recorded, will continue monitoring pt.
--- NOTE | 2019-12-21 22:47 | NUR ---
PIGMENT MAKING SUPERVISOR NOTE: Notified FRAME CATCHER about documentation for the blood transfusion. As transfusion was started in ER. Unable to end transfusion in the transfusion tab.
--- NOTE | 2019-12-21 22:54 | NUR ---
MANAGER MARKETING SALES NOTE: Blood sugar checked. Result is 115.
[2019-12-22] VITALS (9 sets, daily range): BP systolic 113–186; BP diastolic 54–78
[2019-12-22 00:55] LABS: BASOPHILS % (AUTO) 0.7 % (0.0-2.0); EOSINOPHILS % (AUTO) 2.8 % (0.0-6.0); HEMATOCRIT 23 % (33-45); HEMOGLOBIN 7.2 g/dL (11.5-14.8); LYMPHOCYTES # (AUTO) 0.5 /CMM (0.8-4.8); LYMPHOCYTES % (AUTO) 8.3 % (20.0-44.0); MEAN CORPUSCULAR HGB CONC 32 g/dl (31.0-36.0); MEAN CORPUSCULAR VOLUME 95 fL (82-100); MONOCYTES # (AUTO) 0.4 /CMM (0.1-1.30); MONOCYTES % (AUTO) 7.7 % (2.0-12.0); NEUTROPHILS # (AUTO) 4.4 /CMM (1.8-8.9); NEUTROPHILS % (AUTO) 80.5 % (43.0-81.0); PLATELET COUNT (AUTO) 143 /CMM (150-450); RED BLOOD CELL COUNT(AUTO) 2.37 MIL/uL (4.0-5.2); WHITE BLOOD COUNT (AUTO) 5.5 K/uL (4.3-11.0)
[2019-12-22] MEDS: ALBUTEROL FS 2.5 MG/0.5 ML VIAL.NEB IH SCH ×4 (01:53→19:28)
[2019-12-22] MEDS: BLOOD SUGAR DIAGNOSTIC 1 EACH STRIP IN SCH ×4 (06:31→21:27)
--- NOTE | 2019-12-22 06:31 | NUR ---
accu check 118: blood glucose check performed and result obtained is 118.
--- NOTE | 2019-12-22 06:58 | NUR ---
end of shift report: [facility] remains connected to continuous pulse ox. tele monitoring sinus rhythm with 1st degree avblock and pvc hr 86. iv access remains patent and flushing well, on hl, no s/s of iv infiltration noted. no s/s of active bleeding noted, no bm noted throughout the shift, remains on npo x meds, gtube remains patent and flushing well, remains on clamped.s/p 1unit of prbc latest h/h 7. ble kept offloaded on pillows, remains on seizure precautions. vs remains stable, needs attended. for hd today. kept hob 30 degrees, kept on aspiration precautions. safety precautions for fall remains engaged, call light in reach, will endorse to day rn for continuity of care.
--- NOTE | 2019-12-22 07:02 | NUR ---
elizabeth avendano: contacted next of kin daniel garcia at [phone], directs thru a voicemail, needs consent for hemodialysis. left a voicemail, awaiting for call back.
[2019-12-22 07:21] LABS: BASOPHILS # (AUTO) 0.1 /CMM (0.0-0.2); BASOPHILS % (AUTO) 1.1 % (0.0-2.0); EOSINOPHILS % (AUTO) 2.4 % (0.0-6.0); HEMATOCRIT 23 % (33-45); HEMOGLOBIN 7.5 g/dL (11.5-14.8); LYMPHOCYTES # (AUTO) 0.6 /CMM (0.8-4.8); LYMPHOCYTES % (AUTO) 9.9 % (20.0-44.0); MEAN CORPUSCULAR HGB CONC 32 g/dl (31.0-36.0); MEAN CORPUSCULAR VOLUME 95 fL (82-100); MONOCYTES # (AUTO) 0.4 /CMM (0.1-1.30); MONOCYTES % (AUTO) 7.8 % (2.0-12.0); NEUTROPHILS # (AUTO) 4.4 /CMM (1.8-8.9); NEUTROPHILS % (AUTO) 78.8 % (43.0-81.0); PLATELET COUNT (AUTO) 155 /CMM (150-450); RED BLOOD CELL COUNT(AUTO) 2.43 MIL/uL (4.0-5.2); WHITE BLOOD COUNT (AUTO) 5.6 K/uL (4.3-11.0)
[2019-12-22 07:29] LABS: CALCIUM, SERUM 9.1 mg/dL (8.5-10.1); CARBON DIOXIDE 27 mmol/L (21-32); CHLORIDE 99 mmol/L (98-107); CREATININE 1.8 mg/dL (0.6-1.3); GLUCOSE 125 mg/dL (74-106); PHOSPHORUS 3.1 mg/dL (2.5-4.9); POTASSIUM 3.9 mmol/L (3.5-5.1); SODIUM SERUM 134 mmol/L (136-145); UREA NITROGEN, BLOOD 25 mg/dL (7-18)
--- NOTE | 2019-12-22 07:30 | NUR ---
Patient in bed, not in acute distress. No s/s of hypo/hyperglycemia noted. HOB elevated. RT at bedside. All needs attended. Safety measures intact. Will cont to monitor
[2019-12-22 07:38] LABS: IRON, SERUM 42 ug/dl (50-175); TOTAL IRON BINDING CAPACITY 218 ug/dl (250-450)
[2019-12-22 08:07] LABS: CHOLESTEROL 84 mg/dL (<200); HDL CHOLESTEROL 38 mg/dL (40-60); LDL 39 mg/dL (0-99); THYROID STIMULATING HORMONE 3.511 uIU/mL (0.358-3.74); TRIGLYCERIDES 55 mg/dL (30-150)
[2019-12-22 08:08] LABS: FERRITIN 1349 ng/mL (8-388)
--- NOTE | 2019-12-22 08:08 | NUR ---
RT NOTE PT RCVD TRACH'D ON MECHANICAL VENT WITH CHARTED SETTINGS. PT DEDRA TX WELL. SX DONE. PT TRACH IS PATENT AND SECURE. VENT ALARMS ARE ON AND AUDIBLE. VENT PLUGGED INTO RED OUTLET. AMBU BAG AT BEDSIDE. NO SOB NOTED. Addendum: 12/22/19 at 0809 by JLUIS GONZALES RT Amended: Links added.
[2019-12-22] MEDS: CHLORHEXIDINE GLUCONATE 15 ML UDC MM SCH ×2 (08:55→21:21)
[2019-12-22] MEDS: PANTOPRAZOLE 40 MG VIAL IV SCH ×2 (08:56→18:15)
[2019-12-22] MEDS: LEVETIRACETAM SOL (5 ML) 100 MG/ML UDC GT SCH ×2 (08:56→21:21)
[2019-12-22] MEDS: SUCRALFATE 1 G/10 ML UDC GT SCH ×4 (08:56→21:21)
[2019-12-22] MEDS: LISINOPRIL (20MG) 20 MG TABLET GT SCH (09:02)
[2019-12-22] MEDS: CARVEDILOL 3.125 MG TABLET GT SCH ×2 (09:03→18:15)
[2019-12-22] MEDS: LEVOTHYROXINE SODIUM 125 MCG TABLET GT SCH (09:03)
[2019-12-22] MEDS: DOCUSATE SODIUM 100 MG CAPSULE PO SCH (09:04)
[2019-12-22] MEDS: AMLODIPINE BESYLATE 10 MG TABLET GT SCH (09:04)
--- NOTE | 2019-12-22 16:32 | NUR ---
PATIENT UNDERGOING DIALYSIS TREATMENT. DUPLEX VENOUS LOWER EXT BILATERAL EXAM DEFERRED
--- NOTE | 2019-12-22 19:00 | NUR ---
Patient in bed, not in acute distress. Patient pulled her IV out, new IV site started. Obtained order for left wrist soft restraint to prevent patient from pulling the IV lines. Safety measures intact. Report given to oncoming nurse YENNY Steel.
--- NOTE | 2019-12-22 20:00 | NUR ---
CRIMINAL INTELLIGENCE ANALYST NOTE: Received patient with left soft wrist restraint in place. Patient pulling out lines. Patient able to move and wiggle her arms and hands. Good capillary refill noted, less than 3 seconds. Radial pulses palpable. No signs and symptoms of impediment of circulation. Current vent settings. AC 12, TV 500, FI)2 40%, Peep 5, Portex number 7. Gtube remains clamped.
--- NOTE | 2019-12-22 21:40 | NUR ---
SUPERVISOR PAPER TESTING NOTE: Patient blood sugar level is 68. Patient is awake and alert. Patient is responsive. Vital signs stable. No signs of SOB or distress. Patient currently NPO except meds. Will notify
--- NOTE | 2019-12-22 22:03 | NUR ---
RN NOTES: CALLED [facility], REGARDING TREND FOR LOW BLOOD SUGAR 68, NPO XMEDS. AWAITING FOR CALLBACK
--- NOTE | 2019-12-22 22:48 | NUR ---
RN NOTES/CALL BACK FROM MD: RECEIVED CALL BACK FROM George SOUTH, RELAYED ABOUT LOW BLOOD GLUCOSE TREND, LATEST 68, PT ON NPO X MEDS, PER MD TELEPHONE ORDER RECEIVED START PT ON D10NS 1L AT 30ML/HR. ORDER READ BACK, VERIFIED AND CARRIED OUT. ARMORED MACHINE OPERATORMANISH JASON MADE AWARE.
[2019-12-22] MEDS ORDERED: Sodium Chloride 154 MEQ in IV 10% DEXTROSE 1,000 ML IV PRN (23:00)
--- NOTE | 2019-12-22 23:40 | NUR ---
RN NOTES/CLARIFICATION OF ORDER FOR D10: CONTACTED PHARMACY FOR CLARIFICATION OF MEDS, AVAILABLE IS D10 1L BUT UNABLE TO PLACE ORDER IN THE SYSTEM. PER PHARMACY D10 (10% DEXTROSE) AND D10W IS DIFFERENT. RECEIVED CALL BACK FROM DR SOUTH, ABOUT ORDER FOR D10. PER MD TELEPHONE ORDER RECEIVED "D10 AT 30ML/HR. ORDER READ BACK, VERIFIED AND CARRIED OUT.
[2019-12-22] MEDS: IV 10% DEXTROSE 1,000 ML IV PRN (23:53)
[2019-12-23] VITALS (14 sets, daily range): BP systolic 98–204; BP diastolic 28–72
[2019-12-23] MEDS: ALBUTEROL FS 2.5 MG/0.5 ML VIAL.NEB IH SCH ×4 (00:58→19:22)
--- NOTE | 2019-12-23 05:37 | NUR ---
rn notes: noted pt able to utilized right arm to remove left wrist restraint, removed dressing on left arm hd access, and tugging on her gtube. will monitor pt's behavior closely. pt currently on left soft wrist restraint due to pulling out iv access. will monitor pt's behavior, as to need for putting bilateral soft wrist restraint.
--- NOTE | 2019-12-23 06:24 | NUR ---
LINEN ROOM WORKER NOTE: Patient glucose check conducted. Patient glucose 120.
--- NOTE | 2019-12-23 06:29 | NUR ---
rn notes: received call from in house pharmacy about order for d10, relayed to pharmacist regarding pt's trend of low blood sugar last night and pt npo x meds only, feeding held by md, and nephro/pcp order for d10 at 30ml/hr, as pt diabetic and on hemodialysis. per pharmacy to keep monitoring blood glucose of pt, and observe for hyperglycemia, and to notify md once blood glucose level becomes elevated as ivf needs to be dc.
[2019-12-23] MEDS: BLOOD SUGAR DIAGNOSTIC 1 EACH STRIP IN SCH ×4 (06:31→22:03)
--- NOTE | 2019-12-23 06:43 | NUR ---
rn notes: contacted next of kin daniel garcia at [phone], regarding follow up for consent for hemodialysis, and consent to obtain records from [facility]. call was then directed thru a voicemail, left a message, awaiting for call back.
[2019-12-23 06:47] LABS: BASOPHILS % (AUTO) 0.5 % (0.0-2.0); EOSINOPHILS % (AUTO) 3.2 % (0.0-6.0); LYMPHOCYTES # (AUTO) 0.5 /CMM (0.8-4.8); LYMPHOCYTES % (AUTO) 12.3 % (20.0-44.0); MEAN CORPUSCULAR HGB CONC 32 g/dl (31.0-36.0); MEAN CORPUSCULAR VOLUME 96 fL (82-100); MONOCYTES # (AUTO) 0.5 /CMM (0.1-1.30); MONOCYTES % (AUTO) 11.3 % (2.0-12.0); NEUTROPHILS # (AUTO) 3.2 /CMM (1.8-8.9); NEUTROPHILS % (AUTO) 72.7 % (43.0-81.0); PLATELET COUNT (AUTO) 147 /CMM (150-450); RED BLOOD CELL COUNT(AUTO) 2.12 MIL/uL (4.0-5.2); WHITE BLOOD COUNT (AUTO) 4.4 K/uL (4.3-11.0)
--- NOTE | 2019-12-23 06:48 | NUR ---
rn notes: received call back from daniel garcia, pt's next of kin/daughter, provided update regarding pt's condition, and daughter giving full consent for hemodialysis, also giving consent regarding request to obtain health information/medical records from [facility], consent blood transfusion. cosigned/witness by elizabeth myles. all paperworks prepared, signed and attached to chart.
[2019-12-23 06:50] LABS: ALANINE AMINOTRANSFERASE 17 U/L (12-78); ALBUMIN 3.1 g/dL (3.4-5.0); ALKALINE PHOSPHATASE 128 U/L (46-116); ASPARTATE AMINOTRANSFERASE 18 U/L (15-37); BILIRUBIN,TOTAL 0.6 mg/dL (0.2-1.0); CALCIUM, SERUM 9.4 mg/dL (8.5-10.1); CARBON DIOXIDE 30 mmol/L (21-32); CHLORIDE 101 mmol/L (98-107); GLUCOSE 125 mg/dL (74-106); PHOSPHORUS 2.9 mg/dL (2.5-4.9); POTASSIUM 3.7 mmol/L (3.5-5.1); SODIUM SERUM 137 mmol/L (136-145); TOTAL PROTEIN, SERUM 6.6 g/dL (6.4-8.2); UREA NITROGEN, BLOOD 25 mg/dL (7-18)
--- NOTE | 2019-12-23 06:58 | NUR ---
REPAIR SPECIALIST CLOSING NOTE: Received patient from Sandra RAMON at 1910. Patient vent settings changed. AC 12, TV 500, FI02 40%, PEEP 5. Patient tolerating vent setting well. On continous pulose OX, 100%. Patient on monitoring, SR with 1st degree AV block and PVC, HR 60. IV access on right forearm is patent and flushes well. No infiltration noted. S/P HD yesterday, 500ml output. No BM during shift. Patient remains NPO except medication. Gtube is patent and flushing well and remains clamped. H&H 7.5/. BLE is offloaded on pillows. Seizure and aspiration precautions is in place. Patient needs are attended to. Md orders to transfuse 1unit prbc with hemodialysis in am, blood ready anytime. Vital signs are stable. Safety measures are in place. Bed brakes are on, Side rails are up, bed in lowest position, alarm is on, and call light within reach. Will endorse to day RN for continuity of care.
[2019-12-23 07:13] LABS: HEMOGLOBIN 6.5 g/dL (11.5-14.8)
[2019-12-23 07:21] LABS: HEMATOCRIT 20 % (33-45)
--- NOTE | 2019-12-23 07:30 | NUR ---
Tele/RN Opening note Received patient in bed, AO x 3, able to responds all stimuli. patient does no appears pain or discomfort. Skin is warm to touch, kept clean/dry, intact IV site and av shunt on left upper arm. Respiratory even and unlabored with vent machine, o2sat 100%. Keep bed in lock with elevated HOB for secure airway. Call light within reach, will continue to monitor.
[2019-12-23] MEDS: LEVOTHYROXINE SODIUM 125 MCG TABLET GT SCH (08:09)
[2019-12-23 08:42] LABS: EOSINOPHILS % (MANUAL) 3 % (0-4); LYMPHOCYTES % (MANUAL) 17 % (16-48); MONOCYTES % (MANUAL) 9 % (0-11.0); NEUTROPHILS % (MANUAL) 71 (42-76)
[2019-12-23] MEDS: LEVETIRACETAM SOL (5 ML) 100 MG/ML UDC GT SCH ×2 (08:52→22:02)
[2019-12-23] MEDS: SUCRALFATE 1 G/10 ML UDC GT SCH ×4 (08:52→22:02)
[2019-12-23] MEDS: DOCUSATE SODIUM 100 MG CAPSULE PO SCH (08:52)
[2019-12-23] MEDS: PANTOPRAZOLE 40 MG VIAL IV SCH ×2 (08:52→16:20)
[2019-12-23] MEDS: CARVEDILOL 3.125 MG TABLET GT SCH ×2 (09:00→16:20)
[2019-12-23] MEDS: LISINOPRIL (20MG) 20 MG TABLET GT SCH ×2 (09:00→11:00)
[2019-12-23] MEDS: AMLODIPINE BESYLATE 10 MG TABLET GT SCH ×2 (09:00→11:00)
[2019-12-23] MEDS: CHLORHEXIDINE GLUCONATE 15 ML UDC MM SCH ×2 (09:04→22:02)
--- NOTE | 2019-12-23 09:12 | NUR ---
PATIENT WAS NOT READY FOR PORTABLE XRAY @0888. PATIENT WAS HAVING US. WILL GO BACK LATER.
[2019-12-23 09:40] LABS: ABG BASE EXCESS 0.6 mmol/L; ABG OXYGEN SATURATION 99.6 % (92.0-98.5); ABG PCO2 42.5 mmHg (35.0-45.0); ABG PH 7.397 (7.350-7.450); AaDO2 83.3 mmHg; COHb 1.2 % (0.5-1.5); MetHb 0.3 % (0.0-1.5); O2Hb 98.1 % (94.0-97.0); SITE, ABG Right Radial; VENT MODE, BG AC 12 500 40% +5
--- NOTE | 2019-12-23 13:20 | NUR ---
Pt has 1 unit RBC given HD nurse, previous V/S 186/66, 66, 98.8, 20 97%, will continue to monitor.
--- NOTE | 2019-12-23 13:25 | NUR ---
Pt is on RBC, no adverse reaction observed from blood. v/s: 196/70, 61, 20, 98.6, 100%.
--- NOTE | 2019-12-23 14:05 | NUR ---
Pt has been done blood transfusion, no s/s of adverse reaction observed from transfusion. Skin is warm ot touch, keep clean/dry, no skin rash or increase temperature observed. Will continue to monitor.
--- NOTE | 2019-12-23 15:00 | NUR ---
Patient has finished blood transfusion during HD, no fever or rash observed but bp is high and patient has no prn med for bp, informed but no new order fat this time. Will waiting responds from DM.
--- NOTE | 2019-12-23 18:24 | NUR ---
Tele/RN Closing note Patient iin bed comfortably, does no appears pain or discomfort. Pt Hbg was 6.5 this morning and had 1 unit RBC during HD, HD out put as 1L. No s/s of reaction form blood, skin is warm to touch, keep clean/dry, intact IV site and AV shunt dressing. Patient is on Vent machine, no sob or distress observed, provided oral care and suctioned. Pt noticed increase bp, received order clonidine 0.1mg for sbp > 160. Kept bed in lock with elevated HOB for secure airway, call light within reach, will endorse plant operator/shift supervisor.
[2019-12-23] MEDS: CLONIDINE HCL 0.1 MG TABLET PO PRN (18:36)
--- NOTE | 2019-12-23 20:09 | NUR ---
RN NOTES: PT'S HR NOTED TO BE ON LOW SIDE 45 HIGHEST 56, COORDINATE WITH ORACLE PROGRAMMER ANALYST, PT BEEN SINUS RHYTHM ENTIRE NIGHT LAST NIGHT, HOWEVER PER RECORDS HR STARTED GOING DOWN TO 45 AT 1400 TODAY. ALSO PT KEEPTS PULLING/TUGGING ON HER GTUBE AND IV TUBINGS, DISRUPTION OF MED CARE, PT ALSO S/P 1UNIT PRBC TRANSFUSION WITH HD TODAY HOWEVER NOTED ORDER OF MD IS 2UNITS. CONTACTED DR SOUTH, RELAYED ALL THE SITUATION/ISSUES, PER MD RECEIVED TELEPHONE ORDER FOLLOWS: PLACE ON BILATERAL SOFT WRIST RESTRAINT, TRANSFUSE 1UNIT PRBC TONIGHT FOR LOW H/H 6.5/20, AND INFORM DR NOEL ABOUT PT'S LOW HEART RATE DR NOEL ON THE CASE. ALL ORDERS READ BACK, VERIFIED AND CARRIED OUT. BUSINESS TRAINERMANISH JASON MADE AWARE.
--- NOTE | 2019-12-23 20:30 | NUR ---
RT EKG-STAT completed. YENNY Steel informed of results Addendum: 12/23/19 at 2155 by BETHANY MURO RT Amended: Links added.
--- NOTE | 2019-12-23 20:31 | NUR ---
RN NOTES: RT AT BED SIDE DOING EKG
--- NOTE | 2019-12-23 20:43 | NUR ---
RN NOTES: CONTACTED TIME STUDY ENGINEER, SPOKED WITH DR NOEL, NOTIFIED REGARDING PT'S LOW HEART RATE, 45 HIGHEST IS 56. MD MADE AWARE OF PT'S MEDICATION, AND LAST TIMER IT WAS GIVEN, PER MD TELEPHONE ORDER RECEIVED TO DISCONTINUE COREG AND DO FREQUENT SUCTIONING. ALL ORDERS READ BACK VERIFIED AND CARRIED OUT. MEDICAL REVIEW SPECIALISTMANISH JASON MADE AWARE
--- NOTE | 2019-12-23 21:40 | NUR ---
rn notes: pt's abdomen soft to touch active bowel sound heard upon auscultation, gtube patency check, able to flush easily with water no resistance noted, no gastric residual obtained
--- NOTE | 2019-12-23 22:21 | NUR ---
accu check 78: blood glucose check performed an result is 78
--- NOTE | 2019-12-23 23:35 | NUR ---
RN NOTES/1UNIT PRBC TRANSFUSION: 1UNIT PRBC TRANSFUSION STARTED, VERIFIED/COSIGNED BY UROLOGIC NURSE EREN. CONSENT ATTACHED TO CHART. PRE-TRANSFUSION VS TAKEN AND RECORDED.WILL STAY WITH THE PT FOR 30MINS TO MONITOR FOR ANY S/S OF BLOOD TRANSFUSION REACTION.
[2019-12-24] VITALS (14 sets, daily range): BP systolic 97–191; BP diastolic 38–86
--- NOTE | 2019-12-24 00:07 | NUR ---
NON ADMIN OF NITRO BID: PT'S BP BELOW NITRO BID PARAMETER, CURRENT BP 121/55 HR 51, PARAMETER IS HOLD FOR SBP <140.
--- NOTE | 2019-12-24 00:20 | NUR ---
RN NOTES: NO S/S OF BLOOD TRANSFUSION REACTION NOTED ON THE FIRST 30MINS. PT TOLERATING TRANSFUSION WELL, VS TAKEN AND RECORDED PER BLOOD TRANSFUSION PROTOCOL. WILL CONTINUE MONITORING PT.
[2019-12-24] MEDS: ALBUTEROL FS 2.5 MG/0.5 ML VIAL.NEB IH SCH ×4 (01:28→19:52)
--- NOTE | 2019-12-24 02:27 | NUR ---
rn notes/completion of transfusion: 1unit prbc transfusion completed. vs taken and recorded. no s/s of blood transfusion reaction noted. remains afebrile. awake, able to follow simple commands. will continue monitoring pt.
[2019-12-24] MEDS: NITROGLYCERIN PACKET 1 GM PACKET TOP SCH ×4 (05:54→18:00)
--- NOTE | 2019-12-24 05:56 | NUR ---
rn notes/accu check: fingerstick blood glucose check performed and result obtained is 88.
--- NOTE | 2019-12-24 06:43 | NUR ---
END OF SHIFT REPORT: RECEIVED REPORT FORM ALEX RAMON AT 1900 LAST NIGHT. PT MECH VENT TRACHE DEPENDENT, TOLERATED VENT SETTING WELL, AC 12 TV 500, PEEP 5, FIO2 40%, PORTEX #7, AMBU BAG AT BED SIDE, SUCTION SET UP SECURED, REMAINS ON CONTINUOUS PULSE OXIMETRY. CLINICAL ALRMS CHECK AND AUDIBLE. IV ACCESS REMAINS PATENT AND FLUSHING WELL, INFUSING WITH D10 AT 30ML/HR, NO S/S OF IV INFILTRATION NOTED. PT ON BILATERAL SOFT WRIST RESTRAINT, RESTRAINT PROTOCOL FOLLOWED. PT ABLE TO MOVE AND WIGGLE ARMS AND HANDS, GOOD CAPILLARY REFILL NOTED, RADIAL PULSES PRESENT, PALPABLE, INTACT, NO S/S OF IMPEDIMENT IN CIRCULATION NOTED. PT S/P HD 12/22, 1 L OUTPUT, S/P 2 UNIT PRBC TRANSFUSION (1UNIT PRBC COMPLETED WITH HD ON 12/22, AND 1UNIT PRBC GIVEN AT 2335 LAST NIGHT). PT GTUBE REMAINS PATENT AND FLUSHING WELL, ON CLAMPED, FEEDING HELD BY MD. AWAITING GI CONSULT. NO S/S OF ACTIVE BLEEDING NOTED. AWAITING RECORDS FROM [facility], REQUEST FAXED, AWAITING RESPONSE FROM HOSPITAL. TELEMONITORING, LATEST IS SINUS BRADYCARDIA HR 53. AWAITING WOUND CARE CONSULT. AM CARE, WOUND CARE, COMPLETE LINEN CHANGE PROVIDED. VS REMAINS STABLE, NEEDS ATTENDED. BLE KEPT OFFLOADED ON PILLOWS. SAFETY PRECAUTIONS FOR FALL REMAINS ENGAGED, CALL LIGHT IN REACH, WILL ENDORSE TO DAY YENNY JOHNSON FOR CONTINUITY OF CARE.
--- NOTE | 2019-12-24 07:30 | NUR ---
Tele/RN Opening note Received patient alert, oriented to self, able to follows simple command. Does no appears pain or discomfort. HR 50s this morning. Skin is warm to touch, keep clean/dry, intact IV site running 10% dextrose at 30 ml/hr, and AV shunt dressing. Pt is on ventilator, received breathing treatment this morning, no distress observed. Keep bed in lock with elevated HOB for secure airway. Call light within reach, will continue to monitor.
[2019-12-24] MEDS: BLOOD SUGAR DIAGNOSTIC 1 EACH STRIP IN SCH ×4 (07:46→22:49)
[2019-12-24] MEDS: LEVOTHYROXINE SODIUM 125 MCG TABLET GT SCH (07:46)
[2019-12-24 08:07] LABS: BASOPHILS # (AUTO) 0.1 /CMM (0.0-0.2); BASOPHILS % (AUTO) 1.4 % (0.0-2.0); EOSINOPHILS % (AUTO) 6.6 % (0.0-6.0); HEMATOCRIT 27 % (33-45); HEMOGLOBIN 8.8 g/dL (11.5-14.8); LYMPHOCYTES # (AUTO) 0.8 /CMM (0.8-4.8); LYMPHOCYTES % (AUTO) 14.7 % (20.0-44.0); MEAN CORPUSCULAR HGB CONC 32 g/dl (31.0-36.0); MEAN CORPUSCULAR VOLUME 95 fL (82-100); MONOCYTES # (AUTO) 0.6 /CMM (0.1-1.30); MONOCYTES % (AUTO) 10.7 % (2.0-12.0); NEUTROPHILS # (AUTO) 3.7 /CMM (1.8-8.9); NEUTROPHILS % (AUTO) 66.6 % (43.0-81.0); PLATELET COUNT (AUTO) 130 /CMM (150-450); RED BLOOD CELL COUNT(AUTO) 2.86 MIL/uL (4.0-5.2); WHITE BLOOD COUNT (AUTO) 5.5 K/uL (4.3-11.0)
[2019-12-24 08:15] LABS: CALCIUM, SERUM 9.3 mg/dL (8.5-10.1); CARBON DIOXIDE 30 mmol/L (21-32); CHLORIDE 100 mmol/L (98-107); CREATININE 2.5 mg/dL (0.6-1.3); GLUCOSE 116 mg/dL (74-106); POTASSIUM 3.5 mmol/L (3.5-5.1); SODIUM SERUM 136 mmol/L (136-145); UREA NITROGEN, BLOOD 25 mg/dL (7-18)
[2019-12-24] MEDS: LEVETIRACETAM SOL (5 ML) 100 MG/ML UDC GT SCH ×2 (08:32→20:36)
[2019-12-24] MEDS: CHLORHEXIDINE GLUCONATE 15 ML UDC MM SCH ×2 (08:32→20:35)
[2019-12-24] MEDS: PANTOPRAZOLE 40 MG VIAL IV SCH ×2 (08:32→16:31)
[2019-12-24] MEDS: SUCRALFATE 1 G/10 ML UDC GT SCH ×4 (08:33→20:36)
[2019-12-24] MEDS: DOCUSATE SODIUM 100 MG CAPSULE PO SCH (08:33)
[2019-12-24] MEDS: LISINOPRIL (20MG) 20 MG TABLET GT SCH (09:20)
[2019-12-24] MEDS: AMLODIPINE BESYLATE 10 MG TABLET GT SCH (09:20)
--- NOTE | 2019-12-24 10:53 | NUR ---
WOUND CARE CONSULT: PER NURSING DOCUMENTATION AND ADMISSION PHOTOS, RASHES AND SACRAL INTACT DEEP TISSUE INJURY NOTED TO BE PRESENT ON ADMISSION. DR FIGUEREDO NOTIFIED OF PT READMISSION. RECOMMENDATIONS MADE FOR SKIN PROTECTION. DISCUSSED WITH NURSING STAFF. PT IS ON [place] ISOFLEX LOW AIRLOSS BED. WILL SEE PRN. VU IN AGREEMENT WITH PLAN OF CARE.
[2019-12-24] MEDS: CLONIDINE HCL 0.1 MG TABLET PO PRN ×2 (16:31→20:36)
[2019-12-24] MEDS: CLOTRIMAZOLE 1% 15 GM TUBE TP SCH ×2 (16:32→17:00)
--- NOTE | 2019-12-24 18:09 | NUR ---
Clotrimazole is not available at this time.
--- NOTE | 2019-12-24 18:23 | NUR ---
Tele/RN Closing note Patient in bed sleeping comfortably, does no appears pain or any discomfort. Latest blood pressure is 138/62, held nitro at this time. Skin is warm to touch and clean/dry, intact IV site and Av shunt dressing. Pt had no BM during day shift, no s/s of bleeding. Respiratory even and unlabored with vent machine, provided oral care and suction. Keep bed in locked with elevated HOB for secure airway. Call light within reach, will endorse to night time nanny.
--- NOTE | 2019-12-24 19:20 | NUR ---
Tele/RN Opening Note BEDSIDE REPORT RECIEVED FROM ALEX RAMON. PATIENT SEEN IN BED IN NO APPARENT DISTRESS OR DISCOMFORT. BILATERAL WRIST RESTRAINGS ON. CIRCULATION CHECK IS GOOD. IV SITE SOFT TO TOUCH INTACT TO RFA RUNNING D10W. RESP EVEN AND UNLABORED CONNECTED TO VENT AND TOLERATING TO SETTINGS WELL. BED DOWN LOCKED CALL LIGHT PLACED WIHIN REACH. SRX3. WILL CONT TO MONITOR.
[2019-12-24] MEDS: IV 10% DEXTROSE 1,000 ML IV PRN (20:32)
[2019-12-25] VITALS: BP 189/60
[2019-12-25] MEDS: NITROGLYCERIN PACKET 1 GM PACKET TOP SCH ×2 (00:19→05:22)
[2019-12-25] MEDS: ALBUTEROL FS 2.5 MG/0.5 ML VIAL.NEB IH SCH ×4 (01:48→19:40)
--- NOTE | 2019-12-25 02:00 | NUR ---
[facility] AND PLACED ON CHART.
[2019-12-25 04:00] VITALS: BP 192/64
[2019-12-25] MEDS: CLONIDINE HCL 0.1 MG TABLET PO PRN (04:13)
[2019-12-25] MEDS: BLOOD SUGAR DIAGNOSTIC 1 EACH STRIP IN SCH ×3 (05:38→17:48)
--- NOTE | 2019-12-25 07:00 | NUR ---
MCAT TUTOR OPENING NOTES RECEIVED PT IN BED AWAKE AT THIS TIME. AOX2. ABLE TO FOLLOW SIMPLE COMMANDS. NO SOB NOTED, NO S/S OF ANY ACUTE DISTRESS NOTED. NO C/O PAIN AT TIME. RESPIRATIONS EVEN AND UNLABORED. PT ON VENT WITH VENT READING, AC 12, FIO2 40%, PEEP 5, TV 500 AND PORTEX #7. PT ON EXTERNAL TELE MONITOR READING SB IN THE 50S. BILATERAL WRIST RESTRAINS ON. GOOD CIRCULATION, PULSES ARE PRESENT AND CAPILLARY REFILL < 3SECONDS. IV ACCESS IN RFA G#22 INTACT AND PATENT. SAFETY PRECAUTIONS IN PLACE, BED IN LOWEST LOCKED POSITION, BED ALARM ON, HOB ELEVATED TO SEMI FOWLERS POSITION, SIDE RAILS UP, CALL LIGHT WITHIN REACH. WILL CONTINUE TO MONITOR
[2019-12-25] MEDS: LEVOTHYROXINE SODIUM 125 MCG TABLET GT SCH (07:43)
[2019-12-25 08:00] VITALS: BP 180/76
[2019-12-25] MEDS: CHLORHEXIDINE GLUCONATE 15 ML UDC MM SCH ×2 (08:27→21:34)
[2019-12-25] MEDS: SUCRALFATE 1 G/10 ML UDC GT SCH ×4 (08:27→21:34)
[2019-12-25] MEDS: DOCUSATE SODIUM 100 MG CAPSULE PO SCH (08:27)
[2019-12-25] MEDS: PANTOPRAZOLE 40 MG VIAL IV SCH ×2 (08:27→16:48)
[2019-12-25] MEDS: LEVETIRACETAM SOL (5 ML) 100 MG/ML UDC GT SCH ×2 (08:28→21:34)
[2019-12-25] MEDS: AMLODIPINE BESYLATE 10 MG TABLET GT SCH (08:42)
[2019-12-25] MEDS: LISINOPRIL (20MG) 20 MG TABLET GT SCH ×2 (08:42→16:47)
[2019-12-25] MEDS: CLOTRIMAZOLE 1% 15 GM TUBE TP SCH ×2 (08:43→16:56)
[2019-12-25] MEDS: NITROGLYCERIN 30 GM TUBE TP SCH ×2 (09:30→21:35)
--- NOTE | 2019-12-25 09:30 | NUR ---
PT SCHEDULED FOR NITROL OINTMENT 2GM TP Q12HRS AT THIS TIME, HR 47. ARASH CHARGE NURSE MADE AWARE. PER ARASH, HOLD NITROL. WILL CONTINUE TO MONITOR
[2019-12-25 12:00] VITALS: BP 192/79
--- NOTE | 2019-12-25 13:18 | NUR ---
RT NOTE PT RCVD TRACH'D ON MECHANICAL VENT WITH CHARTED SETTINGS. PT DEDRA TX WELL. SX DONE. PT TRACH IS PATENT AND SECURE. VENT ALARMS ARE ON AND AUDIBLE. VENT PLUGGED INTO RED OUTLET. AMBU BAG AT BEDSIDE. NO SOB NOTED. Addendum: 12/25/19 at 1319 by JLUIS GONZALES RT Amended: Links added.
[2019-12-25 16:00] VITALS: BP 188/63
--- NOTE | 2019-12-25 18:49 | NUR ---
RADIO DIVISION CAPTAIN CLOSING NOTES PT IN BED AWAKE AT THIS TIME. PT REMAINED STABLE THROUGHOUT SHIFT. NO S/S OF ANY ACUTE DISTRESS NOTED. NO S/S OF PAIN NOTED. PT KEPT CLEAN AND DRY. ALL CARE, NEEDS, TREATMENT AND MEDICATIONS ADMINISTERED ANTICIPATED PER ORDER. HD DONE, 500ML OF OUTPUT TAKEN OUT. TRACH CARE AND G-TUBE DRESSING CHANGED. SAFETY PRECAUTIONS IN PLACE, BED IN LOWEST LOCKED POSITION, BED ALARM ON, HOB ELEVATED TO SEMI FOWLERS POSITION, SIDE RAILS UP, CALL LIGHT WITHIN REACH. WILL ENDORSE TO COLOR PASTE MIXER NURSE FOR ROLANDO.
--- NOTE | 2019-12-25 19:25 | NUR ---
RAPID OUTSOLE STITCHER PM OPENING NOTE BEDSIDE REPORT RECIEVED FROM IMMACULATE RN. PT IN BED IN NO APPARENT ACUTE DISTRESS NO S/S OF PAIN NOTED. HD PERFORMED TODAY, 500ML OF OUTPUT TAKEN OUT. SAFETY PRECAUTIONS IN PLACE, BED IN LOWEST LOCKED POSITION, BED ALARM ON, HOB ELEVATED TO SEMI FOWLERS POSITION, SIDE RAILS UP, CALL LIGHT WITHIN REACH. PT ON MECHANICAL VENTILATOR SETTINGS CHECKED ALARMS ACTIVE. CONT SPO2 AT 100%. TOLERATING WELL. TELE MONITORING SHOWING SB AT 52. WILL CONT TO MONITOR.
[2019-12-25 20:33] VITALS: BP 99/79
[2019-12-26] VITALS (7 sets, daily range): BP systolic 179–214; BP diastolic 58–98
--- NOTE | 2019-12-26 00:30 | NUR ---
PATIENT ASKING FOR RESTRAINTS TO BE REMOVED. PATIENT NODDED HEAD IN AGREEMENT THAT SHE WONT GRAB AT TUBES OR REMOVE LINES. BILATER WRIST RESTRAINTS REMOVED.
[2019-12-26] MEDS: BLOOD SUGAR DIAGNOSTIC 1 EACH STRIP IN SCH ×4 (00:37→18:03)
[2019-12-26] MEDS: CLONIDINE HCL 0.1 MG TABLET PO PRN ×3 (00:40→22:53)
[2019-12-26] MEDS: ALBUTEROL FS 2.5 MG/0.5 ML VIAL.NEB IH SCH ×4 (01:40→19:23)
[2019-12-26] MEDS: IV 10% DEXTROSE 1,000 ML IV PRN (02:59)
--- NOTE | 2019-12-26 03:11 | NUR ---
STOOL COLLECTED FOR OB. LAB NOTIFIED.
[2019-12-26 03:30] LABS: OCCULT BLOOD STOOL POSITIVE (NEGATIVE)
--- NOTE | 2019-12-26 07:00 | NUR ---
PLAN CONSULTANT OPENING NOTES RECEIVED PT IN BED SLEEPING AND EASILY AWAKEN. AOX2. PT IS ABLE TO MOUTH WORDS AND FOLLOW SIMPLE COMMANDS. NO SOB NOTED, NO S/S OF ANY ACUTE DISTRESS NOTED. NO C/O PAIN AT TIME. RESPIRATIONS EVEN AND UNLABORED. PT ON MECHANICAL VENT READING, AC 12, FIO2 40%, PEEP 5, TV 500 AND PORTEX #7. PT ON EXTERNAL CARDIAC TELE MONITOR READING SB IN THE 50S WITH FIRST DEGREE AVB. BILATERAL WRIST RESTRAINS ON. GOOD CIRCULATION, PULSES ARE PRESENT AND CAPILLARY REFILL < 3SECONDS. IV ACCESS IN RFA G#22 INTACT AND PATENT. SAFETY PRECAUTIONS IN PLACE, BED IN LOWEST LOCKED POSITION, BED ALARM ON, HOB ELEVATED TO SEMI FOWLERS POSITION, SIDE RAILS UP, CALL LIGHT WITHIN REACH. WILL CONTINUE TO MONITOR
[2019-12-26] MEDS: LEVOTHYROXINE SODIUM 125 MCG TABLET GT SCH (08:26)
[2019-12-26] MEDS: DOCUSATE SODIUM 100 MG CAPSULE PO SCH (09:23)
[2019-12-26] MEDS: PANTOPRAZOLE 40 MG VIAL IV SCH ×2 (09:23→16:25)
[2019-12-26] MEDS: CHLORHEXIDINE GLUCONATE 15 ML UDC MM SCH ×2 (09:23→21:00)
[2019-12-26] MEDS: SUCRALFATE 1 G/10 ML UDC GT SCH ×4 (09:23→20:59)
[2019-12-26] MEDS: LEVETIRACETAM SOL (5 ML) 100 MG/ML UDC GT SCH ×2 (09:23→21:00)
[2019-12-26] MEDS: AMLODIPINE BESYLATE 10 MG TABLET GT SCH (09:24)
[2019-12-26] MEDS: LISINOPRIL (20MG) 20 MG TABLET GT SCH ×2 (09:24→16:26)
[2019-12-26] MEDS: NITROGLYCERIN 30 GM TUBE TP SCH ×2 (09:25→21:00)
[2019-12-26] MEDS: CLOTRIMAZOLE 1% 15 GM TUBE TP SCH ×2 (09:25→16:27)
[2019-12-26 11:21] LABS: BASOPHILS % (AUTO) 0.3 % (0.0-2.0); HEMATOCRIT 29 % (33-45); HEMOGLOBIN 9.2 g/dL (11.5-14.8); LYMPHOCYTES # (AUTO) 0.5 /CMM (0.8-4.8); LYMPHOCYTES % (AUTO) 11.5 % (20.0-44.0); MEAN CORPUSCULAR HGB CONC 32 g/dl (31.0-36.0); MEAN CORPUSCULAR VOLUME 98 fL (82-100); MONOCYTES # (AUTO) 0.3 /CMM (0.1-1.30); MONOCYTES % (AUTO) 7.8 % (2.0-12.0); NEUTROPHILS # (AUTO) 3.1 /CMM (1.8-8.9); NEUTROPHILS % (AUTO) 74.4 % (43.0-81.0); PLATELET COUNT (AUTO) 116 /CMM (150-450); RED BLOOD CELL COUNT(AUTO) 2.96 MIL/uL (4.0-5.2); WHITE BLOOD COUNT (AUTO) 4.1 K/uL (4.3-11.0)
--- NOTE | 2019-12-26 18:36 | NUR ---
BIOLOGY FACULTY MEMBER CLOSING NOTES PT IN BED AWAKE AT THIS TIME. PT REMAINED STABLE THROUGHOUT SHIFT. NO S/S OF ANY ACUTE DISTRESS NOTED. NO C/O PAIN AT THIS TIME. PT KEPT CLEAN AND DRY. TRACH CARE PROVIDED, TRACH TIE CHANGED. ALL CARE, NEEDS, TREATMENT AND MEDICATIONS ADMINISTERED ANTICIPATED PER ORDER. PT SUCTION TOLERATED AND PRN. PT REPOSITIONED Q2HRS, PRN AND PER PROTOCOL. SAFETY PRECAUTIONS IN PLACE, BED IN LOWEST LOCKED POSITION, BED ALARM ON, HOB ELEVATED TO SEMI FOWLERS POSITION, SIDE RAILS UP, CALL LIGHT WITHIN REACH. WILL ENDORSE TO PASSENGER INTERLINE CLERK NURSE FOR ROLANDO.
--- NOTE | 2019-12-26 19:15 | NUR ---
SYSTEM ENGINEER NOTES RECEIVED ON BED SLEEPING,AROUSABLE TO VERBAL STIMULI,BREATHING NON LABORED.VENT DEPENDENT,SETTINGS TOLERATED WELL.NPO EXCEPT MEDS,GT CLAMPED.HOB ELEVATED FOR ASPIRATION PRECAUTION.IVF D10 INFUSING VIA IV PUMP AT 10ML/HR RATE.SITE PATENT RIGHT FOREARM.REPOSITION PER PROTOCOL.SUCTION TRACH NEEDED.WILL CONTINUE TO MONITOR STATUS.
--- NOTE | 2019-12-26 22:45 | NUR ---
DEPARTMENT OF NATURAL RESOURCES OFFICER NOTES SALINE LOCK ACCIDENTALLY PULLED OUT,NEW SALINE LOCK PLACE ON RIGHT HAND #22,SAME IVF INFUSING THIS TIME
--- NOTE | 2019-12-26 22:53 | NUR ---
SOLUTION ADVISOR NOTES BP 173/60,CATAPRES 0.1MG GIVEN/GT FOR SBP>160
--- NOTE | 2019-12-27 | NUR ---
CELL TECHNICIAN NOTES ACCU-CHECK BLOOD SUGAR CHECK 127,NO INSULIN COVERAGE.
[2019-12-27] MEDS: BLOOD SUGAR DIAGNOSTIC 1 EACH STRIP IN SCH ×5 (00:07→23:39)
[2019-12-27 00:25] VITALS: BP 178/75
--- NOTE | 2019-12-27 00:30 | NUR ---
PUBLIC ADDRESS SYSTEMS MECHANIC NOTES BP 178/75,HR 50 ON TELE MONITOR,ASYMPTOMATIC,DENIES PAIN
--- NOTE | 2019-12-27 00:40 | NUR ---
MS RN NOTES MD CRUSHER FOREMAN DR ERNANDEZ WAS PAGE,AWAITING TO CALL BACK
[2019-12-27] MEDS: ALBUTEROL FS 2.5 MG/0.5 ML VIAL.NEB IH SCH ×4 (01:01→20:05)
[2019-12-27] MEDS: LEVOTHYROXINE SODIUM 125 MCG TABLET GT SCH (07:30)
--- NOTE | 2019-12-27 07:40 | NUR ---
SPREADER NOTES RECEIVED PT IN BED RESTING COMFORTABLY IN MODERATE HIGH BACK. AOX2. PT IS ABLE TO MOUTH WORDS AND FOLLOW SIMPLE COMMANDS. NO S/S OF ANY ACUTE DISTRESS NOTED AT THIS TIME. PT ON MECHANICAL VENT READING, AC 12, FIO2 40%, PEEP 5, TV 500 AND PORTEX #7. PT ON EXTERNAL CARDIAC TELE MONITOR READING SB, HR ON 50'S. BILATERAL WRIST RESTRAINS ON. GOOD CIRCULATION, PULSES ARE PRESENT AND CAPILLARY REFILL < 3SECONDS. IV ACCESS IN RFA G#22 INTACT AND PATENT. SAFETY PRECAUTIONS IN PLACE, BED IN LOWEST LOCKED POSITION, BED ALARM ON, HOB ELEVATED TO SEMI FOWLERS POSITION, SIDE RAILS UP, CALL LIGHT WITHIN REACH. WILL CONTINUE TO MONITOR.
[2019-12-27 08:00] VITALS: BP 165/68
--- NOTE | 2019-12-27 08:00 | NUR ---
RN NOTES DIALYSIS NURSE ON UNIT, WILL DIALYZE PATIENT AT BEDSIDE, NO SIGNS OF DISTRESS NOTED AT THIS TIME. WILL CONTINUE TO MONITOR.
[2019-12-27] MEDS: LISINOPRIL (20MG) 20 MG TABLET GT SCH ×2 (09:00→17:11)
[2019-12-27] MEDS: AMLODIPINE BESYLATE 10 MG TABLET GT SCH (09:00)
[2019-12-27] MEDS: SUCRALFATE 1 G/10 ML UDC GT SCH ×4 (09:00→20:57)
[2019-12-27] MEDS: MINOXIDIL (2.5MG) 2.5 MG TABLET PO SCH (09:00)
[2019-12-27] MEDS: DOCUSATE SODIUM 100 MG CAPSULE PO SCH (09:00)
[2019-12-27] MEDS: PANTOPRAZOLE 40 MG VIAL IV SCH ×2 (09:00→17:11)
--- NOTE | 2019-12-27 09:11 | NUR ---
PATIENT STARTED DIALYSIS TO RETURN AT 12P FOR STAT US DUPLEX
[2019-12-27] MEDS: CHLORHEXIDINE GLUCONATE 15 ML UDC MM SCH ×2 (10:34→20:57)
[2019-12-27] MEDS: LEVETIRACETAM SOL (5 ML) 100 MG/ML UDC GT SCH ×2 (10:34→20:57)
[2019-12-27] MEDS: NITROGLYCERIN 30 GM TUBE TP SCH ×2 (10:35→23:40)
[2019-12-27] MEDS: CLOTRIMAZOLE 1% 15 GM TUBE TP SCH ×2 (10:53→17:11)
[2019-12-27] MEDS: IV 10% DEXTROSE 1,000 ML IV PRN (11:21)
[2019-12-27 15:10] LABS: HEMOGLOBIN 9.2 g/dL (11.5-14.8); NEUTROPHILS # (AUTO) 2.2 /CMM (1.8-8.9); WHITE BLOOD COUNT (AUTO) 3.1 K/uL (4.3-11.0)
[2019-12-27 15:29] LABS: BASOPHILS % (AUTO) 0.7 % (0.0-2.0); EOSINOPHILS % (AUTO) 5.1 % (0.0-6.0); HEMATOCRIT 29 % (33-45); LYMPHOCYTES # (AUTO) 0.4 /CMM (0.8-4.8); LYMPHOCYTES % (AUTO) 14.4 % (20.0-44.0); MEAN CORPUSCULAR HGB CONC 32 g/dl (31.0-36.0); MEAN CORPUSCULAR VOLUME 96 fL (82-100); MONOCYTES # (AUTO) 0.3 /CMM (0.1-1.30); MONOCYTES % (AUTO) 8.1 % (2.0-12.0); NEUTROPHILS % (AUTO) 71.7 % (43.0-81.0); PLATELET COUNT (AUTO) 113 /CMM (150-450); RED BLOOD CELL COUNT(AUTO) 3.01 MIL/uL (4.0-5.2)
[2019-12-27] MEDS: CLONIDINE HCL 0.1 MG TABLET PO PRN ×2 (15:51→23:42)
[2019-12-27 16:09] VITALS: BP 208/79
[2019-12-27 17:21] LABS: ALANINE AMINOTRANSFERASE 18 U/L (12-78); ALBUMIN 3.3 g/dL (3.4-5.0); ALKALINE PHOSPHATASE 120 U/L (46-116); ASPARTATE AMINOTRANSFERASE 16 U/L (15-37); BILIRUBIN,TOTAL 0.8 mg/dL (0.2-1.0); CALCIUM, SERUM 9.6 mg/dL (8.5-10.1); CARBON DIOXIDE 30 mmol/L (21-32); CHLORIDE 108 mmol/L (98-107); CREATININE 2.2 mg/dL (0.6-1.3); GLUCOSE 141 mg/dL (74-106); MAGNESIUM 2.1 mg/dL (1.8-2.4); PHOSPHORUS 2.9 mg/dL (2.5-4.9); POTASSIUM 3.4 mmol/L (3.5-5.1); SODIUM SERUM 147 mmol/L (136-145); TOTAL PROTEIN, SERUM 6.6 g/dL (6.4-8.2); UREA NITROGEN, BLOOD 12 mg/dL (7-18)
--- NOTE | 2019-12-27 18:00 | NUR ---
RN NOTES PATIENT BP OF 190/70, MADE AWARE, STILL AWAITING FOR RESPONSE. WILL CONTINUE TO F/U AND MONITOR.
--- NOTE | 2019-12-27 18:55 | NUR ---
STOCK PARTS FABRICATOR NOTES PATIENT IN BED RESTING COMFORTABLY IN MODERATE HIGH BACK. AOX2. PT IS ABLE TO MOUTH WORDS AND FOLLOW SIMPLE COMMANDS. PT ON MECHANICAL VENT READING, AC 12, FIO2 40%, PEEP 5, TV 500 AND PORTEX #7. PT ON EXTERNAL CARDIAC TELE MONITOR READING SB, HR ON 50'S. IV ACCESS IN RFA G#22 INTACT AND PATENT. SAFETY PRECAUTIONS IN PLACE, BED IN LOWEST LOCKED POSITION, BED ALARM ON, HOB ELEVATED TO SEMI FOWLERS POSITION, SIDE RAILS UP, CALL LIGHT WITHIN REACH. WILL CONTINUE TO MONITOR.
--- NOTE | 2019-12-27 19:18 | NUR ---
RN NOTES MD ORDER TO APPLY NITRO PASTE 1 INCH ON CHEST WALL Q6 HR, ORDERS MADE AND CARRIED OUT, WILL CONTINUE TO MONITOR.
--- NOTE | 2019-12-27 19:20 | NUR ---
MS RN NOTES RECEIVED ON BED A/O X3,BREATHING REGULAR,ON TRACH TO VENT,SETTINGS TOLERATED WELL.IVF D10 AT 30ML/HR RATE INFUSING VIA IV PUMP.SITE PATENT ON RIGHT HAND SALINE LOCK.NPO EXCEPT MEDS.GT CLAMP DUE TO GI BLEED ADMIT.REFUSED DVT PUMP.CALL LIGHT IN REACH NEEDS ANTICIPATED.
[2019-12-27 20:28] VITALS: BP 216/78
--- NOTE | 2019-12-27 22:24 | NUR ---
RT NOTE PT RECEIVED TRACHED ON MECHANICAL VENTILATION. CUFF CHECKED VIA MANUFACTURING SALES REPRESENTATIVE. TX GIVEN, NO ADVERSE REACTIONS NOTED. SX DONE, TRACH SECURED AND PATENT. ALARMS ON AND AUDIBLE. CONT. PULSE OX CONNECTED. NO DISTRESS NOTED AT THIS TIME. WILL MONITOR T/O SHIFT. Addendum: 12/27/19 at 2225 by ELISE MULLEN RT Amended: Links added.
--- NOTE | 2019-12-27 23:45 | NUR ---
MEAT SALES AND STORAGE MANAGER NOTES BP 201/66,MEDICATED WITH CATAPRES 0.1MG/GT ORDERED PRN FOR SBP>160.DENIES PAIN DISCOMFORTS.
[2019-12-28] VITALS (7 sets, daily range): BP systolic 122–198; BP diastolic 40–75
--- NOTE | 2019-12-28 | NUR ---
WATER REGULATOR AND VALVE REPAIRER NOTES ACCU-CHECK BLOOD SUGAR CHECK 129,NO INSULIN COVERAGE,D10 IVF INFUSING
[2019-12-28] MEDS: ALBUTEROL FS 2.5 MG/0.5 ML VIAL.NEB IH SCH ×4 (01:48→19:06)
--- NOTE | 2019-12-28 04:00 | NUR ---
CAUSTIC PLANT WORKER NOTES REFUSED VITAL SIGNS THIS TIME.
--- NOTE | 2019-12-28 05:25 | NUR ---
ARMHOLE SEWER NOTES OFFERED TO CHECK VITAL SIGNS AGAIN BUT REFUSED.
--- NOTE | 2019-12-28 05:30 | NUR ---
CARDIOLOGY NURSE NOTES REFUSED BLOOD SUGAR CHECK THIS TIME
[2019-12-28] MEDS: NITROGLYCERIN 30 GM TUBE TP SCH ×3 (05:32→17:07)
[2019-12-28] MEDS: BLOOD SUGAR DIAGNOSTIC 1 EACH STRIP IN SCH ×3 (05:33→17:05)
--- NOTE | 2019-12-28 06:48 | NUR ---
PSYCHIATRIC CLINICAL NURSE SPECIALIST NOTES NO SIGNIFICANT CHANGE IN STATUS.ACCU-CHECK THIS MORNING REFUSED.NO DISTRESS.
--- NOTE | 2019-12-28 07:32 | NUR ---
LICENSED LAND SURVEYOR NOTES RECEIVED PT IN BED RESTING COMFORTABLY IN MODERATE HIGH BACK. AOX2. PT IS ABLE TO MOUTH WORDS AND FOLLOW SIMPLE COMMANDS. NO S/S OF ANY ACUTE DISTRESS NOTED AT THIS TIME. PT ON MECHANICAL VENT READING, AC 12, FIO2 40%, PEEP 5, TV 500 AND PORTEX #7. PT ON EXTERNAL CARDIAC TELE MONITOR READING SB, HR ON 50'S. IV ACCESS IN RFA G#22 INTACT AND PATENT. SAFETY PRECAUTIONS IN PLACE, BED IN LOWEST LOCKED POSITION, BED ALARM ON, SIDE RAILS UP, CALL LIGHT WITHIN REACH. WILL CONTINUE TO MONITOR.
[2019-12-28] MEDS: CHLORHEXIDINE GLUCONATE 15 ML UDC MM SCH ×2 (08:12→21:39)
[2019-12-28] MEDS: LEVOTHYROXINE SODIUM 125 MCG TABLET GT SCH (08:12)
[2019-12-28] MEDS: MINOXIDIL (2.5MG) 2.5 MG TABLET PO SCH (08:12)
[2019-12-28] MEDS: SUCRALFATE 1 G/10 ML UDC GT SCH ×4 (08:12→21:39)
[2019-12-28] MEDS: PANTOPRAZOLE 40 MG VIAL IV SCH ×2 (08:12→16:45)
[2019-12-28] MEDS: AMLODIPINE BESYLATE 10 MG TABLET GT SCH (08:13)
[2019-12-28] MEDS: LEVETIRACETAM SOL (5 ML) 100 MG/ML UDC GT SCH ×2 (08:13→21:39)
[2019-12-28] MEDS: DOCUSATE SODIUM 100 MG CAPSULE PO SCH (08:13)
[2019-12-28] MEDS: LISINOPRIL (20MG) 20 MG TABLET GT SCH ×2 (08:13→16:45)
[2019-12-28] MEDS: CLOTRIMAZOLE 1% 15 GM TUBE TP SCH ×2 (08:26→16:47)
[2019-12-28] MEDS: IV 10% DEXTROSE 1,000 ML IV PRN (18:20)
--- NOTE | 2019-12-28 18:47 | NUR ---
ASSOCIATE PROFESSOR OF ART NOTES PATIENT IN BED RESTING COMFORTABLY IN MODERATE HIGH BACK. AOX2. PT IS ABLE TO MOUTH WORDS AND FOLLOW SIMPLE COMMANDS. NO S/S OF ANY ACUTE DISTRESS NOTED THROUGHOUT THE SHIFT. PT ON MECHANICAL VENT READING, AC 12, FIO2 40%, PEEP 5, TV 500 AND PORTEX #7. PT ON EXTERNAL CARDIAC TELE MONITOR READING SB, HR ON 50'S. IV ACCESS IN RFA G#22 WITH D10W RUNNING @30ML/HR, INTACT AND PATENT. SAFETY PRECAUTIONS IN PLACE, BED IN LOWEST LOCKED POSITION, BED ALARM ON, SIDE RAILS UP, CALL LIGHT WITHIN REACH. WILL ENDORSE TO STERILE PREPARATION TECHNICIAN NURSE FOR ROLANDO.
--- NOTE | 2019-12-28 19:05 | NUR ---
BLAST FURNACE CHECKER NOTES RECEIVED PT IN BED AND AWAKE. PT AOX2. PT ABLE TO MOUTH WORDS AND FOLLOW SIMPLE COMMANDS. RESPIRATIONS EVEN AND UNLABORED WITH NO S/S OF ACUTE DISTRESS OR SOB NOTED. PT ON MECHANICAL VENT. PT NOTED WITH RHAND #20G PATENT AND INTACT INFUSING D10W INFUSING @30CC/HR. SAFETY MEASURES IN PLACE WITH BED IN LOWEST LOCKED POSITION WITH SIDE RAILS UP X2. CALL LIGHT WITHIN REACH. WILL CONTINUE TO MONITOR.
--- NOTE | 2019-12-28 19:55 | NUR ---
RT NOTE PT RECEIVED TRACHED ON MECHANICAL VENTILATION. CUFF CHECKED VIA PRISON GUARD. TX GIVEN, NO ADVERSE REACTIONS NOTED. SX DONE, TRACH SECURED AND PATENT. ALARMS ON AND AUDIBLE. CONT. PULSE OX CONNECTED. NO DISTRESS NOTED AT THIS TIME. WILL MONITOR T/O SHIFT. Addendum: 12/28/19 at 1955 by CARMINA BASILIO RT Amended: Links added.
[2019-12-29] VITALS: BP 115/63
[2019-12-29] MEDS: BLOOD SUGAR DIAGNOSTIC 1 EACH STRIP IN SCH ×4 (00:44→18:27)
[2019-12-29] MEDS: NITROGLYCERIN 30 GM TUBE TP SCH ×4 (00:44→18:27)
[2019-12-29] MEDS: ALBUTEROL FS 2.5 MG/0.5 ML VIAL.NEB IH SCH ×4 (00:56→19:58)
[2019-12-29 04:00] VITALS: BP 120/53
--- NOTE | 2019-12-29 06:57 | NUR ---
RETAIL COVERAGE MERCHANDISER NOTES PT IN BED AND AWAKE. PT AOX2. PT ABLE TO MOUTH WORDS AND FOLLOW SIMPLE COMMANDS. RESPIRATIONS EVEN AND UNLABORED WITH NO S/S OF ACUTE DISTRESS OR SOB NOTED THROUGHOUT SHIFT. PT ON MECHANICAL VENT. PT NOTED WITH RHAND #20G PATENT AND INTACT INFUSING D10W INFUSING @30CC/HR. PT KEPT CLEAN, DRY, AND COMFORTABLE. SAFETY MEASURES IN PLACE WITH BED IN LOWEST LOCKED POSITION WITH SIDE RAILS UP X2. CALL LIGHT WITHIN REACH. WILL ENDORSE TO ONCOMING NURSE FOR ROLANDO.
--- NOTE | 2019-12-29 07:40 | NUR ---
RN OPENING NOTE Patient is resting in bed, A/O x1, non-verbal, able to nod head yes or no. Patient is in no acute distress, no SOB, on mechanical vent AC12, TV500 FiO2 40% PEEP 5. Tele monitor SR with 1st degree block & PVCs. IV line in the the right hand #20g is clean and intact running D10 @ 30mls/hr. G-tube clamped per MD, awaiting for GI consult. Ok to give meds per MD. Bed is in lowest position, side rails x3 in upright position, fall safety and aspiration precautions enforced. Will continue with plan of care.
[2019-12-29 08:00] VITALS: BP 107/56
[2019-12-29] MEDS: LISINOPRIL (20MG) 20 MG TABLET GT SCH ×2 (09:00→16:21)
[2019-12-29] MEDS: AMLODIPINE BESYLATE 10 MG TABLET GT SCH (09:00)
[2019-12-29] MEDS: MINOXIDIL (2.5MG) 2.5 MG TABLET PO SCH (09:00)
[2019-12-29] MEDS: CHLORHEXIDINE GLUCONATE 15 ML UDC MM SCH ×2 (09:01→21:27)
[2019-12-29] MEDS: LEVETIRACETAM SOL (5 ML) 100 MG/ML UDC GT SCH ×2 (09:01→21:27)
[2019-12-29] MEDS: SUCRALFATE 1 G/10 ML UDC GT SCH ×4 (09:01→21:27)
[2019-12-29] MEDS: CLOTRIMAZOLE 1% 15 GM TUBE TP SCH ×2 (09:02→16:21)
[2019-12-29] MEDS: PANTOPRAZOLE 40 MG VIAL IV SCH ×2 (09:02→16:21)
[2019-12-29] MEDS: LEVOTHYROXINE SODIUM 125 MCG TABLET GT SCH (09:02)
[2019-12-29] MEDS: DOCUSATE SODIUM LIQ 100 MG/10 ML UDC GT SCH (09:18)
[2019-12-29 09:54] LABS: BASOPHILS % (AUTO) 0.2 % (0.0-2.0); EOSINOPHILS % (AUTO) 7.8 % (0.0-6.0); HEMATOCRIT 28 % (33-45); HEMOGLOBIN 8.7 g/dL (11.5-14.8); LYMPHOCYTES # (AUTO) 0.7 /CMM (0.8-4.8); LYMPHOCYTES % (AUTO) 15.2 % (20.0-44.0); MEAN CORPUSCULAR HGB CONC 31 g/dl (31.0-36.0); MEAN CORPUSCULAR VOLUME 96 fL (82-100); MONOCYTES # (AUTO) 0.3 /CMM (0.1-1.30); MONOCYTES % (AUTO) 7.9 % (2.0-12.0); NEUTROPHILS % (AUTO) 68.9 % (43.0-81.0); PLATELET COUNT (AUTO) 84 /CMM (150-450); RED BLOOD CELL COUNT(AUTO) 2.88 MIL/uL (4.0-5.2); WHITE BLOOD COUNT (AUTO) 4.3 K/uL (4.3-11.0)
[2019-12-29 10:07] LABS: ALANINE AMINOTRANSFERASE 13 U/L (12-78); ALBUMIN 2.8 g/dL (3.4-5.0); ALKALINE PHOSPHATASE 105 U/L (46-116); ASPARTATE AMINOTRANSFERASE 12 U/L (15-37); CALCIUM, SERUM 9.5 mg/dL (8.5-10.1); CARBON DIOXIDE 28 mmol/L (21-32); CHLORIDE 102 mmol/L (98-107); CREATININE 3.9 mg/dL (0.6-1.3); GLUCOSE 115 mg/dL (74-106); MAGNESIUM 1.9 mg/dL (1.8-2.4); PHOSPHORUS 3.2 mg/dL (2.5-4.9); SODIUM SERUM 140 mmol/L (136-145); TOTAL PROTEIN, SERUM 5.9 g/dL (6.4-8.2); UREA NITROGEN, BLOOD 21 mg/dL (7-18)
--- NOTE | 2019-12-29 13:30 | NUR ---
RN NOTE COVID swab sent to lab.
--- NOTE | 2019-12-29 14:43 | NUR ---
RN NOTE HD completed 1000cc out. VS stable BP166/47 HR59. Will continue to monitor.
--- NOTE | 2019-12-29 15:26 | NUR ---
RN NOTE STOOL OB sample sent to lab.
[2019-12-29 16:00] VITALS: BP 134/65
[2019-12-29 16:26] LABS: OCCULT BLOOD STOOL POSITIVE (NEGATIVE)
--- NOTE | 2019-12-29 19:05 | NUR ---
QUALITY CONTROL SCIENTIST NOTES RECEIVED PT IN BED AND AWAKE. PT AOX2. PT ABLE TO MOUTH WORDS AND FOLLOW SIMPLE COMMANDS. RESPIRATIONS EVEN AND UNLABORED WITH NO S/S OF ACUTE DISTRESS OR SOB NOTED. PT ON MECHANICAL VENT. PT NOTED WITH RHAND #20G PATENT AND INTACT INFUSING D10W INFUSING @30CC/HR. SAFETY MEASURES IN PLACE WITH BED IN LOWEST LOCKED POSITION WITH SIDE RAILS UP X2. CALL LIGHT WITHIN REACH. WILL CONTINUE TO MONITOR.
--- NOTE | 2019-12-29 19:23 | NUR ---
RN CLOSING NOTE Patient is resting in bed, A/O x1, non-verbal, able to nod head yes or no. Patient is in no acute distress, no SOB, on mechanical vent AC12, TV500 FiO2 40% PEEP 5. Tele monitor SR with 1st degree block & PVCs. IV line in the the right hand #20g is clean and intact running D10 @ 30mls/hr. G-tube clamped per MD, awaiting for GI consult. Ok to give meds per MD. Stool OB #2 sent to lab, came back positive. Endorsed to blue crabber RN for 3rd stool. S/P HD 1000cc out. All patient needs met, all due medications given, patient kept clean and dry throughout shift. Bed is in lowest position, side rails x3 in upright position, fall safety and aspiration precautions enforced. Will endorse to blue crabber.
[2019-12-29 20:00] VITALS: BP 147/93
[2019-12-30] VITALS: BP 122/48
[2019-12-30] MEDS: BLOOD SUGAR DIAGNOSTIC 1 EACH STRIP IN SCH ×4 (00:37→17:24)
[2019-12-30] MEDS: NITROGLYCERIN 30 GM TUBE TP SCH ×4 (00:40→17:01)
[2019-12-30] MEDS: ALBUTEROL FS 2.5 MG/0.5 ML VIAL.NEB IH SCH ×5 (01:50→20:15)
[2019-12-30] MEDS: IV 10% DEXTROSE 1,000 ML IV PRN (03:47)
[2019-12-30 03:57] VITALS: BP 111/46
--- NOTE | 2019-12-30 06:52 | NUR ---
FARM EQUIPMENT SERVICE TECHNICIAN NOTES PT IN BED AND AWAKE. PT AOX2. PT ABLE TO MOUTH WORDS AND FOLLOW SIMPLE COMMANDS. RESPIRATIONS EVEN AND UNLABORED WITH NO S/S OF ACUTE DISTRESS OR SOB NOTED THROUGHOUT SHIFT. PT ON MECHANICAL VENT. PT NOTED WITH RHAND #20G PATENT AND INTACT INFUSING D10W INFUSING @30CC/HR. PT KEPT CLEAN, DRY, AND COMFORTABLE. SAFETY MEASURES IN PLACE WITH BED IN LOWEST LOCKED POSITION WITH SIDE RAILS UP X2. CALL LIGHT WITHIN REACH. WILL ENDORSE TO ONCOMING NURSE FOR ROLANDO.
--- NOTE | 2019-12-30 07:32 | NUR ---
RN OPENING NOTE Patient is resting in bed, A/O x1, able to mouth out words. Patient is in no acute distress, no SOB, on mechanical vent AC12, TV500 FiO2 40% PEEP 5. Tele monitor SR 60s with PVCs and PACs. IV line in the the right hand #20g is clean and intact running D10 @ 30mls/hr. G-tube clamped per MD, awaiting for GI consult. Ok to give meds per MD. Bed is in lowest position, side rails x3 in upright position, fall safety and aspiration precautions enforced. Will continue with plan of care.
--- NOTE | 2019-12-30 07:54 | NUR ---
RT BREATHING TX NOT GIVEN DUE TO PENDING LAB RESULTS
[2019-12-30 08:00] VITALS: BP 101/64
[2019-12-30] MEDS: DOCUSATE SODIUM LIQ 100 MG/10 ML UDC GT SCH (08:36)
[2019-12-30] MEDS: LEVOTHYROXINE SODIUM 125 MCG TABLET GT SCH (08:36)
[2019-12-30] MEDS: LEVETIRACETAM SOL (5 ML) 100 MG/ML UDC GT SCH ×2 (08:36→21:00)
[2019-12-30] MEDS: CHLORHEXIDINE GLUCONATE 15 ML UDC MM SCH ×2 (08:36→21:05)
[2019-12-30] MEDS: CLOTRIMAZOLE 1% 15 GM TUBE TP SCH ×2 (08:37→17:02)
[2019-12-30] MEDS: SUCRALFATE 1 G/10 ML UDC GT SCH ×4 (08:37→21:00)
[2019-12-30] MEDS: PANTOPRAZOLE 40 MG VIAL IV SCH ×2 (08:37→17:01)
[2019-12-30] MEDS: MINOXIDIL (2.5MG) 2.5 MG TABLET PO SCH (09:33)
[2019-12-30] MEDS: AMLODIPINE BESYLATE 10 MG TABLET GT SCH (09:33)
[2019-12-30] MEDS: LISINOPRIL (20MG) 20 MG TABLET GT SCH ×2 (09:35→17:01)
[2019-12-30 10:30] VITALS: BP 155/80
--- NOTE | 2019-12-30 14:07 | NUR ---
RN NOTE Per MD, no orders to replace potassium of 3.0
[2019-12-30 16:00] VITALS: BP 157/77
--- NOTE | 2019-12-30 18:25 | NUR ---
RN CLOSING NOTE Patient is resting in bed, A/O x1, able to mouth out words. Patient is in no acute distress, no SOB, on mechanical vent AC12, TV500 FiO2 40% PEEP 5. Tele monitor SR 60s with PVCs and PACs. IV line in the the right hand #20g is clean and intact running D10 @ 30mls/hr. G-tube clamped per MD, awaiting for GI consult. Ok to give meds per MD. All patient needs met, all due medications given, patient kept clean and dry throughout shift. Bed is in lowest position, side rails x3 in upright position, fall safety and aspiration precautions enforced. Will endorse to supervisor hardboard.
--- NOTE | 2019-12-30 19:08 | NUR ---
RN NOTE Per Dr. Wheat, patient is to have EGD tomorrow, NPO after midnight. Telephone consent from Daughter Jennifer Guerrier. Endorsed to education spec.
--- NOTE | 2019-12-30 19:18 | NUR ---
PER COVID PROTOCOL, IN-LINE TREATMENT NOT GIVEN UNTIL RESULT IS AVAILABLE. Addendum: 12/30/19 at 1918 by OSMIN CLANCY RT Amended: Links added.
--- NOTE | 2019-12-30 19:39 | NUR ---
FOREIGN LANGUAGE STENOGRAPHER OPENING NOTES PATIENT RECEIVED RESTING IN BED A/O X 2, ABLE TO MOUTH WORDS AND NOD. ON MECHANICAL VENT, TOLERATING SETTINGS WELL. NO SIGNS OF ACUTE DISTRESS. NO COMPLAINTS OF PAIN OR DISCOMFORT- NO FACIAL GRIMACING NOTED. TELE MONITOR READING SR WITH PVC AND PAC. IV LOCATED ON R HAND #20 RUNNING D10W @ 30 ML/HR. SAFETY PRECAUTIONS IN PLACE WITH BED IN LOWEST POSITION, CALL LIGHT WITHIN REACH, BREAKS ON, SIDE RAILS UP. WILL CONTINUE TO MONITOR THROUGHOUT THE SHIFT.
[2019-12-30 20:00] VITALS: BP_SYST 128; BP_DIAS 58; BP_DIAS 88
--- NOTE | 2019-12-30 22:00 | NUR ---
CASKET ASSEMBLER METAL NOTES STOOL SPECIMEN COLLECTED
[2019-12-30 23:33] LABS: OCCULT BLOOD STOOL POSITIVE (NEGATIVE)
[2019-12-31] VITALS: BP_SYST 125; BP_SYST 126; BP_DIAS 47
[2019-12-31] MEDS: NITROGLYCERIN 30 GM TUBE TP SCH ×5 (00:08→18:15)
[2019-12-31] MEDS: BLOOD SUGAR DIAGNOSTIC 1 EACH STRIP IN SCH ×4 (00:14→17:40)
[2019-12-31] MEDS: ALBUTEROL FS 2.5 MG/0.5 ML VIAL.NEB IH SCH ×3 (01:30→19:30)
--- NOTE | 2019-12-31 01:38 | NUR ---
PER COVID PROTOCOL, NO IN-LINE TREATMENT GIVEN UNTIL RESULT IS AVAILABLE. Addendum: 12/31/19 at 0138 by OSMIN CLANCY RT Amended: Links added.
[2019-12-31 04:00] VITALS: BP_SYST 126; BP_SYST 147; BP_DIAS 47; BP_DIAS 67
--- NOTE | 2019-12-31 05:34 | NUR ---
PATIENT RECEIVED ON TRACH TO VENT WITH SETTINGS OF AC 12, 450 Vt, 40%, +5. SUCTIONED FOR MINIMAL, THIN, FROTHY, WHITE SECRETIONS. NO TREATMENTS GIVEN PER COVID PROTOCOL. AMBU BAG AT BEDSIDE. VENT AND PULSE OXIMETER ALARMS AUDIBLE AND VISIBLE. VENT PLUGGED INTO RED OUTLET. Addendum: 12/31/19 at 0535 by OSMIN CLANCY RT Amended: Links added.
--- NOTE | 2019-12-31 06:35 | NUR ---
AIRCRAFT CHARTER DISPATCHER CLOSING NOTES PATIENT RESTING IN BED A/O X 2, ABLE TO NOD YES OR NO. ON MECHANICAL VENT, TOLERATING SETTINGS WELL. NO SIGNS OF ACUTE DISTRESS. NO COMPLAINTS OF PAIN OR DISCOMFORT- NO FACIAL GRIMACING NOTED. TELE MONITOR READING SR WITH PAC. IV LOCATED ON R HAND #20 RUNNING D10W @ 30 ML/HR. SAFETY PRECAUTIONS IN PLACE WITH BED IN LOWEST POSITION, CALL LIGHT WITHIN REACH, BREAKS ON, SIDE RAILS UP. ALL NEEDS ATTENDED TO, PATIENT KEPT CLEAN AND DRY THROUGHOUT THE NIGHT. WILL ENDORSE TO ONCOMING SHIFT ABOUT ROLANDO.
[2019-12-31 06:36] LABS: BASOPHILS % (AUTO) 0.9 % (0.0-2.0); EOSINOPHILS % (AUTO) 5.8 % (0.0-6.0); HEMATOCRIT 33 % (33-45); HEMOGLOBIN 9.1 g/dL (11.5-14.8); LYMPHOCYTES # (AUTO) 0.7 /CMM (0.8-4.8); LYMPHOCYTES % (AUTO) 14.9 % (20.0-44.0); MEAN CORPUSCULAR HGB CONC 28 g/dl (31.0-36.0); MEAN CORPUSCULAR VOLUME 109 fL (82-100); MONOCYTES # (AUTO) 0.3 /CMM (0.1-1.30); MONOCYTES % (AUTO) 6.2 % (2.0-12.0); NEUTROPHILS # (AUTO) 3.5 /CMM (1.8-8.9); NEUTROPHILS % (AUTO) 72.2 % (43.0-81.0); PLATELET COUNT (AUTO) 99 /CMM (150-450); RED BLOOD CELL COUNT(AUTO) 2.97 MIL/uL (4.0-5.2); WHITE BLOOD COUNT (AUTO) 4.8 K/uL (4.3-11.0)
[2019-12-31] MEDS: LEVOTHYROXINE SODIUM 125 MCG TABLET GT SCH (07:30)
--- NOTE | 2019-12-31 07:52 | NUR ---
RN OPENINGS NOTES Patient is resting in bed, A/O x1, able to mouth out words. Patient with no acute distress, no SOB, on mechanical vent AC12, TV500 FiO2 40% PEEP 5. Tele monitor SR 60s . IV line in the the right hand #20g clean and intact running D10 @ 30mls/hr. Currently remain NPO G-tube clamped per MD, awaiting for GI consult. Ok to give meds per MD. Bed is in lowest position, side rails x3 in upright position, fall safety and aspiration precautions enforced.
[2019-12-31 08:00] VITALS: BP 144/100
[2019-12-31 08:12] LABS: ALANINE AMINOTRANSFERASE 10 U/L (12-78); ALKALINE PHOSPHATASE 116 U/L (46-116); ASPARTATE AMINOTRANSFERASE 15 U/L (15-37); BILIRUBIN,TOTAL 0.9 mg/dL (0.2-1.0); CALCIUM, SERUM 9.5 mg/dL (8.5-10.1); CARBON DIOXIDE 24 mmol/L (21-32); CHLORIDE 99 mmol/L (98-107); CREATININE 4.3 mg/dL (0.6-1.3); GLUCOSE 95 mg/dL (74-106); MAGNESIUM 1.9 mg/dL (1.8-2.4); PHOSPHORUS 3.5 mg/dL (2.5-4.9); POTASSIUM 3.3 mmol/L (3.5-5.1); SODIUM SERUM 135 mmol/L (136-145); TOTAL PROTEIN, SERUM 6.3 g/dL (6.4-8.2); UREA NITROGEN, BLOOD 22 mg/dL (7-18)
[2019-12-31] MEDS: SUCRALFATE 1 G/10 ML UDC GT SCH ×4 (08:48→20:42)
[2019-12-31] MEDS: AMLODIPINE BESYLATE 10 MG TABLET GT SCH (08:49)
[2019-12-31] MEDS: LEVETIRACETAM SOL (5 ML) 100 MG/ML UDC GT SCH ×2 (08:49→20:42)
[2019-12-31] MEDS: DOCUSATE SODIUM LIQ 100 MG/10 ML UDC GT SCH (08:49)
--- NOTE | 2019-12-31 08:50 | NUR ---
MS RN NOTESPt stared Dialysis therapy .Meds hold Pt remain NPO for EGD procedure.
[2019-12-31] MEDS: LISINOPRIL (20MG) 20 MG TABLET GT SCH ×2 (08:51→17:00)
[2019-12-31] MEDS: CHLORHEXIDINE GLUCONATE 15 ML UDC MM SCH ×2 (08:58→20:42)
[2019-12-31] MEDS: CLOTRIMAZOLE 1% 15 GM TUBE TP SCH ×2 (08:59→16:58)
[2019-12-31] MEDS: PANTOPRAZOLE 40 MG VIAL IV SCH ×2 (09:00→17:02)
[2019-12-31] MEDS ORDERED: POTASSIUM CHLORIDE 20 MEQ POWDER PACKET NG SCH (09:00)
[2019-12-31] MEDS: MINOXIDIL (2.5MG) 2.5 MG TABLET PO SCH (09:00)
[2019-12-31 12:00] VITALS: BP 150/45
--- NOTE | 2019-12-31 12:30 | NUR ---
RN NOTESHemodialysis treatment completed at 1100 am with no S/S of A/E noted out put 1500 ml of fluids B/P 181/80 , B/P re check 150 /45 . ILIA fistula intact no S/S of bleeding noted will continue to monitor
--- NOTE | 2019-12-31 12:30 | NUR ---
RN NOTE Per Dr. Wheat, patient is to have EGD tomorrow, NPO after midnight. Telephone consent from Daughter Jennifer Guerrier. Endorsed to l tacker. Addendum: 12/31/19 at 1503 by CARINE TAFOYA RN ERROR INCORRECT CHARTING
[2019-12-31] MEDS: IV 10% DEXTROSE 1,000 ML IV PRN (12:52)
[2019-12-31 16:00] VITALS: BP 176/65
--- NOTE | 2019-12-31 18:05 | NUR ---
MANAGER CHEMISTRY NOTESPt post dialysis Potassium replace during therapy Dr Caballero made aware with order to hold AM KCL order will continue to monitor.
--- NOTE | 2019-12-31 18:44 | NUR ---
CYBER SECURITY ANALYST CLOSING NOTES PATIENT RESTING IN BED A/O X 1, ABLE TO NOD YES OR NO. ON MECHANICAL VENT, TOLERATING SETTINGS WELL. NO SIGNS OF ACUTE DISTRESS. NO COMPLAINTS OF PAIN OR DISCOMFORT- NO FACIAL GRIMACING NOTED.ON TELE MONITOR . IV LOCATED ON R HAND #20 RUNNING D10W @ 30 ML/HR. SAFETY PRECAUTIONS IN PLACE ,OR NURSE AT BEDSIDE PREPARING FOR EGD PROCEDURE. ALL NEEDS ATTENDED TO, PATIENT KEPT CLEAN AND DRY THROUGHOUT THE SHIFT.COVID TEST RESULT STILL PENDING WILL ENDORSE TO ONCOMING SHIFT ABOUT ROLANDO.
--- NOTE | 2019-12-31 19:35 | NUR ---
SECURITY SYSTEMS MANAGER OPEN NOTES PATIENT IS LAYING IN BED. JUST FINISHED EGD PROCEDURE. HR WAS IN HIGH 40'S BUT HAS NOW RISEN TO 50'S- 60'S. ON MECH VENT TOLERATING WELL, NO SOB/ ACUTE RESPIRATORY DISTRESS NOTED. NO COMPLAINTS OF PAIN AT THE MOMENT. BED IS IN LOWEST LOCKED POSITION WITH SIDE RAILS UP, SEMI FOWLERS. CALL LIGHT IS WITHIN REACH. WILL CONTINUE TO MONITOR FOR ANY CHANGES.
[2019-12-31] MEDS ORDERED: NEPRO 1,000 ML BOTTLE GT PRN (20:30)
[2019-12-31 20:35] VITALS: BP 110/32
[2020-01-01] MEDS: NITROGLYCERIN 30 GM TUBE TP SCH ×4 (00:14→17:00)
[2020-01-01] MEDS: BLOOD SUGAR DIAGNOSTIC 1 EACH STRIP IN SCH ×4 (01:12→17:36)
[2020-01-01] MEDS: ALBUTEROL FS 2.5 MG/0.5 ML VIAL.NEB IH SCH ×3 (01:16→13:14)
[2020-01-01] MEDS: CLONIDINE HCL 0.1 MG TABLET PO PRN (01:55)
--- NOTE | 2020-01-01 01:55 | NUR ---
FAMILY EDUCATOR NOTES ADMINISTERED CLONIDINE 0.1 MG PRN. PT'S BP WAS 183/74. WILL CONTINUE TO MONITOR FOR ANY CHANGES.
[2020-01-01 03:03] VITALS: BP 200/55
[2020-01-01 04:09] VITALS: BP 196/75
[2020-01-01] MEDS: IV 10% DEXTROSE 1,000 ML IV PRN (05:39)
--- NOTE | 2020-01-01 06:21 | NUR ---
EXPLOSIVE ORDNANCE HANDLER CLOSE NOTES PATIENT IS LAYING IN BED. A/O X1. ON MECH VENT TOLERATING WELL. NO SOB/ ACUTE RESPIRATORY DISTRESS NOTED. APPEARS COMFORTABLE, NO COMPLAINTS OF PAIN AT THE MOMENT. GTF RUNNING @ 20 MLS/HR. IV ON L FOREARM #20G IS PATENT AND INTACT RUNNING DEXTROSE 10% @ 30MLS/HR. BED IS IN LOWEST LOCKED POSITION WITH SIDE RAILS UP X3, SEMI FOWLERS. CALL LIGHT IS WITHIN REACH. WILL ENDORSE TO AM NURSE.
[2020-01-01] MEDS: LEVOTHYROXINE SODIUM 125 MCG TABLET GT SCH (07:30)
--- NOTE | 2020-01-01 07:49 | NUR ---
RN OPENING NOTE Patient is resting in bed, A/O x1, able to mouth out words. Patient is in no acute distress, no SOB, on mechanical vent AC12, TV500 FiO2 40% PEEP 5. Tele monitor SB 50s. G-tube feeding running Nepro @ 20mls/hr. Bed is in lowest position, side rails x3 in upright position, fall safety and aspiration precautions enforced. Will endorse to weight shifter. Addendum: 01/01/20 at 0753 by PAULIE MALLOY RN Will continue with plan of care*
--- NOTE | 2020-01-01 07:57 | NUR ---
RT NOTE HHN TX NOT GIVEN DUE TO PENDING COVID 19 TEST RESULTS. NO SOB NOTED SAT 99% HR 48
[2020-01-01 08:00] VITALS: BP 170/49
[2020-01-01] MEDS: DOCUSATE SODIUM LIQ 100 MG/10 ML UDC GT SCH (08:36)
[2020-01-01] MEDS: LEVETIRACETAM SOL (5 ML) 100 MG/ML UDC GT SCH (08:36)
[2020-01-01] MEDS: CHLORHEXIDINE GLUCONATE 15 ML UDC MM SCH (08:36)
[2020-01-01] MEDS: SUCRALFATE 1 G/10 ML UDC GT SCH ×3 (08:36→16:58)
[2020-01-01] MEDS: MINOXIDIL (2.5MG) 2.5 MG TABLET PO SCH (08:38)
[2020-01-01] MEDS: LISINOPRIL (20MG) 20 MG TABLET GT SCH ×2 (08:38→16:59)
[2020-01-01] MEDS: AMLODIPINE BESYLATE 10 MG TABLET GT SCH (08:38)
[2020-01-01] MEDS: CLOTRIMAZOLE 1% 15 GM TUBE TP SCH ×2 (08:39→16:59)
[2020-01-01] MEDS: PANTOPRAZOLE 40 MG VIAL IV SCH ×2 (08:39→16:58)
[2020-01-01 12:00] VITALS: BP 148/50
--- NOTE | 2020-01-01 12:00 | NUR ---
RN NOTE Ok to DC IVF per Dr. Caballero.
[2020-01-01 16:00] VITALS: BP 164/60
--- NOTE | 2020-01-01 16:00 | NUR ---
RN NOTE Patient is tolerating feeding well. Advanced 20mls/hr to 45mls/hr per Dr. Caballero's orders.
[2020-01-01 17:00] VITALS: BP 164/60
--- NOTE | 2020-01-01 18:18 | NUR ---
RN CLOSING NOTE Patient is resting in bed, A/O x1, able to mouth out words. Patient is in no acute distress, no SOB, on mechanical vent AC12, TV500 FiO2 40% PEEP 5. Tele monitor SB 50s. G-tube feeding running Nepro @ 45mls/hr, with 10ml of residual, flushing well. IV line in the RAC #22g is clean and intact s/l. All patient needs met, all due medications given, patient kept clean and dry throughout shift. Per Case Management, patient is expected to be DC today, however MD unable to put in DC order and got pushed back to tomorrow in AM per CM's notes. Skin assessed and photos taken and placed in chart. Bed is in lowest position, side rails x3 in upright position, fall safety and aspiration precautions enforced. Will endorse to manager shift. Addendum: 01/01/20 at 6156 by PAULIE MALLOY RN Report given to Ryne Ridley [phone]
[2020-01-01] MEDS ORDERED: MINO2.5T PO (18:29)
[2020-01-01] MEDS ORDERED: NEPRO 1,000 ML BOTTLE GT PRN (18:30)
--- NOTE | 2020-01-01 18:36 | NUR ---
RN NOTE Reached out to CM and patient is to be discharged tonight to [facility] bed 11b Address: [address] [place] [address] [facility] AM [facility] on will call [phone]. Will endorse to shift stacker.
--- NOTE | 2020-01-01 19:30 | NUR ---
HEEL PACKER NOTES CALLED LUISA WHITNEY FOR BANKING AND FINANCE INSTRUCTOR FOR D/C TO [facility], SCHEDULED FOR 2044 OR POSSIBLY SOONER. WILL CONTINUE TO MONITOR
--- NOTE | 2020-01-01 19:32 | NUR ---
RN OPENING NOTE Patient is resting in bed, A/O x1, able to mouth out words. Patient is in no acute distress, no SOB, on mechanical vent AC12, TV500 FiO2 40% PEEP 5 tolerating settings well. Tele monitor SB 50s. G-tube feeding running Nepro @ 45mls/hr. Bed is in lowest position, side rails x3 in upright position, fall safety and aspiration precautions enforced. Will continue to monitor throughout the shift.
--- NOTE | 2020-01-01 20:30 | NUR ---
BOTTOM TURNING LATHE TENDERLASER BEAM CUTTER NOTES PATIENT D/C WITH TRANSPORTERS AND RT TO [facility]. IV STAYING ON, FACILITY AWARE. ID BAND REMOVED. BELONGINGS ACCOUNTED FOR. DISCHARGE PAPER WORK GIVEN TO TRANSPORTER, PATIENT UNABLE TO SIGN, RN WITNESSED. REPORT GIVEN TO [facility] NURSE FROM AM NURSE. VITALS TAKEN. PICTURES TAKEN. PATIENT LEFT MEDICALLY STABLE. PATIENT LEFT UNIT VIA GURNEY.
== END 2020-01-01 20:25 | DRG 291 ==
LOC: ER 17:06 → TELE 20:22
PROVIDERS: ADMIT Internal Medicine; ATTEND Internal Medicine
PROC: 5A1955Z Respiratory Ventilation, Greater than 96 Consecutive Hours (ICD-10-PCS; principal; 2019-12-21)
PROC: 30233N1 Transfusion of Nonautologous Red Blood Cells into Peripheral Vein, Percutaneous Approach (ICD-10-PCS; 2019-12-21)
PROC: 5A1D70Z Performance of Urinary Filtration, Intermittent, Less than 6 Hours Per Day (ICD-10-PCS; 2019-12-22)
PROC: 0DB68ZX Excision of Stomach, Via Natural or Artificial Opening Endoscopic, Diagnostic (ICD-10-PCS; 2019-12-31)
DX: I13.2 Hypertensive heart and chronic kidney disease with heart failure and with stage 5 chronic kidney disease, or end stage renal disease (principal); G93.41 Metabolic encephalopathy; N18.6 End stage renal disease; J96.10 Chronic respiratory failure, unspecified whether with hypoxia or hypercapnia; J84.9 Interstitial pulmonary disease, unspecified; Z99.11 Dependence on respirator [ventilator] status; I50.32 Chronic diastolic (congestive) heart failure; D62 Acute posthemorrhagic anemia; I25.10 Atherosclerotic heart disease of native coronary artery without angina pectoris; E11.22 Type 2 diabetes mellitus with diabetic chronic kidney disease; E03.9 Hypothyroidism, unspecified; I25.2 Old myocardial infarction; I27.20 Pulmonary hypertension, unspecified; K82.8 Other specified diseases of gallbladder; L30.4 Erythema intertrigo; Z79.4 Long term (current) use of insulin; Z93.1 Gastrostomy status; Z99.2 Dependence on renal dialysis; G40.909 Epilepsy, unspecified, not intractable, without status epilepticus; E78.5 Hyperlipidemia, unspecified; Z93.0 Tracheostomy status; L98.8 Other specified disorders of the skin and subcutaneous tissue; L89.156 Pressure-induced deep tissue damage of sacral region; R21 Rash and other nonspecific skin eruption; R00.1 Bradycardia, unspecified; B36.9 Superficial mycosis, unspecified; Z79.02 Long term (current) use of antithrombotics/antiplatelets; R13.10 Dysphagia, unspecified; K29.70 Gastritis, unspecified, without bleeding
CPT/HCPCS: 31720; 36415; 36600; 71045-TC; 80048-TC; 80053-TC; 80061-TC; 82272-TC; 82728-TC; 82962-TC; 83540-TC; 83735-TC; 84100-TC; 84443-TC; 84484-TC; 85025-TC; 85610-TC; 85730-TC; 86706; 86850-TC; 86921-TC; 87081-TC; 87340; 90935-TC; 93970-TC; 94003-TC; 94760-TC; 94762-TC; 94799-TC; A4623; A7526; C9113; G0378; J1953; J2704; J3490; J7040; J7050; P9016-BL; U0003-CS